=== PATIENT | male | born 1940 | race Caucasian/White ===

== ENCOUNTER 2018-06-10 14:43 | Inpatient (IN) | payer MEDICARE ==
[2018-06-10] MEDS ORDERED: RINGERS SOLUTION,LACTATED 1,000 ML IV ONE ×2 (16:52→19:50)
--- NOTE | 2018-06-10 16:58 | ER Document Report ---
ED Medical Screen (RME) - General Chief Complaint: Nausea/Vomiting Stated Complaint: VOMITING Time Seen by Provider: 06/10/18 16:48 Notes: Patient with a history of Parkinson's. Became ill this past weekend with vomiting and diarrhea for about the past 4 days. Patient has had a previous stroke and family has concerns he may have had another one because he is having difficulty with his speech in the past few days. He fell and hit the right lateral orbial rim on the floor sustaining a small laceration, less than 1 cm. He is not had any appetite and eating very poorly. Continues to have difficulty controlling his bowel movements which continue to be diarrhea. He has had to loose bowel movements in the hour and a half that the patient has been in this emergency department waiting area. Some of the stools have been dark colored, b ut family member says the patient has been given some Pepto-Bismol. Has not had any fever. Had his appendix removed. Patient has hypothyroid, hypertension, high cholesterol, and atrial fibrillation . Patient is not on any medication other than Plavix for the atrial fibrillation because he could not afford the Eliquis that his doctor wanted him to take. TRAVEL OUTSIDE OF THE [place] IN LAST 30 DAYS: No - Related Data Allergies/Adverse Reactions: No Known Allergies Allergy (Verified 06/10/18 16:39) Past Medical History - Social History Chew tobacco use (# tins/day): No Frequency of alcohol use: None Drug Abuse: None - Past Medical History Cardiac Medical History: Reports: Hx Atrial Fibrillation, Hx Hypertension Renal/ Medical History: Denies: Hx Peritoneal Dialysis Psychiatric Medical History: Reports: Hx Depression Past Surgical History: Reports: Hx Appendectomy Physical Exam - Vital signs Vitals: Temp Pulse Resp BP Pulse Ox 97.6 F 104 H 18 103/52 L 95 06/10/18 14:51 06/10/18 14:51 06/10/18 14:51 06/10/18 14:51 06/10/18 14:51 Course - Vital Signs Vital signs: Temp Pulse Resp BP Pulse Ox 97.6 F 104 H 18 103/52 L 95 06/10/18 14:51 06/10/18 14:51 06/10/18 14:51 06/10/18 14:51 06/10/18 14:51
--- NOTE | 2018-06-10 17:49 | RADIOLOGY REPORT (SQ) ---
EXAM DESCRIPTION: CT HEAD WITHOUT COMPLETED DATE/TIME: 06/10/2018 5:40 pm REASON FOR STUDY: Fell and hit right orbit, Hx stroke, Parkinson's COMPARISON: None. TECHNIQUE: Axial images acquired through the brain without intravenous contrast. Images reviewed wi th bone, brain and subdural windows. Additional sagittal and coronal reconstructions were generated. Images stored on PACS. All CT scanners at this facility use dose modulation, iterative reconstruction, and/or weight based d osing when appropriate to reduce radiation dose to as low as reasonably achievable (ALARA). [facility]: Dose Right [facility]: CareDose [facility]: Dose Right [facility]: Teradose 4D [facility]: Smart [employer] RADIATION DOSE: CT Rad equipment meets quality standard of care and radiation dose reduction techniq ues were employed. CTDIvol: 23.1 mGy. DLP: 453 mGy-cm.mGy. LIMITATIONS: None. FINDINGS: VENTRICLES: Prominent. CEREBRUM: No masses. No hemorrhage. No midline shift. Areas of low density in the white matter mos t likely due to chronic micro-vascular ischemic change. No evidence for acute infarction. CEREBELLUM: No masses. No hemorrhage. No alteration of density. No evidence for acute infarction. EXTRAAXIAL SPACES: Age-related involutional change. No fluid collections. No masses. ORBITS AND GLOBE: No intra- or extraconal masses. Normal contour of globe without masses. CALVARIUM: No fracture. PARANASAL SINUSES: No fluid or mucosal thickening. SOFT TISSUES: No mass or hematoma. OTHER: No other significant finding. IMPRESSION: CHRONIC CHANGES OF ATROPHY AND MICROVASCULAR ISCHEMIA. NO ACUTE PROCESS. EVIDENCE OF ACUTE STROKE: NO. TECHNICAL DOCUMENTATION: JOB ID: [id number] Quality ID # [id number]: Final reports with documentation of one or more dose reduction techniques (e.g., Au tomated exposure control, adjustment of the mA and/or kV according to patient size, use of iterative reconstruction technique) 2010 [employer]- All Rights Reserved Reading location - IP/workstation name: [email or web address]
--- NOTE | 2018-06-10 17:52 | RADIOLOGY REPORT (SQ) ---
EXAM DESCRIPTION: CHEST 2 VIEWS COMPLETED DATE/TIME: 06/10/2018 5:43 pm REASON FOR STUDY: Fall and hit head COMPARISON: None. EXAM PARAMETERS: NUMBER OF VIEWS: two views TECHNIQUE: Digital Frontal and Lateral radiographic views of the chest acquired. RADIATION DOSE: NA LIMITATIONS: none FINDINGS: LUNGS AND PLEURA: Possible 6 mm pulmonary nodule on the right. Left lung is clear. MEDIASTINUM AND HILAR STRUCTURES: No masses or contour abnormalities. HEART AND VASCULAR STRUCTURES: Heart normal size. No evidence for failure. BONES: No acute findings. HARDWARE: None in the chest. OTHER: No other significant finding. IMPRESSION: Possible right-sided pulmonary nodule. No acute findings. TECHNICAL DOCUMENTATION: JOB ID: [id number] [employer]- All Rights Reserved Reading location - IP/workstation name: [email or web address]
[2018-06-10 17:59] LABS: APPEARANCE,URINE SLIGHTLY-CLOUDY; BILIRUBIN,URINE NEGATIVE (NEGATIVE); COLOR,URINE AMBER; GLUCOSE, URINE NEGATIVE (NEGATIVE); KETONES,URINE TRACE mg/dL (NEGATIVE); LEUKOCYTE ESTERASE,URINE NEGATIVE (NEGATIVE); NITRITE,URINE NEGATIVE (NEGATIVE); PROTEIN,URINE NEGATIVE (NEGATIVE); URINE SPECIFIC GRAVITY 1.021
[2018-06-10 18:06] LABS: ABSOLUTE LYMPHOCYTES (AUTO) 0.9 10^3/uL (0.5-4.7); ABSOLUTE MONOCYTES (AUTO) 0.7 10^3/uL (0.1-1.4); ABSOLUTE NEUT (AUTO) 16.1 10^3/uL (1.7-8.2); BASOPHILS % (AUTO) 0.1 % (0-2); EOSINOPHILS % (AUTO) 0.1 % (0-6); HEMATOCRIT 43.7 % (37.9-51.0); LYMPHOCYTES % (AUTO) 5.2 % (13-45); MEAN CORPUSCULAR HEMOGLOBIN 31.7 pg (27.0-33.4); MEAN CORPUSCULAR HGB CONC 34.3 g/dL (32.0-36.0); MEAN CORPUSCULAR VOLUME 92 fl (80-97); MONOCYTES % (AUTO) 4.2 % (3-13); PLATELET COUNT 215 10^3/uL (150-450); RED BLOOD COUNT 4.73 10^6/uL (4.35-5.55); SEGMENTED NEUTROPHILS % (AUTO) 90.4 % (42-78); TOTAL CELLS COUNTED % (AUTO) 100 %; WHITE BLOOD COUNT 17.8 10^3/uL (4.0-10.5)
[2018-06-10 18:18] LABS: ALANINE AMINOTRANSFERASE 11 U/L (21-72); ALBUMIN 4.3 g/dL (3.5-5.0); ALKALINE PHOSPHATASE 79 U/L (38-126); ANION GAP 16 (5-19); ASPARTATE AMINO TRANSFERASE 133 U/L (17-59); BILIRUBIN,DIRECT 0.6 mg/dL (0.0-0.4); BILIRUBIN,TOTAL 3.4 mg/dL (0.2-1.3); BLOOD UREA NITROGEN 80 mg/dL (7-20); CALCIUM 9.7 mg/dL (8.4-10.2); CARBON DIOXIDE 28 mmol/L (22-30); CHLORIDE 93 mmol/L (98-107); GLUCOSE 105 mg/dL (75-110); POTASSIUM 4.1 mmol/L (3.6-5.0); SODIUM 137.1 mmol/L (137-145); TOTAL PROTEIN 7.9 g/dL (6.3-8.2)
[2018-06-10 18:33] LABS: FREE T4 (FREE THYROXINE) 1.77 ng/dL (0.78-2.19)
[2018-06-10 19:27] LABS: THYROID STIMULATING HORMONE 3.04 uIU/mL (0.47-4.68)
--- NOTE | 2018-06-10 19:43 | ER Document Report ---
ED General - General Chief Complaint: Nausea/Vomiting Stated Complaint: VOMITING Time Seen by Provider: 06/10/18 16:48 Notes: Pleasant 77-year-old male with past medical history of Parkinson's disease, A. fib, hypertension, hypothyroidism presents to the emergency department with diarrhea and vomiting since . Per son, patient was at home with him and his heard patient fall. Patient did not lose consciousness and was only down for a very brief period of time. He suffered a small laceration over his right eye. Per son, mentation was normal at the time. Also, patient has had "sour stomach" since the . Patient endorses nausea, vomiting, diarrhea, reduced appetite. Patient denies lightheadedness, dizziness, shortness of breath, chest pain, abdominal pain, new weakness in any extremities. Per patient, he is urinating normally. TRAVEL OUTSIDE OF THE [place] IN LAST 30 DAYS: No - HPI Patient complains to provider of: Diarrhea, vomiting since - Related Data Allergies/Adverse Reactions: No Known Allergies Allergy (Verified 06/10/18 16:39) Past Medical History - General Information source: Patient, Relative - Social History Smoking Status: Never Smoker Chew tobacco use (# tins/day): No Frequency of alcohol use: None Drug Abuse: None Family History: Reviewed & Not Pertinent Patient has suicidal ideation: No Patient has homicidal ideation: No - Past Medical History Cardiac Medical History: Reports: Hx Atrial Fibrillation, Hx Hypertension Renal/ Medical History: Denies: Hx Peritoneal Dialysis Psychiatric Medical History: Reports: Hx Depression Past Surgical History: Reports: Hx Appendectomy Review of Systems - Review of Systems Constitutional: See HPI EENT: See HPI Cardiovascular: See HPI Respiratory: See HPI Gastrointestinal: See HPI Genitourinary: See HPI Male Genitourinary: No symptoms reported Musculoskeletal: No symptoms reported Skin: No symptoms reported Hematologic/Lymphatic: No symptoms reported Neurological/Psychological: See HPI Physical Exam - Vital signs Vitals: Temp Pulse Resp BP Pulse Ox 97.6 F 104 H 18 103/52 L 95 06/10/18 14:51 06/10/18 14:51 06/10/18 14:51 06/10/18 14:51 06/10/18 14:51 - Notes Notes: Reviewed vital signs and nursing note as charted by RN. CONSTITUTIONAL: Well-appearing, well-nourished, acting appropriately for age HEAD: Normocephalic, laceration noted over R orbital rim ~1cm that is healing and scabbed, no active bleeding, no swelling EYES: PERRL, Conjunctivae clear, no drainage, EOMI, no scleral icterus ENT: External ears without lesions, External auditory canal is patent, airway patent, mucous membranes pink and moist NECK: Supple, no cervical lymphadenopathy, no masses CARD: Irregularly irregular rhythm, no murmurs, no rubs, no gallops, capillary refill < 2 seconds, symmetric pulses RESP: The lungs are clear to auscultation bilaterally, no wheezing, no rales, no rhonchi. Respiratory rate and effort are normal, normal chest excursion. No respiratory distress, no retractions, no stridor, no nasal flaring, no accessory muscle use. ABD/GI: Normal bowel sounds, non-distended, soft, non-tender, no rebound, no guarding, no palpable organomegaly EXT: Normal ROM in all joints, non-tender to palpation, no effusions, no edema SKIN: Normal color for age and race, warm, dry, good turgor, no acute lesions noted NEURO: No facial asymmetry, moves all extremities equally, motor and sensory function intact Course - Re-evaluation Re-evalutation: 06/10/18 19:43 77-year-old male who presents with vomiting and diarrhea since . Per son a "stomach bug" has been going around and his father was the first person to get it. Son says he has had upset stomach since the . Son states that the diarrhea has been persistent and at one point he was taking him to the bathroom every 40 minutes. Patient with a previous stroke in summer 2017, son was initially concerned that he may have had another one. CT head showed no evidence of ischemia or intracranial bleed. CMP showed [facility]LA[facility]. Pt has received 1 L Ringer's lactate. Potassium 4.1, patient mildly alkalotic, bicarb 28. Unclear if this is his baseline kidney function but per son he has no previous kidney problems and patient does urinate. Plan to give additional fluid and call hospitalist for admission 06/10/18 23:[address] Genao who agrees to accept the patient to the medical floor. - Vital Signs Vital signs: Temp Pulse Resp BP Pulse Ox 97.3 F 72 18 95/53 L 93 06/10/18 22:05 06/10/18 22:13 06/10/18 22:13 06/10/18 22:13 06/10/18 22:13 - Laboratory Result Diagrams: 06/10/18 17:26 06/10/18 17:26 Laboratory results interpreted by me: 06/10/18 06/10/18 06/10/18 17:17 17:26 17:26 WBC 17.8 H Seg Neutrophils % 90.4 H Lymphocytes % 5.2 L Absolute Neutrophils 16.1 H Chloride 93 L BUN 80 H Creatinine 4.70 H Est GFR ( Amer) 15 L Est GFR (Non-Af Amer) 12 L Total Bilirubin 3.4 H Direct Bilirubin 0.6 H AST 133 H ALT 11 L Urine Ketones TRACE H Urine Urobilinogen 2.0 H Discharge - Discharge Clinical Impression: Acute kidney injury, Dehydration Nausea & vomiting Qualifiers: Vomiting type: unspecified Vomiting Intractability: non-intractable Qualified Code(s): R11.2 - Nausea with vomiting, unspecified Condition: Stable Disposition: ADMITTED INPATIENT Admitting Provider: Hospitalist Unit Admitted: Medical Floor
[2018-06-10] MEDS ORDERED: RINGERS SOLUTION,LACTATED 1,000 ML IV PRN (19:50)
[2018-06-10] MEDS ORDERED: MAG HYDROX/AL HYDROX/SIMETH SUSP 30 ML UDCUP PO PRN (20:39)
[2018-06-10] MEDS ORDERED: MAGNESIUM HYDROXIDE SUSP 30 ML UDCUP PO PRN (20:39)
[2018-06-10] MEDS ORDERED: ONDANSETRON 4 MG TAB.RAPDIS PO PRN (20:39)
[2018-06-10] MEDS ORDERED: FAMOTIDINE 20 MG TABLET PO SCH (22:00)
[2018-06-10] MEDS: HEPARIN SOD (PORCINE) 5,000 UNIT/ML 1 ML SYRINGE SUBCUT SCH (22:58)
--- NOTE | 2018-06-11 01:39 | PDOC H&P ---
History of Present Illness Admission Date/PCP: 06/10/18 20:28 CARI FRASER MD Patient complains of: Nausea, vomiting and diarrhea History of Present Illness: JIM MORA is a 77 year old male who presented to the emergency room with a 5-day history of nausea, vomiting and diarrhea. Patient admits that he began having nausea and dyspepsia a few days before Lois and then on Saskia he developed vomiting and diarrhea. He admits to many to count episodes of relatively clear liquid stools and clear emesis over the last 72 hours prior to admission. He denies abdominal pain, hematemesis, hematochezia, fever or chills. He has not recently traveled outside the country and has not eaten any unusual or off taste food items in the last week. He has not been associated with anyone else who has a similar illness. He rates his vomiting and diarrhea as severe and denies similar prior episodes. He has not identified any aggravating or ameliorating factors for his vomiting and diarrhea. Today he was weak when he tried to get up from a seated position and seemed to lose his balance and fell striking his right periorbital region on an undetermined object in his home. He did not suffer a loss of consciousness and has only minimal pain in the right periorbital region at the site of the injury. He was seen in the ER for evaluation of the right periorbital contusion/abrasion which showed no evidence of fracture or intracranial injury. During the evaluation he was found to have severely elevated renal functions with a BUN of 80 and a crea tinine of 4.7 and was subsequently admitted hospital for treatment of his acute renal insufficiency/acute kidney injury (nontraumatic). Past Medical History Cardiac Medical History: Reports: Atrial Fibrillation, Hypertension Pulmonary Medical History: Denies: Asthma, Chronic Obstructive Pulmonary Disease (COPD) EENT Medical History: Reports: None Neurological Medical History: Reports: Other - Parkinson's disease Denies: Hemorrhagic CVA, Ischemic CVA, Seizures Endocrine Medical History: Reports: Hypothyroidism Denies: Diabetes Mellitus Type 1, Diabetes Mellitus Type 2, Hyperthyroidism Renal/ Medical History: Denies: Chronic Kidney Disease, Nephrolithiasis Malignancy Medical History: Reports: None GI Medical History: Denies: Cirrhosis, Hepatitis Musculoskeltal Medical History: Denies: Arthritis, Gout Skin Medical History: Denies: Eczema, Psoriasis Psychiatric Medical History: Reports: Depression Denies: Alcohol Dependency, Substance Abuse, Tobacco Dependency Traumatic Medical History: Reports: None Hematology: Denies: Anemia, Bleeding Tendencies Infectious Medical History: Reports: None Past Surgical History Past Surgical History: Reports: Appendectomy Social History Information Source: Patient Smoking Status: Never Smoker Frequency of Alcohol Use: None Hx Recreational Drug Use: No Drugs: None Hx Prescription Drug Abuse: No - Advance Directive Resuscitation Status: Full Code Surrogate healthcare decision maker:: Arnoldo Mora Family History Family History: Hypertension Parental Family History Reviewed: Yes Children Family History Reviewed: No Sibling(s) Family History Reviewed.: Yes Medication/Allergy Home Medications: Atorvastatin Calcium [Lipitor 40 mg Tablet] 40 mg PO DAILY 06/10/18 Carbidopa/Levodopa [Sinemet 25-100 mg Tablet] 1 each PO 5XD 06/10/18 Clopidogrel Bisulfate [Plavix] 75 mg PO DAILY 06/10/18 Levothyroxine Sodium [Synthroid 0.05 mg Tablet] 0.05 mg PO DAILY 06/10/18 Lisinopril 10 mg PO DAILY 06/10/18 Metoprolol Succinate [Toprol Xl] 25 mg PO DAILY 06/10/18 Multivitamin [One-A-Day Essential] 1 each PO DAILY 06/10/18 Sertraline HCl [Zoloft] 25 mg PO QAM 06/10/18 Allergies/Adverse Reactions: No Known Allergies Allergy (Verified 06/10/18 16:39) Review of Systems Constitutional: PRESENT: as per HPI, weakness - Generalized, resulting in a fall at home leading to admission. ABSENT: chills, fever(s) Eyes: PRESENT: as per HPI, other - No ocular pain, periorbital pain of the right lateral eye region secondary to injury and fall as reported in the history of present illness. ABSENT: visual disturbances Ears: ABSENT: hearing changes, other - Ear pain Nose, Mouth, and Throat: ABSENT: mouth pain, sore throat Cardiovascular: ABSENT: chest pain, dyspnea on exertion, palpitations Respiratory: ABSENT: cough, dyspnea Gastrointestinal: PRESENT: as per HPI, diarrhea, nausea, vomiting, other - Dyspepsia. ABSENT: abdominal pain, constipation, hematemesis, hematochezia, melena Genitourinary: ABSENT: dysuria, hematuria Musculoskeletal: ABSENT: back pain, joint swelling Integumentary: ABSENT: pruritus, rash Neurological: PRESENT: tremor(s) - Chronic secondary to parkinsonism, weakness - Generalized weakness with a fall on the day of admission evaluated in the emergency room with no evidence of injury or post fall sequelae. ABSENT: confusion, convulsions, memory loss, syncope, vertigo Psychiatric: ABSENT: anxiety, depression Endocrine: ABSENT: cold intolerance, heat intolerance Hematologic/Lymphatic: ABSENT: easy bleeding, easy bruising Physical Exam Vital Signs: Temp Pulse Resp BP Pulse Ox 97.6 F 104 H 18 103/52 L 95 06/10/18 14:51 06/10/18 14:51 06/10/18 14:51 06/10/18 14:51 06/10/18 14:51 Intake & Output 06/08/18 06/09/18 06/10/18 23:59 23:59 23:59 Intake Total 1000 Balance 1000 Weight 81.8 kg General appearance: PRESENT: no acute distress, cooperative Head exam: PRESENT: normocephalic, other - Ecchymosis with abrasion and mild edema present in the right superior lateral periorbital region. Parkinson's facial changes (expressionless) noted. Eye exam: PRESENT: conjunctiva pink, EOMI, periorbital swelling - Minimal, right superior lateral periorbital region. ABSENT: scleral icterus Ear exam: PRESENT: normal external ear exam. ABSENT: bleeding, drainage Mouth exam: PRESENT: dry mucosa, neck supple Neck exam: ABSENT: thyromegaly, tracheal deviation Respiratory exam: PRESENT: clear to auscultation emil, symmetrical, unlabored Cardiovascular exam: PRESENT: irregular rhythm - Irregularly irregular rate and rhythm. ABSENT: clicks, gallop, rubs Pulses: PRESENT: normal radial pulses, normal dorsalis pedis pul Vascular exam: PRESENT: normal capillary refill. ABSENT: pallor GI/Abdominal exam: PRESENT: normal bowel sounds, soft. 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 ABSENT: motor sensory deficit Psychiatric exam: PRESENT: appropriate affect, normal mood Skin exam: PRESENT: dry, intact, warm. ABSENT: jaundice, rash, urticaria Results Laboratory Results: 06/10/18 17:26 06/10/18 17:26 06/10/18 06/10/18 06/10/18 17:17 17:26 17:26 WBC 17.8 H RBC 4.73 Hgb 15.0 Hct 43.7 MCV 92 MCH 31.7 MCHC 34.3 RDW 14.0 Plt Count 215 Seg Neutrophils % 90.4 H Lymphocytes % 5.2 L Monocytes % 4.2 Eosinophils % 0.1 Basophils % 0.1 Absolute Neutrophils 16.1 H Absolute Lymphocytes 0.9 Absolute Monocytes 0.7 Absolute Eosinophils 0.0 Absolute Basophils 0.0 Sodium 137.1 Potassium 4.1 Chloride 93 L Carbon Dioxide 28 Anion Gap 16 BUN 80 H Creatinine 4.70 H Est GFR ( Amer) 15 L Est GFR (Non-Af Amer) 12 L Glucose 105 Calcium 9.7 Total Bilirubin 3.4 H AST 133 H ALT 11 L Alkaline Phosphatase 79 Total Protein 7.9 Albumin 4.3 TSH Free T4 Urine Color ONEIL Urine Appearance SLIGHTLY-CLOUDY Urine pH 5.0 Ur Specific [place] 1.021 Urine Protein NEGATIVE Urine Glucose (UA) NEGATIVE Urine Ketones TRACE H Urine Blood NEGATIVE Urine Nitrite NEGATIVE Ur Leukocyte Esterase NEGATIVE Urine WBC (Auto) 5 Urine RBC (Auto) 1 06/10/18 17:26 WBC RBC Hgb Hct MCV MCH MCHC RDW Plt Count Seg Neutrophils % Lymphocytes % Monocytes % Eosinophils % Basophils % Absolute Neutrophils Absolute Lymphocytes Absolute Monocytes Absolute Eosinophils Absolute Basophils Sodium Potassium Chloride Carbon Dioxide Anion Gap BUN Creatinine Est GFR ( Amer) Est GFR (Non-Af Amer) Glucose Calcium Total Bilirubin AST ALT Alkaline Phosphatase Total Protein Albumin TSH 3.04 Free T4 1.77 Urine Color Urine Appearance Urine pH Ur Specific [place] Urine Protein Urine Glucose (UA) Urine Ketones Urine Blood Urine Nitrite Ur Leukocyte Esterase Urine WBC (Auto) Urine RBC (Auto) Impressions: Chest X-Ray 06/10/18 16:49 IMPRESSION: Possible right-sided pulmonary nodule. No acute findings. Head CT 06/10/18 16:51 IMPRESSION: CHRONIC CHANGES OF ATROPHY AND MICROVASCULAR ISCHEMIA. NO ACUTE PROCESS. EVIDENCE OF ACUTE STROKE: NO. Assessment & Plan - Diagnosis (1) Acute kidney injury Is this a current diagnosis for this admission?: Yes Plan: Patient will be treated with rehydration utilizing normal saline at 167 mL/h initially with adjustments made as needed. Daily metabolic profiles will be obtained to assess renal function. (2) Acute gastroenteritis Is this a current diagnosis for this admission?: Yes Plan: Patient will be initiated on a full liquid diet with a cardiac diet restriction. He will be rehydrated with normal saline at 167 mL/h initially and will receive symptomatic care for nausea and vomiting with Zofran. Due to his generalized weakness, associated with his acute gastroenteritis, fall risk precautions will be taken. (3) Dehydration Is this a current diagnosis for this admission?: Yes Plan: Patient will be rehydrated utilizing normal saline at 167 mL/h initially with changes to be made appropriate to his clinical situation. Daily assessment of the patient's metabolic profile and magnesium levels will be obtained. (4) Chronic atrial fibrillation Is this a current diagnosis for this admission?: Yes Plan: Patient is not currently on anticoagulation therapy. He is taking Plavix 75 mg daily and aspirin 81 mg will be added to his daily regimen. He will be continued on metoprolol succinate 25 mg daily for rate control and will be observed for any complications or need for therapeutic changes. (5) HTN (hypertension) Qualifiers: Hypertension type: unspecified Qualified Code(s): I10 - Essential (primary) hypertension Is this a current diagnosis for this admission?: Yes Plan: Patient is taking only metoprolol succinate 25 mg daily for rate control of his atrial fibrillation and presumably control of his hypertension. Additional medication for this admission is initiation of low-dose aspirin therapy 81 mg daily. (6) Hypothyroidism Qualifiers: Hypothyroidism type: unspecified Qualified Code(s): E03.9 - Hypothyroidism, unspecified Is this a current diagnosis for this admission?: Yes Plan: Continue current thyroid replacement hormone as TSH and thyroid levels are within the normal range. (7) Parkinsons disease Is this a current diagnosis for this admission?: Yes Plan: This may have contributed at least in part to the patient's fall. He will continue on his current Parkinson's therapeutic regiment during his hospital course with adjustments to be made only as required clinically. - Time Time Spent: 30 to 50 Minutes Critical Time spent with patient: Less than 15 minutes Medications reviewed and adjusted accordingly: Yes Anticipated discharge: Home - Inpatient Certification Based on my medical assessment, after consideration of the patient's comorbidities, presenting symptoms, or acuity I expect that the services needed warrant INPATIENT care.: Yes I certify that my determination is in accordance with my understanding of Medicare's requirements for reasonable and necessary INPATIENT services [42 CFR 412.3e].: Yes Medical Necessity: Significant Comorbidiites Make Outpatient Treatment Too Risky , Need Close Monitoring Due to Risk of Patient Decompensation, Need For IV Fluids, Risk of Complication if Not Cared For in Hospital
[2018-06-11] MEDS: HEPARIN SOD (PORCINE) 5,000 UNIT/ML 1 ML SYRINGE SUBCUT SCH ×3 (05:35→21:18)
[2018-06-11] MEDS: LANSOPRAZOLE 15 MG TAB.RAP.DR PO SCH (05:35)
[2018-06-11] MEDS: NORMAL SALINE 1000 ML 1,000 ML IV PRN ×3 (05:36→22:11)
[2018-06-11 05:56] LABS: ABSOLUTE BASOPHILS # (AUTO) 0.1 10^3/uL (0.0-0.2); ABSOLUTE EOSINOPHILS # (AUTO) 0.2 10^3/uL (0.0-0.6); ABSOLUTE LYMPHOCYTES (AUTO) 1.4 10^3/uL (0.5-4.7); ABSOLUTE MONOCYTES (AUTO) 0.7 10^3/uL (0.1-1.4); ABSOLUTE NEUT (AUTO) 12.5 10^3/uL (1.7-8.2); BASOPHILS % (AUTO) 0.3 % (0-2); EOSINOPHILS % (AUTO) 1.1 % (0-6); HEMATOCRIT 36.5 % (37.9-51.0); LYMPHOCYTES % (AUTO) 9.2 % (13-45); MEAN CORPUSCULAR HEMOGLOBIN 31.6 pg (27.0-33.4); MEAN CORPUSCULAR HGB CONC 34.9 g/dL (32.0-36.0); MEAN CORPUSCULAR VOLUME 91 fl (80-97); PLATELET COUNT 166 10^3/uL (150-450); RED BLOOD COUNT 4.03 10^6/uL (4.35-5.55); SEGMENTED NEUTROPHILS % (AUTO) 84.4 % (42-78); TOTAL CELLS COUNTED % (AUTO) 100 %; WHITE BLOOD COUNT 14.8 10^3/uL (4.0-10.5)
[2018-06-11 06:00] LABS: HEMOGLOBIN 12.7 g/dL (13.5-17.0)
[2018-06-11 06:09] LABS: AMYLASE 70 U/L (30-110); ANION GAP 9 (5-19); BLOOD UREA NITROGEN 80 mg/dL (7-20); CALCIUM 8.9 mg/dL (8.4-10.2); CARBON DIOXIDE 27 mmol/L (22-30); CHLORIDE 103 mmol/L (98-107); CHOLESTEROL 76.51 mg/dL (0-200); GLUCOSE 75 mg/dL (75-110); LIPASE 170.8 U/L (23-300); POTASSIUM 4.6 mmol/L (3.6-5.0); SODIUM 138.8 mmol/L (137-145); TRIGLYCERIDES 93 mg/dL (<150)
[2018-06-11 06:22] LABS: DIRECT LDL 44 mg/dL (<100)
[2018-06-11] MEDS ORDERED: CARBIDOPA/LEVODOPA 10-100 MG TABLET PO SCH (07:00)
[2018-06-11] MEDS: DOCUSATE SODIUM 100 MG CAPSULE PO SCH ×2 (09:28→17:06)
[2018-06-11] MEDS: ASPIRIN 81 MG TABLET, ENT COATED PO SCH (09:42)
[2018-06-11] MEDS: LEVOTHYROXINE SODIUM 0.05 MG TABLET PO SCH (09:42)
[2018-06-11] MEDS: CARBIDOPA/LEVODOPA 25-100 MG TABLET PO SCH ×5 (09:42→19:57)
[2018-06-11] MEDS: SERTRALINE HCL 50 MG TABLET PO SCH (09:42)
[2018-06-11] MEDS: MULTIVITAMIN TABLET PO SCH (09:42)
[2018-06-11] MEDS: CLOPIDOGREL BISULFATE 75 MG TABLET PO SCH (09:42)
[2018-06-11] MEDS: METOPROLOL SUCCINATE 25 MG TAB.SR.24H PO SCH (09:42)
[2018-06-11] MEDS: ATORVASTATIN CALCIUM 40 MG TABLET PO SCH ×2 (09:45→21:18)
[2018-06-11] MEDS ORDERED: LISINOPRIL 10 MG TABLET PO SCH (10:00)
[2018-06-11] MEDS ORDERED: SERTRALINE HCL 50 MG TABLET PO SCH (10:00)
[2018-06-11] MEDS ORDERED: (PENDING PHARMACY ID) (Lisinopril [Lisinopril] 10 MG) PO SCH (10:00)
[2018-06-11] MEDS ORDERED: (PENDING PHARMACY ID) (Sertraline Hcl [Zoloft] 1 TAB) PO SCH (10:00)
--- NOTE | 2018-06-11 15:09 | EKG REPORT ---
SEVERITY:- ABNORMAL ECG - ATRIAL FIBRILLATION, V-RATE 62-87 NONSPECIFIC T ABNORMALITIES, DIFFUSE LEADS : Confirmed by: Michael Ramírez 11-Jun-2018 15:09:21
--- NOTE | 2018-06-11 16:39 | PDOC PROGRESS REPORT ---
Subjective Progress Note for:: 06/11/18 Subjective:: No adverse events overnight. Says he is feeling a lot better. Urine output is picked up. His appetite is improved. He said he feels like everyone is been very nice to him. Reason For Visit: ACUTE RENAL INSUFFICIENCY Physical Exam Vital Signs: Temp Pulse Resp BP Pulse Ox 97.1 F 59 L 16 109/52 L 96 06/11/18 15:34 06/11/18 15:34 06/11/18 15:34 06/11/18 15:34 06/11/18 15:34 Intake & Output 06/10/18 06/11/18 06/12/18 06:59 06:59 06:59 Intake Total 1999 1474 Balance 1999 1474 Weight 80.8 kg General appearance: PRESENT: no acute distress, cooperative, disheveled Respiratory exam: PRESENT: clear to auscultation emil, symmetrical, unlabored. ABSENT: accessory muscle use, crackles, rhonchi, tachypnea, wheezes Cardiovascular exam: PRESENT: RRR, +S1, +S2 Vascular exam: PRESENT: normal capillary refill GI/Abdominal exam: PRESENT: normal bowel sounds, soft. ABSENT: distended, guarding, rebound, tenderness Extremities exam: ABSENT: clubbing, pedal edema Musculoskeletal exam: PRESENT: normal inspection. ABSENT: deformity Neurological exam: PRESENT: alert, awake, oriented to person, oriented to place, oriented to time, other - He has a resting tremor while awake but goes away when he is asleep. The tremor also goes away whenever he makes an intentional voluntary movement. Psychiatric exam: PRESENT: flat affect, normal mood Skin exam: PRESENT: dry, warm Results Laboratory Results: 06/11/18 05:05 06/11/18 05:05 06/10/18 06/10/18 06/10/18 17:17 17:26 17:26 WBC 17.8 H RBC 4.73 Hgb 15.0 Hct 43.7 MCV 92 MCH 31.7 MCHC 34.3 RDW 14.0 Plt Count 215 Seg Neutrophils % 90.4 H Lymphocytes % 5.2 L Monocytes % 4.2 Eosinophils % 0.1 Basophils % 0.1 Absolute Neutrophils 16.1 H Absolute Lymphocytes 0.9 Absolute Monocytes 0.7 Absolute Eosinophils 0.0 Absolute Basophils 0.0 Sodium 137.1 Potassium 4.1 Chloride 93 L Carbon Dioxide 28 Anion Gap 16 BUN 80 H Creatinine 4.70 H Est GFR ( Amer) 15 L Est GFR (Non-Af Amer) 12 L Glucose 105 Calcium 9.7 Magnesium Total Bilirubin 3.4 H AST 133 H ALT 11 L Alkaline Phosphatase 79 Total Protein 7.9 Albumin 4.3 Triglycerides Cholesterol LDL Cholesterol Direct VLDL Cholesterol HDL Cholesterol Amylase Lipase TSH Free T4 Urine Color ONEIL Urine Appearance SLIGHTLY-CLOUDY Urine pH 5.0 Ur Specific Olar 1.021 Urine Protein NEGATIVE Urine Glucose (UA) NEGATIVE Urine Ketones TRACE H Urine Blood NEGATIVE Urine Nitrite NEGATIVE Ur Leukocyte Esterase NEGATIVE Urine WBC (Auto) 5 Urine RBC (Auto) 1 06/10/18 06/11/18 06/11/18 17:26 05:05 05:05 WBC 14.8 H RBC 4.03 L Hgb 12.7 L D Hct 36.5 L MCV 91 MCH 31.6 MCHC 34.9 RDW 14.0 Plt Count 166 Seg Neutrophils % 84.4 H Lymphocytes % 9.2 L Monocytes % 5.0 Eosinophils % 1.1 Basophils % 0.3 Absolute Neutrophils 12.5 H Absolute Lymphocytes 1.4 Absolute Monocytes 0.7 Absolute Eosinophils 0.2 Absolute Basophils 0.1 Sodium 138.8 Potassium 4.6 Chloride 103 Carbon Dioxide 27 Anion Gap 9 BUN 80 H Creatinine 3.34 H Est GFR ( Amer) 22 L Est GFR (Non-Af Amer) 18 L Glucose 75 Calcium 8.9 Magnesium 2.2 Total Bilirubin AST ALT Alkaline Phosphatase Total Protein Albumin Triglycerides 93 Cholesterol 76.51 LDL Cholesterol Direct 44 VLDL Cholesterol 19.0 HDL Cholesterol 25 L Amylase 70 Lipase 170.8 TSH 3.04 Free T4 1.77 Urine Color Urine Appearance Urine pH Ur Specific Olar Urine Protein Urine Glucose (UA) Urine Ketones Urine Blood Urine Nitrite Ur Leukocyte Esterase Urine WBC (Auto) Urine RBC (Auto) Impressions: Chest X-Ray 06/10/18 16:49 IMPRESSION: Possible right-sided pulmonary nodule. No acute findings. Head CT 06/10/18 16:51 IMPRESSION: CHRONIC CHANGES OF ATROPHY AND MICROVASCULAR ISCHEMIA. NO ACUTE PROCESS. EVIDENCE OF ACUTE STROKE: NO. Assessment & Plan - Diagnosis (1) Acute kidney injury Is this a current diagnosis for this admission?: Yes Plan: Responding very well to IV fluids. Continue to monitor urine output and electrolytes. (2) Acute gastroenteritis Is this a current diagnosis for this admission?: Yes Plan: Resolved - Time Time Spent with patient: 15-24 minutes
[2018-06-12] MEDS: NORMAL SALINE 1000 ML 1,000 ML IV PRN ×4 (04:23→21:16)
[2018-06-12] MEDS: LANSOPRAZOLE 15 MG TAB.RAP.DR PO SCH (06:11)
[2018-06-12] MEDS: CARBIDOPA/LEVODOPA 25-100 MG TABLET PO SCH ×5 (06:11→21:16)
[2018-06-12] MEDS: HEPARIN SOD (PORCINE) 5,000 UNIT/ML 1 ML SYRINGE SUBCUT SCH ×3 (06:11→21:16)
[2018-06-12] MEDS: ONDANSETRON HCL INJ/PF 4 MG/2 ML SDV IV PRN (07:39)
[2018-06-12 08:09] LABS: ABSOLUTE BASOPHILS # (AUTO) 0.1 10^3/uL (0.0-0.2); ABSOLUTE EOSINOPHILS # (AUTO) 0.3 10^3/uL (0.0-0.6); ABSOLUTE LYMPHOCYTES (AUTO) 1.2 10^3/uL (0.5-4.7); ABSOLUTE MONOCYTES (AUTO) 0.6 10^3/uL (0.1-1.4); ABSOLUTE NEUT (AUTO) 6.5 10^3/uL (1.7-8.2); BASOPHILS % (AUTO) 0.6 % (0-2); HEMATOCRIT 35.7 % (37.9-51.0); HEMOGLOBIN 12.3 g/dL (13.5-17.0); MEAN CORPUSCULAR HEMOGLOBIN 31.3 pg (27.0-33.4); MEAN CORPUSCULAR HGB CONC 34.5 g/dL (32.0-36.0); MEAN CORPUSCULAR VOLUME 91 fl (80-97); MONOCYTES % (AUTO) 7.3 % (3-13); PLATELET COUNT 180 10^3/uL (150-450); RED BLOOD COUNT 3.94 10^6/uL (4.35-5.55); RED CELL DISTRIBUTION WIDTH 13.8 % (11.5-14.0); SEGMENTED NEUTROPHILS % (AUTO) 75.1 % (42-78); TOTAL CELLS COUNTED % (AUTO) 100 %; WHITE BLOOD COUNT 8.7 10^3/uL (4.0-10.5)
[2018-06-12 08:27] LABS: ANION GAP 6 (5-19); BLOOD UREA NITROGEN 54 mg/dL (7-20); CALCIUM 8.6 mg/dL (8.4-10.2); CARBON DIOXIDE 25 mmol/L (22-30); CHLORIDE 107 mmol/L (98-107); GLUCOSE 87 mg/dL (75-110); POTASSIUM 3.9 mmol/L (3.6-5.0); SODIUM 138.4 mmol/L (137-145)
[2018-06-12] MEDS: MULTIVITAMIN TABLET PO SCH (09:27)
[2018-06-12] MEDS: LEVOTHYROXINE SODIUM 0.05 MG TABLET PO SCH (09:27)
[2018-06-12] MEDS: SERTRALINE HCL 50 MG TABLET PO SCH (09:27)
[2018-06-12] MEDS: CLOPIDOGREL BISULFATE 75 MG TABLET PO SCH (09:27)
[2018-06-12] MEDS: DOCUSATE SODIUM 100 MG CAPSULE PO SCH ×2 (09:28→17:41)
[2018-06-12] MEDS: METOPROLOL SUCCINATE 25 MG TAB.SR.24H PO SCH (09:28)
[2018-06-12] MEDS: ASPIRIN 81 MG TABLET, ENT COATED PO SCH (09:28)
--- NOTE | 2018-06-12 17:13 | PDOC PROGRESS REPORT ---
Subjective Progress Note for:: 06/12/18 Subjective:: No adverse events overnight. No new complaints. He said he was excited because there was a football game on TV that was coming on he was looking forward to. He said his appetite is good and he wants to eat a cheeseburger. His urine output has been excellent. Reason For Visit: ACUTE RENAL INSUFFICIENCY Physical Exam Vital Signs: Temp Pulse Resp BP Pulse Ox 98.3 F 64 16 98/62 L 97 06/12/18 11:25 06/12/18 11:25 06/12/18 11:25 06/12/18 11:25 06/12/18 11:25 Intake & Output 06/11/18 06/12/18 06/13/18 06:59 06:59 06:59 Intake Total 1999 4107 1000 Balance 1999 4107 1000 Weight 80.8 kg 82 kg General appearance: PRESENT: no acute distress, cooperative, disheveled Respiratory exam: PRESENT: clear to auscultation emil, symmetrical, unlabored. ABSENT: accessory muscle use, crackles, rhonchi, tachypnea, wheezes Cardiovascular exam: PRESENT: RRR, +S1, +S2 Vascular exam: PRESENT: normal capillary refill GI/Abdominal exam: PRESENT: normal bowel sounds, soft. ABSENT: distended, guarding, rebound, tenderness Extremities exam: ABSENT: clubbing, pedal edema Musculoskeletal exam: PRESENT: normal inspection. ABSENT: deformity Neurological exam: PRESENT: alert, awake, oriented to person, oriented to place, oriented to time, other - He has a resting tremor while awake but goes away when he is asleep. The tremor also goes away whenever he makes an intentional voluntary movement. Psychiatric exam: PRESENT: flat affect, normal mood Skin exam: PRESENT: dry, warm Results Laboratory Results: 06/12/18 07:38 06/12/18 07:38 06/12/18 06/12/18 07:38 07:38 WBC 8.7 RBC 3.94 L Hgb 12.3 L Hct 35.7 L MCV 91 MCH 31.3 MCHC 34.5 RDW 13.8 Plt Count 180 Seg Neutrophils % 75.1 Lymphocytes % 14.0 Monocytes % 7.3 Eosinophils % 3.0 Basophils % 0.6 Absolute Neutrophils 6.5 Absolute Lymphocytes 1.2 Absolute Monocytes 0.6 Absolute Eosinophils 0.3 Absolute Basophils 0.1 Sodium 138.4 Potassium 3.9 Chloride 107 Carbon Dioxide 25 Anion Gap 6 BUN 54 H Creatinine 1.98 H Est GFR ( Amer) 40 L Est GFR (Non-Af Amer) 33 L Glucose 87 Calcium 8.6 Magnesium 2.1 06/10/18 17:17 Clean Catch Midstream Urine Culture - Final NO GROWTH 2 DAYS Impressions: Chest X-Ray 06/10/18 16:49 IMPRESSION: Possible right-sided pulmonary nodule. No acute findings. Head CT 06/10/18 16:51 IMPRESSION: CHRONIC CHANGES OF ATROPHY AND MICROVASCULAR ISCHEMIA. NO ACUTE PROCESS. EVIDENCE OF ACUTE STROKE: NO. Assessment & Plan - Diagnosis (1) Acute kidney injury Is this a current diagnosis for this admission?: Yes Plan: Responding very well to IV fluids. Creatinine continues to trend down nicely. At this rate we may be able to take him off IV fluids tomorrow. (2) Acute gastroenteritis Is this a current diagnosis for this admission?: Yes Plan: Resolved - Time Time Spent with patient: 15-24 minutes
--- NOTE | 2018-06-12 20:30 | RADIOLOGY REPORT (SQ) ---
EXAM DESCRIPTION: CHEST SINGLE VIEW COMPLETED DATE/TIME: 06/12/2018 8:21 pm REASON FOR STUDY: Possible aspiration COMPARISON: 06/10/2018. FINDINGS: AP portable upright single-view chest timed approximately 2008 hours. Lower lung volumes. Associated vascular crowding. No suggestion of definitive pneumonia. Faint nod ule in the right lung is still identified. TECHNICAL DOCUMENTATION: JOB ID: [id number] Reading location - IP/workstation name: [email or web address]
[2018-06-12] MEDS: ATORVASTATIN CALCIUM 40 MG TABLET PO SCH (21:16)
[2018-06-13] MEDS: CARBIDOPA/LEVODOPA 25-100 MG TABLET PO SCH ×6 (02:06→21:00)
[2018-06-13] MEDS: LANSOPRAZOLE 15 MG TAB.RAP.DR PO SCH (05:26)
[2018-06-13] MEDS: NORMAL SALINE 1000 ML 1,000 ML IV PRN ×2 (05:26→14:40)
[2018-06-13] MEDS: HEPARIN SOD (PORCINE) 5,000 UNIT/ML 1 ML SYRINGE SUBCUT SCH ×3 (05:26→21:00)
[2018-06-13 06:04] LABS: ABSOLUTE EOSINOPHILS # (AUTO) 0.3 10^3/uL (0.0-0.6); ABSOLUTE LYMPHOCYTES (AUTO) 1.3 10^3/uL (0.5-4.7); ABSOLUTE MONOCYTES (AUTO) 0.8 10^3/uL (0.1-1.4); ABSOLUTE NEUT (AUTO) 8.1 10^3/uL (1.7-8.2); BASOPHILS % (AUTO) 0.4 % (0-2); EOSINOPHILS % (AUTO) 2.8 % (0-6); HEMATOCRIT 37.3 % (37.9-51.0); HEMOGLOBIN 12.8 g/dL (13.5-17.0); LYMPHOCYTES % (AUTO) 12.4 % (13-45); MEAN CORPUSCULAR HEMOGLOBIN 31.8 pg (27.0-33.4); MEAN CORPUSCULAR HGB CONC 34.4 g/dL (32.0-36.0); MEAN CORPUSCULAR VOLUME 92 fl (80-97); MONOCYTES % (AUTO) 7.7 % (3-13); PLATELET COUNT 199 10^3/uL (150-450); RED BLOOD COUNT 4.03 10^6/uL (4.35-5.55); RED CELL DISTRIBUTION WIDTH 13.9 % (11.5-14.0); SEGMENTED NEUTROPHILS % (AUTO) 76.7 % (42-78); TOTAL CELLS COUNTED % (AUTO) 100 %; WHITE BLOOD COUNT 10.5 10^3/uL (4.0-10.5)
[2018-06-13 06:25] LABS: ANION GAP 8 (5-19); BLOOD UREA NITROGEN 45 mg/dL (7-20); CALCIUM 8.6 mg/dL (8.4-10.2); CARBON DIOXIDE 25 mmol/L (22-30); CHLORIDE 108 mmol/L (98-107); GLUCOSE 109 mg/dL (75-110); POTASSIUM 4.3 mmol/L (3.6-5.0); SODIUM 141.1 mmol/L (137-145)
[2018-06-13] MEDS: ONDANSETRON HCL INJ/PF 4 MG/2 ML SDV IV PRN (08:25)
[2018-06-13] MEDS ORDERED: ACETAMINOPHEN 325 MG TABLET ONE (08:56)
[2018-06-13] MEDS: ASPIRIN 81 MG TABLET, ENT COATED PO SCH (09:00)
[2018-06-13] MEDS: LEVOTHYROXINE SODIUM 0.05 MG TABLET PO SCH (09:01)
[2018-06-13] MEDS: METOPROLOL SUCCINATE 25 MG TAB.SR.24H PO SCH (09:01)
[2018-06-13] MEDS: CLOPIDOGREL BISULFATE 75 MG TABLET PO SCH (09:01)
[2018-06-13] MEDS: SERTRALINE HCL 50 MG TABLET PO SCH (09:01)
[2018-06-13] MEDS: MULTIVITAMIN TABLET PO SCH (09:01)
[2018-06-13] MEDS: DOCUSATE SODIUM 100 MG CAPSULE PO SCH ×2 (09:02→17:18)
--- NOTE | 2018-06-13 16:01 | PDOC PROGRESS REPORT ---
Subjective Progress Note for:: 06/13/18 Subjective:: No adverse events overnight. No new complaints. No shortness of breath. Appetite's been good. Urine output has been excellent. Reason For Visit: ACUTE RENAL INSUFFICIENCY Physical Exam Vital Signs: Temp Pulse Resp BP Pulse Ox 98.4 F 87 22 H 129/89 H 95 06/13/18 11:08 06/13/18 11:08 06/13/18 11:08 06/13/18 11:08 06/13/18 11:08 Intake & Output 06/12/18 06/13/18 06/14/18 06:59 06:59 06:59 Intake Total 4107 5029 1218 Balance 4107 5029 1218 Weight 82 kg 84 kg General appearance: PRESENT: no acute distress, cooperative, disheveled Respiratory exam: PRESENT: clear to auscultation emil, symmetrical, unlabored. ABSENT: accessory muscle use, crackles, rhonchi, tachypnea, wheezes Cardiovascular exam: PRESENT: RRR, +S1, +S2 Vascular exam: PRESENT: normal capillary refill GI/Abdominal exam: PRESENT: normal bowel sounds, soft. ABSENT: distended, guarding, rebound, tenderness Extremities exam: ABSENT: clubbing, pedal edema Musculoskeletal exam: PRESENT: normal inspection. ABSENT: deformity Neurological exam: PRESENT: alert, awake, oriented to person, oriented to place, oriented to time, other - He has a resting tremor while awake but goes away when he is asleep. The tremor also goes away whenever he makes an intentional vo luntary movement. Psychiatric exam: PRESENT: flat affect, normal mood Skin exam: PRESENT: dry, warm Results Laboratory Results: 06/13/18 04:03 06/13/18 04:03 06/13/18 06/13/18 04:03 04:03 WBC 10.5 RBC 4.03 L Hgb 12.8 L Hct 37.3 L MCV 92 MCH 31.8 MCHC 34.4 RDW 13.9 Plt Count 199 Seg Neutrophils % 76.7 Lymphocytes % 12.4 L Monocytes % 7.7 Eosinophils % 2.8 Basophils % 0.4 Absolute Neutrophils 8.1 Absolute Lymphocytes 1.3 Absolute Monocytes 0.8 Absolute Eosinophils 0.3 Absolute Basophils 0.0 Sodium 141.1 Potassium 4.3 Chloride 108 H Carbon Dioxide 25 Anion Gap 8 BUN 45 H Creatinine 1.76 H Est GFR ( Amer) 46 L Est GFR (Non-Af Amer) 38 L Glucose 109 Calcium 8.6 Magnesium 2.0 06/10/18 17:17 Clean Catch Midstream Urine Culture - Final NO GROWTH 2 DAYS Impressions: Head CT 06/10/18 16:51 IMPRESSION: CHRONIC CHANGES OF ATROPHY AND MICROVASCULAR ISCHEMIA. NO ACUTE PROCESS. EVIDENCE OF ACUTE STROKE: NO. Assessment & Plan - Diagnosis (1) Acute kidney injury Is this a current diagnosis for this admission?: Yes Plan: Improving well with IV fluids. Based on his BUN to creatinine ratio today he still dehydrated and so we will going to continue with IV fluids for at least another day. (2) Acute gastroenteritis Is this a current diagnosis for this admission?: Yes Plan: Resolved - Time Time Spent with patient: 15-24 minutes
[2018-06-13] MEDS ORDERED: ALBUTEROL SULFATE 0.083% NEB 2.5 MG/3 ML AMPUL NEB ONE (18:30)
[2018-06-13] MEDS: ATORVASTATIN CALCIUM 40 MG TABLET PO SCH (21:00)
[2018-06-14] MEDS: CARBIDOPA/LEVODOPA 25-100 MG TABLET PO SCH ×4 (03:01→17:54)
[2018-06-14] MEDS: HEPARIN SOD (PORCINE) 5,000 UNIT/ML 1 ML SYRINGE SUBCUT SCH ×2 (05:09→17:52)
[2018-06-14] MEDS: LANSOPRAZOLE 15 MG TAB.RAP.DR PO SCH (05:09)
[2018-06-14 10:19] LABS: ANION GAP 7 (5-19); BLOOD UREA NITROGEN 29 mg/dL (7-20); CALCIUM 9.3 mg/dL (8.4-10.2); CARBON DIOXIDE 29 mmol/L (22-30); CHLORIDE 108 mmol/L (98-107); GLUCOSE 93 mg/dL (75-110); POTASSIUM 4.5 mmol/L (3.6-5.0); SODIUM 143.5 mmol/L (137-145)
[2018-06-14] MEDS: SERTRALINE HCL 50 MG TABLET PO SCH (12:22)
[2018-06-14] MEDS: METOPROLOL SUCCINATE 25 MG TAB.SR.24H PO SCH (12:23)
[2018-06-14] MEDS: ASPIRIN 81 MG TABLET, ENT COATED PO SCH (12:23)
[2018-06-14] MEDS: MULTIVITAMIN TABLET PO SCH (12:23)
[2018-06-14] MEDS: CLOPIDOGREL BISULFATE 75 MG TABLET PO SCH (12:23)
[2018-06-14] MEDS: DOCUSATE SODIUM 100 MG CAPSULE PO SCH ×2 (12:23→17:52)
[2018-06-14] MEDS: LEVOTHYROXINE SODIUM 0.05 MG TABLET PO SCH (12:24)
--- NOTE | 2018-06-14 16:54 | PDOC PROGRESS REPORT ---
Subjective Progress Note for:: 06/14/18 Subjective:: No adverse events overnight. No new complaints. He was having a little bit of trouble breathing yesterday so he stopped his fluids. He was resting comfortably when I came into the room. He denies any shortness of breath today. Eating and drinking without difficulty. Reason For Visit: ACUTE RENAL INSUFFICIENCY Physical Exam Vital Signs: Temp Pulse Resp BP Pulse Ox 98.3 F 68 20 127/74 H 99 06/14/18 15:00 06/14/18 15:00 06/14/18 15:00 06/14/18 15:00 06/14/18 15:00 Intake & Output 06/13/18 06/14/18 06/15/18 06:59 06:59 06:59 Intake Total 5029 2318 Balance 5029 2318 Weight 84 kg 84.6 kg General appearance: PRESENT: no acute distress, cooperative, disheveled Respiratory exam: PRESENT: clear to auscultation emil, symmetrical, unlabored. ABSENT: accessory muscle use, crackles, rhonchi, tachypnea, wheezes Cardiovascular exam: PRESENT: RRR, +S1, +S2 Vascular exam: PRESENT: normal capillary refill GI/Abdominal exam: PRESENT: normal bowel sounds, soft. ABSENT: distended, guarding, rebound, tenderness Extremities exam: ABSENT: clubbing, pedal edema Musculoskeletal exam: PRESENT: normal inspection. ABSENT: deformity Neurological exam: PRESENT: alert, awake, oriented to person, oriented to place, oriented to time, other - He has a resting tremor while awake but goes away when he is asleep. The tremor also goes away whenever he makes an intentional voluntary movement. Psychiatric exam: PRESENT: flat affect, normal mood Skin exam: PRESENT: dry, warm Results Laboratory Results: 06/13/18 04:03 06/14/18 09:20 06/14/18 09:20 Sodium 143.5 Potassium 4.5 Chloride 108 H Carbon Dioxide 29 Anion Gap 7 BUN 29 H Creatinine 1.63 H Est GFR ( Amer) 50 L Est GFR (Non-Af Amer) 41 L Glucose 93 Calcium 9.3 Impressions: Head CT 06/10/18 16:51 IMPRESSION: CHRONIC CHANGES OF ATROPHY AND MICROVASCULAR ISCHEMIA. NO ACUTE PROCESS. EVIDENCE OF ACUTE STROKE: NO. Assessment & Plan - Diagnosis (1) Acute kidney injury Is this a current diagnosis for this admission?: Yes Plan: We may actually be at his baseline. Creatinine seemed to stabilized around 1.6- 1.7. I have stopped his fluids. Were awaiting prior authorization for his insurance company to see if he can go to rehab. (2) Acute gastroenteritis Is this a current diagnosis for this admission?: Yes Plan: Resolved - Time Time Spent with patient: 15-24 minutes
[2018-06-14] MEDS: ACETAMINOPHEN 325 MG TABLET PO PRN (18:00)
[2018-06-15] MEDS: ATORVASTATIN CALCIUM 40 MG TABLET PO SCH ×2 (00:42→21:17)
[2018-06-15] MEDS: CARBIDOPA/LEVODOPA 25-100 MG TABLET PO SCH ×6 (00:43→21:17)
[2018-06-15] MEDS: HEPARIN SOD (PORCINE) 5,000 UNIT/ML 1 ML SYRINGE SUBCUT SCH ×4 (00:43→21:18)
[2018-06-15] MEDS: LANSOPRAZOLE 15 MG TAB.RAP.DR PO SCH (06:28)
[2018-06-15 10:18] LABS: ANION GAP 7 (5-19); BLOOD UREA NITROGEN 27 mg/dL (7-20); CALCIUM 9.3 mg/dL (8.4-10.2); CARBON DIOXIDE 27 mmol/L (22-30); CHLORIDE 105 mmol/L (98-107); GLUCOSE 107 mg/dL (75-110); POTASSIUM 4.1 mmol/L (3.6-5.0); SODIUM 138.9 mmol/L (137-145)
[2018-06-15] MEDS: MULTIVITAMIN TABLET PO SCH (11:24)
[2018-06-15] MEDS: LEVOTHYROXINE SODIUM 0.05 MG TABLET PO SCH (11:24)
[2018-06-15] MEDS: CLOPIDOGREL BISULFATE 75 MG TABLET PO SCH (11:25)
[2018-06-15] MEDS: ACETAMINOPHEN 325 MG TABLET PO PRN ×2 (11:25→17:25)
[2018-06-15] MEDS: SERTRALINE HCL 50 MG TABLET PO SCH (11:25)
[2018-06-15] MEDS: DOCUSATE SODIUM 100 MG CAPSULE PO SCH ×2 (11:25→17:18)
[2018-06-15] MEDS: ASPIRIN 81 MG TABLET, ENT COATED PO SCH (11:26)
[2018-06-15] MEDS: METOPROLOL SUCCINATE 25 MG TAB.SR.24H PO SCH (11:26)
--- NOTE | 2018-06-15 17:14 | PDOC PROGRESS REPORT ---
Subjective Progress Note for:: 06/15/18 Subjective:: No adverse events overnight. He was back on oxygen when I saw him today, and is seems earlier when he was trying to drink something he got choked up on it and had some trouble breathing afterwards. With the oxygen on he was laying in bed comfortably. Reason For Visit: ACUTE RENAL INSUFFICIENCY Physical Exam Vital Signs: Temp Pulse Resp BP Pulse Ox 97.8 F 61 16 147/79 H 100 06/15/18 16:20 06/15/18 16:20 06/15/18 16:20 06/15/18 16:20 06/15/18 16:20 Intake & Output 06/14/18 06/15/18 06/16/18 06:59 06:59 06:59 Intake Total 2318 1150 Balance 2318 1150 Weight 84.6 kg 83.7 kg General appearance: PRESENT: no acute distress, cooperative, disheveled Respiratory exam: PRESENT: symmetrical, unlabored, other - He did not have any outright abnormal breath sounds, but he just sounded coarse in general. ABSENT: accessory muscle use, crackles, rhonchi, tachypnea, wheezes Cardiovascular exam: PRESENT: irregular rhythm Vascular exam: PRESENT: normal capillary refill GI/Abdominal exam: PRESENT: normal bowel sounds, soft. ABSENT: distended, guarding, rebound, tenderness Extremities exam: ABSENT: clubbing, pedal edema Musculoskeletal exam: PRESENT: normal inspection. ABSENT: deformity Neurological exam: PRESENT: alert, awake, oriented to person, oriented to place, oriented to time, oriented to situation Psychiatric exam: PRESENT: flat affect Skin exam: ABSENT: dry, warm Results Laboratory Results: 06/13/18 04:03 06/15/18 09:48 06/15/18 09:48 Sodium 138.9 Potassium 4.1 Chloride 105 Carbon Dioxide 27 Anion Gap 7 BUN 27 H Creatinine 1.36 H Est GFR ( Amer) > 60 Est GFR (Non-Af Amer) 51 L Glucose 107 Calcium 9.3 Impressions: Head CT 06/10/18 16:51 IMPRESSION: CHRONIC CHANGES OF ATROPHY AND MICROVASCULAR ISCHEMIA. NO ACUTE PROCESS. EVIDENCE OF ACUTE STROKE: NO. Assessment & Plan - Diagnosis (1) Acute kidney injury Is this a current diagnosis for this admission?: Yes Plan: This is essentially resolved. We have stopped his IV fluids. His creatinine has trended even lower today. (2) Acute gastroenteritis Is this a current diagnosis for this admission?: Yes Plan: Resolved (3) Dyspnea Qualifiers: Dyspnea type: other forms of dyspnea Qualified Code(s): R06.09 - Other forms of dyspnea Is this a current diagnosis for this admission?: Yes Plan: I suspect he may have aspirated. I have ordered a chest x-ray and a speech therapy swallow evaluation. - Time Time Spent with patient: 15-24 minutes
--- NOTE | 2018-06-15 18:51 | RADIOLOGY REPORT (SQ) ---
EXAM DESCRIPTION: CHEST SINGLE VIEW COMPLETED DATE/TIME: 06/15/2018 6:36 pm REASON FOR STUDY: dyspnea COMPARISON: 06/12/2018. EXAM PARAMETERS: NUMBER OF VIEWS: One view. TECHNIQUE: Single frontal radiographic view of the chest acquired. RADIATION DOSE: NA LIMITATIONS: None. FINDINGS: LUNGS AND PLEURA: Faint densities in the lung bases. No pleural effusion. No pneumothora x. MEDIASTINUM AND HILAR STRUCTURES: No masses. Contour normal. HEART AND VASCULAR STRUCTURES: Heart normal in size. Normal vasculature. BONES: No acute findings. HARDWARE: None in the chest. OTHER: No other significant finding. IMPRESSION: FAINT BASILAR DENSITIES, ATELECTASIS VERSUS DEVELOPING INFILTRATE. TECHNICAL DOCUMENTATION: JOB ID: [id number] [employer]- All Rights Reserved Reading location - IP/workstation name: [email or web address]
[2018-06-16] MEDS: CARBIDOPA/LEVODOPA 25-100 MG TABLET PO SCH ×5 (02:03→21:15)
[2018-06-16] MEDS: HEPARIN SOD (PORCINE) 5,000 UNIT/ML 1 ML SYRINGE SUBCUT SCH ×3 (05:27→21:17)
[2018-06-16] MEDS: LANSOPRAZOLE 15 MG TAB.RAP.DR PO SCH (05:28)
[2018-06-16] MEDS: CLOPIDOGREL BISULFATE 75 MG TABLET PO SCH (12:40)
[2018-06-16] MEDS: MULTIVITAMIN TABLET PO SCH (12:41)
[2018-06-16] MEDS: METOPROLOL SUCCINATE 25 MG TAB.SR.24H PO SCH (12:41)
[2018-06-16] MEDS: ASPIRIN 81 MG TABLET, ENT COATED PO SCH (12:41)
[2018-06-16] MEDS: LEVOTHYROXINE SODIUM 0.05 MG TABLET PO SCH (12:42)
[2018-06-16] MEDS: DOCUSATE SODIUM 100 MG CAPSULE PO SCH ×2 (12:42→18:41)
[2018-06-16] MEDS: SERTRALINE HCL 50 MG TABLET PO SCH (12:42)
--- NOTE | 2018-06-16 14:16 | PDOC PROGRESS REPORT ---
Subjective Progress Note for:: 06/16/18 Subjective:: 06/16/2018 no acute events in the last 24 hours. Patient is afebrile. Speech therapy called me and told me she is going to put him on thin liquids. Physical therapy recommended OT. She is comfortable in the bed denies any complaints. Reason For Visit: ACUTE RENAL INSUFFICIENCY Physical Exam Vital Signs: Temp Pulse Resp BP Pulse Ox 98.2 F 69 20 164/92 H 100 06/16/18 11:45 06/16/18 11:45 06/16/18 11:45 06/16/18 11:45 06/16/18 11:45 Intake & Output 06/15/18 06/16/18 06/17/18 06:59 06:59 06:59 Intake Total 1150 336 Balance 1150 336 Weight 83.7 kg 82.9 kg General appearance: PRESENT: no acute distress Head exam: PRESENT: atraumatic Eye exam: PRESENT: PERRLA Mouth exam: PRESENT: moist Neck exam: ABSENT: carotid bruit, JVD, lymphadenopathy, thyromegaly Respiratory exam: PRESENT: clear to auscultation emil. ABSENT: rales, rhonchi, wheezes Cardiovascular exam: PRESENT: RRR. ABSENT: diastolic murmur, rubs, systolic murmur GI/Abdominal exam: PRESENT: normal bowel sounds, soft. ABSENT: distended, guarding, mass, organolmegaly, rebound, tenderness Extremities exam: PRESENT: full ROM. ABSENT: calf tenderness, clubbing, pedal edema Neurological exam: PRESENT: alert, awake, oriented to person, oriented to place, oriented to time, oriented to situation, CN II-XII grossly intact. ABSENT: motor sensory deficit Psychiatric exam: PRESENT: appropriate affect, normal mood. ABSENT: homicidal ideation, suicidal ideation Results Laboratory Results: 06/13/18 04:03 06/15/18 09:48 06/10/18 18:20 Blood Blood Culture - Final NO GROWTH IN 5 DAYS 06/10/18 17:26 Blood Blood Culture - Final NO GROWTH IN 5 DAYS Impressions: Head CT 06/10/18 16:51 IMPRESSION: CHRONIC CHANGES OF ATROPHY AND MICROVASCULAR ISCHEMIA. NO ACUTE P ROCESS. EVIDENCE OF ACUTE STROKE: NO. Chest X-Ray 06/15/18 00:00 IMPRESSION: FAINT BASILAR DENSITIES, ATELECTASIS VERSUS DEVELOPING INFILTRATE. Assessment & Plan - Diagnosis (1) Acute kidney injury Is this a current diagnosis for this admission?: Yes Plan: 06/16/2018-patient's admission creatinine is more than 4.7 came down to 1.36. Acute renal failure is resolved. (2) Acute gastroenteritis Is this a current diagnosis for this admission?: Yes Plan: 06/16/2017-patient came in with history of 5 days history of nausea vomiting diarrhea. Nausea vomiting diarrhea resolved. Acute gastroenteritis resolved. Blood cultures urine cultures came back negative. (3) Chronic atrial fibrillation Is this a current diagnosis for this admission?: Yes Plan: 06/16/2017-for chronic atrial fibrillation patient is on Plavix 75 mg p.o. daily aspirin p.o. 81 mg p.o. daily, he is also on metoprolol succinate 25 mg p.o. daily for rate control will continue the present management. Plan is to continue the present management. (4) HTN (hypertension) Qualifiers: Hypertension type: unspecified Qualified Code(s): I10 - Essential (primary) hypertension Is this a current diagnosis for this admission?: Yes Plan: Patient's blood pressure today is 164/92. Patient is presently on metoprolol succinate 25 mg p.o. daily. I am going to add lisinopril to the present regimen. (5) Parkinsons disease Is this a current diagnosis for this admission?: Yes Plan: 06/16/2017 patient has history of Parkinson's disease .no acute events after the admission. Plan is to continue the present management. - Time Time Spent with patient: 15-24 minutes Medications reviewed and adjusted accordingly: Yes Anticipated discharge: Home
[2018-06-16] MEDS: ERTAPENEM SODIUM 1 GM in NORMAL SALINE 50 ML IV SCH (18:45)
[2018-06-16] MEDS: ATORVASTATIN CALCIUM 40 MG TABLET PO SCH (21:15)
[2018-06-17] MEDS: CARBIDOPA/LEVODOPA 25-100 MG TABLET PO SCH ×5 (02:04→21:23)
[2018-06-17] MEDS: LANSOPRAZOLE 15 MG TAB.RAP.DR PO SCH (06:29)
[2018-06-17] MEDS: HEPARIN SOD (PORCINE) 5,000 UNIT/ML 1 ML SYRINGE SUBCUT SCH ×3 (06:29→21:23)
[2018-06-17 07:03] LABS: HEMATOCRIT 35.7 % (37.9-51.0); HEMOGLOBIN 12.3 g/dL (13.5-17.0); MEAN CORPUSCULAR HEMOGLOBIN 31.6 pg (27.0-33.4); MEAN CORPUSCULAR HGB CONC 34.3 g/dL (32.0-36.0); MEAN CORPUSCULAR VOLUME 92 fl (80-97); PLATELET COUNT 284 10^3/uL (150-450); RED BLOOD COUNT 3.88 10^6/uL (4.35-5.55); RED CELL DISTRIBUTION WIDTH 13.9 % (11.5-14.0); WHITE BLOOD COUNT 8.1 10^3/uL (4.0-10.5)
[2018-06-17 07:31] LABS: ALANINE AMINOTRANSFERASE 20 U/L (21-72); ALBUMIN 2.9 g/dL (3.5-5.0); ALKALINE PHOSPHATASE 125 U/L (38-126); ANION GAP 6 (5-19); ASPARTATE AMINO TRANSFERASE 57 U/L (17-59); BILIRUBIN,DIRECT 0.5 mg/dL (0.0-0.4); BILIRUBIN,TOTAL 2.2 mg/dL (0.2-1.3); BLOOD UREA NITROGEN 22 mg/dL (7-20); CALCIUM 8.9 mg/dL (8.4-10.2); CARBON DIOXIDE 30 mmol/L (22-30); CHLORIDE 104 mmol/L (98-107); GLUCOSE 95 mg/dL (75-110); POTASSIUM 4.2 mmol/L (3.6-5.0); SODIUM 140.3 mmol/L (137-145)
[2018-06-17 07:58] LABS: ABSOLUTE LYMPHOCYTES# (MANUAL) 1.9 10^3/uL (0.5-4.7); ABSOLUTE MONOCYTES # (MANUAL) 0.7 10^3/uL (0.1-1.4); ABSOLUTE NEUTROPHILS# (MANUAL) 5.2 10^3/uL (1.7-8.2); BASOPHILS % (MANUAL) 0 % (0-2); EOSINOPHILS % (MANUAL) 4 % (0-6); LYMPHOCYTES % (MANUAL) 21 % (13-45); METAMYELOCYTES % (MANUAL) 1 % (0); MONOCYTES % (MANUAL) 9 % (3-13); SEGMENTED NEUTROPHILS % (MAN) 63 % (42-78); TOTAL CELLS COUNTED 100
[2018-06-17 07:59] LABS: PLATELET COMMENT ADEQUATE; POLYCHROMASIA SLIGHT; TOXIC GRANULATION SLIGHT
[2018-06-17] MEDS: DOCUSATE SODIUM 100 MG CAPSULE PO SCH ×2 (09:56→19:24)
[2018-06-17] MEDS: LEVOTHYROXINE SODIUM 0.05 MG TABLET PO SCH (09:56)
[2018-06-17] MEDS: LISINOPRIL 5 MG TABLET PO SCH (09:56)
[2018-06-17] MEDS: MULTIVITAMIN TABLET PO SCH (09:56)
[2018-06-17] MEDS: SERTRALINE HCL 50 MG TABLET PO SCH (09:56)
[2018-06-17] MEDS: ASPIRIN 81 MG TABLET, ENT COATED PO SCH (09:56)
[2018-06-17] MEDS: METOPROLOL SUCCINATE 25 MG TAB.SR.24H PO SCH (09:56)
[2018-06-17] MEDS: CLOPIDOGREL BISULFATE 75 MG TABLET PO SCH (09:56)
[2018-06-17] MEDS ORDERED: LISINOPRIL 10 MG TABLET PO SCH (10:00)
[2018-06-17] MEDS ORDERED: ERTAPENEM SODIUM INJ 1 GM VIAL IV SCH (10:00)
--- NOTE | 2018-06-17 18:38 | PDOC PROGRESS REPORT ---
Subjective Progress Note for:: 06/17/18 Subjective:: Is a very pleasant 77 years old male patient admitted with chief complaint of intractable nausea vomiting and diarrhea 5 days duration. At admission patient was dehydrated for which she was accordingly managed with cautious hydration. Currently his diarrhea vomiting nausea subsided but patient is debilitated and deconditioned and he qualifies for rehab. Reason For Visit: ACUTE RENAL INSUFFICIENCY Physical Exam Vital Signs: Temp Pulse Resp BP Pulse Ox 97.6 F 68 16 159/92 H 99 06/17/18 16:11 06/17/18 16:11 06/17/18 16:11 06/17/18 16:11 06/17/18 16:11 Intake & Output 06/16/18 06/17/18 06/18/18 06:59 06:59 06:59 Intake Total 336 54 622 Balance 336 54 622 Weight 82.9 kg 82 kg General appearance: PRESENT: no acute distress Head exam: PRESENT: atraumatic Eye exam: PRESENT: conjunctiva pink Mouth exam: PRESENT: moist Neck exam: ABSENT: carotid bruit, JVD, lymphadenopathy, thyromegaly Respiratory exam: PRESENT: clear to auscultation emil. ABSENT: rales, rhonchi, wheezes Cardiovascular exam: PRESENT: RRR. ABSENT: diastolic murmur, rubs, systolic murmur GI/Abdominal exam: PRESENT: normal bowel sounds, soft. ABSENT: distended, guarding, mass, organolmegaly, rebound, tenderness Neurological exam: PRESENT: alert, awake, oriented to time, oriented to situation Results Laboratory Results: 06/17/18 06:33 06/17/18 06:33 06/17/18 06/17/18 06:33 06:33 WBC 8.1 RBC 3.88 L Hgb 12.3 L Hct 35.7 L MCV 92 MCH 31.6 MCHC 34.3 RDW 13.9 Plt Count 284 Seg Neutrophils % Not Reportable Lymphocytes % Not Reportable Monocytes % Not Reportable Eosinophils % Not Reportable Basophils % Not Reportable Absolute Neutrophils Not Reportable Absolute Lymphocytes Not Reportable Absolute Monocytes Not Reportable Absolute Eosinophils Not Reportable Absolute Basophils Not Reportable Sodium 140.3 Potassium 4.2 Chloride 104 Carbon Dioxide 30 Anion Gap 6 BUN 22 H Creatinine 1.35 H Est GFR ( Amer) > 60 Est GFR (Non-Af Amer) 52 L Glucose 95 Calcium 8.9 Magnesium 1.7 Total Bilirubin 2.2 H AST 57 ALT 20 L Alkaline Phosphatase 125 Total Protein 6.0 L Albumin 2.9 L Impressions: Head CT 06/10/18 16:51 IMPRESSION: CHRONIC CHANGES OF ATROPHY AND MICROVASCULAR ISCHEMIA. NO ACUTE PROCESS. EVIDENCE OF ACUTE STROKE: NO. Chest X-Ray 06/15/18 00:00 IMPRESSION: FAINT BASILAR DENSITIES, ATELECTASIS VERSUS DEVELOPING INFILTRATE. Assessment & Plan - Diagnosis (1) Acute kidney injury Is this a current diagnosis for this admission?: Yes Plan: Improving at admission his creatinine was 4.7 now trended to 1.35. (2) Debility and deconditioning Is this a current diagnosis for this admission?: Yes Plan: Patient qualifies for rehab placement (3) Intractable nausea, vomiting, diarrhea Is this a current diagnosis for this admission?: Yes Plan: Has subsided (4) Chronic atrial fibrillation Is this a current diagnosis for this admission?: Yes Plan: Rate controlled. (5) HTN (hypertension) Qualifiers: Hypertension type: unspecified Qualified Code(s): I10 - Essential (primary) hypertension Is this a current diagnosis for this admission?: Yes Plan: Continue current regimen (6) Hypothyroidism Qualifiers: Hypothyroidism type: unspecified Qualified Code(s): E03.9 - Hypothyroidism, unspecified Is this a current diagnosis for this admission?: Yes Plan: Continue Synthroid (7) Parkinsons disease Is this a current diagnosis for this admission?: Yes Plan: Continue carbidopa/levodopa
[2018-06-17] MEDS: ERTAPENEM SODIUM 1 GM in NORMAL SALINE 50 ML IV SCH (19:23)
[2018-06-17] MEDS: ATORVASTATIN CALCIUM 40 MG TABLET PO SCH (21:23)
[2018-06-17] MEDS ORDERED: MIRTAZAPINE 15 MG TABLET PO SCH (22:00)
[2018-06-18] MEDS: CARBIDOPA/LEVODOPA 25-100 MG TABLET PO SCH ×5 (02:08→21:08)
[2018-06-18] MEDS: HEPARIN SOD (PORCINE) 5,000 UNIT/ML 1 ML SYRINGE SUBCUT SCH ×3 (06:29→21:06)
[2018-06-18] MEDS: LANSOPRAZOLE 15 MG TAB.RAP.DR PO SCH (06:29)
[2018-06-18] MEDS: DOCUSATE SODIUM 100 MG CAPSULE PO SCH ×2 (09:28→18:49)
[2018-06-18] MEDS: SERTRALINE HCL 50 MG TABLET PO SCH (09:28)
[2018-06-18] MEDS: ASPIRIN 81 MG TABLET, ENT COATED PO SCH (09:29)
[2018-06-18] MEDS: METOPROLOL SUCCINATE 25 MG TAB.SR.24H PO SCH (09:29)
[2018-06-18] MEDS: MULTIVITAMIN TABLET PO SCH (09:29)
[2018-06-18] MEDS: LEVOTHYROXINE SODIUM 0.05 MG TABLET PO SCH (09:29)
[2018-06-18] MEDS: CLOPIDOGREL BISULFATE 75 MG TABLET PO SCH (09:34)
[2018-06-18] MEDS: LISINOPRIL 5 MG TABLET PO SCH (09:35)
--- NOTE | 2018-06-18 15:57 | PDOC PROGRESS REPORT ---
Subjective Progress Note for:: 06/18/18 Subjective:: I seen patient lying in bed. He states "he does not feel good, he is weak and does not eat well". Today patient failed to participate with physical therapy. He looks somewhat sleepy, probably it is due to the Remeron I ordered for him yesterday. Reason For Visit: ACUTE RENAL INSUFFICIENCY Physical Exam Vital Signs: Temp Pulse Resp BP Pulse Ox 97.9 F 59 L 20 149/76 H 98 06/18/18 08:00 06/18/18 08:00 06/18/18 08:00 06/18/18 08:00 06/18/18 08:00 Intake & Output 06/17/18 06/18/18 06/19/18 06:59 06:59 06:59 Intake Total 54 894 Balance 54 894 Weight 82 kg 81.7 kg General appearance: PRESENT: no acute distress Head exam: PRESENT: atraumatic Mouth exam: PRESENT: dry mucosa Neck exam: ABSENT: carotid bruit, JVD, lymphadenopathy, thyromegaly Respiratory exam: PRESENT: clear to auscultation emil. ABSENT: rales, rhonchi, wheezes Cardiovascular exam: PRESENT: RRR. ABSENT: diastolic murmur, rubs, systolic murmur Neurological exam: PRESENT: alert, awake, oriented to time, oriented to situation Results Laboratory Results: 06/17/18 06:33 06/17/18 06:33 Impressions: Head CT 06/10/18 16:51 IMPRESSION: CHRONIC CHANGES OF ATROPHY AND MICROVASCULAR ISCHEMIA. NO ACUTE PROCESS. EVIDENCE OF ACUTE STROKE: NO. Chest X-Ray 06/15/18 00:00 IMPRESSION: FAINT BASILAR DENSITIES, ATELECTASIS VERSUS DEVELOPING INFILTRATE. Assessment & Plan - Diagnosis (1) Acute kidney injury Is this a current diagnosis for this admission?: Yes Plan: Improving at admission his creatinine was 4.7 now trended to 1.35. (2) Debility and deconditioning Is this a current diagnosis for this admission?: Yes Plan: Patient qualifies for rehab placement (3) Intractable nausea, vomiting, diarrhea Is this a current diagnosis for this admission?: Yes Plan: Has subsided (4) Chronic atrial fibrillation Is this a current diagnosis for this admission?: Yes Plan: Rate controlled. (5) HTN (hypertension) Qualifiers: Hypertension type: unspecified Qualified Code(s): I10 - Essential (primary) hypertension Is this a current diagnosis for this admission?: Yes Plan: Continue current regimen (6) Hypothyroidism Qualifiers: Hypothyroidism type: unspecified Qualified Code(s): E03.9 - Hypothyroidism, unspecified Is this a current diagnosis for this admission?: Yes Plan: Continue Synthroid (7) Parkinsons disease Is this a current diagnosis for this admission?: Yes Plan: Continue carbidopa/levodopa
[2018-06-18] MEDS: ERTAPENEM SODIUM 1 GM in NORMAL SALINE 50 ML IV SCH (18:49)
[2018-06-18] MEDS: ATORVASTATIN CALCIUM 40 MG TABLET PO SCH (21:07)
[2018-06-19] MEDS: CARBIDOPA/LEVODOPA 25-100 MG TABLET PO SCH ×5 (01:56→21:34)
[2018-06-19] MEDS: HEPARIN SOD (PORCINE) 5,000 UNIT/ML 1 ML SYRINGE SUBCUT SCH ×3 (05:17→21:30)
[2018-06-19] MEDS: LANSOPRAZOLE 15 MG TAB.RAP.DR PO SCH (05:17)
[2018-06-19 06:12] LABS: ANION GAP 7 (5-19); BLOOD UREA NITROGEN 23 mg/dL (7-20); CALCIUM 8.9 mg/dL (8.4-10.2); CARBON DIOXIDE 29 mmol/L (22-30); CHLORIDE 103 mmol/L (98-107); GLUCOSE 92 mg/dL (75-110); POTASSIUM 4.2 mmol/L (3.6-5.0); SODIUM 139.3 mmol/L (137-145)
[2018-06-19] MEDS: SERTRALINE HCL 50 MG TABLET PO SCH (10:09)
[2018-06-19] MEDS: LEVOTHYROXINE SODIUM 0.05 MG TABLET PO SCH (10:09)
[2018-06-19] MEDS: ASPIRIN 81 MG TABLET, ENT COATED PO SCH (10:09)
[2018-06-19] MEDS: CLOPIDOGREL BISULFATE 75 MG TABLET PO SCH (10:09)
[2018-06-19] MEDS: METOPROLOL SUCCINATE 25 MG TAB.SR.24H PO SCH (10:09)
[2018-06-19] MEDS: LISINOPRIL 5 MG TABLET PO SCH (10:11)
[2018-06-19] MEDS: MULTIVITAMIN TABLET PO SCH (10:26)
[2018-06-19] MEDS: DOCUSATE SODIUM 100 MG CAPSULE PO SCH ×2 (10:26→18:35)
[2018-06-19] MEDS ORDERED: POLYETHYLENE GLYCOL 3350 POWDER 17 GM/1 PACKET PO PRN (11:23)
--- NOTE | 2018-06-19 13:10 | PDOC PROGRESS REPORT ---
Subjective Progress Note for:: 06/19/18 Subjective:: I seen patient sitting on recliner. He is more awake alert oriented and conversant today. Patient's is in the room and I discussed the discharge plan was seen. His insurance [employer] rejected his application for [facility] placement. We will have reapplied and waiting for the response. Reason For Visit: ACUTE RENAL INSUFFICIENCY Physical Exam Vital Signs: Temp Pulse Resp BP Pulse Ox 97.9 F 67 24 H 152/72 H 98 06/19/18 09:01 06/19/18 09:01 06/19/18 09:01 06/19/18 09:01 06/19/18 09:01 Intake & Output 06/18/18 06/19/18 06/20/18 06:59 06:59 06:59 Intake Total 894 912 Balance 894 912 Weight 81.7 kg 80.3 kg General appearance: PRESENT: no acute distress Head exam: PRESENT: atraumatic Eye exam: PRESENT: conjunctiva pink Mouth exam: PRESENT: moist Neck exam: ABSENT: carotid bruit, JVD, lymphadenopathy, thyromegaly Respiratory exam: PRESENT: clear to auscultation emil. ABSENT: rales, rhonchi, wheezes Cardiovascular exam: PRESENT: RRR. ABSENT: diastolic murmur, rubs, systolic murmur Neurological exam: PRESENT: alert, awake, oriented to time, oriented to situation Results Laboratory Results: 06/17/18 06:33 06/19/18 05:17 06/19/18 05:17 Sodium 139.3 Potassium 4.2 Chloride 103 Carbon Dioxide 29 Anion Gap 7 BUN 23 H Creatinine 1.39 H Est GFR ( Amer) > 60 Est GFR (Non-Af Amer) 50 L Glucose 92 Calcium 8.9 Impressions: Head CT 06/10/18 16:51 IMPRESSION: CHRONIC CHANGES OF ATROPHY AND MICROVASCULAR ISCHEMIA. NO ACUTE PROCESS. EVIDENCE OF ACUTE STROKE: NO. Chest X-Ray 06/15/18 00:00 IMPRESSION: FAINT BASILAR DENSITIES, ATELECTASIS VERSUS DEVELOPING INFILTRATE. Assessment & Plan - Diagnosis (1) Acute kidney injury Is this a current diagnosis for this admission?: Yes Plan: Improving at admission his creatinine was 4.7 now trended to 1.35. (2) Debility and deconditioning Is this a current diagnosis for this admission?: Yes Plan: Patient qualifies for rehab placement (3) Intractable nausea, vomiting, diarrhea Is this a current diagnosis for this admission?: Yes Plan: Has subsided (4) Chronic atrial fibrillation Is this a current diagnosis for this admission?: Yes Plan: Rate controlled. (5) HTN (hypertension) Qualifiers: Hypertension type: unspecified Qualified Code(s): I10 - Essential (primary) hypertension Is this a current diagnosis for this admission?: Yes Plan: Continue current regimen (6) Hypothyroidism Qualifiers: Hypothyroidism type: unspecified Qualified Code(s): E03.9 - Hypothyroidism, unspecified Is this a current diagnosis for this admission?: Yes Plan: Continue Synthroid (7) Parkinsons disease Is this a current diagnosis for this admission?: Yes Plan: Continue carbidopa/levodopa
[2018-06-19] MEDS: ATORVASTATIN CALCIUM 40 MG TABLET PO SCH (21:34)
[2018-06-20] MEDS: CARBIDOPA/LEVODOPA 25-100 MG TABLET PO SCH ×5 (03:35→21:07)
[2018-06-20] MEDS: LANSOPRAZOLE 15 MG TAB.RAP.DR PO SCH (05:41)
[2018-06-20] MEDS: HEPARIN SOD (PORCINE) 5,000 UNIT/ML 1 ML SYRINGE SUBCUT SCH ×3 (05:41→21:06)
[2018-06-20] MEDS: LISINOPRIL 5 MG TABLET PO SCH (09:24)
[2018-06-20] MEDS: CLOPIDOGREL BISULFATE 75 MG TABLET PO SCH (09:30)
[2018-06-20] MEDS: ASPIRIN 81 MG TABLET, ENT COATED PO SCH (09:30)
[2018-06-20] MEDS: SERTRALINE HCL 50 MG TABLET PO SCH (09:30)
[2018-06-20] MEDS: MULTIVITAMIN TABLET PO SCH (09:30)
[2018-06-20] MEDS: LEVOTHYROXINE SODIUM 0.05 MG TABLET PO SCH (09:30)
[2018-06-20] MEDS: METOPROLOL SUCCINATE 25 MG TAB.SR.24H PO SCH (09:32)
[2018-06-20] MEDS: DOCUSATE SODIUM 100 MG CAPSULE PO SCH ×2 (09:33→18:01)
--- NOTE | 2018-06-20 15:12 | PDOC PROGRESS REPORT ---
Subjective Progress Note for:: 06/20/18 Subjective:: I seen patient sitting on chair. He asked me to help him transfer from the chair to the bed. No significant change overnight. Reason For Visit: ACUTE RENAL INSUFFICIENCY Physical Exam Vital Signs: Temp Pulse Resp BP Pulse Ox 97.1 F 54 L 16 118/69 100 06/20/18 11:30 06/20/18 11:30 06/20/18 11:30 06/20/18 11:30 06/20/18 11:30 Intake & Output 06/19/18 06/20/18 06/21/18 06:59 06:59 06:59 Intake Total 912 930 590 Balance 912 930 590 Weight 80.3 kg 80.3 kg General appearance: PRESENT: no acute distress Eye exam: PRESENT: conjunctiva pink Neck exam: ABSENT: carotid bruit, JVD, lymphadenopathy, thyromegaly Respiratory exam: PRESENT: clear to auscultation emil. ABSENT: rales, rhonchi, wheezes Cardiovascular exam: PRESENT: RRR. ABSENT: diastolic murmur, rubs, systolic murmur Neurological exam: PRESENT: alert, awake, oriented to time, oriented to situation Results Laboratory Results: 06/17/18 06:33 06/19/18 05:17 Impressions: Head CT 06/10/18 16:51 IMPRESSION: CHRONIC CHANGES OF ATROPHY AND MICROVASCULAR ISCHEMIA. NO ACUTE PROCESS. EVIDENCE OF ACUTE STROKE: NO. Chest X-Ray 06/15/18 00:00 IMPRESSION: FAINT BASILAR DENSITIES, ATELECTASIS VERSUS DEVELOPING INFILTRATE. Assessment & Plan - Diagnosis (1) Acute kidney injury Is this a current diagnosis for this admission?: Yes Plan: Improving at admission his creatinine was 4.7 now trended to 1.35. (2) Debility and deconditioning Is this a current diagnosis for this admission?: Yes Plan: Patient qualifies for rehab placement (3) Intractable nausea, vomiting, diarrhea Is this a current diagnosis for this admission?: Yes Plan: Has subsided (4) Chronic atrial fibrillation Is this a current diagnosis for this admission?: Yes Plan: Rate controlled patient is on aspirin and Plavix. (5) HTN (hypertension) Qualifiers: Hypertension type: unspecified Qualified Code(s): I10 - Essential (primary) hypertension Is this a current diagnosis for this admission?: Yes Plan: Continue current regimen (6) Hypothyroidism Qualifiers: Hypothyroidism type: unspecified Qualified Code(s): E03.9 - Hypothyroidism, unspecified Is this a current diagnosis for this admission?: Yes Plan: Continue Synthroid (7) Parkinsons disease Is this a current diagnosis for this admission?: Yes Plan: Continue carbidopa/levodopa
[2018-06-20] MEDS: ATORVASTATIN CALCIUM 40 MG TABLET PO SCH (21:07)
[2018-06-21] MEDS: LANSOPRAZOLE 15 MG TAB.RAP.DR PO SCH (05:01)
[2018-06-21] MEDS: HEPARIN SOD (PORCINE) 5,000 UNIT/ML 1 ML SYRINGE SUBCUT SCH ×3 (05:01→21:40)
[2018-06-21] MEDS: CARBIDOPA/LEVODOPA 25-100 MG TABLET PO SCH ×5 (05:01→21:38)
[2018-06-21] MEDS: LISINOPRIL 5 MG TABLET PO SCH (10:12)
[2018-06-21] MEDS: CLOPIDOGREL BISULFATE 75 MG TABLET PO SCH (10:15)
[2018-06-21] MEDS: LEVOTHYROXINE SODIUM 0.05 MG TABLET PO SCH (10:15)
[2018-06-21] MEDS: ASPIRIN 81 MG TABLET, ENT COATED PO SCH (10:15)
[2018-06-21] MEDS: SERTRALINE HCL 50 MG TABLET PO SCH (10:15)
[2018-06-21] MEDS: DOCUSATE SODIUM 100 MG CAPSULE PO SCH ×2 (10:15→19:12)
[2018-06-21] MEDS: MULTIVITAMIN TABLET PO SCH (10:15)
[2018-06-21] MEDS: METOPROLOL SUCCINATE 25 MG TAB.SR.24H PO SCH (14:54)
--- NOTE | 2018-06-21 16:42 | PDOC PROGRESS REPORT ---
Subjective Subjective:: This is a very pleasant 77 years old male patient admitted with chief complaint of intractable nausea vomiting and diarrhea 5 days duration. At admission patient was dehydrated evidenced by acute kidney injury and is managed with cautious hydration. And his creatinine has been trending down. Currently his diarrhea vomiting nausea subsided but patient is debilitated and deconditioned. He has been waiting for placement to acute short-term rehab. Reason For Visit: ACUTE RENAL INSUFFICIENCY Physical Exam Vital Signs: Temp Pulse Resp BP Pulse Ox 97.7 F 58 L 18 104/59 L 100 06/21/18 11:22 06/21/18 11:22 06/21/18 11:22 06/21/18 11:22 06/21/18 11:22 Intake & Output 06/20/18 06/21/18 06/22/18 06:59 06:59 06:59 Intake Total 930 1030 Balance 930 1030 Weight 80.3 kg 79 kg General appearance: PRESENT: no acute distress Head exam: PRESENT: atraumatic Eye exam: PRESENT: conjunctiva pink Mouth exam: PRESENT: moist Neck exam: ABSENT: carotid bruit, JVD, lymphadenopathy, thyromegaly Respiratory exam: PRESENT: clear to auscultation emil. ABSENT: rales, rhonchi, wheezes Cardiovascular exam: PRESENT: irregular rhythm. ABSENT: diastolic murmur, rubs, systolic murmur GI/Abdominal exam: PRESENT: normal bowel sounds, soft. ABSENT: distended, guarding, mass, organolmegaly, rebound, tenderness Neurological exam: PRESENT: alert, awake, oriented to time, oriented to situation Results Laboratory Results: 06/17/18 06:33 06/19/18 05:17 Impressions: Head CT 06/10/18 16:51 IMPRESSION: CHRONIC CHANGES OF ATROPHY AND MICROVASCULAR ISCHEMIA. NO ACUTE PROCESS. EVIDENCE OF ACUTE STROKE: NO. Chest X-Ray 06/15/18 00:00 IMPRESSION: FAINT BASILAR DENSITIES, ATELECTASIS VERSUS DEVELOPING INFILTRATE. Assessment & Plan - Diagnosis (1) Acute kidney injury Is this a current diagnosis for this admission?: Yes Plan: Improving at admission his creatinine was 4.7 now trended to 1.35. (2) Debility and deconditioning Is this a current diagnosis for this admission?: Yes Plan: Patient qualifies for rehab placement (3) Intractable nausea, vomiting, diarrhea Is this a current diagnosis for this admission?: Yes Plan: Has subsided (4) Chronic atrial fibrillation Is this a current diagnosis for this admission?: Yes Plan: Rate controlled patient is on aspirin and Plavix. (5) HTN (hypertension) Qualifiers: Hypertension type: unspecified Qualified Code(s): I10 - Essential (primary) hypertension Is this a current diagnosis for this admission?: Yes Plan: Continue current regimen (6) Hypothyroidism Qualifiers: Hypothyroidism type: unspecified Qualified Code(s): E03.9 - Hypothyroidism, unspecified Is this a current diagnosis for this admission?: Yes Plan: Continue Synthroid (7) Parkinsons disease Is this a current diagnosis for this admission?: Yes Plan: Continue carbidopa/levodopa
[2018-06-21] MEDS: ATORVASTATIN CALCIUM 40 MG TABLET PO SCH (21:38)
[2018-06-22] MEDS: ACETAMINOPHEN 325 MG TABLET PO PRN (02:12)
[2018-06-22] MEDS: CARBIDOPA/LEVODOPA 25-100 MG TABLET PO SCH ×5 (02:12→21:28)
[2018-06-22] MEDS: HEPARIN SOD (PORCINE) 5,000 UNIT/ML 1 ML SYRINGE SUBCUT SCH ×3 (05:30→21:32)
[2018-06-22] MEDS: LANSOPRAZOLE 15 MG TAB.RAP.DR PO SCH (05:33)
[2018-06-22 06:35] LABS: ANION GAP 7 (5-19); BLOOD UREA NITROGEN 35 mg/dL (7-20); CARBON DIOXIDE 28 mmol/L (22-30); CHLORIDE 102 mmol/L (98-107); GLUCOSE 115 mg/dL (75-110); POTASSIUM 4.7 mmol/L (3.6-5.0); SODIUM 136.8 mmol/L (137-145)
[2018-06-22] MEDS: DOCUSATE SODIUM 100 MG CAPSULE PO SCH ×2 (09:00→17:25)
[2018-06-22] MEDS: CLOPIDOGREL BISULFATE 75 MG TABLET PO SCH (09:01)
[2018-06-22] MEDS: METOPROLOL SUCCINATE 25 MG TAB.SR.24H PO SCH (09:01)
[2018-06-22] MEDS: LEVOTHYROXINE SODIUM 0.05 MG TABLET PO SCH (09:01)
[2018-06-22] MEDS: LISINOPRIL 5 MG TABLET PO SCH (09:01)
[2018-06-22] MEDS: MULTIVITAMIN TABLET PO SCH (09:01)
[2018-06-22] MEDS: ASPIRIN 81 MG TABLET, ENT COATED PO SCH (09:02)
[2018-06-22] MEDS: SERTRALINE HCL 50 MG TABLET PO SCH (09:02)
--- NOTE | 2018-06-22 10:21 | PDOC CONSULTATION ---
Consultation Consult Date: 06/22/18 Consult reason:: Evaluation for admission to acute inpatient rehabilitation History of Present Illness Admission Date/PCP: 06/10/18 20:28 CARI FRASER MD Patient complains of: "I am not as strong and quick as I used to be." History of Present Illness: WEI MORA is a 77-year-old male with past medical history of chronic atrial fibrillation, hypertension, Parkinson's disease, questionable TIA/CVA in November 2017, hypothyroidism, and appendectomy admitted to [facility] on 06/10/2018 after presenting with a 5-day history of nausea, vomiting, and diarrhea and being found to have acute kidney injury due to dehydration from acute gastroenteritis. He was treated with aggressive IV fluid hydration, and his acute kidney injury is improving and his nausea, vomiting, and diarrhea have subsided. Of note, on presentation to the emergency department, the patient noted that he felt weak when getting up from a seated position and lost his balance, causing him to fall and strike his right periorbital region on an undetermined object in his home. The patient denied loss of consciousness and had only minimal right periorbital pain at the site of injury. CT head demonstrated chronic changes of atrophy and microvascular ischemia with no acute process. The patient was noted to be functioning below his baseline and physical medicine and rehabilitation consultation was requested to evaluate the patient for admission to acute inpatient rehabilitation. Today, the patient was seen and examined in his room. The patient reports that over the past several months, he has experienced a decline in his overall level of function and is limited in his mobility. Specifically, the patient lives on the second floor of his son's home in the bathroom is on the first floor. When he has to use the bathroom at nighttime, he often has great difficulty navigating the full flight of stairs. He feels that his fall prior to hospitalization was also contributed to by his Parkinson's disease. They are aggressively pursuing treatment options for his Parkinson's disease, but "they have not found the Magic pill yet." His nausea, vomiting, and diarrhea have resolved and he admits only to mild constipation at this point. He has no trouble with urination. Past Medical History Cardiac Medical History: Reports: Atrial Fibrillation, Hypertension Pulmonary Medical History: Denies: Asthma, Chronic Obstructive Pulmonary Disease (COPD) EENT Medical History: Reports: None Neurological Medical History: Reports: Other - Parkinson's disease Denies: Hemorrhagic CVA, Ischemic CVA, Seizures Endocrine Medical History: Reports: Hypothyroidism Denies: Diabetes Mellitus Type 1, Diabetes Mellitus Type 2, Hyperthyroidism Renal/ Medical History: Denies: Chronic Kidney Disease, Nephrolithiasis Malignancy Medical History: Reports: None GI Medical History: Denies: Cirrhosis, Hepatitis Musculoskeltal Medical History: Denies: Arthritis, Gout Skin Medical History: Denies: Eczema, Psoriasis Psychiatric Medical History: Reports: Depression Denies: Alcohol Dependency, Substance Abuse, Tobacco Dependency Traumatic Medical History: Reports: None Hematology: Denies: Anemia, Bleeding Tendencies Infectious Medical History: Reports: None Past Surgical History Past Surgical History: Reports: Appendectomy Social History Smoking Status: Never Smoker Last Time Smoked: 1964 Frequency of Alcohol Use: None Hx Recreational Drug Use: No Drugs: None Hx Prescription Drug Abuse: No Past Social History Note: Wei Mora lives with his son and [id number] in a 2 level home with 2 steps to enter and full flight of stairs to the bedroom; the bathroom is on the first floor. He denies smoking and using drugs and admits to drinking an occasional beer. Prior Functional Status: He requires assistance occasionally with dressing at baseline (for example putting on a shirt or coat) but is otherwise independent at baseline. Current Functional Status: Per therapy notes, the patient currently requires contact-guard assistance for bed mobility, contact-guard assistance for transfers, contact-guard assistance for regulation of 120 feet with handholding, minimum assistance for upper body dressing, and moderate assistance for lower body dressing. Of note, the patient does have an unsteady gait and requires cues for upright posture. - Advance Directive Resuscitation Status: Full Code Family History Family History: Hypertension Parental Family History Reviewed: Yes Children Family History Reviewed: Yes Sibling(s) Family History Reviewed.: Yes Medication/Allergy Home Medications: Atorvastatin Calcium [Lipitor 40 mg Tablet] 40 mg PO DAILY 06/10/18 Carbidopa/Levodopa [Sinemet 25-100 mg Tablet] 1 each PO 5XD 06/10/18 Clopidogrel Bisulfate [Plavix] 75 mg PO DAILY 06/10/18 Levothyroxine Sodium [Synthroid 0.05 mg Tablet] 0.05 mg PO DAILY 06/10/18 Lisinopril 10 mg PO DAILY 06/10/18 Metoprolol Succinate [Toprol Xl] 25 mg PO DAILY 06/10/18 Multivitamin [One-A-Day Essential] 1 each PO DAILY 06/10/18 Sertraline HCl [Zoloft] 25 mg PO QAM 06/10/18 Allergies/Adverse Reactions: No Known Allergies Allergy (Verified 06/10/18 16:39) Review of Systems Review of Systems: Constitutional: No fevers, chills, sweats, weight loss Eye: No recent visual problems, no blurry vision, no double vision ENMT: No ear pain, nasal congestion, sore throat Respiratory: No shortness of breath, cough, sputum production Cardiovascular: No chest pain, palpitations, syncope Gastrointestinal: No nausea, vomiting, diarrhea, abdominal pain Genitourinary: No hematuria, dysuria, flank or suprapubic pain Reggie/Lymph: Negative for bruising tendency, swollen lymph glands Endocrine: Negative for excessive thirst, excessive hunger, extreme fatigue Musculoskeletal: He reports that 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 He has also experienced a generalized decline in his mobility. Integumentary: No rash, pruritus, abrasions Neurologic: No headaches, focal weakness, numbness, speech problems. Psychiatric: No anxiety, depression Physical Exam Vital Signs: Temp Pulse Resp BP Pulse Ox 97.6 F 110 H 16 100/67 97 06/21/18 23:27 06/21/18 23:27 06/21/18 23:27 06/21/18 23:27 06/21/18 23:27 Intake & Output 06/21/18 06/22/18 06/23/18 06:59 06:59 06:59 Intake Total 1030 717 Balance 1030 717 Weight 79 kg 79 kg Exam: General: Awake and Alert. No acute distress. Resting comfortably in chair. Head: Normocephalic. Atraumatic. Eyes: Pupils equal, round, and reactive to light. EOMI. Sclera white. Ears: No drainage noted. Nose: Nares normal & without exudate. Oropharynx: Moist mucous membranes. Neck: Supple movements. Cardiovascular: Irregularly irregular rhythm with normal rate. Pulmonary: Lungs clear to auscultation bilaterally. No increased work of breathing. Gastrointestinal: Abdomen soft, non-tender, non-distended. Normoactive bowel sounds. Skin: Texture and turgor normal. Warm and dry. Psychiatric: Judgement and insight appear to be good. Patient is oriented to date, location, and situation. Affect appropriate. Extremities: He has limited active shoulder abduction on the left. Neurological: CN III-XII grossly intact. Sensation to light touch is grossly intact. Speech is fluent with good content and without dysarthria. He does have a resting tremor of the right upper extremity and cogwheel rigidity bilater ally. He also has somewhat of a masked facies appearance. Muscle Strength: Full 5/5 strength in all major muscle groups of the 4 extremities, except 4/5 strength of left shoulder abduction within the available range of motion. Results Laboratory Results: 06/17/18 06:33 06/22/18 05:49 06/22/18 05:49 Sodium 136.8 L Potassium 4.7 Chloride 102 Carbon Dioxide 28 Anion Gap 7 BUN 35 H Creatinine 1.47 H Est GFR ( Amer) 57 L Est GFR (Non-Af Amer) 47 L Glucose 115 H Calcium 9.0 Impressions: Head CT 06/10/18 16:51 IMPRESSION: CHRONIC CHANGES OF ATROPHY AND MICROVASCULAR ISCHEMIA. NO ACUTE PROCESS. EVIDENCE OF ACUTE STROKE: NO. Chest X-Ray 06/15/18 00:00 IMPRESSION: FAINT BASILAR DENSITIES, ATELECTASIS VERSUS DEVELOPING INFILTRATE. Assessment & Plan - Plan Summary Plan Summary: 77-year-old male with debility secondary to Parkinson's disease and dehydration from acute gastroenteritis. 1. Gait and ADL Dysfunction secondary to Parkinson's disease and dehydration from acute gastroenteritis. - Continue PT and OT to maximize mobility, safety, endurance, and self-care. 2. Parkinson's disease - Continue carbidopa/levodopa - The patient has experienced a significant decline in mobility over the past several months resulting in an increased risk of falls and injury and rehospitalization. - He is an excellent candidate for the [facility] program. 3. Acute gastroenteritis - Resolved 4. Acute kidney injury - Improving with IV fluid hydration 5. Chronic atrial fibrillation - Currently rate controlled with Toprol-XL. - The patient is not a candidate for anticoagulation due to high risk for falls. 6. Question of a history of TIA/CVA - Continue aspirin, Plavix, and atorvastatin for STROKE prophylaxis. 7. Disposition - Based on the patient's diagnosis, medical co-morbidities, and current functional status, HE is a good candidate for acute inpatient rehabilitation as HE would benefit from 3 hours per day of intensive therapies in at least 2 disciplines under the close medical supervision of a physician. The patient is expected to make significant gains in a relatively short period of time to the point that HE can safely be discharged home with supervision and assistance from family. Again, the patient is an excellent candidate for the [facility] program. This was discussed with the patient and his son via telephone and both are in agreement with the recommendation. A request for insurance preauthorization will be submitted today with a plan to admit the patient to acute inpatient rehabilitation at [facility] in [place] within the next 1-2 days. This case was discussed with the patient's acute care therapists, discharge planners, and receiving coordinator at [facility]. Thank you for allowing us to participate in the care of this patient. Please call with any questions. A total of 85 minutes was spent on [id number] communication with the patient and coordination of care.
--- NOTE | 2018-06-22 16:54 | PDOC PROGRESS REPORT ---
Subjective Progress Note for:: 06/22/18 Subjective:: No adverse events overnight. No new complaints. He is been participating with physical therapy. No cough or shortness of breath. Appetite is been good. Reason For Visit: ACUTE RENAL INSUFFICIENCY Physical Exam Vital Signs: Temp Pulse Resp BP Pulse Ox 97.6 F 110 H 16 100/67 97 06/21/18 23:27 06/21/18 23:27 06/21/18 23:27 06/21/18 23:27 06/21/18 23:27 Intake & Output 06/21/18 06/22/18 06/23/18 06:59 06:59 06:59 Intake Total 1030 717 Balance 1030 717 Weight 79 kg 79 kg General appearance: PRESENT: no acute distress, cooperative Respiratory exam: PRESENT: clear to auscultation emil, symmetrical, unlabored. ABSENT: accessory muscle use, crackles, rhonchi, tachypnea, wheezes Cardiovascular exam: PRESENT: irregular rhythm Vascular exam: PRESENT: normal capillary refill GI/Abdominal exam: PRESENT: normal bowel sounds, soft. ABSENT: distended, guarding, rebound, tenderness Extremities exam: ABSENT: clubbing, pedal edema Musculoskeletal exam: PRESENT: normal inspection. ABSENT: deformity Neurological exam: PRESENT: alert, awake, oriented to person, oriented to place, oriented to time, oriented to situation, other - He has a tremor that seems to go away at rest, and when he starts to move it seems to get a little bit worse Psychiatric exam: PRESENT: flat affect - Likely as a result of his Parkinson's, normal mood Skin exam: PRESENT: dry, warm Results Laboratory Results: 06/17/18 06:33 06/22/18 05:49 06/22/18 05:49 Sodium 136.8 L Potassium 4.7 Chloride 102 Carbon Dioxide 28 Anion Gap 7 BUN 35 H Creatinine 1.47 H Est GFR ( Amer) 57 L Est GFR (Non-Af Amer) 47 L Glucose 115 H Calcium 9.0 Impressions: Head CT 06/10/18 16:51 IMPRESSION: CHRONIC CHANGES OF ATROPHY AND MICROVASCULAR ISCHEMIA. NO ACUTE PROCESS. EVIDENCE OF ACUTE STROKE: NO. Chest X-Ray 06/15/18 00:00 IMPRESSION: FAINT BASILAR DENSITIES, ATELECTASIS VERSUS DEVELOPING INFILTRATE. Assessment & Plan - Diagnosis (1) Acute kidney injury Is this a current diagnosis for this admission?: Yes Plan: Resolved. Creatinine has stabilized. I do not know what his baseline was before he came in, but I suspect he is at baseline, be it previous baseline or a new baseline. (2) Acute gastroenteritis Is this a current diagnosis for this admission?: Yes Plan: Resolved (3) Dyspnea Qualifiers: Dyspnea type: other forms of dyspnea Qualified Code(s): R06.09 - Other forms of dyspnea Is this a current diagnosis for this admission?: Yes Plan: This is resolved. He finished treatment for an aspiration pneumonia. He is still on a diet with regular consistency foods and liquids. He seems to be tolerating it without difficulty. - Time Time Spent with patient: 15-24 minutes
[2018-06-22] MEDS: ATORVASTATIN CALCIUM 40 MG TABLET PO SCH (21:29)
[2018-06-23] MEDS: CARBIDOPA/LEVODOPA 25-100 MG TABLET PO SCH ×4 (01:09→15:42)
[2018-06-23] MEDS: HEPARIN SOD (PORCINE) 5,000 UNIT/ML 1 ML SYRINGE SUBCUT SCH ×2 (05:36→15:19)
[2018-06-23] MEDS: LANSOPRAZOLE 15 MG TAB.RAP.DR PO SCH (05:40)
[2018-06-23] MEDS: CLOPIDOGREL BISULFATE 75 MG TABLET PO SCH (09:13)
[2018-06-23] MEDS: METOPROLOL SUCCINATE 25 MG TAB.SR.24H PO SCH (09:13)
[2018-06-23] MEDS: DOCUSATE SODIUM 100 MG CAPSULE PO SCH ×2 (09:13→18:56)
[2018-06-23] MEDS: ASPIRIN 81 MG TABLET, ENT COATED PO SCH (09:13)
[2018-06-23] MEDS: MULTIVITAMIN TABLET PO SCH (09:13)
[2018-06-23] MEDS: SERTRALINE HCL 50 MG TABLET PO SCH (09:13)
[2018-06-23] MEDS: LEVOTHYROXINE SODIUM 0.05 MG TABLET PO SCH (09:13)
[2018-06-23] MEDS: LISINOPRIL 5 MG TABLET PO SCH (09:13)
--- NOTE | 2018-06-23 19:16 | PDOC PROGRESS REPORT ---
Subjective Progress Note for:: 06/23/18 Subjective:: No adverse events overnight. No new complaints. He has been participating with physical therapy. No cough or shortness of breath. Appetite is been good. He was denied for acute rehab today, now his family wants him put in assisted living. Reason For Visit: ACUTE RENAL INSUFFICIENCY Physical Exam Vital Signs: Temp Pulse Resp BP Pulse Ox 97.8 F 55 L 20 140/73 H 100 06/23/18 15:21 06/23/18 15:21 06/23/18 15:21 06/23/18 15:21 06/23/18 15:21 Intake & Output 06/22/18 06/23/18 06/24/18 06:59 06:59 06:59 Intake Total 712 115 4982 Balance 730 992 3634 Weight 79 kg 79 kg General appearance: PRESENT: no acute distress, cooperative Respiratory exam: PRESENT: clear to auscultation emil, symmetrical, unlabored. ABSENT: accessory muscle use, crackles, rhonchi, tachypnea, wheezes Cardiovascular exam: PRESENT: irregular rhythm Vascular exam: PRESENT: normal capillary refill GI/Abdominal exam: PRESENT: normal bowel sounds, soft. ABSENT: distended, guarding, rebound, tenderness Extremities exam: ABSENT: clubbing, pedal edema Musculoskeletal exam: PRESENT: normal inspection. ABSENT: deformity Neurological exam: PRESENT: alert, awake, oriented to person, oriented to place, oriented to time, oriented to situation, other - He has a tremor that seems to go away at rest, and when he starts to move it seems to get a little bit worse Psychiatric exam: PRESENT: flat affect - Likely as a result of his Parkinson's, normal mood Skin exam: PRESENT: dry, warm Results Laboratory Results: 06/17/18 06:33 06/22/18 05:49 Impressions: Head CT 06/10/18 16:51 IMPRESSION: CHRONIC CHANGES OF ATROPHY AND MICROVASCULAR ISCHEMIA. NO ACUTE PROCESS. EVIDENCE OF ACUTE STROKE: NO. Chest X-Ray 06/15/18 00:00 IMPRESSION: FAINT BASILAR DENSITIES, ATELECTASIS VERSUS DEVELOPING INFILTRATE. Assessment & Plan - Diagnosis (1) Acute kidney injury Is this a current diagnosis for this admission?: Yes Plan: Resolved. Creatinine has stabilized. I do not know what his baseline was before he came in, but I suspect he is at baseline, be it previous baseline or a new baseline. (2) Acute gastroenteritis Is this a current diagnosis for this admission?: Yes Plan: Resolved (3) Dyspnea Qualifiers: Dyspnea type: other forms of dyspnea Qualified Code(s): R06.09 - Other forms of dyspnea Is this a current diagnosis for this admission?: Yes Plan: This is resolved. He finished treatment for an aspiration pneumonia. He is still on a diet with regular consistency foods and liquids. He seems to be tolerating it without difficulty. (4) Parkinsons disease Is this a current diagnosis for this admission?: Yes Plan: He is been turned down for SNF, acute rehab, and now his family wants to see if we can get him into assisted living. - Time Time Spent with patient: 15-24 minutes
[2018-06-23] MEDS ORDERED: TUBERCULIN,PURIF.PROT.DERIV. 5 TU/0.1 ML TEST 1 ML VIAL ID ONE (20:00)
[2018-06-24] MEDS: ATORVASTATIN CALCIUM 40 MG TABLET PO SCH (00:07)
[2018-06-24] MEDS: CARBIDOPA/LEVODOPA 25-100 MG TABLET PO SCH ×4 (00:07→13:12)
[2018-06-24] MEDS: HEPARIN SOD (PORCINE) 5,000 UNIT/ML 1 ML SYRINGE SUBCUT SCH ×2 (00:10→06:06)
[2018-06-24] MEDS: LANSOPRAZOLE 15 MG TAB.RAP.DR PO SCH (06:04)
[2018-06-24] MEDS: CLOPIDOGREL BISULFATE 75 MG TABLET PO SCH (09:18)
[2018-06-24] MEDS: DOCUSATE SODIUM 100 MG CAPSULE PO SCH (09:18)
[2018-06-24] MEDS: ASPIRIN 81 MG TABLET, ENT COATED PO SCH (09:18)
[2018-06-24] MEDS: LISINOPRIL 5 MG TABLET PO SCH (09:19)
[2018-06-24] MEDS: SERTRALINE HCL 50 MG TABLET PO SCH (09:19)
[2018-06-24] MEDS: METOPROLOL SUCCINATE 25 MG TAB.SR.24H PO SCH (09:19)
[2018-06-24] MEDS: MULTIVITAMIN TABLET PO SCH (09:19)
[2018-06-24] MEDS: LEVOTHYROXINE SODIUM 0.05 MG TABLET PO SCH (09:19)
[2018-06-24 12:28] VITALS: BP 126/92
[2018-06-24] MEDS ORDERED: ONDANSETRON 4 MG TAB.RAPDIS PO PRN (15:00)
[2018-06-24] MEDS ORDERED: ONDANSETRON HCL INJ/PF 4 MG/2 ML SDV IV PRN (15:00)
--- NOTE | 2018-06-24 17:32 | PDOC DISCHARGE SUMMARY ---
General - Admit/Disc Date/PCP Admission Date/Primary Care Provider: 06/10/18 20:28 CARI FRASRE MD Discharge Date: 06/24/18 - Discharge Diagnosis (1) Acute kidney injury Is this a current diagnosis for this admission?: Yes Summary: He had a lot of volume loss from vomiting and dehydration from a bout of gastroenteritis he responded very well to IV fluids. His creatinine leveled off at around 1.5 and has been in that range. That may have been his baseline, he did not know if he had any chronic kidney disease or not. (2) Acute gastroenteritis Is this a current diagnosis for this admission?: Yes Summary: This resolved with supportive measures. He was eating and drinking well. (3) Dyspnea Is this a current diagnosis for this admission?: Yes Summary: It is suspected that he had an episode of mild aspiration when he was taking some medications, but we had a swallow evaluation done on him and he was tolerating a regular diet. He was on oxygen for a few days but was able to come off of it without incident. (4) Parkinsons disease Is this a current diagnosis for this admission?: Yes Summary: He will continue Sinemet - Additional Information Resuscitation Status: Full Code Discharge Diet: Cardiac Discharge Activity: Supervised Activity Home Medications: Atorvastatin Calcium [Lipitor 40 mg Tablet] 40 mg PO DAILY 06/10/18 Clopidogrel Bisulfate [Plavix] 75 mg PO DAILY 06/10/18 Levothyroxine Sodium [Synthroid 0.05 mg Tablet] 0.05 mg PO DAILY 06/10/18 Lisinopril 10 mg PO DAILY 06/10/18 Metoprolol Succinate [Toprol Xl] 25 mg PO DAILY 06/10/18 Multivitamin [One-A-Day Essential] 1 each PO DAILY 06/10/18 Sertraline HCl [Zoloft] 25 mg PO QAM 06/10/18 Carbidopa/Levodopa [Sinemet 25-100 mg Tablet] 1 each PO 5XD 1 Days 06/24/18 History of Present Illness History of Present Illness: JIM QUIROZ is a 77 year old male who presented to the emergency room with a 5-day history of nausea, vomiting and diarrhea. Patient admits that he began having nausea and dyspepsia a few days before and then on he developed vomiting and diarrhea. He admits to many to count episodes of relatively clear liquid stools and clear emesis over the last 72 hours prior to admission. He denies abdominal pain, hematemesis, hematochezia, fever or chills. He has not recently traveled outside the country and has not eaten any unusual or off taste food items in the last week. He has not been associated with anyone else who has a similar illness. He rates his vomiting and diarrhea as severe and denies similar prior episodes. He has not identified any aggravating or ameliorating factors for his vomiting and diarrhea. Today he was weak when he tried to get up from a seated position and seemed to lose his balance and fell striking his right periorbital region on an undetermined object in his home. He did not suffer a loss of consciousness and has only minimal pain in the right periorbital region at the site of the injury. He was seen in the ER for evaluation of the right periorbital contusion/abrasion which showed no evidence of fracture or intracranial injury. During the evaluation he was found to have severely elevated renal functions with a BUN of 80 and a creatinine of 4.7 and was subsequently admitted hospital for treatment of his acute renal insufficiency/acute kidney injury (nontraumatic). Hospital Course Hospital Course: He responded well to IV fluids. His gastroenteritis resolved with supportive care. His creatinine is leveled off at around 1.3-1.5, and this may be a baseline for him. He he had one episode of mild aspiration while he was taking some medications with water, and he needed oxygen for a couple of days, but he was soon weaned off oxygen and has been on room air ever since. He had a swallow evaluation they apparently recommended a regular diet and he is been tolerating that for the last several days without incident. We initially tried to send him to a [facility] facility but [facility] denied it. We then had him evaluated for acute rehab. [facility] accepted him and thought he would be a good candidate, but [facility] denied that as well. His family then wanted him placed in assisted living but the place they wanted to get him into does not have any beds available at the time. We are sending him home with home health and physical therapy. His labs and examination were reassuring and he was discharged home today in good condition. Physical Exam Vital Signs: Temp Pulse Resp BP Pulse Ox 97.9 F 53 L 18 126/92 H 100 06/24/18 12:25 06/24/18 12:25 06/24/18 12:25 06/24/18 12:25 06/24/18 12:25 Intake & Output 06/23/18 06/24/18 06/25/18 06:59 06:59 06:59 Intake Total 591 1875 944 Balance 591 1875 944 Weight 79 kg 79 kg General appearance: PRESENT: no acute distress, cooperative Respiratory exam: PRESENT: clear to auscultation emil, symmetrical, unlabored. ABSENT: accessory muscle use, crackles, rhonchi, tachypnea, wheezes Cardiovascular exam: PRESENT: irregular rhythm Vascular exam: PRESENT: normal capillary refill GI/Abdominal exam: PRESENT: normal bowel sounds, soft. ABSENT: distended, guarding, rebound, tenderness Extremities exam: ABSENT: clubbing, pedal edema Musculoskeletal exam: PRESENT: normal inspection. ABSENT: deformity Neurological exam: PRESENT: alert, awake, oriented to person, oriented to place, oriented to time, oriented to situation, other - He has a tremor that seems to go away at rest, and when he starts to move it seems to get a little bit worse Psychiatric exam: PRESENT: flat affect - Likely as a result of his Parkinson's, normal mood Skin exam: PRESENT: dry, warm Results Laboratory Results: 06/17/18 06:33 06/22/18 05:49 Impressions: Head CT 06/10/18 16:51 IMPRESSION: CHRONIC CHANGES OF ATROPHY AND MICROVASCULAR ISCHEMIA. NO ACUTE PROCESS. EVIDENCE OF ACUTE STROKE: NO. Chest X-Ray 06/15/18 00:00 IMPRESSION: FAINT BASILAR DENSITIES, ATELECTASIS VERSUS DEVELOPING INFILTRATE. Qualifiers - * PATIENT BEING DISCHARGED WITH ANY OF THE FOLLOWING DIAGNOSIS: No
[2018-06-25] MEDS ORDERED: LEVOTHYROXINE SODIUM 0.05 MG TABLET PO SCH (06:00)
== END 2018-06-24 15:00 | disposition home health service (06) | DRG 684 ==
LOC: ER 14:43 → EH 20:28 → 3S 22:03 → 4S 06-12 04:35
PROVIDERS: ADMIT Emergency Medicine; ATTEND Emergency Medicine
DX: N17.9 Acute kidney failure, unspecified (principal); E86.0 Dehydration; I10 Essential (primary) hypertension; G20 Parkinson's disease; I48.2 Chronic atrial fibrillation; E03.9 Hypothyroidism, unspecified; R53.81 Other malaise; R06.09 Other forms of dyspnea; Z90.49 Acquired absence of other specified parts of digestive tract; Z82.49 Family history of ischemic heart disease and other diseases of the circulatory system; K52.9 Noninfective gastroenteritis and colitis, unspecified; Z79.82 Long term (current) use of aspirin; Z79.02 Long term (current) use of antithrombotics/antiplatelets; Z79.890 Hormone replacement therapy; Z75.1 Person awaiting admission to adequate facility elsewhere; S00.211A Abrasion of right eyelid and periocular area, initial encounter; W18.30XA Fall on same level, unspecified, initial encounter; Y92.009 Unspecified place in unspecified non-institutional (private) residence as the place of occurrence of the external cause
CPT/HCPCS: 36415; 70450; 71045; 71046; 80048; 80053; 80061; 81001; 82150; 83690; 83735; 84439; 84443; 85025; 87040; 87086; 93005; 93010; 94640; 96360; 96361; 99285; G8978-GP; G8979-GP; J1335; J1644; J2405; J3490; J7030; J7120

== ENCOUNTER 2018-06-27 14:25 | Emergency (ER) | payer MEDICARE ==
--- NOTE | 2018-06-27 14:51 | ER Document Report ---
Addendum entered and electronically signed by MARK ANTHONY MUSE PA-C 06/27/18 17:07: Physical Exam - Vital signs Vitals: Resp BP Pulse Ox 16 95/78 L 94 06/27/18 14:41 06/27/18 14:41 06/27/18 14:41 - Notes Notes: Update to CV: IRR. no regular Original Note: ED General - General Stated Complaint: FALL Time Seen by Provider: 06/27/18 14:32 TRAVEL OUTSIDE OF THE [place] IN LAST 30 DAYS: No - HPI Notes: Patient is a 77-year-old male with a history of Parkinson's, previous CVA, A. fib (on Plavix) who presents to the emergency department by EMS for a fall prior to arrival in his bathroom. Patient states that he was getting out of the shower when he was reaching for his towels in his left foot slipped on the wet tile. Patient states that he fell forward and may have caught his head on the sink or the toilet, but did not lose consciousness. Patient states that he does not have any headache or pain at this time. He did have help getting off the floor and noticed that his left leg was weak for a couple minutes, but patient states that his left side was affected by previous strokes and he has no feeling of weakness greater on one side of the body. Patient states that he feels well and has been eating and drinking without difficulties. He has been urinating normally and having normal bowel movements. Patient states that he just was discharged from the hospital couple days ago for dehydration and acute kidney injury. Denies any drug allergies. No other concerns or complaints. Denies any headache, fever, neck pain, changes in vision/speech/mentation/hearing, URI, sore throat, chest pain, palpitations, syncope, cough, shortness of breath, wheeze, dyspnea, abdominal pain, nausea/vomiting/diarrhea, urinary retention, dysuria, hematuria, loss of control of bowel or bladder, numbness/tingling, saddle anesthesia, muscle paralysis, or rash. - Related Data Allergies/Adverse Reactions: No Known Allergies Allergy (Verified 06/10/18 16:39) Past Medical History - Social History Smoking Status: Unknown if Ever Smoked Family History: Hypertension - Past Medical History Cardiac Medical History: Reports: Hx Atrial Fibrillation, Hx Hypertension Pulmonary Medical History: Denies: Hx Asthma, Hx COPD Neurological Medical History: Denies: Hx Seizures Endocrine Medical History: Reports: Hx Hypothyroidism. Denies: Hx Diabetes Mellitus Type 1, Hx Diabetes Mellitus Type 2, Hx Hyperthyroidism Renal/ Medical History: Denies: Hx Peritoneal Dialysis GI Medical History: Denies: Hx Cirrhosis, Hx Hepatitis Musculoskeletal Medical History: Denies Hx Arthritis, Denies Hx Gout Skin Medical History: Denies Hx Eczema, Denies Hx Psoriasis Psychiatric Medical History: Reports: Hx Depression Infectious Medical History: Denies: Hx Hepatitis Past Surgical History: Reports: Hx Appendectomy - Immunizations Hx Pneumococcal Vaccination: 03/15/18 Review of Systems - Review of Systems -: Yes All other systems reviewed and negative Physical Exam - Vital signs Vitals: Resp BP Pulse Ox 16 95/78 L 94 06/27/18 14:41 06/27/18 14:41 06/27/18 14:41 - Notes Notes: PHYSICAL EXAMINATION: GENERAL: Well-appearing, well-nourished and in no acute distress. A&Ox4. Answers questions appropriately. Parkinson tremor noted. HEAD: Atraumatic, normocephalic. Non-tender. No torres sign EYES: Pupils equal round and reactive to light, extraocular movements intact, sclera anicteric, conjunctiva are normal. No raccoon eyes/entrapment ENT: EAC clear b/l. TM's intact b/l without erythema, fluid, or perforation. Nares patent and without discharge. oropharynx clear without exudates. No tonsilar hypertrophy or erythema. Moist mucous membranes. No sinus tenderness. No hemotympanum/CSF discharge. NECK: Normal range of motion, supple without lymphadenopathy. No rigidity. No midline tenderness. NEXUS negative. Chest: no ecchymosis. No flail chest. equal rise/fall. Non-tender LUNGS: Breath sounds clear to auscultation bilaterally and equal. No wheezes rales or rhonchi. HEART: Regular rate and rhythm without murmurs, rubs, gallops. ABDOMEN: Soft, nontender, nondistended abdomen. No guarding, no rebound. No masses appreciated. Normal bowel sounds present. No CVA tenderness bilat erally. No ecchymosis. Musculoskeletal: Ext's b/l: FROM to passive/active (LROM to left shoulde r--normal for patient, chronic issue). Strength 5+/5. No deficits noted. No bony tenderness of extremities. Back: FROM to passive/active. Strength 5+/5. No vertebral point tenderness, stepoffs, or deformities. No other bony tenderness or ecchymosis. Extremities: No cyanosis, clubbing, or edema b/l. Peripheral pulses 2+. Capillary refill less than 2 seconds. NEUROLOGICAL: NIH 0. GCS 15. Cranial nerves grossly intact. Normal speech. Normal sensory, motor exams. Reflexes 2+ b/l. Pronator drift negative. Heel/chase, finger/nose wnl. PSYCH: Normal mood, normal affect. SKIN: Warm, Dry, normal turgor, no rashes or lesions noted. Course - Re-evaluation Re-evalutation: 06/27/18 16:52 Patient is an afebrile, well-hydrated, 77-year-old male who presents to the emergency department status post mechanical fall. Vitals are currently acceptable without significant tachycardia, tachypnea, or hypoxia. PE is other grider unremarkable focal neurological deficits. Patient states that this fall was caused by wet tile when he got out of the shower when his foot slipped. He had not other precipitating symptoms. Patient states that since then he has felt well and has otherwise been asymptomatic and remained so throughout his stay. Patient's labs are all acceptable and his CT scan was unremarkable for acute pathology. Patient has not had any deterioration throughout his stay and no new concerns or complaints have developed. He is nontoxic-appearing and is tolerating p.o. without difficulty. Patient has been reevaluated multiple times and did not show any focal weakness. Patient was ambulated thereafter and is at baseline with his gait per family members without any instability or falls. Low suspicion for any acute glaucoma, temporal arteritis, meningitis, intracranial hemorrhage, ischemic stroke, or fracture at this time. Patient is aware that his condition can change from initial presentation and that he needs to monitor symptoms closely for any acute changes. Conservative measures for symptoms. Recheck with your PCM in 2-3 days. Pt has a nurse visit as well as PT/OT tomorrow as well at home. Return to the ED with any worsening/concerning symptoms as reviewed. Patient is in agreement. - Vital Signs Vital signs: Temp Pulse Resp BP Pulse Ox 21 H 104/45 L 94 06/27/18 16:01 06/27/18 16:01 06/27/18 16:01 - Laboratory Result Diagrams: 06/27/18 15:20 06/27/18 15:20 Laboratory results interpreted by me: 06/27/18 06/27/18 15:20 15:20 RBC 3.76 L Hgb 12.0 L Hct 34.9 L BUN 41 H Creatinine 1.56 H Est GFR ( Amer) 53 L Est GFR (Non-Af Amer) 44 L ALT 19 L Alkaline Phosphatase 148 H Discharge - Discharge Clinical Impression: Fall Qualifiers: Encounter type: initial encounter Qualified Code(s): W19.XXXA - Unspecified fall, initial encounter Condition: Stable Disposition: HOME, SELF-CARE Additional Instructions: Rest, Ice, Compression, Elevation Tylenol/ibuprofen as needed Light stretches daily Strength exercises as able Moist heat and massage may help F/u with your PCP in 2-3 days for a recheck Consider consult(s) with Orthopedics/physical therapy for ongoing/worsening symptoms Return to the ED with any worsening symptoms and/or development of fever, headache, changes in behavior/mentation/vision/speech, chest pain, palpitations, syncope, shortness of breath, trouble breathing, abdominal pain, n/v/d, blood in stool/urine, loss of control of bowel/bladder, urinary retention, muscle wea kness/paralysis, saddle anesthesia, numbness/tingling, or other worsening symptoms that are concerning to you. Referrals: CARI FRASER MD [Primary Care Provider] - 06/29/18
[2018-06-27 15:38] LABS: ABSOLUTE BASOPHILS # (AUTO) 0.1 10^3/uL (0.0-0.2); ABSOLUTE EOSINOPHILS # (AUTO) 0.4 10^3/uL (0.0-0.6); ABSOLUTE LYMPHOCYTES (AUTO) 1.6 10^3/uL (0.5-4.7); ABSOLUTE MONOCYTES (AUTO) 1.1 10^3/uL (0.1-1.4); ABSOLUTE NEUT (AUTO) 5.3 10^3/uL (1.7-8.2); BASOPHILS % (AUTO) 1.3 % (0-2); EOSINOPHILS % (AUTO) 4.9 % (0-6); HEMATOCRIT 34.9 % (37.9-51.0); LYMPHOCYTES % (AUTO) 18.8 % (13-45); MEAN CORPUSCULAR HGB CONC 34.6 g/dL (32.0-36.0); MEAN CORPUSCULAR VOLUME 93 fl (80-97); MONOCYTES % (AUTO) 12.8 % (3-13); PLATELET COUNT 410 10^3/uL (150-450); RED BLOOD COUNT 3.76 10^6/uL (4.35-5.55); RED CELL DISTRIBUTION WIDTH 13.8 % (11.5-14.0); SEGMENTED NEUTROPHILS % (AUTO) 62.2 % (42-78); TOTAL CELLS COUNTED % (AUTO) 100 %; WHITE BLOOD COUNT 8.5 10^3/uL (4.0-10.5)
[2018-06-27 15:45] LABS: APPEARANCE,URINE CLEAR; BILIRUBIN,URINE NEGATIVE (NEGATIVE); COLOR,URINE YELLOW; GLUCOSE, URINE NEGATIVE (NEGATIVE); KETONES,URINE NEGATIVE (NEGATIVE); LEUKOCYTE ESTERASE,URINE NEGATIVE (NEGATIVE); NITRITE,URINE NEGATIVE (NEGATIVE); PROTEIN,URINE NEGATIVE (NEGATIVE); URINE SPECIFIC GRAVITY 1.016; UROBILINOGEN,URINE NEGATIVE mg/dL (<2.0)
[2018-06-27 15:47] LABS: INTERNATIONAL RATION (INR) 1.15; PROTHROMBIN TIME 15.2 SEC (11.4-15.4)
[2018-06-27 15:48] LABS: PARTIAL THROMBOPLASTIN TIME 30.3 SEC (23.5-35.8)
[2018-06-27 15:59] LABS: ALANINE AMINOTRANSFERASE 19 U/L (21-72); ALBUMIN 3.9 g/dL (3.5-5.0); ALKALINE PHOSPHATASE 148 U/L (38-126); ANION GAP 10 (5-19); ASPARTATE AMINO TRANSFERASE 38 U/L (17-59); BILIRUBIN,DIRECT 0.2 mg/dL (0.0-0.4); BLOOD UREA NITROGEN 41 mg/dL (7-20); CALCIUM 9.3 mg/dL (8.4-10.2); CARBON DIOXIDE 27 mmol/L (22-30); CHLORIDE 104 mmol/L (98-107); GLUCOSE 91 mg/dL (75-110); POTASSIUM 4.9 mmol/L (3.6-5.0); SODIUM 141.4 mmol/L (137-145); TOTAL PROTEIN 7.1 g/dL (6.3-8.2)
--- NOTE | 2018-06-27 16:03 | RADIOLOGY REPORT (SQ) ---
EXAM DESCRIPTION: CT HEAD WITHOUT COMPLETED DATE/TIME: 06/27/2018 3:53 pm REASON FOR STUDY: fall, head injury COMPARISON: 06/10/2018 TECHNIQUE: Axial images acquired through the brain without intravenous contrast. Images reviewed wi th bone, brain and subdural windows. Additional sagittal and coronal reconstructions were generated. Images stored on PACS. All CT scanners at this facility use dose modulation, iterative reconstruction, and/or weight based d osing when appropriate to reduce radiation dose to as low as reasonably achievable (ALARA). [facility]: Dose Right [facility]: CareDose [facility]: Dose Right [facility]: Teradose 4D [facility]: Smart Social Strategy 1 RADIATION DOSE: CT Rad equipment meets quality standard of care and radiation dose reduction techniq ues were employed. CTDIvol: 49.9 mGy. DLP: 1030 mGy-cm. mGy. LIMITATIONS: None. FINDINGS: VENTRICLES: Prominent ventricles secondary to involutional atrophy. CEREBRUM: No masses. No hemorrhage. No midline shift. No evidence for acute infarction. Unchanged scattered supratentorial hypodensities. CEREBELLUM: No masses. No hemorrhage. No alteration of density. No evidence for acute infarction. EXTRAAXIAL SPACES: No fluid collections. No masses. ORBITS AND GLOBE: No intra- or extraconal masses. Normal contour of globe without masses. CALVARIUM: No fracture. PARANASAL SINUSES: Mucoperiosteal thickening of the maxillary sinuses. SOFT TISSUES: No mass or hematoma. OTHER: No other significant finding. IMPRESSION: MICROVASCULAR ISCHEMIA AND GENERALIZED ATROPHY. NO ACUTE IMAGING FINDINGS IN THE BRAIN EVIDENCE OF ACUTE STROKE: NO. COMMENT: Quality ID # [id number]: Final reports with documentation of one or more dose reduction techniques (e.g., Automated exposure control, adjustment of the mA and/or kV according to patient size, use of iterative reconstruction technique) TECHNICAL DOCUMENTATION: JOB ID: [id number] [employer]- All Rights Reserved Reading location - IP/workstation name: [email or web address]
[2018-06-27 17:06] VITALS: BP 123/96
== END 2018-06-27 17:15 | disposition home or self-care (01) ==
LOC: ER 14:25
DX: Z04.3 Encounter for examination and observation following other accident (principal); R53.1 Weakness; I10 Essential (primary) hypertension; G20 Parkinson's disease; I48.91 Unspecified atrial fibrillation; Z79.02 Long term (current) use of antithrombotics/antiplatelets; Z86.73 Personal history of transient ischemic attack (TIA), and cerebral infarction without residual deficits
CPT/HCPCS: 36415; 70450; 80053; 81001; 85025; 85610; 85730; 99284

== ENCOUNTER 2019-01-14 09:15 | Inpatient (IN) | payer MEDICARE ==
--- NOTE | 2019-01-14 09:40 | ER Document Report ---
ED General <OPAL DASH - Last Filed: 01/14/19 13:13> - General Mode of Arrival: Medic Information source: Patient, Relative - son TRAVEL OUTSIDE OF THE [place] IN LAST 30 DAYS: No - HPI Onset: Yesterday Onset/Duration: Sudden Associated symptoms: None Exacerbated by: Movement, Walking Relieved by: Denies Similar symptoms previously: No Recently seen / treated by doctor: No <NAZIA LEE - Last Filed: 01/14/19 19:05> - General Stated Complaint: FALL,BODY PAIN Time Seen by Provider: 01/14/19 09:32 Notes: This 78-year-old male presents the emergency department via EMS post fall from yesterday p.m. at approximately 1900. Son reports he walked up the steps without problem and then fell down head first approximately 15 carpeted steps. Patient reports he lost his footing. Denies change in LOC. Reports he got up and walked around afterwards. His hmlckgjm-en-cdq is a nurse she took his vital signs he seemed fine. He called his son in the middle night to help with the urinal. Son reports when he stood him up he fell right back down. Patient was unable to stand. He reports his legs felt rubbery. Patient has a two small abrasions to the right side of his forehead, left lower lip and a large hematoma to his left flank. He denies pain to his abdomen reports some pain to his chest wall with palpation. Denies pain to the extremities. No obvious deformity noted. Patient is in good spirits telling jokes. Son reports patient takes Plavix for history of A. 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 Patient speech is slurred son reports is worse now since he fell but also reports that he had slurred speech due to the Parkinson's and stroke. Patient is alert and oriented answering all questions appropriately. (NAZIA LEE) - Related Data Allergies/Adverse Reactions: No Known Allergies Allergy (Verified 06/10/18 16:39) Past Medical History - General Information source: Patient, Relative - Social History Smoking Status: Unknown if Ever Smoked Cigarette use (# per day): No Frequency of alcohol use: None Drug Abuse: None Lives with: Family Family History: Hypertension Patient has suicidal ideation: No Patient has homicidal ideation: No - Medical History Medical History: Other - parkinsons - Past Medical History Cardiac Medical History: Reports: Hx Atrial Fibrillation, Hx Hypertension Pulmonary Medical History: Denies: Hx Asthma, Hx COPD Neurological Medical History: Reports: Hx Cerebrovascular Accident. Denies: Hx Seizures Endocrine Medical History: Reports: Hx Hypothyroidism. Denies: Hx Diabetes Mellitus Type 1, Hx Diabetes Mellitus Type 2, Hx Hyperthyroidism Renal/ Medical History: Denies: Hx Peritoneal Dialysis GI Medical History: Denies: Hx Cirrhosis, Hx Hepatitis Musculoskeletal Medical History: Denies Hx Arthritis, Denies Hx Gout Skin Medical History: Denies Hx Eczema, Denies Hx Psoriasis Psychiatric Medical History: Reports: Hx Depression Infectious Medical History: Denies: Hx Hepatitis Past Surgical History: Reports: Hx Appendectomy - Immunizations Hx Pneumococcal Vaccination: 03/15/18 <NAZIA LEE - Last Filed: 01/14/19 19:05> Review of Systems <NAZIA LEE - Last Filed: 01/14/19 19:05> - Review of Systems Notes: Review HPI for review of systems., All other systems negative (NAZIA LEE) Physical Exam - General General appearance: Alert In distress: None - HEENT Head: Abrasions Eyes: Normal Conjunctiva: Normal Extraocular movements intact: Yes Nasal: Normal Mucous membranes: Moist Pharynx: Normal Neck: Normal, Other - no vertebral tenderness. No: Lymphadenopathy - Respiratory Respiratory status: No respiratory distress Chest status: Tender, Pain with cough. No: Ecchymosis Chest palpation: No: Flail segment - Cardiovascular Heart sounds: Normal auscultation Murmur: No Normal capillary refill: Yes - for age - Abdominal Inspection: Normal Distension: No distension Bowel sounds: Normal Tenderness: Nontender Organomegaly: No organomegaly - Back Back: Normal - denies vertebral tendernsss, CVA tenderness - left flank hematoma, Other. No: Deformity/step-off, Vertebra tenderness - Extremities General upper extremity: Normal color General lower extremity: Normal color - Neurological Neuro grossly intact: Yes Cognition: Normal Orientation: AAOx4 [place] Coma Scale Eye Opening: Spontaneous [place] Coma Scale Verbal: Oriented Javier Coma Scale Motor: Obeys Commands [place] Coma Scale Total: 15 Speech: Other - slurred - Psychological Associated symptoms: Normal affect, Normal mood - Skin Skin Temperature: Warm Skin Moisture: Dry Location of irregularity: Face - abrasions, forehead, lower lip, Back - multiple small abrasions to back. right shoulder, Other - left flank hematoma <NAZIA LEE - Last Filed: 01/14/19 19:05> - Vital signs Vitals: Temp 98.6 F 01/14/19 09:25 Course - Laboratory Result Diagrams: 01/14/19 09:20 01/14/19 09:20 <OPAL DASH - Last Filed: 01/14/19 13:13> - Laboratory Result Diagrams: 01/14/19 09:20 01/14/19 09:20 - Diagnostic Test Radiology reviewed: Image reviewed, Reports reviewed - EKG Interpretation by Me Rhythm: A.Fib When compared to previous EKG there are: No significant change <JESUSNZAIA - Last Filed: 01/14/19 19:05> - Re-evaluation Re-evalutation: I did personally seen and examined this patient in conjunction with the nurse practitioner Any Lee. Patient fell down the steps yesterday, complaining of left-sided pain since falling down the steps. He is on blood thinners. Examination is consistent with the CT scan findings of comminuted rib fracture on the left. Abdomen is soft though there is a concern for possible splenic injury on the CT scan. Patient currently stable. Discussed with Ms. Lee that the patient should be observed by surgery or medicine. She has made these phone calls and patient will be brought into the hospital. No indication for emergent surgery at this point. 01/14/19 13:13 (OPAL DASH) 01/14/19 09:41 This 78-year-old male presents the emergency department via EMS post fall from yesterday p.m. at approximately 1900. Son reports he walked up the steps without problem and then fell down head first approximately 15 [address] steps. Patient reports he lost his footing. Denies feeling dizzy or having chest pain. Denies change in LOC. Reports he got up and walked around afterwards. His rzihhptz-dj-vqz is a nurse she took his vital signs he seemed fine. He called his son in the middle night to help with the urinal. Son reports when he stood him up he fell right back down. Patient was unable to stand. He reports his legs felt rubbery. Patient has a two small abrasions to the right side of his forehead, left lower lip and a large hematoma to his left flank. He denies pain to his abdomen reports some pain to his chest wall with palpation. Denies pain to the extremities. No obvious deformity noted. Patient is in good spirits telling jokes. Son reports patient takes Plavix for history of A. 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 Patient speech is slurred son reports is worse now since he fell but also reports that he had slurred speech due to the Parkinson's and stroke. Patient is alert and oriented answering all questions appropriately. Will evaluate with CT of his head neck chest and abdomen. Cervical collar applied. Will obtain labs. Patient and son updated on plan of care. Verbalized understanding to all. 01/14/19 11:00 Comminuted fracture of the ninth rib left side noted. CT of the head and neck negative for acute fracture injury. Cannot exclude injury to explain there is no evidence of hemorrhage at this time. Diverticulosis. CK elevated 7386 CKMB 8.75, Troponin <0.012 BUN/CR 39/1.60 noted with history of KYLHA Discussed results with patient and family. Dr. Dash consulted and was in to assess patient. Advises admission. Dr. Shafer contacted for admission and agrees with admission. Carmen Barreto CHEST PAIN COORDINATOR consulted for admission and will be down to see patient. Dictation of this chart was performed using voice recognition software; therefore, there may be some unintended grammatical errors. Abdomen/Pelvis CT 01/14/19 09:32 IMPRESSION: 1. Cannot entirely exclude an injury to the spleen. There is no evidence of hemorrhage outside of the splenic capsule. 2. Diverticulosis coli. Cervical Spine CT 01/14/19 09:32 IMPRESSION: No acute posttraumatic changes related to fall. Degenerative changes as described above. Chest CT 01/14/19 09:32 IMPRESSION: Comminuted fracture of posterior 9th rib on the left. There is a left pleural effusion. This may represent a hemothorax, given the presence of the rib fracture. Head CT 01/14/19 09:32 IMPRESSION: NO ACUTE INTRACRANIAL IMAGING FINDINGS. EVIDENCE OF ACUTE STROKE: NO. 01/14/19 09:20 01/14/19 09:20 MCV 92 fl (80-97) 01/14/19 09:20 MCH 31.4 pg (27.0-33.4) 01/14/19 09:20 MCHC 34.2 g/dL (32.0-36.0) 01/14/19 09:20 RDW 14.1 % (11.5-14.0) H 01/14/19 09:20 Seg Neutrophils % 68.1 % (42-78) 01/14/19 09:20 Lymphocytes % 17.9 % (13-45) 01/14/19 09:20 Monocytes % 12.6 % (3-13) 01/14/19 09:20 Eosinophils % 0.9 % (0-6) 01/14/19 09:20 Basophils % 0.5 % (0-2) 01/14/19 09:20 Absolute Neutrophils 6.7 10^3/uL (1.7-8.2) 01/14/19 09:20 Absolute Lymphocytes 1.8 10^3/uL (0.5-4.7) 01/14/19 09:20 Absolute Monocytes 1.2 10^3/uL (0.1-1.4) 01/14/19 09:20 Absolute Eosinophils 0.1 10^3/uL (0.0-0.6) 01/14/19 09:20 Absolute Basophils 0.1 10^3/uL (0.0-0.2) 01/14/19 09:20 Chloride 101 mmol/L (98-107) 01/14/19 09:20 Carbon Dioxide 29 mmol/L (22-30) 01/14/19 09:20 Anion Gap 10 (5-19) 01/14/19 09:20 Est GFR ( Amer) 51 (>60) L 01/14/19 09:20 Est GFR (Non-Af Amer) 42 (>60) L 01/14/19 09:20 Glucose 130 mg/dL (75-110) H 01/14/19 09:20 Calcium 9.6 mg/dL (8.4-10.2) 01/14/19 09:20 Total Bilirubin 2.5 mg/dL (0.2-1.3) H 01/14/19 09:20 AST 67 U/L (17-59) H 01/14/19 09:20 ALT 21 U/L (21-72) 01/14/19 09:20 Alkaline Phosphatase 93 U/L (38-126) 01/14/19 09:20 Total Protein 7.8 g/dL (6.3-8.2) 01/14/19 09:20 Albumin 4.2 g/dL (3.5-5.0) 01/14/19 09:20 01/14/19 01/14/19 09:20 09:20 Creatine Kinase 736 H CK-MB (CK-2) 8.47 H Troponin I < 0.012 (NAZIA LEE) - Vital Signs Vital signs: Temp Pulse Resp BP Pulse Ox 98.8 F 66 16 126/70 H 95 01/14/19 14:28 01/14/19 15:40 01/14/19 15:40 01/14/19 14:28 01/14/19 15:40 - Laboratory Laboratory results interpreted by me: 01/14/19 01/14/19 01/14/19 09:20 09:20 09:20 RBC 4.16 L Hgb 13.0 L RDW 14.1 H BUN 39 H Creatinine 1.60 H Est GFR ( Amer) 51 L Est GFR (Non-Af Amer) 42 L Glucose 130 H Total Bilirubin 2.5 H AST 67 H Creatine Kinase 736 H CK-MB (CK-2) 8.47 H - EKG Interpretation by Me Additional EKG results interpreted by me: 01/14/19 11:[address] elevation no T wave inversion (NAZIA LEE) Discharge <OPAL DASH - Last Filed: 01/14/19 13:13> - Discharge Admitting Provider: Soni (Hospitalist) Unit Admitted: Telemetry <NAZIA LEE - Last Filed: 01/14/19 19:05> - Discharge Clinical Impression: Fall (on) (from) unspecified stairs and steps, initial encounter, Chronic atrial fibrillation Closed rib fracture Qualifiers: Encounter type: initial encounter Rib fracture type: single rib Laterality: left Qualified Code(s): S22.32XA - Fracture of one rib, left side, initial encounter for closed fracture Hematoma of left flank Qualifiers: Encounter type: initial encounter Qualified Code(s): S30.1XXA - Contusion of abdominal wall, initial encounter Condition: Stable Disposition: ADMITTED INPATIENT
[2019-01-14 09:46] LABS: ABSOLUTE BASOPHILS # (AUTO) 0.1 10^3/uL (0.0-0.2); ABSOLUTE EOSINOPHILS # (AUTO) 0.1 10^3/uL (0.0-0.6); ABSOLUTE LYMPHOCYTES (AUTO) 1.8 10^3/uL (0.5-4.7); ABSOLUTE MONOCYTES (AUTO) 1.2 10^3/uL (0.1-1.4); ABSOLUTE NEUT (AUTO) 6.7 10^3/uL (1.7-8.2); BASOPHILS % (AUTO) 0.5 % (0-2); EOSINOPHILS % (AUTO) 0.9 % (0-6); HEMATOCRIT 38.1 % (37.9-51.0); LYMPHOCYTES % (AUTO) 17.9 % (13-45); MEAN CORPUSCULAR HEMOGLOBIN 31.4 pg (27.0-33.4); MEAN CORPUSCULAR HGB CONC 34.2 g/dL (32.0-36.0); MEAN CORPUSCULAR VOLUME 92 fl (80-97); MONOCYTES % (AUTO) 12.6 % (3-13); PLATELET COUNT 287 10^3/uL (150-450); RED BLOOD COUNT 4.16 10^6/uL (4.35-5.55); RED CELL DISTRIBUTION WIDTH 14.1 % (11.5-14.0); SEGMENTED NEUTROPHILS % (AUTO) 68.1 % (42-78); TOTAL CELLS COUNTED % (AUTO) 100 %; WHITE BLOOD COUNT 9.9 10^3/uL (4.0-10.5)
[2019-01-14 09:50] LABS: INTERNATIONAL RATION (INR) 1.17
[2019-01-14 09:51] LABS: PARTIAL THROMBOPLASTIN TIME 27.2 SEC (23.5-35.8)
[2019-01-14 10:03] LABS: ALANINE AMINOTRANSFERASE 21 U/L (21-72); ALBUMIN 4.2 g/dL (3.5-5.0); ALKALINE PHOSPHATASE 93 U/L (38-126); ANION GAP 10 (5-19); ASPARTATE AMINO TRANSFERASE 67 U/L (17-59); BILIRUBIN,DIRECT 0.3 mg/dL (0.0-0.4); BILIRUBIN,TOTAL 2.5 mg/dL (0.2-1.3); BLOOD UREA NITROGEN 39 mg/dL (7-20); CALCIUM 9.6 mg/dL (8.4-10.2); CARBON DIOXIDE 29 mmol/L (22-30); CHLORIDE 101 mmol/L (98-107); CREATINE KINASE 736 U/L (55-170); GLUCOSE 130 mg/dL (75-110); TOTAL PROTEIN 7.8 g/dL (6.3-8.2)
--- NOTE | 2019-01-14 10:19 | RADIOLOGY REPORT (SQ) ---
EXAM DESCRIPTION: CT HEAD WITHOUT COMPLETED DATE/TIME: 01/14/2019 10:09 am REASON FOR STUDY: fall 15 steps, taking plavix COMPARISON: None. TECHNIQUE: Axial images acquired through the brain without intravenous contrast. Images reviewed wi th bone, brain and subdural windows. Additional sagittal and coronal reconstructions were generated. Images stored on PACS. All CT scanners at this facility use dose modulation, iterative reconstruction, and/or weight based d osing when appropriate to reduce radiation dose to as low as reasonably achievable (ALARA). [facility]: Dose Right [facility]: CareDose [facility]: Dose Right [facility]: Teradose 4D [facility]: Smart [employer] RADIATION DOSE: CT Rad equipment meets quality standard of care and radiation dose reduction techniq ues were employed. CTDIvol: 53.2 mGy. DLP: 1097 mGy-cm. mGy. LIMITATIONS: None. FINDINGS: VENTRICLES: Moderate ventricular dilatation. Is likely secondary to atrophy unless clinic ally suspicious of normal pressure hydrocephalus. CEREBRUM: No masses. No hemorrhage. No midline shift. No evidence for acute infarction. Normal gra y/white matter differentiation. No areas of low density in the white matter. CEREBELLUM: No masses. No hemorrhage. No alteration of density. No evidence for acute infarction. EXTRAAXIAL SPACES: No fluid collections. No masses. ORBITS AND GLOBE: No intra- or extraconal masses. Normal contour of globe without masses. CALVARIUM: No fracture. PARANASAL SINUSES: No fluid or mucosal thickening. SOFT TISSUES: No mass or hematoma. OTHER: No other significant finding. IMPRESSION: NO ACUTE INTRACRANIAL IMAGING FINDINGS. EVIDENCE OF ACUTE STROKE: NO. COMMENT: Quality ID # [id number]: Final reports with documentation of one or more dose reduction techniques (e.g., Automated exposure control, adjustment of the mA and/or kV according to patient size, use of iterative reconstruction technique) TECHNICAL DOCUMENTATION: JOB ID: [id number] [employer]- All Rights Reserved Reading location - IP/workstation name: [email or web address]
[2019-01-14 10:20] LABS: CREATINE KINASE MB 8.47 ng/mL (<4.55); TROPONIN I < 0.012 ng/mL
--- NOTE | 2019-01-14 10:24 | RADIOLOGY REPORT (SQ) ---
EXAM DESCRIPTION: CT CERVICAL SPINE WITHOUT COMPLETED DATE/TIME: 01/14/2019 10:09 am REASON FOR STUDY: fall 15 steps, taking plavix COMPARISON: None. TECHNIQUE: Axial images acquired through the cervical spine without intravenous contrast. Images re viewed with lung, soft tissue and bone windows. Reconstructed coronal and sagittal MPR images review ed. Images stored on PACS. All CT scanners at this facility use dose modulation, iterative reconstruction, and/or weight based d osing when appropriate to reduce radiation dose to as low as reasonably achievable (ALARA). [facility]: Dose Right [facility]: CareDose [facility]: Dose Right [facility]: Teradose 4D [facility]: Smart [employer] RADIATION DOSE: CT Rad equipment meets quality standard of care and radiation dose reduction techniq ues were employed. CTDIvol: 24.7 mGy. DLP: 673 mGy-cm. mGy. LIMITATIONS: None. FINDINGS: ALIGNMENT: Normal MINERALIZATION: Normal VERTEBRAL BODIES: No fractures or dislocation. DISCS: Mild moderate disc degeneration scratch at mild moderate disc space narrowing C5-C6 and C6-C7. FACETS, LATERAL MASSES, POSTERIOR ELEMENTS: Severe lateral facet arthropathy HARDWARE: None in the spine. VISUALIZED RIBS: No fractures. LUNG APICES AND SOFT TISSUES: No significant or acute findings. OTHER: No other significant finding. IMPRESSION: No acute posttraumatic changes related to fall. Degenerative changes as described above . TECHNICAL DOCUMENTATION: JOB ID: [id number] Quality ID # [id number]: Final reports with documentation of one or more dose reduction techniques (e.g., Au tomated exposure control, adjustment of the mA and/or kV according to patient size, use of iterative reconstruction technique) 2010 [employer]- All Rights Reserved Reading location - IP/workstation name: [email or web address]
--- NOTE | 2019-01-14 10:27 | RADIOLOGY REPORT (SQ) ---
EXAM DESCRIPTION: CT CHEST WITH COMPLETED DATE/TIME: 01/14/2019 10:09 am REASON FOR STUDY: fall 15 steps, taking plavix COMPARISON: None. TECHNIQUE: CT scan of the chest performed using helical scanning technique with dynamic intravenous contrast injection. Images reviewed with lung, soft tissue and bone windows. Reconstructed coronal and sagittal MPR and MIP images reviewed. All images stored on PACS. All CT scanners at this facility use dose modulation, iterative reconstruction, and/or weight based d osing when appropriate to reduce radiation dose to as low as reasonably achievable (ALARA). [facility]: Dose Right [facility]: CareDose [facility]: Dose Right [facility]: Teradose 4D [facility]: [employer] CONTRAST TYPE AND DOSE: contrast/concentration: Isovue 300.00 mg/ml; Total Contrast Delivered: 95.0 ml; Total Saline Delivered: 66.7 ml RENAL FUNCTION: Testing waived by the emergency room physician RADIATION DOSE: CT Rad equipment meets quality standard of care and radiation dose reduction techniq ues were employed. CTDIvol: 9.6 - 14.4 mGy. DLP: 1531 mGy-cm. . LIMITATIONS: None. FINDINGS: LUNGS AND PLEURA: Calcified granuloma in the right lung. Small left pleural effusion with mild associated atelectasis in the left base. HILAR AND MEDIASTINAL STRUCTURES: No identified masses or abnormal nodes. HEART AND VASCULAR STRUCTURES: No aneurysm or dissection. No central pulmonary emboli. No pericardi al effusion. HARDWARE: None in the chest. UPPER ABDOMEN: See separate report of the CT of the abdomen. THYROID AND OTHER SOFT TISSUES: No masses. No adenopathy. BONES: There is a comminuted fracture of the posterior 9th rib on the left. OTHER: No other significant finding. IMPRESSION: Comminuted fracture of posterior 9th rib on the left. There is a left pleural effusion. This may represent a hemothorax, given the presence of the rib fracture. TECHNICAL DOCUMENTATION: JOB ID: [id number] Quality ID # [id number]: Final reports with documentation of one or more dose reduction techniques (e.g., Au tomated exposure control, adjustment of the mA and/or kV according to patient size, use of iterative reconstruction technique) 2010 [employer]- All Rights Reserved Reading location - IP/workstation name: [email or web address]
--- NOTE | 2019-01-14 10:34 | RADIOLOGY REPORT (SQ) ---
EXAM DESCRIPTION: CT ABD/PELVIS WITH IV ONLY COMPLETED DATE/TIME: 01/14/2019 10:09 am REASON FOR STUDY: fall 15 steps, taking plavix COMPARISON: None. TECHNIQUE: CT scan of the abdomen and pelvis performed using helical scanning technique with dynamic intravenous contrast injection. No oral contrast. Images reviewed with lung, soft tissue, and bone windows. Reconstructed coronal and sagittal MPR images reviewed. Delayed images for evaluation of the urinary system also acquired. All images stored on PACS. All CT scanners at this facility use dose modulation, iterative reconstruction, and/or weight based d osing when appropriate to reduce radiation dose to as low as reasonably achievable (ALARA). [facility]: Dose Right [facility]: CareDose [facility]: Dose Right [facility]: Teradose 4D [facility]: [employer] CONTRAST TYPE AND DOSE: 95 mL Isovue 300- low osmolar. RENAL FUNCTION: Testing waived by the emergency room physician. RADIATION DOSE: . LIMITATIONS: None. FINDINGS: LOWER CHEST: See separate report of the CT of the chest. LIVER: Normal size. No masses. No dilated ducts. SPLEEN: There is an area of decreased attenuation in the medial aspect of the spleen on image 12 seri es 5. PANCREAS: No masses. No significant calcifications. No adjacent inflammation or peripancreatic fluid collections. Pancreatic duct not dilated. GALLBLADDER: Not identified. ADRENAL GLANDS: No significant masses or asymmetry. RIGHT KIDNEY AND URETER: No solid masses. No significant calcifications. No hydronephrosis or hyd roureter. LEFT KIDNEY AND URETER: No solid masses. No significant calcifications. No hydronephrosis or hydr oureter. AORTA AND VESSELS: No aneurysm. No dissection. Renal arteries, SMA, celiac without stenosis. RETROPERITONEUM: No retroperitoneal adenopathy, hemorrhage or masses. BOWEL AND PERITONEAL CAVITY: Sigmoid diverticulosis with no associated inflammation. No obvious mak l mass. APPENDIX: Not identified. PELVIS: No mass. No free fluid. Normal bladder. ABDOMINAL WALL: No masses. No hernias. BONES: No significant or acute findings. OTHER: No other significant finding. IMPRESSION: 1. Cannot entirely exclude an injury to the spleen. There is no evidence of hemorrhage outside of the splenic capsule. 2. Diverticulosis coli. TECHNICAL DOCUMENTATION: JOB ID: [id number] Quality ID # [id number]: Final reports with documentation of one or more dose reduction techniques (e.g., Au tomated exposure control, adjustment of the mA and/or kV according to patient size, use of iterative reconstruction technique) 2010 [employer]- All Rights Reserved Reading location - IP/workstation name: [email or web address]
[2019-01-14] MEDS ORDERED: FENTANYL CITRATE INJ/PF 100 MCG/2 ML AMPUL IV ONE (11:59)
[2019-01-14] MEDS ORDERED: NORMAL SALINE 1000 ML 1,000 ML IV PRN (12:05)
[2019-01-14] MEDS ORDERED: ALBUTEROL SULFATE 0.083% NEB 2.5 MG/3 ML AMPUL NEB PRN (12:05)
--- NOTE | 2019-01-14 12:15 | PDOC CONSULTATION ---
Consultation Consult Date: 01/14/19 Attending physician:: NAZIA LEE Provider Consulted: KELLI ROSALES Consult reason:: trauma. rib fractures History of Present Illness Admission Date/PCP: 01/14/19 11:09 CARI FRASER MD History of Present Illness: JIM QUIROZ is a 78 year old maleThis 78-year-old male presents the emergency department via EMS post fall from yesterday p.m. at approximately 1900. Son reports he walked up the steps without problem and then fell down head first approximately 15 carpeted steps. Patient reports he lost his footing. Denies change in LOC. Reports he got up and walked around afterwards. His [id number] is a nurse she took his vital signs he seemed fine. He called his son in the middle night to help with the urinal. Son reports when he stood him up he fell right back down. Patient was unable to stand. He reports his le gs felt rubbery. Patient has a two small abrasions to the right side of his forehead, left lower lip and a large hematoma to his left flank. He denies pain to his abdomen reports some pain to his chest wall with palpation. Denies pain to the extremities. No obvious deformity noted. Patient is in good spirits telling jokes. Son reports patient takes Plavix for history of A. 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 Patient speech is slurred son reports is worse now since he fell but also reports that he had slurred speech due to the Parkinson's and stroke. Patient is alert and oriented answering all questions appropriately Had a CT scan done in the emergency room showing a small left pleural effusion left posterior rib fractures the skin of the abdomen was negative CT scan of his brain which was negative Past Medical History Cardiac Medical History: Reports: Atrial Fibrillation, Hypertension Pulmonary Medical History: Denies: Asthma, Chronic Obstructive Pulmonary Disease (COPD) Neurological Medical History: Denies: Seizures Endocrine Medical History: Reports: Hypothyroidism Denies: Diabetes Mellitus Type 1, Diabetes Mellitus Type 2, Hyperthyroidism GI Medical History: Denies: Cirrhosis, Hepatitis Musculoskeltal Medical History: Denies: Arthritis, Gout Skin Medical History: Denies: Eczema, Psoriasis Psychiatric Medical History: Reports: Depression Hematology: Denies: Anemia, Bleeding Tendencies Past Surgical History Past Surgical History: Reports: Appendectomy Social History Smoking Status: Never Smoker Frequency of Alcohol Use: None Hx Recreational Drug Use: No Drugs: None Hx Prescription Drug Abuse: No Family History Family History: Hypertension Parental Family History Reviewed: No Children Family History Reviewed: NA Sibling(s) Family History Reviewed.: NA Medication/Allergy Home Medications: Atorvastatin Calcium [Lipitor 40 mg Tablet] 40 mg PO DAILY 06/10/18 Clopidogrel Bisulfate [Plavix] 75 mg PO DAILY 06/10/18 Levothyroxine Sodium [Synthroid 0.05 mg Tablet] 0.05 mg PO DAILY 06/10/18 Lisinopril 10 mg PO DAILY 06/10/18 Metoprolol Succinate [Toprol Xl] 25 mg PO DAILY 06/10/18 Multivitamin [One-A-Day Essential] 1 each PO DAILY 06/10/18 Sertraline HCl [Zoloft] 25 mg PO QAM 06/10/18 Carbidopa/Levodopa [Sinemet 25-100 mg Tablet] 1 each PO 5XD 1 Days 06/24/18 Allergies/Adverse Reactions: No Known Allergies Allergy (Verified 06/10/18 16:39) Review of Systems Constitutional: PRESENT: fatigue, weakness Eyes: ABSENT: visual disturbances Nose, Mouth, and Throat: ABSENT: as per HPI, headache(s), mouth pain, sore throat, vertigo, other Breasts: ABSENT: as per HPI, other Cardiovascular: PRESENT: other - Atrial fibrillation Respiratory: PRESENT: other - Increased pain with deep inspiration to the left chest Gastrointestinal: PRESENT: other. ABSENT: as per HPI, abdominal pain, bloating, coffee ground emesis, constipation, diarrhea, dysphagia, heartburn, hematemesis, hematochezia, melena, nausea, vomiting Genitourinary: ABSENT: dysuria, hematuria Musculoskeletal: PRESENT: other - Pain over the left hip Integumentary: ABSENT: rash, wounds Neurological: PRESENT: tremor(s), weakness Psychiatric: ABSENT: anxiety, depression, homidical ideation, suicidal ideation Endocrine: ABSENT: cold intolerance, heat intolerance, polydipsia, polyuria Hematologic/Lymphatic: ABSENT: easy bleeding, easy bruising Allergic/Immunologic: ABSENT: as per HPI, seasonal rhinorrhea, other Physical Exam Vital Signs: Temp Pulse Resp BP Pulse Ox 98.6 F 84 18 110/74 96 01/14/19 09:38 01/14/19 10:00 01/14/19 11:15 01/14/19 11:15 01/14/19 11:15 Intake & Output 01/13/19 01/14/19 01/15/19 06:59 06:59 06:59 Weight 82.554 kg General appearance: PRESENT: mild distress Head exam: PRESENT: normocephalic Eye exam: PRESENT: EOMI Ear exam: PRESENT: normal external ear exam Mouth exam: PRESENT: dry mucosa Neck exam: PRESENT: full ROM Respiratory exam: PRESENT: chest wall tenderness, clear to auscultation emil Cardiovascular exam: PRESENT: tachycardia Pulses: PRESENT: normal radial pulses, normal femoral pulses GI/Abdominal exam: PRESENT: soft Rectal exam: PRESENT: deferred Musculoskeletal exam: PRESENT: other - Weak nonambulatory secondary to Parkinson's Neurological exam: PRESENT: alert, awake, oriented to person Psychiatric exam: PRESENT: appropriate affect Results Laboratory Results: 01/14/19 09:20 01/14/19 09:20 01/14/19 01/14/19 09:20 09:20 WBC 9.9 RBC 4.16 L Hgb 13.0 L Hct 38.1 MCV 92 MCH 31.4 MCHC 34.2 RDW 14.1 H Plt Count 287 Seg Neutrophils % 68.1 Lymphocytes % 17.9 Monocytes % 12.6 Eosinophils % 0.9 Basophils % 0.5 Absolute Neutrophils 6.7 Absolute Lymphocytes 1.8 Absolute Monocytes 1.2 Absolute Eosinophils 0.1 Absolute Basophils 0.1 Sodium 140.1 Potassium 5.0 Chloride 101 Carbon Dioxide 29 Anion Gap 10 BUN 39 H Creatinine 1.60 H Est GFR ( Amer) 51 L Est GFR (Non-Af Amer) 42 L Glucose 130 H Calcium 9.6 Total Bilirubin 2.5 H AST 67 H ALT 21 Alkaline Phosphatase 93 Total Protein 7.8 Albumin 4.2 01/14/19 01/14/19 09:20 09:20 Creatine Kinase 736 H CK-MB (CK-2) 8.47 H Troponin I < 0.012 Impressions: Abdomen/Pelvis CT 01/14/19 09:32 IMPRESSION: 1. Cannot entirely exclude an injury to the spleen. There is no evidence of hemorrhage outside of the splenic capsule. 2. Diverticulosis coli. Cervical Spine CT 01/14/19 09:32 IMPRESSION: No acute posttraumatic changes related to fall. Degenerative changes as described above. Chest CT 01/14/19 09:32 IMPRESSION: Comminuted fracture of posterior 9th rib on the left. There is a left pleural effusion. This may represent a hemothorax, given the presence of the rib fracture. Head CT 01/14/19 09:32 IMPRESSION: NO ACUTE INTRACRANIAL IMAGING FINDINGS. EVIDENCE OF ACUTE STROKE: NO. Assessment & Plan - Diagnosis (1) Closed rib fracture Qualifiers: Encounter type: initial encounter Rib fracture type: single rib Laterality: left Qualified Code(s): S22.32XA - Fracture of one rib, left side, initial encounter for closed fracture (2) Fall (on) (from) unspecified stairs and steps, initial encounter Is this a current diagnosis for this admission?: Yes (3) Hematoma of left flank Qualifiers: Encounter type: initial encounter Qualified Code(s): S30.1XXA - Contusion of abdominal wall, initial encounter Is this a current diagnosis for this admission?: Yes - Plan Summary Plan Summary: Impression is multitrauma with left posterior rib fractures flank hematoma small pleural effusion on chest CT scan No evidence of intra-abdominal injury Recommendations repeat chest x-ray in the emergency room x1 now and then chest x-ray in a.m. admit for observation follow H&H
[2019-01-14 12:54] LABS: APPEARANCE,URINE CLEAR; BILIRUBIN,URINE NEGATIVE (NEGATIVE); COLOR,URINE YELLOW; GLUCOSE, URINE NEGATIVE (NEGATIVE); KETONES,URINE TRACE mg/dL (NEGATIVE); LEUKOCYTE ESTERASE,URINE NEGATIVE (NEGATIVE); NITRITE,URINE NEGATIVE (NEGATIVE); PROTEIN,URINE NEGATIVE (NEGATIVE); URINE SPECIFIC GRAVITY 1.055; UROBILINOGEN,URINE NEGATIVE mg/dL (<2.0)
[2019-01-14] MEDS ORDERED: MAGNESIUM HYDROXIDE SUSP 30 ML UDCUP PO PRN (12:57)
[2019-01-14] MEDS ORDERED: ONDANSETRON HCL INJ/PF 4 MG/2 ML SDV IV PRN (12:57)
[2019-01-14] MEDS ORDERED: MAG HYDROX/AL HYDROX/SIMETH SUSP 30 ML UDCUP PO PRN (12:57)
[2019-01-14] MEDS ORDERED: LIDOCAINE 5% (700 MG) TRANSDERMAL ADH..PATCH TP ONE ×2 (13:30→18:30)
--- NOTE | 2019-01-14 13:58 | RADIOLOGY REPORT (SQ) ---
EXAM DESCRIPTION: CHEST SINGLE VIEW COMPLETED DATE/TIME: 01/14/2019 1:42 pm REASON FOR STUDY: FX RIB COMPARISON: CT chest 01/14/2019 AP chest 06/15/2018 EXAM PARAMETERS: NUMBER OF VIEWS: One view. TECHNIQUE: Single frontal radiographic view of the chest acquired. RADIATION DOSE: NA LIMITATIONS: None. FINDINGS: LUNGS AND PLEURA: No pneumothorax. There is left retrocardiac consolidation adjacent to posterior left lower rib fractures better demons trated on prior CT. Right lung and pleural space unremarkable. MEDIASTINUM AND HILAR STRUCTURES: No masses. Contour normal. HEART AND VASCULAR STRUCTURES: Heart normal in size. Normal vasculature. BONES: Posterior lower rib fractures seen on CT exam earlier today are not visible by plain film. HARDWARE: None in the chest. OTHER: No other significant finding. IMPRESSION: No pneumothorax. Left retrocardiac consolidation likely atelectasis. Left posterior lower rib fractures seen on CT earlier today are difficult to visualize by plain film TECHNICAL DOCUMENTATION: JOB ID: [id number] [employer]- All Rights Reserved Reading location - IP/workstation name: [email or web address]
--- NOTE | 2019-01-14 14:34 | EKG REPORT ---
SEVERITY:- ABNORMAL ECG - ATRIAL FIBRILLATION, V-RATE 58-80 : Confirmed by: Brenda Nichols MD 14-Jan-2019 14:33:34
--- NOTE | 2019-01-14 17:49 | PDOC H&P ---
History of Present Illness Admission Date/PCP: 01/14/19 11:09 CARI FRASER MD Patient complains of: fall History of Present Illness: JIM MORA is a 78 year old male with a past medical history significant for chronic atrial fibrillation (on Plavix only), CVA, Parkinson's, and hypertension who presented to the emergency department today following a fall down a flight of stairs resulting in left-sided chest wall pain and left flank pain. Evaluation in emergency department revealed stable vital signs, hemoglobin of 13 (baseline 12), creatinine 1.60 (baseline 1.4), elevated CK (736), denies head and cervical spine CT, chest CT demonstrating comminuted fracture of the posterior ninth rib on the left with associated pleural effusion that may represent hemothorax, and CT ABD/Pelivs cannot entirely rule out injury to the spleen. He is referred to the hospitalist service for admission and management of the above-stated complaints and findings. Past Medical History Cardiac Medical History: Reports: Atrial Fibrillation, Hypertension Pulmonary Medical History: Denies: Asthma, Chronic Obstructive Pulmonary Disease (COPD) EENT Medical History: Reports: None Neurological Medical History: Reports: Ischemic CVA, Other - Parkinson's Denies: Seizures Endocrine Medical History: Reports: Hypothyroidism Denies: Diabetes Mellitus Type 2 Renal/ Medical History: Reports: Chronic Kidney Disease GI Medical History: Denies: Cirrhosis, Hepatitis Musculoskeltal Medical History: Denies: Arthritis, Gout Skin Medical History: Denies: Eczema, Psoriasis Psychiatric Medical History: Reports: Depression Traumatic Medical History: Reports: None Hematology: Denies: Anemia, Bleeding Tendencies Past Surgical History Past Surgical History: Reports: Appendectomy Social History Information Source: Patient, Relative Lives with: Family Smoking Status: Never Smoker Frequency of Alcohol Use: None Hx Recreational Drug Use: No Drugs: None Hx Prescription Drug Abuse: No - Advance Directive Resuscitation Status: Full Code Surrogate healthcare decision maker:: The patient's grandson, Arnoldo Mora, Family History Family History: Reviewed & Not Pertinent, Hypertension Parental Family History Reviewed: Yes Children Family History Reviewed: Yes Sibling(s) Family History Reviewed.: Yes Medication/Allergy Home Medications: Atorvastatin Calcium [Lipitor 40 mg Tablet] 40 mg PO DAILY 01/14/19 Carbidopa/Levodopa [Sinemet 25-100 mg Tablet] 1 each PO 5XD 01/14/19 Clopidogrel Bisulfate [Plavix 75 mg Tablet] 75 mg PO DAILY 01/14/19 Escitalopram Oxalate [Lexapro 10 mg Tablet] 10 mg PO DAILY 01/14/19 Levothyroxine Sodium [Synthroid 0.075 mg Tablet] 0.075 mg PO DAILY 01/14/19 Lisinopril [Prinivil 10 mg Tablet] 10 mg PO DAILY 01/14/19 Metoprolol Succinate [Toprol Xl 25 mg Tab.sr] 25 mg PO DAILY 01/14/19 Multivitamin [Tab-A-Nhi (Multiple Vitamin) Tablet] 1 tab PO DAILY 01/14/19 Allergies/Adverse Reactions: No Known Allergies Allergy (Verified 06/10/18 16:39) Review of Systems Constitutional: ABSENT: chills, fever(s), headache(s), weight gain, weight loss Eyes: ABSENT: visual disturbances Ears: ABSENT: hearing changes Cardiovascular: ABSENT: chest pain, dyspnea on exertion, edema, orthropnea, palpitations Respiratory: PRESENT: other - Chest wall pain. ABSENT: cough, hemoptysis Gastrointestinal: PRESENT: other - Left flank pain. ABSENT: abdominal pain, constipation, diarrhea, hematemesis, hematochezia, nausea, vomiting Genitourinary: ABSENT: dysuria, hematuria Musculoskeletal: ABSENT: joint swelling Integumentary: ABSENT: rash, wounds Neurological: ABSENT: abnormal gait, abnormal speech, confusion, dizziness, focal weakness, syncope Psychiatric: ABSENT: anxiety, depression, homidical ideation, suicidal ideation Endocrine: ABSENT: cold intolerance, heat intolerance, polydipsia, polyuria Hematologic/Lymphatic: ABSENT: easy bleeding, easy bruising Physical Exam Vital Signs: Temp Pulse Resp BP Pulse Ox 98.8 F 66 16 126/70 H 95 01/14/19 14:28 01/14/19 15:40 01/14/19 15:40 01/14/19 14:28 01/14/19 15:40 Intake & Output 01/13/19 01/14/19 01/15/19 06:59 06:59 06:59 Weight 82.554 kg General appearance: PRESENT: no acute distress, cooperative - Pleasant, well- developed, well-nourished Head exam: PRESENT: atraumatic, normocephalic Eye exam: PRESENT: conjunctiva pink, EOMI, PERRLA. ABSENT: scleral icterus Ear exam: PRESENT: normal external ear exam Mouth exam: PRESENT: dry mucosa, tongue midline Neck exam: ABSENT: carotid bruit, JVD, lymphadenopathy, thyromegaly Respiratory exam: PRESENT: clear to auscultation emil, decreased breath sounds - Left lower field, symmetrical, unlabored. ABSENT: rales, rhonchi, wheezes Cardiovascular exam: PRESENT: RRR, +S1, +S2. ABSENT: diastolic murmur, rubs, systolic murmur Pulses: PRESENT: normal dorsalis pedis pul Vascular exam: PRESENT: normal capillary refill GI/Abdominal exam: PRESENT: normal bowel sounds, soft, tenderness. ABSENT: distended, guarding, mass, organolmegaly, rebound Rectal exam: PRESENT: deferred Extremities exam: PRESENT: full ROM. ABSENT: calf tenderness, clubbing, pedal edema Neurological exam: PRESENT: alert, awake, oriented to person, oriented to place, oriented to time, oriented to situation, CN II-XII grossly intact. ABSENT: motor sensory deficit Psychiatric exam: PRESENT: appropriate affect, normal mood. ABSENT: homicidal ideation, suicidal ideation Skin exam: PRESENT: dry, intact, warm. ABSENT: cyanosis, rash Results Laboratory Results: 01/14/19 09:20 01/14/19 09:20 01/14/19 01/14/19 01/14/19 09:20 09:20 12:30 WBC 9.9 RBC 4.16 L Hgb 13.0 L Hct 38.1 MCV 92 MCH 31.4 MCHC 34.2 RDW 14.1 H Plt Count 287 Seg Neutrophils % 68.1 Lymphocytes % 17.9 Monocytes % 12.6 Eosinophils % 0.9 Basophils % 0.5 Absolute Neutrophils 6.7 Absolute Lymphocytes 1.8 Absolute Monocytes 1.2 Absolute Eosinophils 0.1 Absolute Basophils 0.1 Sodium 140.1 Potassium 5.0 Chloride 101 Carbon Dioxide 29 Anion Gap 10 BUN 39 H Creatinine 1.60 H Est GFR ( Amer) 51 L Est GFR (Non-Af Amer) 42 L Glucose 130 H Calcium 9.6 Total Bilirubin 2.5 H AST 67 H ALT 21 Alkaline Phosphatase 93 Total Protein 7.8 Albumin 4.2 Urine Color YELLOW Urine Appearance CLEAR Urine pH 5.0 Ur Specific [place] 1.055 Urine Protein NEGATIVE Urine Glucose (UA) NEGATIVE Urine Ketones TRACE H Urine Blood NEGATIVE Urine Nitrite NEGATIVE Ur Leukocyte Esterase NEGATIVE Urine WBC (Auto) 1 Urine RBC (Auto) 1 01/14/19 08 09:20 09:20 Creatine Kinase 736 H CK-MB (CK-2) 8.47 H Troponin I < 0.012 Impressions: Abdomen/Pelvis CT 01/14/19 09:32 IMPRESSION: 1. Cannot entirely exclude an injury to the spleen. There is no evidence of hemorrhage outside of the splenic capsule. 2. Diverticulosis coli. Cervical Spine CT 01/14/19 09:32 IMPRESSION: No acute posttraumatic changes related to fall. Degenerative changes as described above. Chest CT 01/14/19 09:32 IMPRESSION: Comminuted fracture of posterior 9th rib on the left. There is a left pleural effusion. This may represent a hemothorax, given the presence of the rib fracture. Head CT 01/14/19 09:32 IMPRESSION: NO ACUTE INTRACRANIAL IMAGING FINDINGS. EVIDENCE OF ACUTE STROKE: NO. Chest X-Ray 01/14/19 11:40 IMPRESSION: No pneumothorax. Left retrocardiac consolidation likely atelectasis. Left posterior lower rib fractures seen on CT earlier today are difficult to visualize by plain film Assessment and Plan - Diagnosis (1) Rhabdomyolysis Qualifiers: Rhabdomyolysis type: traumatic Is this a current diagnosis for this admission?: Yes Plan: Mild rhabdomyolysis following fall down ~15 steps. CK 736 Gentle IVF Follow up chemistry and CK (2) Closed rib fracture Qualifiers: Encounter type: initial encounter Rib fracture type: single rib Laterality: left Qualified Code(s): S22.32XA - Fracture of one rib, left side, initial encounter for closed fracture Is this a current diagnosis for this admission?: Yes Plan: Secondary to fall. Analgesics as needed Pulmonary toilet Surgery consulted. Follow up CXR in am. (3) Hematoma of left flank Qualifiers: Encounter type: initial encounter Qualified Code(s): S30.1XXA - Contusion of abdominal wall, initial encounter Is this a current diagnosis for this admission?: Yes Plan: Left flank pain following fall. CT ABD/Pelvis unable to definitively rule out splenic injury. Surgery consulted. Follow up CBC in AM. (4) Fall (on) (from) unspecified stairs and steps, initial encounter Is this a current diagnosis for this admission?: Yes Plan: PT/OT consultations. Fall precautions. (5) Chronic atrial fibrillation Is this a current diagnosis for this admission?: Yes Plan: Rate controlled on home medication regiment. Will resume home dose ASA and Plavix in am. - Time Time Spent with patient: 35 or more minutes Medications reviewed and adjusted accordingly: Yes Anticipated discharge: Home with Homehealth Within: within 48 hours
[2019-01-14] MEDS: CARBIDOPA/LEVODOPA 25-100 MG TABLET PO SCH ×2 (18:18→19:00)
[2019-01-14] MEDS ORDERED: LEVOTHYROXINE SODIUM 0.075 MG TABLET PO ONE (18:30)
[2019-01-14] MEDS: FENTANYL CITRATE INJ/PF 100 MCG/2 ML AMPUL IV PRN (21:44)
[2019-01-15] MEDS: FENTANYL CITRATE INJ/PF 100 MCG/2 ML AMPUL IV PRN ×2 (05:37→10:18)
[2019-01-15] MEDS: LEVOTHYROXINE SODIUM 0.075 MG TABLET PO SCH (05:38)
[2019-01-15 06:53] LABS: HEMATOCRIT 35.8 % (37.9-51.0); MEAN CORPUSCULAR HGB CONC 33.5 g/dL (32.0-36.0); MEAN CORPUSCULAR VOLUME 93 fl (80-97); PLATELET COUNT 254 10^3/uL (150-450); RED BLOOD COUNT 3.87 10^6/uL (4.35-5.55)
[2019-01-15 07:19] LABS: ANION GAP 10 (5-19); BLOOD UREA NITROGEN 44 mg/dL (7-20); CALCIUM 9.3 mg/dL (8.4-10.2); CARBON DIOXIDE 25 mmol/L (22-30); CHLORIDE 104 mmol/L (98-107); CREATINE KINASE 587 U/L (55-170); GLUCOSE 126 mg/dL (75-110)
[2019-01-15] MEDS: CARBIDOPA/LEVODOPA 25-100 MG TABLET PO SCH ×6 (08:16→22:15)
--- NOTE | 2019-01-15 09:03 | RADIOLOGY REPORT (SQ) ---
EXAM DESCRIPTION: CHEST 2 VIEWS COMPLETED DATE/TIME: 01/15/2019 8:51 am REASON FOR STUDY: interval change COMPARISON: 01/14/2019. EXAM PARAMETERS: NUMBER OF VIEWS: two views TECHNIQUE: Digital Frontal and Lateral radiographic views of the chest acquired. RADIATION DOSE: NA LIMITATIONS: none FINDINGS: LUNGS AND PLEURA: Retrocardiac density in the left lung base unchanged. Mild diffuse inte rstitial prominence. No large pleural effusion. No pneumothorax. MEDIASTINUM AND HILAR STRUCTURES: No masses or contour abnormalities. HEART AND VASCULAR STRUCTURES: Heart normal size. No evidence for failure. BONES: Previously seen posterior left rib fractures difficult to visualize. HARDWARE: None in the chest. OTHER: No other significant finding. IMPRESSION: STABLE APPEARANCE. ATELECTASIS VERSUS CONTUSION IN THE LEFT LUNG BASE, UNCHANGED. NO P NEUMOTHORAX. NO ACUTE FINDINGS. TECHNICAL DOCUMENTATION: JOB ID: [id number] [email or web address]- All Rights Reserved Reading location - IP/workstation name: [email or web address]
[2019-01-15] MEDS: NORMAL SALINE 1000 ML 1,000 ML IV PRN ×2 (09:36→20:00)
[2019-01-15] MEDS ORDERED: METOPROLOL SUCCINATE 25 MG TAB.SR.24H PO SCH (10:00)
[2019-01-15] MEDS: ESCITALOPRAM OXALATE 10 MG TABLET PO SCH (10:08)
[2019-01-15] MEDS: MULTIVITAMIN TABLET PO SCH (10:08)
[2019-01-15] MEDS: LISINOPRIL 10 MG TABLET PO SCH (10:08)
[2019-01-15] MEDS: DOCUSATE SODIUM 100 MG CAPSULE PO SCH (10:08)
[2019-01-15] MEDS: LIDOCAINE 5% (700 MG) TRANSDERMAL ADH..PATCH TP SCH (10:09)
[2019-01-15] MEDS: ATORVASTATIN CALCIUM 40 MG TABLET PO SCH (10:09)
--- NOTE | 2019-01-15 11:14 | PDOC PROGRESS REPORT ---
Subjective Progress Note for:: 01/15/19 Subjective:: Patient having some shortness of breath. No hemoptysis. Had repeat chest x-ray this morning showing no evidence of pneumothorax. Residual atelectasis and minimal fluid in the left pleural space. Reason For Visit: RHABDOMYOLYSIS,FALL,RIB FRACTURE,PLEURAL EFFUSION, Physical Exam Vital Signs: Temp Pulse Resp BP Pulse Ox 98.2 F 71 16 112/61 91 L 01/15/19 07:24 01/15/19 07:54 01/15/19 07:54 01/15/19 07:24 01/15/19 07:54 Intake & Output 01/14/19 01/15/19 01/16/19 06:59 06:59 06:59 Intake Total 1000 Balance 1000 Weight 78 kg General appearance: PRESENT: mild distress, other - Accompanied by family at bedside. Respiratory exam: PRESENT: other - Diminished breath sounds on the left side. Some rhonchi patient using incentive spirometer Results Laboratory Results: 01/15/19 06:40 01/15/19 06:40 01/14/19 01/15/19 01/15/19 12:30 06:40 06:40 WBC 15.0 H RBC 3.87 L Hgb 12.0 L Hct 35.8 L MCV 93 MCH 31.0 MCHC 33.5 RDW 14.0 Plt Count 254 Sodium 138.6 Potassium 5.0 Chloride 104 Carbon Dioxide 25 Anion Gap 10 BUN 44 H Creatinine 1.98 H Est GFR ( Amer) 40 L Est GFR (Non-Af Amer) 33 L Glucose 126 H Calcium 9.3 Urine Color YELLOW Urine Appearance CLEAR Urine pH 5.0 Ur Specific [place] 1.055 Urine Protein NEGATIVE Urine Glucose (UA) NEGATIVE Urine Ketones TRACE H Urine Blood NEGATIVE Urine Nitrite NEGATIVE Ur Leukocyte Esterase NEGATIVE Urine WBC (Auto) 1 Urine RBC (Auto) 1 01/14/19 01/14/19 01/15/19 09:20 09:20 06:40 Creatine Kinase 736 H 587 H CK-MB (CK-2) 8.47 H Troponin I < 0.012 Impressions: Abdomen/Pelvis CT 01/14/19 09:32 IMPRESSION: 1. Cannot entirely exclude an injury to the spleen. There is no evidence of hemorrhage outside of the splenic capsule. 2. Diverticulosis coli. Cervical Spine CT 08/02/19 09:32 IMPRESSION: No acute posttraumatic changes related to fall. Degenerative changes as described above. Chest CT 01/14/19 09:32 IMPRESSION: Comminuted fracture of posterior 9th rib on the left. There is a left pleural effusion. This may represent a hemothorax, given the presence of the rib fracture. Head CT 01/14/19 09:32 IMPRESSION: NO ACUTE INTRACRANIAL IMAGING FINDINGS. EVIDENCE OF ACUTE STROKE: NO. Chest X-Ray 01/15/19 00:00 IMPRESSION: STABLE APPEARANCE. ATELECTASIS VERSUS CONTUSION IN THE LEFT LUNG BASE, UNCHANGED. NO PNEUMOTHORAX. NO ACUTE FINDINGS. Assessment & Plan - Diagnosis (1) Closed rib fracture Qualifiers: Encounter type: initial encounter Rib fracture type: single rib Lateralit y: left Qualified Code(s): S22.32XA - Fracture of one rib, left side, initial encounter for closed fracture Is this a current diagnosis for this admission?: Yes Plan: Impression: Status post fall with nondisplaced rib fracture, limited atelectasis left lower lung, small effusion, all stable over 24.; Chronic medical problems including Parkinson's problematic Recommendations: 1. Aggressive pulmonary toilet with coughing: Symptoms probably are emphasized 2. No indication for surgical intervention will sign off; reconsult surgery if clinically indicated.
--- NOTE | 2019-01-15 13:19 | RADIOLOGY REPORT (SQ) ---
EXAM DESCRIPTION: CT HEAD WITHOUT COMPLETED DATE/TIME: 01/15/2019 1:03 pm REASON FOR STUDY: increased left side weakness; slurred speech COMPARISON: None. TECHNIQUE: Axial images acquired through the brain without intravenous contrast. Images reviewed wi th bone, brain and subdural windows. Additional sagittal and coronal reconstructions were generated. Images stored on PACS. All CT scanners at this facility use dose modulation, iterative reconstruction, and/or weight based d osing when appropriate to reduce radiation dose to as low as reasonably achievable (ALARA). [facility]: Dose Right [facility]: CareDose [facility]: Dose Right [facility]: Teradose 4D [facility]: [employer] RADIATION DOSE: CT Rad equipment meets quality standard of care and radiation dose reduction techniq ues were employed. CTDIvol: 53.2 mGy. DLP: 1097 mGy-cm.mGy. LIMITATIONS: None. FINDINGS: VENTRICLES: Prominent. CEREBRUM: No masses. No hemorrhage. No midline shift. Areas of low density in the white matter mos t likely due to chronic micro-vascular ischemic change. No evidence for acute infarction. CEREBELLUM: No masses. No hemorrhage. No alteration of density. No evidence for acute infarction. EXTRAAXIAL SPACES: Age-related involutional change. No fluid collections. No masses. ORBITS AND GLOBE: No intra- or extraconal masses. Normal contour of globe without masses. CALVARIUM: No fracture. PARANASAL SINUSES: No fluid or mucosal thickening. SOFT TISSUES: No mass or hematoma. OTHER: No other significant finding. IMPRESSION: CHRONIC CHANGES OF ATROPHY AND MICROVASCULAR ISCHEMIA. NO ACUTE PROCESS. EVIDENCE OF ACUTE STROKE: NO. TECHNICAL DOCUMENTATION: JOB ID: [id number] Quality ID # [id number]: Final reports with documentation of one or more dose reduction techniques (e.g., Au tomated exposure control, adjustment of the mA and/or kV according to patient size, use of iterative reconstruction technique) 2010 [email or web address]- All Rights Reserved Reading location - IP/workstation name: [email or web address]
[2019-01-15] MEDS ORDERED: OXYCODONE HCL IR 5 MG TABLET PO PRN (15:12)
[2019-01-15] MEDS ORDERED: TRAMADOL HCL 50 MG TABLET PO PRN (15:13)
[2019-01-15] MEDS: IBUPROFEN 600 MG TABLET PO SCH ×2 (15:31→22:13)
--- NOTE | 2019-01-15 15:47 | PDOC PROGRESS REPORT ---
Subjective Progress Note for:: 01/15/19 Subjective:: JIM QUIROZ is a 78 year old male with a past medical history significant for chronic atrial fibrillation (on Plavix only), CVA, Parkinson's, and hypertension who was admitted 01/14/19 for rhabdomyolysis, left posterior chest wall/flank pain, and generalized weakness following a fall. Patient was seen on morning rounds. He was found resting in bed on room air. The patient is noted to be fatigued, with increased left-sided facial droop, left-sided weakness, and worsened slurred speech as compared to yesterday. Per nursing, he did receive fentanyl 25 mcg approximately 2 hours ago. Patient is oriented x4 and tells me that he does have waxing and waning symptoms related to his Parkinson's disease. I did speak with his son, who the patient lives with, by phone. Patient son tells me that he does have occasional worsening of left- sided weakness and slurred speech related to Parkinson's but he is also noted that his symptoms seemed increased from his baseline. Patient otherwise denies headache, dizziness, chest pain, palpitations, dyspnea, abdominal pain. He has no other questions or concerns. No concerns per nursing. Reason For Visit: RHABDOMYOLYSIS,FALL,RIB FRACTURE,PLEURAL EFFUSION, Physical Exam Vital Signs: Temp Pulse Resp BP Pulse Ox 98.1 F 73 16 113/65 94 01/15/19 11:23 01/15/19 11:23 01/15/19 11:23 01/15/19 11:23 01/15/19 11:23 Intake & Output 01/14/19 01/15/19 01/16/19 06:59 06:59 06:59 Intake Total 1000 Balance 1000 Weight 78 kg General appearance: PRESENT: no acute distress, cooperative, well-developed, well-nourished Head exam: PRESENT: atraumatic, normocephalic Eye exam: PRESENT: conjunctiva pink, EOMI, PERRLA. ABSENT: scleral icterus Ear exam: PRESENT: normal external ear exam Mouth exam: PRESENT: moist, tongue midline Neck exam: ABSENT: carotid bruit, JVD, lymphadenopathy, thyromegaly Respiratory exam: PRESENT: clear to auscultation emil, decreased breath sounds - Bibasilar, symmetrical, unlabored. ABSENT: rales, rhonchi, wheezes Cardiovascular exam: PRESENT: irregular rhythm. ABSENT: diastolic murmur, rubs, systolic murmur Pulses: PRESENT: normal dorsalis pedis pul Vascular exam: PRESENT: normal capillary refill GI/Abdominal exam: PRESENT: normal bowel sounds, soft. ABSENT: distended, guarding, mass, organolmegaly, rebound, tenderness Rectal exam: PRESENT: deferred Extremities exam: PRESENT: full ROM. ABSENT: calf tenderness, clubbing, pedal edema Neurological exam: PRESENT: alert, awake, oriented to person, oriented to place, oriented to time, oriented to situation, CN II-XII grossly intact, other - increased left facial droop, left side weakness, and slurred speach. ABSENT: motor sensory deficit Psychiatric exam: PRESENT: appropriate affect, normal mood. ABSENT: homicidal ideation, suicidal ideation Skin exam: PRESENT: dry, intact, warm. ABSENT: cyanosis, rash Results Laboratory Results: 01/15/19 06:40 01/15/19 06:40 01/15/19 01/15/19 06:40 06:40 WBC 15.0 H RBC 3.87 L Hgb 12.0 L Hct 35.8 L MCV 93 MCH 31.0 MCHC 33.5 RDW 14.0 Plt Count 254 Sodium 138.6 Potassium 5.0 Chloride 104 Carbon Dioxide 25 Anion Gap 10 BUN 44 H Creatinine 1.98 H Est GFR ( Amer) 40 L Est GFR (Non-Af Amer) 33 L Glucose 126 H Calcium 9.3 01/14/19 01/14/19 01/15/19 09:20 09:20 06:40 Creatine Kinase 736 H 587 H CK-MB (CK-2) 8.47 H Troponin I < 0.012 Impressions: Abdomen/Pelvis CT 01/14/19 09:32 IMPRESSION: 1. Cannot entirely exclude an injury to the spleen. There is no evidence of hemorrhage outside of the splenic capsule. 2. Diverticulosis coli. Cervical Spine CT 01/14/19 09:32 IMPRESSION: No acute posttraumatic changes related to fall. Degenerative changes as described above. Chest CT 01/14/19 09:32 IMPRESSION: Comminuted fracture of posterior 9th rib on the left. There is a left pleural effusion. This may represent a hemothorax, given the presence of the rib fracture. Chest X-Ray 01/15/19 00:00 IMPRESSION: STABLE APPEARANCE. ATELECTASIS VERSUS CONTUSION IN THE LEFT LUNG BASE, UNCHANGED. NO PNEUMOTHORAX. NO ACUTE FINDINGS. Head CT 01/15/19 00:00 IMPRESSION: CHRONIC CHANGES OF ATROPHY AND MICROVASCULAR ISCHEMIA. NO ACUTE PROCESS. EVIDENCE OF ACUTE STROKE: NO. Assessment and Plan - Diagnosis (1) Rhabdomyolysis Qualifiers: Rhabdomyolysis type: traumatic Is this a current diagnosis for this admission?: Yes Plan: Mild rhabdomyolysis following fall down ~15 steps. CK 736-> 587 Cr slightly worse; 1.60-> 1.98 Gentle IVF Follow up chemistry and CK (2) Closed rib fracture Qualifiers: Encounter type: initial encounter Rib fracture type: single rib Laterality: left Qualified Code(s): S22.32XA - Fracture of one rib, left side, initial encounter for closed fracture Is this a current diagnosis for this admission?: Yes Plan: Secondary to fall. Repeat CXR demonstrates atelectasis vs contusion left lung base; stable from yesterday Analgesics as needed Pulmonary toilet Surgery consulted; have reviewed and signed up. (3) Hematoma of left flank Qualifiers: Encounter type: initial encounter Qualified Code(s): S30.1XXA - Contusion of abdominal wall, initial encounter Is this a current diagnosis for this admission?: Yes Plan: Left flank pain following fall. CT ABD/Pelvis unable to definitively rule out splenic injury. Hgb stable. Surgery consulted; have signed off. (4) Fall (on) (from) unspecified stairs and steps, initial encounter Is this a current diagnosis for this admission?: Yes Plan: PT/OT consultations. Fall precautions. (5) Chronic atrial fibrillation Is this a current diagnosis for this admission?: Yes Plan: Rate controlled on home medication regiment. Resume home dose Plavix (6) Left-sided weakness Is this a current diagnosis for this admission?: Yes Plan: Increased left sided weakness and slurred speech. Possibly related to parkinson's vs fentanyl for pain management. Repeat Head CT is negative for acute CVA. Will transfer to [facility] for closer observation. Follow up MRI. Have adjusted opiate medications; d/c IV fentanyl. Start lidocaine patch, scheduled motrin, prn tramadol, prn oxycodone for severe (5/5) pain. - Time Time Spent with patient: 25-34 minutes Medications reviewed and adjusted accordingly: Yes Anticipated discharge: Home with Homehealth - vs SNF
--- NOTE | 2019-01-15 15:48 | Progress Note Acknowledgement ---
Progress Note Acknowledgement Progess Note Acknowledgement: I, the undersigned member of the medical staff with appropriate privileges and with supervisory authority over Carmen Guerra, a [facility] practice allied health professional, acknowledge that I have reviewed the progress notes entered on this patient, and in my professional judgment believe that the assessment made and/or any care evidenced was appropriate
--- NOTE | 2019-01-15 17:00 | RADIOLOGY REPORT (SQ) ---
EXAM DESCRIPTION: MRI HEAD WITHOUT COMPLETED DATE/TIME: 01/15/2019 4:39 pm REASON FOR STUDY: TIA/CVA; left side weakness, slurred speech COMPARISON: CT 01/15/2019 TECHNIQUE: Multiplanar imaging includes non-contrasted T1, T2, FLAIR, and diffusion with ADC map seq uences. Images stored on PACS. LIMITATIONS: None. FINDINGS: ANATOMY: No anomalies. Normal vascular flow voids. Pituitary fossa normal. CSF SPACES: Normal in size and contour. No hemorrhage. CEREBRUM: Sulci and gyri normal in size and contour. Small scattered areas of increased white matter signal on FLAIR imaging. No evidence of hemorrhage, mass, or extraaxial fluid collection. Acute fo haley infarctions involving the right side of the thalamus and very limited area in the medial aspect o f the right evangelical lobe. POSTERIOR FOSSA: There is the appearance of an acute infarction involving the anterior superior aspec t of the cerebellum on the right. DIFFUSION IMAGING: Abnormally restricted diffusion in the right lobe of the cerebellum. The very sma ll area of abnormal diffusion in the medial aspect of the right evangelical lobe at the same level. There is abnormal diffusion in the right thalamus. ORBITS: No masses. Globes normal. PARANASAL SINUSES: No fluid levels. Mucosa normal. OTHER: No other significant finding. IMPRESSION: Chronic microvascular ischemia. There are areas of abnormal diffusion in the anterior s uperior aspect of the cerebellum, a limited area in the medial right temporal lobe, and in the right dilated. These findings concerning for acute infarctions. EVIDENCE OF ACUTE STROKE: YES. RIGHT MCA,RIGHT SHOWER DOORS AND PANELS FABRICATOR. TECHNICAL DOCUMENTATION: JOB ID: [id number] [employer]- All Rights Reserved Reading location - IP/workstation name: [email or web address]
[2019-01-16] MEDS: NORMAL SALINE 1000 ML 1,000 ML IV PRN (05:47)
[2019-01-16] MEDS: IBUPROFEN 600 MG TABLET PO SCH ×3 (05:58→21:10)
[2019-01-16] MEDS: LEVOTHYROXINE SODIUM 0.075 MG TABLET PO SCH (05:58)
[2019-01-16] MEDS: CARBIDOPA/LEVODOPA 25-100 MG TABLET PO SCH ×5 (05:59→21:10)
[2019-01-16 07:52] LABS: HEMATOCRIT 32.4 % (37.9-51.0); MEAN CORPUSCULAR HEMOGLOBIN 31.4 pg (27.0-33.4); MEAN CORPUSCULAR HGB CONC 34.1 g/dL (32.0-36.0); MEAN CORPUSCULAR VOLUME 92 fl (80-97); PLATELET COUNT 232 10^3/uL (150-450); RED BLOOD COUNT 3.52 10^6/uL (4.35-5.55); WHITE BLOOD COUNT 9.9 10^3/uL (4.0-10.5)
[2019-01-16 08:07] LABS: ANION GAP 8 (5-19); BLOOD UREA NITROGEN 52 mg/dL (7-20); CALCIUM 9.2 mg/dL (8.4-10.2); CARBON DIOXIDE 27 mmol/L (22-30); CHLORIDE 105 mmol/L (98-107); CREATINE KINASE 506 U/L (55-170); GLUCOSE 105 mg/dL (75-110); POTASSIUM 4.6 mmol/L (3.6-5.0)
[2019-01-16] MEDS ORDERED: NORMAL SALINE 1000 ML 1,000 ML IV ONE (08:25)
[2019-01-16] MEDS ORDERED: NORMAL SALINE 1000 ML 1,000 ML IV PRN (08:25)
[2019-01-16] MEDS ORDERED: METOPROLOL SUCCINATE 25 MG TAB.SR.24H PO SCH (10:00)
[2019-01-16] MEDS: DOCUSATE SODIUM 100 MG CAPSULE PO SCH (10:38)
[2019-01-16] MEDS: ESCITALOPRAM OXALATE 10 MG TABLET PO SCH (10:39)
[2019-01-16] MEDS: ATORVASTATIN CALCIUM 40 MG TABLET PO SCH (10:39)
[2019-01-16] MEDS: CLOPIDOGREL BISULFATE 75 MG TABLET PO SCH (10:40)
[2019-01-16] MEDS: MULTIVITAMIN TABLET PO SCH (10:40)
[2019-01-16] MEDS: METOPROLOL SUCCINATE 25 MG TAB.SR.24H PO SCH (10:42)
[2019-01-16] MEDS: LIDOCAINE 5% (700 MG) TRANSDERMAL ADH..PATCH TP SCH ×2 (10:52→18:39)
--- NOTE | 2019-01-16 12:09 | PDOC PROGRESS REPORT ---
Subjective Progress Note for:: 01/16/19 Subjective:: JIM QUIROZ is a 78 year old male with a past medical history significant for chronic atrial fibrillation (on Plavix only), CVA, Parkinson's, and hypertension who was admitted 01/14/19 for rhabdomyolysis, left posterior chest wall/flank pain, and generalized weakness following a fall. Patient was seen on morning rounds with son present. He was found resting in bed on room air. He was sleeping when I entered the room but woke easily. He is noted to have improved speech clarity today, improved left manager clinical services strength, though continued slight confusion. Per son, he is significantly improved from yesterday and near baseline. Patient otherwise denies headache, dizziness, chest pain, palpitations, dyspnea, abdominal pain. They had multiple questions regarding the risks and benefits of chronic anticoagulation for atrial fibrillation and prevention of future CVAs. He also had multiple questions regarding SNF for short-term rehab. No concerns per nursing. Reason For Visit: RHABDOMYOLYSIS,FALL,RIB FRACTURE,PLEURAL EFFUSION, Physical Exam Vital Signs: Temp Pulse Resp BP Pulse Ox 97.8 F 52 L 14 93/52 L 96 01/15/19 19:42 01/16/19 04:00 01/16/19 04:00 01/16/19 04:00 01/16/19 04:00 Intake & Output 01/15/19 01/16/19 01/17/19 06:59 06:59 06:59 Intake Total 1000 2150 1000 Output Total 200 Balance 1000 1950 1000 Weight 78 kg 79.3 kg General appearance: PRESENT: no acute distress, cooperative, hard of hearing, well-developed, well-nourished Head exam: PRESENT: atraumatic, normocephalic Eye exam: PRESENT: conjunctiva pink, EOMI, PERRLA. ABSENT: scleral icterus Ear exam: PRESENT: normal external ear exam Mouth exam: PRESENT: moist, tongue midline Neck exam: ABSENT: carotid bruit, JVD, lymphadenopathy, thyromegaly Respiratory exam: PRESENT: chest wall tenderness, clear to auscultation emil, decreased breath sounds - Bibasilar. ABSENT: rales, rhonchi, wheezes Cardiovascular exam: PRESENT: irregular rhythm, +S1, +S2. ABSENT: diastolic murmur, rubs, systolic murmur Pulses: PRESENT: normal dorsalis pedis pul Vascular exam: PRESENT: normal capillary refill GI/Abdominal exam: PRESENT: normal bowel sounds, soft. ABSENT: distended, guarding, mass, organolmegaly, rebound, tenderness Rectal exam: PRESENT: deferred Extremities exam: PRESENT: full ROM - LUE extension/abduction chronically limit ed secondary to shoulder injury, tenderness - Left shoulder. ABSENT: calf tenderness, clubbing, pedal edema Neurological exam: PRESENT: alert, awake, oriented to person, oriented to place, oriented to time, oriented to situation, CN II-XII grossly intact, other - Slight left facial droop, improved from yesterday. Clear speech. Accordion Repairer strength 5/5 bilaterally, left pedal/dorsiflexion 3/5, right 5/5. ABSENT: motor sensory deficit Psychiatric exam: PRESENT: appropriate affect, normal mood. ABSENT: homicidal ideation, suicidal ideation Skin exam: PRESENT: dry, intact, warm. ABSENT: cyanosis, rash Results Laboratory Results: 01/16/19 07:40 01/16/19 07:40 01/16/19 01/16/19 07:40 07:40 WBC 9.9 RBC 3.52 L Hgb 11.0 L Hct 32.4 L MCV 92 MCH 31.4 MCHC 34.1 RDW 14.0 Plt Count 232 Sodium 140.1 Potassium 4.6 Chloride 105 Carbon Dioxide 27 Anion Gap 8 BUN 52 H Creatinine 2.49 H Est GFR ( Amer) 31 L Est GFR (Non-Af Amer) 25 L Glucose 105 Calcium 9.2 01/14/19 01/14/19 01/15/19 09:20 09:20 06:40 Creatine Kinase 736 H 587 H CK-MB (CK-2) 8.47 H Troponin I < 0.012 01/15/19 01/16/19 01/16/19 18:04 00:23 06:13 Creatine Kinase CK-MB (CK-2) Troponin I 0.012 0.013 0.012 01/16/19 07:40 Creatine Kinase 506 H CK-MB (CK-2) Troponin I Impressions: Abdomen/Pelvis CT 01/14/19 09:32 IMPRESSION: 1. Cannot entirely exclude an injury to the spleen. There is no evidence of hemorrhage outside of the splenic capsule. 2. Diverticulosis coli. Cervical Spine CT 01/14/19 09:32 IMPRESSION: No acute posttraumatic changes related to fall. Degenerative changes as described above. Chest CT 01/14/19 09:32 IMPRESSION: Comminuted fracture of posterior 9th rib on the left. There is a left pleural effusion. This may represent a hemothorax, given the presence of the rib fracture. Chest X-Ray 01/15/19 00:00 IMPRESSION: STABLE APPEARANCE. ATELECTASIS VERSUS CONTUSION IN THE LEFT LUNG BASE, UNCHANGED. NO PNEUMOTHORAX. NO ACUTE FINDINGS. Head CT 01/15/19 00:00 IMPRESSION: CHRONIC CHANGES OF ATROPHY AND MICROVASCULAR ISCHEMIA. NO ACUTE PROCESS. EVIDENCE OF ACUTE STROKE: NO. Head MRI 01/15/19 00:00 IMPRESSION: Chronic microvascular ischemia. There are areas of abnormal diffusion in the anterior superior aspect of the cerebellum, a limited area in the medial right temporal lobe, and in the right dilated. These findings concerning for acute infarctions. EVIDENCE OF ACUTE STROKE: YES. RIGHT MCA,RIGHT SENIOR C SOFTWARE DEVELOPER. Assessment and Plan - Diagnosis (1) CVA (cerebral vascular accident) Qualifiers: CVA mechanism: unspecified Qualified Code(s): I63.9 - Cerebral infarction, unspecified Is this a current diagnosis for this admission?: Yes Plan: Increased left sided weakness and slurred speech yesterday; worsened related to Parkinson's and opiate pain medications. Repeat Head CT is negative for acute CVA. An MRI demonstrated right cerebellum and thalamus acute CVA. Echocardiogram and carotid Doppler pending. Troponins negative x4. We will obtain lipid panel and A1c. Patient is admitted to [facility] on continuous cardiac telemetry. Continue daily aspirin, Plavix, and statin therapy. PT/OT/ST consultations requested. Discharge planning is consulted. (2) Rhabdomyolysis Qualifiers: Rhabdomyolysis type: traumatic Is this a current diagnosis for this admission?: Yes Plan: Mild rhabdomyolysis following fall down ~15 steps. CK 736-> 587-> 506 Cr worse; 1.60-> 1.98-> 2.49 Continue IVF Encourage p.o. fluids Follow up chemistry and CK (3) Closed rib fracture Qualifiers: Encounter type: initial encounter Rib fracture type: single rib Laterality: left Qualified Code(s): S22.32XA - Fracture of one rib, left side, initial encounter for closed fracture Is this a current diagnosis for this admission?: Yes Plan: Secondary to fall. Repeat CXR demonstrates atelectasis vs contusion left lung base; stable Analgesics as needed Pulmonary toilet Surgery consulted; have reviewed and signed off (4) Hematoma of left flank Qualifiers: Encounter type: initial encounter Qualified Code(s): S30.1XXA - Contusion of abdominal wall, initial encounter Is this a current diagnosis for this admission?: Yes Plan: Left flank pain following fall. CT ABD/Pelvis unable to definitively rule out splenic injury. Hgb stable. Surgery consulted; have signed off. (5) Fall (on) (from) unspecified stairs and steps, initial encounter Is this a current diagnosis for this admission?: Yes Plan: PT/OT consultations. Fall precautions. (6) Chronic atrial fibrillation Is this a current diagnosis for this admission?: Yes Plan: Rate controlled on home medication regiment. Holding parameters for metoprolol secondary to bradycardia. Resume home dose Plavix [id number]: 7.2% Has-BLED: 8.9% Will obtain echocardiogram (if thrombus/pre-thrombus; patient and family will desire chronic anticoagulation) (7) Left-sided weakness Is this a current diagnosis for this admission?: Yes Plan: Secondary to acute right-sided CVA (8) KYLAH (acute kidney injury) Is this a current diagnosis for this admission?: Yes Plan: Cr worse; 1.60-> 1.98-> 2.49 Continue IVF Encourage p.o. fluids Avoid nephrotoxic medications as able. Daily chemistries. - Time Time Spent with patient: 35 or more minutes Medications reviewed and adjusted accordingly: Yes Anticipated discharge: Home with Homehealth - vs Short Term Rehab
--- NOTE | 2019-01-16 13:40 | RADIOLOGY REPORT (SQ) ---
EXAM DESCRIPTION: SHOULDER LEFT 1 VIEW COMPLETED DATE/TIME: 01/16/2019 1:17 pm REASON FOR STUDY: pain s/p fall COMPARISON: 06/15/2018 chest radiograph NUMBER OF VIEWS: One view. TECHNIQUE: Frontal images acquired of the left shoulder. LIMITATIONS: None. FINDINGS: No acute fracture or dislocation. Similar chronic left AC joint separation. OTHER: No other significant finding. IMPRESSION: No acute fracture or dislocation. Similar chronic left AC joint separation. TECHNICAL DOCUMENTATION: JOB ID: [id number] [id number] 2010 [employer]- All Rights Reserved Reading location - IP/workstation name: [email or web address]
--- NOTE | 2019-01-16 13:43 | RADIOLOGY REPORT (SQ) ---
EXAM DESCRIPTION: KNEE LEFT 2 VIEWS COMPLETED DATE/TIME: 01/16/2019 1:17 pm REASON FOR STUDY: pain s/p fall COMPARISON: None. EXAM PARAMETERS: NUMBER OF VIEWS: Two view. TECHNIQUE: AP and lateral radiographic images acquired of the left knee. LIMITATIONS: None. FINDINGS: MINERALIZATION: Normal. BONES: No acute fracture or dislocation. Moderate narrowing of the medial tibiofemoral compartment. . JOINTS: No effusion. SOFT TISSUES: No significant soft tissue swelling. No radiopaque foreign body. OTHER: No other significant finding. IMPRESSION: NO FRACTURE. TECHNICAL DOCUMENTATION: JOB ID: [id number] 2010 [employer]- All Rights Reserved Reading location - IP/workstation name: [email or web address]
[2019-01-17 05:44] LABS: ANION GAP 8 (5-19); BLOOD UREA NITROGEN 48 mg/dL (7-20); CALCIUM 8.9 mg/dL (8.4-10.2); CARBON DIOXIDE 26 mmol/L (22-30); CHLORIDE 107 mmol/L (98-107); CHOLESTEROL 87.55 mg/dL (0-200); GLUCOSE 90 mg/dL (75-110); POTASSIUM 4.8 mmol/L (3.6-5.0); TRIGLYCERIDES 80 mg/dL (<150)
[2019-01-17 05:54] LABS: DIRECT LDL 46 mg/dL (<100)
[2019-01-17] MEDS: IBUPROFEN 600 MG TABLET PO SCH ×2 (05:59→14:38)
[2019-01-17] MEDS: CARBIDOPA/LEVODOPA 25-100 MG TABLET PO SCH ×5 (06:00→21:49)
[2019-01-17] MEDS: LEVOTHYROXINE SODIUM 0.075 MG TABLET PO SCH (06:00)
[2019-01-17] MEDS: MULTIVITAMIN TABLET PO SCH (10:20)
[2019-01-17] MEDS: CLOPIDOGREL BISULFATE 75 MG TABLET PO SCH (10:20)
[2019-01-17] MEDS: ESCITALOPRAM OXALATE 10 MG TABLET PO SCH (10:21)
[2019-01-17] MEDS: ASPIRIN 81 MG TABLET, CHEWABLE PO SCH (10:21)
[2019-01-17] MEDS: METOPROLOL SUCCINATE 25 MG TAB.SR.24H PO SCH (10:21)
[2019-01-17] MEDS: ATORVASTATIN CALCIUM 40 MG TABLET PO SCH (10:21)
[2019-01-17] MEDS: DOCUSATE SODIUM 100 MG CAPSULE PO SCH (10:21)
[2019-01-17] MEDS: LIDOCAINE 5% (700 MG) TRANSDERMAL ADH..PATCH TP SCH (10:21)
[2019-01-17] MEDS ORDERED: HYDRALAZINE HCL INJ/PF 20 MG/1 ML SDV IV PRN (10:25)
[2019-01-17] MEDS: LISINOPRIL 10 MG TABLET PO SCH ×3 (10:27→14:38)
[2019-01-17] MEDS: ACETAMINOPHEN 325 MG TABLET PO PRN (11:39)
--- NOTE | 2019-01-17 12:55 | PDOC PROGRESS REPORT ---
Subjective Progress Note for:: 01/17/19 Subjective:: JIM QUIROZ is a 78 year old male with a past medical history significant for chronic atrial fibrillation (on Plavix only), CVA, Parkinson's, and hypertension who was admitted 01/14/19 for rhabdomyolysis, left posterior chest wall/flank pain, and generalized weakness following a fall. Patient was seen on morning rounds with son present. He was found resting in the recliner, comfortably, on room air. He reports he is feeling well today. He does complain of continued intermittent, sharp, short in duration posterior chest wall pain associated with movement, deep breath, and cough. He also reports generalized weakness, although was encouraged by his ability to transition to the recliner today with physical therapy. Patient otherwise denies fever, chills, headache,dizziness, blurred vision, chest pain, palpitations, dyspnea, abdominal pain, nausea and vomiting. They have no other questions or concerns at this time. No concerns per nursing. Reason For Visit: RHABDOMYOLYSIS,FALL,RIB FRACTURE,PLEURAL EFFUSION, Physical Exam Vital Signs: Temp Pulse Resp BP Pulse Ox 97.8 F 83 20 170/108 H 92 01/17/19 12:19 01/17/19 12:19 01/17/19 12:19 01/17/19 12:19 01/17/19 12:19 Intake & Output 01/16/19 01/17/19 01/18/19 06:59 06:59 06:59 Intake Total 2150 2000 Output Total 200 200 Balance 1950 1800 Weight 79.3 kg 79.8 kg General appearance: PRESENT: no acute distress, cooperative, well-developed, well-nourished Head exam: PRESENT: atraumatic, normocephalic Eye exam: PRESENT: conjunctiva pink, EOMI, PERRLA. ABSENT: scleral icterus Ear exam: PRESENT: normal external ear exam Mouth exam: PRESENT: moist, tongue midline Neck exam: ABSENT: carotid bruit, JVD, lymphadenopathy, thyromegaly Respiratory exam: PRESENT: clear to auscultation emil, decreased breath sounds - bibasilar; poor inspiratory effort r/t pain, symmetrical, unlabored, other. ABSENT: rales, rhonchi, wheezes Cardiovascular exam: PRESENT: irregular rhythm, +S1, +S2. ABSENT: diastolic murmur, rubs, systolic murmur Pulses: PRESENT: normal dorsalis pedis pul Vascular exam: PRESENT: normal capillary refill GI/Abdominal exam: PRESENT: normal bowel sounds, soft. ABSENT: distended, guarding, mass, organolmegaly, rebound, tenderness Rectal exam: PRESENT: deferred Extremities exam: PRESENT: tenderness - Lt shoulder, left knee. ABSENT: calf tenderness, clubbing, full ROM - LUE extension/abduction chronically limited secondary to shoulder injury, pedal edema Neurological exam: PRESENT: alert, awake, oriented to person, oriented to place, oriented to time, oriented to situation, CN II-XII grossly intact, other - Facial droop and slurred speech have resolved. Weight Caller strength 5/5 bilaterally, left pedal/dorsiflexion 3/5, right 5/5. ABSENT: motor sensory deficit Psychiatric exam: PRESENT: appropriate affect, normal mood. ABSENT: homicidal ideation, suicidal ideation Skin exam: PRESENT: dry, intact, warm. ABSENT: cyanosis, rash Results Laboratory Results: 01/16/19 07:40 01/17/19 03:51 01/17/19 01/17/19 03:51 03:51 Sodium 140.8 Potassium 4.8 Chloride 107 Carbon Dioxide 26 Anion Gap 8 BUN 48 H Creatinine 2.30 H Est GFR ( Amer) 34 L Est GFR (Non-Af Amer) 28 L Glucose 90 Calcium 8.9 Triglycerides 80 Cholesterol 87.55 LDL Cholesterol Direct 46 VLDL Cholesterol 16.0 HDL Cholesterol 29 L TSH 1.66 01/14/19 01/14/19 01/15/19 09:20 09:20 06:40 Creatine Kinase 736 H 587 H CK-MB (CK-2) 8.47 H Troponin I < 0.012 01/15/19 01/16/19 01/16/19 18:04 00:23 06:13 Creatine Kinase CK-MB (CK-2) Troponin I 0.012 0.013 0.012 01/16/19 07:40 Creatine Kinase 506 H CK-MB (CK-2) Troponin I Impressions: Abdomen/Pelvis CT 01/14/19 09:32 IMPRESSION: 1. Cannot entirely exclude an injury to the spleen. There is no e vidence of hemorrhage outside of the splenic capsule. 2. Diverticulosis coli. Cervical Spine CT 01/14/19 09:32 IMPRESSION: No acute posttraumatic changes related to fall. Degenerative changes as described above. Chest CT 01/14/19 09:32 IMPRESSION: Comminuted fracture of posterior 9th rib on the left. There is a left pleural effusion. This may represent a hemothorax, given the presence of the rib fracture. Chest X-Ray 01/15/19 00:00 IMPRESSION: STABLE APPEARANCE. ATELECTASIS VERSUS CONTUSION IN THE LEFT LUNG BASE, UNCHANGED. NO PNEUMOTHORAX. NO ACUTE FINDINGS. Head CT 01/15/19 00:00 IMPRESSION: CHRONIC CHANGES OF ATROPHY AND MICROVASCULAR ISCHEMIA. NO ACUTE PROCESS. EVIDENCE OF ACUTE STROKE: NO. Head MRI 01/15/19 00:00 IMPRESSION: Chronic microvascular ischemia. There are areas of abnormal diffusion in the anterior superior aspect of the cerebellum, a limited area in the medial right temporal lobe, and in the right dilated. These findings concerning for acute infarctions. EVIDENCE OF ACUTE STROKE: YES. RIGHT MCA,RIGHT OUTSIDE CONTRACTOR SALES. Knee X-Ray 01/16/19 00:00 IMPRESSION: NO FRACTURE. Shoulder X-Ray 01/16/19 00:00 IMPRESSION: No acute fracture or dislocation. Similar chronic left AC joint separation. Assessment and Plan - Diagnosis (1) CVA (cerebral vascular accident) Qualifiers: CVA mechanism: unspecified Qualified Code(s): I63.9 - Cerebral infarction, unspecified Is this a current diagnosis for this admission?: Yes Plan: Increased left sided weakness and slurred speech on progress day #1; complicated by Parkinson's and opiate pain medications. Repeat Head CT is negative for acute CVA. An MRI demonstrated right cerebellum and thalamus acute CVA. Echocardiogram and carotid Doppler pending. Troponins negative x4. Lipid panel, A1c, and TSH are acceptable. Modified barium swallow study pending. Patient is admitted to [facility] on continuous cardiac telemetry. Continue daily aspirin, Plavix, and statin therapy. PT/OT/ST consultations requested. Discharge planning is consulted. (2) Rhabdomyolysis Qualifiers: Rhabdomyolysis type: traumatic Is this a current diagnosis for this admission?: Yes Plan: Improved. Mild rhabdomyolysis following fall down ~15 steps. CK 736-> 587-> 506 Cr worse; 1.60-> 1.98-> 2.49-> 2.30 Continue IVF Encourage p.o. fluids Follow up chemistry and CK (3) Closed rib fracture Qualifiers: Encounter type: initial encounter Rib fracture type: single rib Laterality: left Qualified Code(s): S22.32XA - Fracture of one rib, left side, initial encounter for closed fracture Is this a current diagnosis for this admission?: Yes Plan: Secondary to fall. Repeat CXR demonstrates atelectasis vs contusion left lung base; stable Analgesics as needed Pulmonary toilet Surgery consulted; have reviewed and signed off (4) Hematoma of left flank Qualifiers: Encounter type: initial encounter Qualified Code(s): S30.1XXA - Contusion of abdominal wall, initial encounter Is this a current diagnosis for this admission?: Yes Plan: Left flank pain following fall. CT ABD/Pelvis unable to definitively rule out splenic injury. Hgb stable. Surgery consulted; have signed off. (5) Fall (on) (from) unspecified stairs and steps, initial encounter Is this a current diagnosis for this admission?: Yes Plan: PT/OT consultations. Fall precautions. (6) Chronic atrial fibrillation Is this a current diagnosis for this admission?: Yes Plan: Rate controlled on home medication regiment. Holding parameters for metoprolol secondary to bradycardia. Resume home dose Plavix [id number]: 7.2% Has-BLED: 8.9% Will obtain echocardiogram Discussed risks and benefits of chronic anticoagulation with patient and son; they have elected to continue on Plavix and aspirin only. They are not interested in chronic anticoagulation secondary to bleeding and fall risk. (7) Left-sided weakness Is this a current diagnosis for this admission?: Yes Plan: Secondary to acute right-sided CVA (8) KYLAH (acute kidney injury) Is this a current diagnosis for this admission?: Yes Plan: Cr worse; 1.60-> 1.98-> 2.49-> 2.30 Minimal improvement today; however, found that the patient was not receiving IV fluids overnight as have been ordered. Discussed with nursing the importance of continuing fluids as ordered. Continue IVF Encourage p.o. fluids Patient reports scant hematuria; will obtain urinalysis. Consider renal ultrasound secondary to fall/trauma. Post void bladder scan to rule out postobstructive. Avoid nephrotoxic medications as able. Daily chemistries. - Time Time Spent with patient: 25-34 minutes Medications reviewed and adjusted accordingly: Yes Anticipated discharge: Home with Homehealth - versus SNF for short-term rehab Within: within 72 hours
--- NOTE | 2019-01-17 16:18 | RADIOLOGY REPORT (SQ) ---
EXAM DESCRIPTION: CAROTID DOPPLER COMPLETED DATE/TIME: 01/17/2019 3:48 pm REASON FOR STUDY: Acute CVA COMPARISON: CT brain 01/14/2019, 01/15/2019 MRI brain 01/15/2019 TECHNIQUE: Grayscale ultrasound, Doppler velocity and spectra, and color Doppler images acquired of the extra-cranial carotid and vertebral arteries. Images stored on PACS. LIMITATIONS: None. FINDINGS: RIGHT CAROTID CCA Velocities: Within normal limits. Right common carotid artery peak systolic velocity 0.73 m/sec ICA Velocities Peak systolic 0.74 m/s. End diastolic 0.18 m/s. Proximal ICA/CCA peak systolic ratio 1.1. Calcific plaque is present at the right carotid bifurcation, without flow significant stenosis by emani ocity criteria LEFT CAROTID CCA Velocities: Within normal limits. Left common carotid artery peak systolic velocity 0.84 m/sec. ICA Velocities Peak systolic 0.84 m/s. End diastolic 0.17 m/s. Proximal ICA/CCA peak systolic ratio 0.93. Calcific plaque is present at the left carotid bifurcation, without flow significant stenosis by [place] criteria VERTEBRAL ARTERIES: Antegrade flow. Normal waveforms. SUBCLAVIAN ARTERIES: Not evaluated OTHER: No other significant finding. IMPRESSION: NO HEMODYNAMICALLY SIGNIFICANT STENOSIS. COMMENT: Quality ID #[id number]: Velocity criteria are extrapolated from the diameter data as defined by t he Society of Radiologists in Ultrasound Consensus Conference. Radiology 2003: 229; 340-346. TECHNICAL DOCUMENTATION: JOB ID: [id number] [employer]- All Rights Reserved Reading location - IP/workstation name: [email or web address]
--- NOTE | 2019-01-17 17:56 | XCELERA REPORT ---
[address] [address] Transthoracic Echocardiogram Report Name: JIM QUIROZ Age: 78 yrs Gender: Male : 1940 Patient Status: Inpatient Patient Location: [address] [place] [address] Study Date: 01/17/2019 01:22 PM Height: 70 in Weight: 175 lb BSA: 2.0 m2 Procedure: A two-dimensional transthoracic echocardiogram with color flow and Doppler was performed. The study was technically difficult with many images being suboptimal in quality. The study was technically limited with all images being suboptimal in quality. Study Quality: Technically suboptimal. Reason For Study: Acute CVA Ordering Physician: SONIA MORALEZ Performed By: Nora Dash Interpretation Summary There is no obvious cardiac source of embolus noted on this transthoracic echocardiogram. Follow-up with a CHRISTIAN is suggested if cardiac source is still suspected. The left ventricle is normal in size. LV EF is 60% The left ventricular ejection fraction is within normal limits. No defenite regional wall motion abnormality. Unable to assess for ASD,VSD,or PFO.Not a good study to assess for thrombus or cardiogenic source of emboli.RECOMMEND CHRISTIAN. The right ventricle is normal in size and function. The right atrium is normal. The left atrium is borderline dilated. There is mild mitral leaflet calcification. There is no evidence of mitral valve prolapse. There is no vegetation seen on the mitral valve. There is no mitral valve stenosis. There is a trace to mild amount of mitral regurgitation There is no aortic valvular vegetation. There is aortic sclerosis without aortic stenosis. There is no LVOT obstruction. No aortic regurgitation is present. There is no tricuspid stenosis. There is a trace amount of tricuspid regurgitation There is mild pulmonary hypertension by echo RVSP is 34 mm of Hg , with RA mean of 10. There is no pulmonic valvular stenosis. There is no pulmonic valvular regurgitation. The aortic root is normal size. The inferior vena cava appeared normal and decreased > 50% with respiration (RAP 5-10 mmHg) There is no pericardial effusion. There is no obvious cardiac source of embolus noted on this transthoracic echocardiogram. Follow-up with a CHRISTIAN is suggested if cardiac source is still suspected MMode/2D Measurements & Calculations RVDd: 2.9 cm LVIDd: 4.4 cm FS: 40.5 % Ao root diam: 3.1 cm IVSd: 0.98 cm LVIDs: 2.6 cm EDV(Teich): 86.1 ml Ao root area: 7.7 cm2 LVPWd: 1.2 cm ESV(Teich): 24.6 ml EF(Teich): 71.4 % Doppler Measurements & Calculations MV E max emani: MV dec slope: Ao V2 max: LV V1 max P.7 cm/sec 979.2 cm/sec2 123.0 cm/sec 3.4 mmHg MV A max emani: MV dec time: 0.12 sec Ao max PG: LV V1 max: 35.4 cm/sec 6.1 mmHg 92.8 cm/sec MV E/A: 3.4 PA V2 max: TR max emani: 70.9 cm/sec 246.3 cm/sec PA max P.0 mmHg TR max P.3 mmHg Left Ventricle The left ventricle is normal in size. There is normal left ventricular wall thickness. LV EF is 60%. The left ventricular ejection fraction is within normal limits. LV diastolic function could not be adequately assessed due to atrial fibrilation. No defenite regional wall motion abnormality. Unable to assess for ASD,VSD,or PFO.Not a good study to assess for thrombus or cardiogenic source of emboli.RECOMMEND CHRISTIAN. Right Ventricle The right ventricle is normal in size and function. The right ventricle is not well visualized secondary to technical limitations. Atria The right atrium is normal. The left atrium is borderline dilated. Mitral Valve There is mild mitral leaflet calcification. There is no evidence of mitral valve prolapse. There is no vegetation seen on the mitral valve. There is no mitral valve stenosis. There is a trace to mild amount of mitral regurgitation. Aortic Valve There is no aortic valvular vegetation. There is aortic sclerosis without aortic stenosis. There is no LVOT obstruction. No aortic regurgitation is present. Tricuspid Valve There is no tricuspid stenosis. There is a trace amount of tricuspid regurgitation. There is mild pulmonary hypertension by echo. RVSP is 34 mm of Hg , with RA mean of 10. Pulmonic Valve There is no pulmonic valvular stenosis. There is no pulmonic valvular regurgitation. Great Vessels The aortic root is normal size. The inferior vena cava appeared normal and decreased > 50% with respiration (RAP 5-10 mmHg). Effusions There is no pericardial effusion. : SONIA MORALEZ > Brenda Nichols
[2019-01-18 05:15] LABS: HEMATOCRIT 31.9 % (37.9-51.0); MEAN CORPUSCULAR HEMOGLOBIN 31.7 pg (27.0-33.4); MEAN CORPUSCULAR HGB CONC 34.4 g/dL (32.0-36.0); MEAN CORPUSCULAR VOLUME 92 fl (80-97); PLATELET COUNT 268 10^3/uL (150-450); RED BLOOD COUNT 3.46 10^6/uL (4.35-5.55); RED CELL DISTRIBUTION WIDTH 13.8 % (11.5-14.0); WHITE BLOOD COUNT 7.4 10^3/uL (4.0-10.5)
[2019-01-18 05:25] LABS: ANION GAP 9 (5-19); BLOOD UREA NITROGEN 40 mg/dL (7-20); CARBON DIOXIDE 25 mmol/L (22-30); CHLORIDE 109 mmol/L (98-107); CREATINE KINASE 357 U/L (55-170); GLUCOSE 86 mg/dL (75-110); POTASSIUM 4.7 mmol/L (3.6-5.0)
[2019-01-18] MEDS: CARBIDOPA/LEVODOPA 25-100 MG TABLET PO SCH ×5 (05:59→22:53)
[2019-01-18] MEDS: LEVOTHYROXINE SODIUM 0.075 MG TABLET PO SCH (05:59)
[2019-01-18] MEDS: IBUPROFEN 600 MG TABLET PO SCH ×4 (09:13→22:53)
[2019-01-18] MEDS: LISINOPRIL 10 MG TABLET PO SCH (09:14)
[2019-01-18] MEDS: LIDOCAINE 5% (700 MG) TRANSDERMAL ADH..PATCH TP SCH (09:14)
[2019-01-18] MEDS: DOCUSATE SODIUM 100 MG CAPSULE PO SCH (09:15)
[2019-01-18] MEDS: METOPROLOL SUCCINATE 25 MG TAB.SR.24H PO SCH (09:15)
[2019-01-18] MEDS: MULTIVITAMIN TABLET PO SCH (09:15)
[2019-01-18] MEDS: ATORVASTATIN CALCIUM 40 MG TABLET PO SCH (09:15)
[2019-01-18] MEDS: ASPIRIN 81 MG TABLET, CHEWABLE PO SCH (09:15)
[2019-01-18] MEDS: CLOPIDOGREL BISULFATE 75 MG TABLET PO SCH (09:15)
[2019-01-18] MEDS: ESCITALOPRAM OXALATE 10 MG TABLET PO SCH (09:15)
--- NOTE | 2019-01-18 11:04 | ST Inp Modified Barium Swallow ---
Medical Diagnosis - Medical Diagnoses Medical Diagnosis Description & ICD-10 Code(s): CVA ST Inpatient MBS - General Date: 01/18/19 Date of Onset: 01/15/19 - History -: Medical - per EMR: patient admitted 01/14 folloiwng fall down stairs. Prior medical history includes prior CVA, Parkinson's disease, and hypertension. MRI 01/15 revealed right MCA and right DIRECTOR CASE stroke. MBSS recommended to evaluate swallowing due to underlying Parkinson's disease placing patient at higher risk of silent aspiration. Medications: Medications Reviewed Allergies: No known allergies - Subjective Current Nutritional Means: PO Current PO Diet: Mechanical - cut, Regular - for liquids Current Symptoms: Coughing Pain: Patient reports, 0/5 - Objective Assessment: Upright, Left Lateral - Food Trials Food Trials Used: Thin liquids, Pureed, Regular The Patient: Was Able to Self Feed - Assessment Labial Function: Within Normal Limits Lingual Function: Within Normal Limits Mandibular Function: Within Normal Limits Dentition: Partial Velo-Pharyngeal Function: Unremarkable Laryngeal Function: clear voicing - Pharyngeal Stage Initiation of Pharyngeal Stage: Normal Decreased Laryngeal Elevation: No Reduced Velo-Pharyngeal Closure: no Reduced Pressure Generation: Yes - mild Reduced Tongue Base Retraction: No Pre-Swallowing Pooling in Valleculae: None Pre-Swallowing Pooling in Pyriforms: None Reduced Thyro-Hyiod Approximation: No Reduced Epiglottic Excursion: Yes - mild Reduced Pharyngeal Peristalsis: No Multiple Swallows With: Cleared w/ Dry Swallow - needed to be cued for second swallow Post Swallow Residuals in Valleculae: Moderate - with solid trials Post Swallow Residuals in Pyriforms: None Pahryngeal Stage Comments: Mildly reduced epiglottic inversion resulted in residue of solid trials in the valleculae. Patient needed to be cued for second swallow to clear residuals. When swallow was challenged with sequential straw sips, aspiration was seen with a cough reaction. - Impression/Summary Tracheal Aspiration: yes - with straw sips of thin liquid only, cough, during swallow Effective Clearing: partial clearing Ineffective Compensatory Strategies: chin tuck Patient Presents With: Pharyngeal stage dysph., Mild-Moderate Risk of Aspiration: Mild Risk of Nutritional Compromise: WNL - Recommendations Solid Diet Recommendations: Mechanical Soft, Chopped Meat Liquid Diet Recommendations: Thin Strict Aspitarion Precautions: Yes Dysphagia Therapy with PERSONNEL CLERKS SUPERVISOR: No Recommended Techniques: Fully Upright During Meal, Small Bites and Sips Supervision: Distant Other Recommendations: No straws. - Time Total Time: 30 Total Timed Minutes: 30
--- NOTE | 2019-01-18 11:10 | Progress Note Acknowledgement ---
Progress Note Acknowledgement Progess Note Acknowledgement: I, the undersigned member of the medical staff with appropriate privileges and with supervisory authority over [ PAC ], a dependent practice allied health professional, acknowledge that I have reviewed the progress notes entered on this patient, and in my professional judgment believe that the assessment made and/or any care evidenced was appropriate
--- NOTE | 2019-01-18 11:16 | PDOC PROGRESS REPORT ---
Subjective Progress Note for:: 01/18/19 Subjective:: 01/18/2019 admitted to the hospital on 8 2 after suffering a fall rhabdomyolysis, and weakness, rib fracture,. Patient had a neuro work-up and the MRI of the brain showed acute infarct on the right side Patient has stabilized is now awaiting rehab placement. Patient had carotid Dopplers that were normal. White counts normal H&H is stable CK is down to 357 from 506 patient did have a modified barium swallow performed today She has some dysarthria but no receptive a aphasia and follows commands Reason For Visit: RHABDOMYOLYSIS,FALL,RIB FRACTURE,PLEURAL EFFUSION, Physical Exam Vital Signs: Temp Pulse Resp BP Pulse Ox 97.8 F 66 20 149/79 H 99 01/18/19 07:32 01/18/19 08:00 01/18/19 08:00 01/18/19 08:00 01/18/19 08:00 Intake & Output 01/17/19 01/18/19 01/19/19 06:59 06:59 06:59 Intake Total 2000 766 Output Total 200 1475 Balance 1800 -709 Weight 79.8 kg 83.6 kg General appearance: PRESENT: no acute distress, well-developed, well-nourished Respiratory exam: PRESENT: clear to auscultation emil. ABSENT: rales, rhonchi, wheezes Cardiovascular exam: PRESENT: RRR. ABSENT: diastolic murmur, rubs, systolic murmur Neurological exam: PRESENT: alert, awake, oriented to person, oriented to place, oriented to time, oriented to situation, other - Dysarthria Psychiatric exam: PRESENT: appropriate affect, normal mood. ABSENT: homicidal ideation, suicidal ideation Results Laboratory Results: 01/18/19 04:34 01/18/19 04:34 01/18/19 01/18/19 04:34 04:34 WBC 7.4 RBC 3.46 L Hgb 11.0 L Hct 31.9 L MCV 92 MCH 31.7 MCHC 34.4 RDW 13.8 Plt Count 268 Sodium 142.8 Potassium 4.7 Chloride 109 H Carbon Dioxide 25 Anion Gap 9 BUN 40 H Creatinine 2.13 H Est GFR ( Amer) 37 L Est GFR (Non-Af Amer) 30 L Glucose 86 Calcium 9.0 01/14/19 01/14/19 01/15/19 09:20 09:20 06:40 Creatine Kinase 736 H 587 H CK-MB (CK-2) 8.47 H Troponin I < 0.012 01/15/19 01/16/19 01/16/19 18:04 00:23 06:13 Creatine Kinase CK-MB (CK-2) Troponin I 0.012 0.013 0.012 01/16/19 01/18/19 07:40 04:34 Creatine Kinase 506 H 357 H CK-MB (CK-2) Troponin I Impressions: Abdomen/Pelvis CT 01/14/19 09:32 IMPRESSION: 1. Cannot entirely exclude an injury to the spleen. There is no evidence of hemorrhage outside of the splenic capsule. 2. Diverticulosis coli. Cervical Spine CT 01/14/19 09:32 IMPRESSION: No acute posttraumatic changes related to fall. Degenerative changes as described above. Chest CT 01/14/19 09:32 IMPRESSION: Comminuted fracture of posterior 9th rib on the left. There is a left pleural effusion. This may represent a hemothorax, given the presence of the rib fracture. Chest X-Ray 01/15/19 00:00 IMPRESSION: STABLE APPEARANCE. ATELECTASIS VERSUS CONTUSION IN THE LEFT LUNG BASE, UNCHANGED. NO PNEUMOTHORAX. NO ACUTE FINDINGS. Head CT 01/15/19 00:00 IMPRESSION: CHRONIC CHANGES OF ATROPHY AND MICROVASCULAR ISCHEMIA. NO ACUTE PROCESS. EVIDENCE OF ACUTE STROKE: NO. Head MRI 01/15/19 00:00 IMPRESSION: Chronic microvascular ischemia. There are areas of abnormal diffusion in the anterior superior aspect of the cerebellum, a limited area in the medial right temporal lobe, and in the right dilated. These findings concerning for acute infarctions. EVIDENCE OF ACUTE STROKE: YES. RIGHT MCA,RIGHT WIRE FENCE BUILDER. Knee X-Ray 01/16/19 00:00 IMPRESSION: NO FRACTURE. Shoulder X-Ray 01/16/19 00:00 IMPRESSION: No acute fracture or dislocation. Similar chronic left AC joint separation. Carotid Doppler Study 01/17/19 00:00 IMPRESSION: NO HEMODYNAMICALLY SIGNIFICANT STENOSIS. Assessment and Plan - Time Time Spent with patient: 25-34 minutes
--- NOTE | 2019-01-18 11:20 | RADIOLOGY REPORT (SQ) ---
EXAM DESCRIPTION: SUKHDEV SWALLOW COMPLETED DATE/TIME: 01/18/2019 9:01 am REASON FOR STUDY: dysphagia, parkinson, acute cva COMPARISON: None. TECHNIQUE: Videofluoroscopic swallowing examination was performed in conjunction with speech patholo gy. Videofluoroscopic imaging was obtained and reviewed and these are the findings: RADIATION DOSE: 2 minutes 5 seconds of fluoroscopy was used. 1 images saved to PACS. LIMITATIONS: None FINDINGS: The patient was brought into the fluoro room and placed upright on a modified barium swall ow chair. The patient was then given multiple consistencies mixed with barium to swallow under live fluoroscopic video guidance. According to the Speech Pathologist there was laryngeal penetration and aspiration of thin liquids through a straw. Mild post swallow residual contrast within the vallecul ar. IMPRESSION: LARYNGEAL PENETRATION AND ASPIRATION OF THIN LIQUIDS DESCRIBED ABOVE. PLEASE SEE [facility] PATHOLOGIST REPORT FOR OTHER FINDINGS AND RECOMMENDATIONS. COMMENT: Quality ID [id number]: Final reports for procedures using fluoroscopy that document radiation exp osure indices, or exposure time and number of fluorographic images (if radiation exposure indices are not available) TECHNICAL DOCUMENTATION: JOB ID: [id number] [employer]- All Rights Reserved Reading location - IP/workstation name: [email or web address]
[2019-01-19] MEDS: LEVOTHYROXINE SODIUM 0.075 MG TABLET PO SCH (06:15)
[2019-01-19] MEDS: CARBIDOPA/LEVODOPA 25-100 MG TABLET PO SCH ×5 (06:15→21:53)
[2019-01-19] MEDS: IBUPROFEN 600 MG TABLET PO SCH ×3 (06:15→21:53)
[2019-01-19] MEDS: LIDOCAINE 5% (700 MG) TRANSDERMAL ADH..PATCH TP SCH (09:21)
[2019-01-19] MEDS: ESCITALOPRAM OXALATE 10 MG TABLET PO SCH (09:22)
[2019-01-19] MEDS: MULTIVITAMIN TABLET PO SCH (09:22)
[2019-01-19] MEDS: METOPROLOL SUCCINATE 25 MG TAB.SR.24H PO SCH (09:22)
[2019-01-19] MEDS: ASPIRIN 81 MG TABLET, CHEWABLE PO SCH (09:22)
[2019-01-19] MEDS: CLOPIDOGREL BISULFATE 75 MG TABLET PO SCH (09:22)
[2019-01-19] MEDS: ATORVASTATIN CALCIUM 40 MG TABLET PO SCH (09:22)
[2019-01-19] MEDS: LISINOPRIL 10 MG TABLET PO SCH (09:22)
[2019-01-19] MEDS: DOCUSATE SODIUM 100 MG CAPSULE PO SCH (09:22)
--- NOTE | 2019-01-19 10:16 | PDOC PROGRESS REPORT ---
Subjective Progress Note for:: 01/19/19 Subjective:: 01/18/2019 admitted to the hospital on 8 2 after suffering a fall rhabdomyolysis, and weakness, rib fracture,. Patient had a neuro work-up and the MRI of the brain showed acute infarct on the right side Patient has stabilized is now awaiting rehab placement. Patient had carotid Dopplers that were normal. White counts normal H&H is stable CK is down to 357 from 506 patient did have a modified barium swallow performed today He has some dysarthria but no receptive a aphasia and follows commands 01/19/2019 patient continues to do very well, physical therapy is assisting with a walker. Discharge planning has contacted placement we are awaiting a decision. Patient is medically stable can be discharged when rehab Facility has been located Reason For Visit: RHABDOMYOLYSIS,FALL,RIB FRACTURE,PLEURAL EFFUSION, Physical Exam Vital Signs: Temp Pulse Resp BP Pulse Ox 97.6 F 28 L 18 165/87 H 94 01/19/19 07:49 01/19/19 07:49 01/19/19 07:49 01/19/19 07:49 01/19/19 07:49 Intake & Output 01/18/19 01/19/19 01/20/19 06:59 06:59 06:59 Intake Total 766 354 Output Total 1475 750 Balance -709 -396 Weight 83.6 kg 82.9 kg General appearance: PRESENT: no acute distress, well-developed, well-nourished Respiratory exam: PRESENT: clear to auscultation emil, other - Ribs are tender left outpatient. ABSENT: rales, rhonchi, wheezes Cardiovascular exam: PRESENT: RRR. ABSENT: diastolic murmur, rubs, systolic murmur Musculoskeletal exam: PRESENT: ambulatory, other - With assistance Neurological exam: PRESENT: alert, awake, oriented to person, oriented to place, oriented to time, oriented to situation, CN II-XII grossly intact. ABSENT: motor sensory deficit Psychiatric exam: PRESENT: appropriate affect, normal mood. ABSENT: homicidal ideation, suicidal ideation Results Laboratory Results: 01/18/19 04:34 01/18/19 04:34 01/18/19 06:00 Urine Color Cancelled Urine Appearance Cancelled Urine pH Cancelled Ur Specific [place] Cancelled Urine Protein Cancelled Urine Glucose (UA) Cancelled Urine Ketones Cancelled Urine Blood Cancelled Urine Nitrite Cancelled Ur Leukocyte Esterase Cancelled Urine WBC (Auto) Cancelled Urine RBC (Auto) Cancelled 01/14/19 01/14/19 01/15/19 09:20 09:20 06:40 Creatine Kinase 736 H 587 H CK-MB (CK-2) 8.47 H Troponin I < 0.012 01/15/19 01/16/19 01/16/19 18:04 00:23 06:13 Creatine Kinase CK-MB (CK-2) Troponin I 0.012 0.013 0.012 01/16/19 01/18/19 07:40 04:34 Creatine Kinase 506 H 357 H CK-MB (CK-2) Troponin I Impressions: Abdomen/Pelvis CT 01/14/19 09:32 IMPRESSION: 1. Cannot entirely exclude an injury to the spleen. There is no evidence of hemorrhage outside of the splenic capsule. 2. Diverticulosis coli. Cervical Spine CT 01/14/19 09:32 IMPRESSION: No acute posttraumatic changes related to fall. Degenerative changes as described above. Chest CT 01/14/19 09:32 IMPRESSION: Comminuted fracture of posterior 9th rib on the left. There is a left pleural effusion. This may represent a hemothorax, given the presence of the rib fracture. Chest X-Ray 01/15/19 00:00 IMPRESSION: STABLE APPEARANCE. ATELECTASIS VERSUS CONTUSION IN THE LEFT LUNG BASE, UNCHANGED. NO PNEUMOTHORAX. NO ACUTE FINDINGS. Head CT 01/15/19 00:00 IMPRESSION: CHRONIC CHANGES OF ATROPHY AND MICROVASCULAR ISCHEMIA. NO ACUTE PROCESS. EVIDENCE OF ACUTE STROKE: NO. Head MRI 01/15/19 00:00 IMPRESSION: Chronic microvascular ischemia. There are areas of abnormal diffusion in the anterior superior aspect of the cerebellum, a limited area in the medial right temporal lobe, and in the right dilated. These findings concerning for acute infarctions. EVIDENCE OF ACUTE STROKE: YES. 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 Knee X-Ray 01/16/19 00:00 IMPRESSION: NO FRACTURE. Shoulder X-Ray 01/16/19 00:00 IMPRESSION: No acute fracture or dislocation. Similar chronic left AC joint separation. Carotid Doppler Study 01/17/19 00:00 IMPRESSION: NO HEMODYNAMICALLY SIGNIFICANT STENOSIS. Modified Barium Swallow 01/18/19 00:00 IMPRESSION: LARYNGEAL PENETRATION AND ASPIRATION OF THIN LIQUIDS DESCRIBED A GREGOR. PLEASE SEE SPEECH PATHOLOGIST REPORT FOR OTHER FINDINGS AND RECOMMENDATIONS. Assessment and Plan - Diagnosis (1) Fall (on) (from) unspecified stairs and steps, initial encounter Is this a current diagnosis for this admission?: No (2) Closed rib fracture Qualifiers: Encounter type: initial encounter Rib fracture type: single rib Laterality: left Qualified Code(s): S22.32XA - Fracture of one rib, left side, initial encounter for closed fracture Is this a current diagnosis for this admission?: Yes Plan: Secondary to fall. Repeat CXR demonstrates atelectasis vs contusion left lung base; stable Analgesics as needed Pulmonary toilet Surgery consulted; have reviewed and signed off 01/19/2019 patient has no respiratory complaints at this time. Patient is chain tender to palpate over the fractured ribs on the left however he is up and ambulatory with assistance (3) Rhabdomyolysis Qualifiers: Rhabdomyolysis type: traumatic Is this a current diagnosis for this admission?: Yes Plan: Improved. Mild rhabdomyolysis following fall down ~15 steps. CK 736-> 587-> 506 Cr worse; 1.60-> 1.98-> 2.49-> 2.30 Continue IVF Encourage p.o. fluids Follow up chemistry and CK 01/19/2019 Ck is come down. Patient has no indication of rhabdo at this time (4) CVA (cerebral vascular accident) Qualifiers: CVA mechanism: unspecified Qualified Code(s): I63.9 - Cerebral infarction, unspecified Is this a current diagnosis for this admission?: Yes Plan: Increased left sided weakness and slurred speech on progress day #1; complicated by Parkinson's and opiate pain medications. Repeat Head CT is negative for acute CVA. An MRI demonstrated right cerebellum and thalamus acute CVA. Echocardiogram and carotid Doppler pending. Troponins negative x4. Lipid panel, A1c, and TSH are acceptable. Modified barium swallow study pending. Patient is admitted to [facility] on continuous cardiac telemetry. Continue daily aspirin, Plavix, and statin therapy. PT/OT/ST consultations requested. Discharge planning is consulted. 01/19/2019 modified barium swallow shows an aspiration risk discharge,planning is working on placement. Labs are improving. - Time Time Spent with patient: 25-34 minutes
--- NOTE | 2019-01-19 12:46 | RADIOLOGY REPORT (SQ) ---
EXAM DESCRIPTION: CHEST 2 VIEWS COMPLETED DATE/TIME: 01/19/2019 12:31 pm REASON FOR STUDY: follow up rib fx, atelectasis COMPARISON: 01/15/2019 EXAM PARAMETERS: NUMBER OF VIEWS: two views TECHNIQUE: Digital Frontal and Lateral radiographic views of the chest acquired. RADIATION DOSE: NA LIMITATIONS: none FINDINGS: LUNGS AND PLEURA: Residual left retrocardiac opacity with obscuration of hemidiaphragm. M inimal patchy right mid lung opacities, stable. No pneumothorax. No large effusion. MEDIASTINUM AND HILAR STRUCTURES: No masses or contour abnormalities. HEART AND VASCULAR STRUCTURES: Normal heart size. Aortic atherosclerosis. BONES: No displaced fracture. HARDWARE: None in the chest. OTHER: No other significant finding. IMPRESSION: Persistent left retrocardiac opacity possibly atelectasis or contusion. No pneumothorax . Minimal nonspecific ill-defined right mid lung opacities, stable. TECHNICAL DOCUMENTATION: JOB ID: [id number] [employer]- All Rights Reserved Reading location - IP/workstation name: [email or web address]
[2019-01-20] MEDS: IBUPROFEN 600 MG TABLET PO SCH ×3 (06:09→21:55)
[2019-01-20] MEDS: LEVOTHYROXINE SODIUM 0.075 MG TABLET PO SCH (06:10)
[2019-01-20] MEDS: CARBIDOPA/LEVODOPA 25-100 MG TABLET PO SCH ×5 (06:10→21:55)
[2019-01-20] MEDS: LIDOCAINE 5% (700 MG) TRANSDERMAL ADH..PATCH TP SCH (09:58)
[2019-01-20] MEDS: LISINOPRIL 10 MG TABLET PO SCH (10:00)
[2019-01-20] MEDS: DOCUSATE SODIUM 100 MG CAPSULE PO SCH (10:00)
[2019-01-20] MEDS: CLOPIDOGREL BISULFATE 75 MG TABLET PO SCH (10:01)
[2019-01-20] MEDS: ESCITALOPRAM OXALATE 10 MG TABLET PO SCH (10:01)
[2019-01-20] MEDS: ATORVASTATIN CALCIUM 40 MG TABLET PO SCH (10:01)
[2019-01-20] MEDS: ASPIRIN 81 MG TABLET, CHEWABLE PO SCH (10:01)
[2019-01-20] MEDS: MULTIVITAMIN TABLET PO SCH (10:01)
[2019-01-20] MEDS: METOPROLOL SUCCINATE 25 MG TAB.SR.24H PO SCH (10:02)
--- NOTE | 2019-01-20 11:43 | PDOC PROGRESS REPORT ---
Subjective Progress Note for:: 01/20/19 Subjective:: 01/18/2019 admitted to the hospital on 8 2 after suffering a fall rhabdomyolysis, and weakness, rib fracture,. Patient had a neuro work-up and the MRI of the brain showed acute infarct on the right side Patient has stabilized is now awaiting rehab placement. Patient had carotid Dopplers that were normal. White counts normal H&H is stable CK is down to 357 from 506 patient did have a modified barium swallow performed today He has some dysarthria but no receptive a aphasia and follows commands 01/19/2019 patient continues to do very well, physical therapy is assisting with a walker. Discharge planning has contacted placement we are awaiting a decision. Patient is medically stable can be discharged when rehab Facility has been located 01/20/2019 charge planning is supposed to meet today around 1:00 try to find out where we are as far as placement. Patient's vital signs are stable blood pressure 146/80 temp 97 5 pulse 59 O2 sat 100% on room air CK is come down to 221 white count is normal 7.4 H&H is 11 and 31. Chest x-ray yesterday showed a contusion of the lung some patchiness which is basically unchanged Patient is on no antibiotics at this time. Patient is up and ambulatory with physical therapy and a walker ,patient is in good spirits Reason For Visit: RHABDOMYOLYSIS,FALL,RIB FRACTURE,PLEURAL EFFUSION, Physical Exam Vital Signs: Temp Pulse Resp BP Pulse Ox 97.5 F 59 L 20 146/80 H 100 01/20/19 07:39 01/20/19 07:39 01/20/19 07:39 01/20/19 07:39 01/20/19 07:39 Intake & Output 01/19/19 01/20/19 01/21/19 06:59 06:59 06:59 Intake Total 354 310 Output Total 750 950 Balance -396 -640 Weight 82.9 kg 80.9 kg General appearance: PRESENT: no acute distress, well-developed, well-nourished Head exam: PRESENT: atraumatic, normocephalic Respiratory exam: PRESENT: clear to auscultation emil. ABSENT: rales, rhonchi, wheezes Cardiovascular exam: PRESENT: RRR. ABSENT: diastolic murmur, rubs, systolic murmur Neurological exam: PRESENT: alert, awake, oriented to person, oriented to place, oriented to time, oriented to situation, CN II-XII grossly intact. ABSENT: motor sensory deficit Psychiatric exam: PRESENT: appropriate affect, normal mood. ABSENT: homicidal ideation, suicidal ideation Results Laboratory Results: 01/18/19 04:34 01/18/19 04:34 01/14/19 01/14/19 01/15/19 09:20 09:20 06:40 Creatine Kinase 736 H 587 H CK-MB (CK-2) 8.47 H Troponin I < 0.012 01/15/19 01/16/19 01/16/19 18:04 00:23 06:13 Creatine Kinase CK-MB (CK-2) Troponin I 0.012 0.013 0.012 01/16/19 01/18/19 01/19/19 07:40 04:34 11:33 Creatine Kinase 506 H 357 H 221 H CK-MB (CK-2) Troponin I Impressions: Abdomen/Pelvis CT 01/14/19 09:32 IMPRESSION: 1. Cannot entirely exclude an injury to the spleen. There is no evidence of hemorrhage outside of the splenic capsule. 2. Diverticulosis coli. Cervical Spine CT 01/14/19 09:32 IMPRESSION: No acute posttraumatic changes related to fall. Degenerative changes as described above. Chest CT 01/14/19 09:32 IMPRESSION: Comminuted fracture of posterior 9th rib on the left. There is a left pleural effusion. This may represent a hemothorax, given the presence of the rib fracture. Head CT 01/15/19 00:00 IMPRESSION: CHRONIC CHANGES OF ATROPHY AND MICROVASCULAR ISCHEMIA. NO ACUTE PROCESS. EVIDENCE OF ACUTE STROKE: NO. Head MRI 01/15/19 00:00 IMPRESSION: Chronic microvascular ischemia. There are areas of abnormal diffusion in the anterior superior aspect of the cerebellum, a limited area in the medial right temporal lobe, and in the right dilated. These findings concerning for acute infarctions. EVIDENCE OF ACUTE STROKE: YES. 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 Knee X-Ray 01/16/19 00:00 IMPRESSION: NO FRACTURE. Shoulder X-Ray 01/16/19 00:00 IMPRESSION: No acute fracture or dislocation. Similar chronic left AC joint separation. Carotid Doppler Study 01/17/19 00:00 IMPRESSION: NO HEMODYNAMICALLY SIGNIFICANT STENOSIS. Modified Barium Swallow 01/18/19 00:00 IMPRESSION: LARYNGEAL PENETRATION AND ASPIRATION OF THIN LIQUIDS DESCRIBED ABOVE. PLEASE SEE SPEECH PATHOLOGIST REPORT FOR OTHER FINDINGS AND RECOMMENDATIONS. Chest X-Ray 01/19/19 00:00 IMPRESSION: Persistent left retrocardiac opacity possibly atelectasis or contusion. No pneumothorax. Minimal nonspecific ill-defined right mid lung opacities, stable. Assessment and Plan - Diagnosis (1) Fall (on) (from) unspecified stairs and steps, initial encounter Is this a current diagnosis for this admission?: No Plan: PT/OT consultations. Fall precautions. 01/20/2019 is not complaining of any rib pain as he was previously (2) Closed rib fracture Qualifiers: Encounter type: initial encounter Rib fracture type: single rib Laterality: left Qualified Code(s): S22.32XA - Fracture of one rib, left side, initial encounter for closed fracture Is this a current diagnosis for this admission?: Yes Plan: Secondary to fall. Repeat CXR demonstrates atelectasis vs contusion left lung base; stable Analgesics as needed Pulmonary toilet Surgery consulted; have reviewed and signed off 01/19/2019 patient has no respiratory complaints at this time. 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 CK is come down to 221 (3) Rhabdomyolysis Qualifiers: Rhabdomyolysis type: traumatic Is this a current diagnosis for this admission?: Yes Plan: Improved. Mild rhabdomyolysis following fall down ~15 steps. CK 736-> 587-> 506 Cr worse; 1.60-> 1.98-> 2.49-> 2.30 Continue IVF Encourage p.o. fluids Follow up chemistry and CK 01/19/2019 Ck is come down. Patient has no indication of rhabdo at this time 01/20/2019 CK is come down to 221 from a high of 736 (4) CVA (cerebral vascular accident) Qualifiers: CVA mechanism: unspecified Qualified Code(s): I63.9 - Cerebral infarction, unspecified Is this a current diagnosis for this admission?: Yes Plan: Increased left sided weakness and slurred speech on progress day #1; complicated by Parkinson's and opiate pain medications. Repeat Head CT is negative for acute CVA. An MRI demonstrated right cerebellum and thalamus acute CVA. Echocardiogram and carotid Doppler pending. Troponins negative x4. Lipid panel, A1c, and TSH are acceptable. Modified barium swallow study pending. Patient is admitted to [facility] on continuous cardiac telemetry. Continue daily aspirin, Plavix, and statin therapy. PT/OT/ST consultations requested. Discharge planning is consulted. 01/19/2019 modified barium swallow shows an aspiration risk discharge,planning is working on placement. Labs are improving. 819 patient is eating well drinking well. Continuing aspirin Plavix and statins - Time Time Spent with patient: 15-24 minutes
[2019-01-21] MEDS: IBUPROFEN 600 MG TABLET PO SCH ×3 (05:19→22:05)
[2019-01-21] MEDS: CARBIDOPA/LEVODOPA 25-100 MG TABLET PO SCH ×5 (05:19→22:06)
[2019-01-21] MEDS: LEVOTHYROXINE SODIUM 0.075 MG TABLET PO SCH (05:19)
--- NOTE | 2019-01-21 10:03 | PDOC PROGRESS REPORT ---
Subjective Progress Note for:: 01/21/19 Subjective:: 01/18/2019 admitted to the hospital on 8 2 after suffering a fall rhabdomyolysis, and weakness, rib fracture,. Patient had a neuro work-up and the MRI of the brain showed acute infarct on the right side Patient has stabilized is now awaiting rehab placement. Patient had carotid Dopplers that were normal. White counts normal H&H is stable CK is down to 357 from 506 patient did have a modified barium swallow performed today He has some dysarthria but no receptive a aphasia and follows commands 01/19/2019 patient continues to do very well, physical therapy is assisting with a walker. Discharge planning has contacted placement we are awaiting a decision. Patient is medically stable can be discharged when rehab Facility has been located 01/20/2019 charge planning is supposed to meet today around 1:00 try to find out where we are as far as placement. Patient's vital signs are stable blood pressure 146/80 temp 97 5 pulse 59 O2 sat 100% on room air CK is come down to 221 white count is normal 7.4 H&H is 11 and 31. Chest x-ray yesterday showed a contusion of the lung some patchiness which is basically unchanged Patient is on no antibiotics at this time. Patient is up and ambulatory with physical therapy and a walker ,patient is in good spirits 01/21/2019 patient is walking 100 feet even though not steady, which unfortunately puts him out of the rehab category. I talked to discharge planning today, who is going to talk to his son try to figure out placement. Medically the patient is stable I have discontinued his IV fluids today, patient is taking p.o. meds. Reason For Visit: RHABDOMYOLYSIS,FALL,RIB FRACTURE,PLEURAL EFFUSION, Physical Exam Vital Signs: Temp Pulse Resp BP Pulse Ox 97.5 F 52 L 20 128/60 H 100 01/21/19 07:35 01/21/19 07:35 01/21/19 07:35 01/21/19 07:35 01/21/19 07:35 Intake & Output 01/20/19 01/21/19 01/22/19 06:59 06:59 06:59 Intake Total 310 900 Output Total 950 1120 Balance -640 -220 Weight 80.9 kg 80.9 kg General appearance: PRESENT: no acute distress, well-developed, well-nourished Head exam: PRESENT: atraumatic, normocephalic Respiratory exam: PRESENT: clear to auscultation emil. ABSENT: rales, rhonchi, wheezes Cardiovascular exam: PRESENT: RRR. ABSENT: diastolic murmur, rubs, systolic murmur Neurological exam: PRESENT: alert, awake, oriented to person, oriented to place, oriented to time, oriented to situation, CN II-XII grossly intact, other - Patient has weakness with ambulation ,shuffling gait. Patient cannot ambulate without a walker and assistance. ABSENT: motor sensory deficit Psychiatric exam: PRESENT: appropriate affect, normal mood. ABSENT: homicidal ideation, suicidal ideation Results Laboratory Results: 01/18/19 04:34 01/18/19 04:34 01/14/19 01/14/19 01/15/19 09:20 09:20 06:40 Creatine Kinase 736 H 587 H CK-MB (CK-2) 8.47 H Troponin I < 0.012 01/15/19 01/16/19 01/16/19 18:04 00:23 06:13 Creatine Kinase CK-MB (CK-2) Troponin I 0.012 0.013 0.012 01/16/19 01/18/19 01/19/19 07:40 04:34 11:33 Creatine Kinase 506 H 357 H 221 H CK-MB (CK-2) Troponin I Impressions: Abdomen/Pelvis CT 01/14/19 09:32 IMPRESSION: 1. Cannot entirely exclude an injury to the spleen. There is no evidence of hemorrhage outside of the splenic capsule. 2. Diverticulosis coli. Cervical Spine CT 01/14/19 09:32 IMPRESSION: No acute posttraumatic changes related to fall. Degenerative changes as described above. Chest CT 01/14/19 09:32 IMPRESSION: Comminuted fracture of posterior 9th rib on the left. There is a left pleural effusion. This may represent a hemothorax, given the presence of the rib fracture. Head CT 01/15/19 00:00 IMPRESSION: CHRONIC CHANGES OF ATROPHY AND MICROVASCULAR ISCHEMIA. NO ACUTE PROCESS. EVIDENCE OF ACUTE STROKE: NO. Head MRI 01/15/19 00:00 IMPRESSION: Chronic microvascular ischemia. There are areas of abnormal diffusion in the anterior superior aspect of the cerebellum, a limited area in the medial right temporal lobe, and in the right dilated. These findings concerning for acute infarctions. EVIDENCE OF ACUTE STROKE: YES. 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 Knee X-Ray 01/16/19 00:00 IMPRESSION: NO FRACTURE. Shoulder X-Ray 01/16/19 00:00 IMPRESSION: No acute fracture or dislocation. Similar chronic left AC joint separation. Carotid Doppler Study 01/17/19 00:00 IMPRESSION: NO HEMODYNAMICALLY SIGNIFICANT STENOSIS. Modified Barium Swallow 01/18/19 00:00 IMPRESSION: LARYNGEAL PENETRATION AND ASPIRATION OF THIN LIQUIDS DESCRIBED ABOVE. PLEASE SEE SPEECH PATHOLOGIST REPORT FOR OTHER FINDINGS AND RECOMMENDATIONS. Chest X-Ray 01/19/19 00:00 IMPRESSION: Persistent left retrocardiac opacity possibly atelectasis or contusion. No pneumothorax. Minimal nonspecific ill-defined right mid lung opacities, stable. Assessment and Plan - Diagnosis (1) Fall (on) (from) unspecified stairs and steps, initial encounter Is this a current diagnosis for this admission?: No Plan: PT/OT consultations. Fall precautions. 01/20/2019 is not complaining of any rib pain as he was previously 01/21/2019 vision ambulates with a walker and with assistance. Patient would not be able to ambulate by himself due to weakness his shuffling gait (2) Closed rib fracture Qualifiers: Encounter type: initial encounter Rib fracture type: single rib Laterality: left Qualified Code(s): S22.32XA - Fracture of one rib, left side, initial encounter for closed fracture Is this a current diagnosis for this admission?: Yes Plan: Secondary to fall. Repeat CXR demonstrates atelectasis vs contusion left lung base; stable Analgesics as needed Pulmonary toilet Surgery consulted; have reviewed and signed off 01/19/2019 patient has no respiratory complaints at this time. 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 CK is come down to 221 01/21/2019 patient is not using any pain medication for his rib fractures. Maintains his O2 saturation at 100% on room air (3) Rhabdomyolysis Qualifiers: Rhabdomyolysis type: traumatic Is this a current diagnosis for this admission?: Yes Plan: Improved. Mild rhabdomyolysis following fall down ~15 steps. CK 736-> 587-> 506 Cr worse; 1.60-> 1.98-> 2.49-> 2.30 Continue IVF Encourage p.o. fluids Follow up chemistry and CK 01/19/2019 Ck is come down. Patient has no indication of rhabdo at this time 01/20/2019 CK is come down to 221 from a high of 736 01/21/2019 no medical signs of rhabdo, patient does not appear to be dehydrated. He is eating and drinking well (4) CVA (cerebral vascular accident) Qualifiers: CVA mechanism: unspecified Qualified Code(s): I63.9 - Cerebral infarction, unspecified Is this a current diagnosis for this admission?: Yes Plan: Increased left sided weakness and slurred speech on progress day #1; complicated by Parkinson's and opiate pain medications. Repeat Head CT is negative for acute CVA. An MRI demonstrated right cerebellum and thalamus acute CVA. Echocardiogram and carotid Doppler pending. Troponins negative x4. Lipid panel, A1c, and TSH are acceptable. Modified barium swallow study pending. Patient is admitted to [facility] on continuous cardiac telemetry. Continue daily aspirin, Plavix, and statin therapy. PT/OT/ST consultations requested. Discharge planning is consulted. 01/19/2019 modified barium swallow shows an aspiration risk discharge,planning is working on placement. Labs are improving. 819 patient is eating well drinking well. Continuing aspirin Plavix and statins 01/21/2019 patient has no focal neurologic deficits, he is globally weak. Speech is intact - Time Time Spent with patient: 25-34 minutes
[2019-01-21] MEDS: METOPROLOL SUCCINATE 25 MG TAB.SR.24H PO SCH (10:38)
[2019-01-21] MEDS: ATORVASTATIN CALCIUM 40 MG TABLET PO SCH (10:38)
[2019-01-21] MEDS: DOCUSATE SODIUM 100 MG CAPSULE PO SCH (10:38)
[2019-01-21] MEDS: ASPIRIN 81 MG TABLET, CHEWABLE PO SCH (10:38)
[2019-01-21] MEDS: CLOPIDOGREL BISULFATE 75 MG TABLET PO SCH (10:38)
[2019-01-21] MEDS: LISINOPRIL 10 MG TABLET PO SCH (10:38)
[2019-01-21] MEDS: MULTIVITAMIN TABLET PO SCH (10:38)
[2019-01-21] MEDS: ESCITALOPRAM OXALATE 10 MG TABLET PO SCH (10:38)
[2019-01-21] MEDS: LIDOCAINE 5% (700 MG) TRANSDERMAL ADH..PATCH TP SCH (10:39)
[2019-01-21 21:48] LABS: APPEARANCE,URINE CLEAR; BILIRUBIN,URINE NEGATIVE (NEGATIVE); COLOR,URINE YELLOW; GLUCOSE, URINE NEGATIVE (NEGATIVE); KETONES,URINE NEGATIVE (NEGATIVE); LEUKOCYTE ESTERASE,URINE NEGATIVE (NEGATIVE); NITRITE,URINE NEGATIVE (NEGATIVE); PROTEIN,URINE NEGATIVE (NEGATIVE); URINE SPECIFIC GRAVITY 1.012; UROBILINOGEN,URINE NEGATIVE mg/dL (<2.0)
[2019-01-22] MEDS: IBUPROFEN 600 MG TABLET PO SCH ×3 (06:14→22:20)
[2019-01-22] MEDS: LEVOTHYROXINE SODIUM 0.075 MG TABLET PO SCH (06:14)
[2019-01-22] MEDS: CARBIDOPA/LEVODOPA 25-100 MG TABLET PO SCH ×5 (06:15→22:19)
--- NOTE | 2019-01-22 10:06 | PDOC PROGRESS REPORT ---
Subjective Progress Note for:: 01/22/19 Subjective:: 01/18/2019 admitted to the hospital on 8 2 after suffering a fall rhabdomyolysis, and weakness, rib fracture,. Patient had a neuro work-up and the MRI of the brain showed acute infarct on the right side Patient has stabilized is now awaiting rehab placement. Patient had carotid Dopplers that were normal. White counts normal H&H is stable CK is down to 357 from 506 patient did have a modified barium swallow performed today He has some dysarthria but no receptive a aphasia and follows commands 01/19/2019 patient continues to do very well, physical therapy is assisting with a walker. Discharge planning has contacted placement we are awaiting a decision. Patient is medically stable can be discharged when rehab Facility has been located 01/20/2019 charge planning is supposed to meet today around 1:00 try to find out where we are as far as placement. Patient's vital signs are stable blood pressure 146/80 temp 97 5 pulse 59 O2 sat 100% on room air CK is come down to 221 white count is normal 7.4 H&H is 11 and 31. Chest x-ray yesterday showed a contusion of the lung some patchiness which is basically unchanged Patient is on no antibiotics at this time. Patient is up and ambulatory with physical therapy and a walker ,patient is in good spirits 01/21/2019 patient is walking 100 feet even though not steady, which unfortunately puts him out of the rehab category. I talked to discharge planning today, who is going to talk to his son try to figure out placement. Medically the patient is stable I have discontinued his IV fluids today, patient is taking p.o. meds. 01/22/2019 patient has been referred to [facility] for admission anticipate patient will be able to be discharged on Thursday patient will continue with physical therapy meantime Patient will continue his lisinopril 10 mg daily Lexapro 10 mg daily, Lidoderm 5% patch daily, Toprol XL L 0.5 mg daily Sinemet 25-101 tablet every 4 hours, Lipitor 40 mg daily to vitamins 1 daily, aspirin 81 mg daily, Plavix 75 mg daily Synthroid 0.075 mg daily Patient is medically stable will recheck labs today last chest x-ray was 3 days ago and stable Reason For Visit: RHABDOMYOLYSIS,FALL,RIB FRACTURE,PLEURAL EFFUSION, Physical Exam Vital Signs: Temp Pulse Resp BP Pulse Ox 97.5 F 52 L 20 145/71 H 99 01/22/19 08:02 01/22/19 08:02 01/22/19 08:02 01/22/19 08:02 01/22/19 08:02 Intake & Output 01/21/19 01/22/19 01/23/19 06:59 06:59 06:59 Intake Total 900 840 Output Total 1120 1400 Balance -220 -560 Weight 80.9 kg 81.3 kg General appearance: PRESENT: no acute distress, well-developed, well-nourished Head exam: PRESENT: atraumatic, normocephalic Respiratory exam: PRESENT: clear to auscultation emil. ABSENT: rales, rhonchi, wheezes Cardiovascular exam: PRESENT: RRR. ABSENT: diastolic murmur, rubs, systolic murmur Neurological exam: PRESENT: alert, awake, oriented to person, oriented to place, oriented to time, oriented to situation, CN II-XII grossly intact, other - Generalized weakness difficulty with gait secondary to weakness. ABSENT: motor sensory deficit Psychiatric exam: PRESENT: appropriate affect, normal mood, other - Patient is very pleasant in good spirits, very appreciative of his care. ABSENT: homicidal ideation, suicidal ideation Results Laboratory Results: 01/18/19 04:34 01/18/19 04:34 01/21/19 21:00 Urine Color YELLOW Urine Appearance CLEAR Urine pH 5.0 Ur Specific [place] 1.012 Urine Protein NEGATIVE Urine Glucose (UA) NEGATIVE Urine Ketones NEGATIVE Urine Blood NEGATIVE Urine Nitrite NEGATIVE Ur Leukocyte Esterase NEGATIVE Urine WBC (Auto) 1 Urine RBC (Auto) 0 01/14/19 01/14/19 01/15/19 09:20 09:20 06:40 Creatine Kinase 736 H 587 H CK-MB (CK-2) 8.47 H Troponin I < 0.012 01/15/19 01/16/19 01/16/19 18:04 00:23 06:13 Creatine Kinase CK-MB (CK-2) Troponin I 0.012 0.013 0.012 01/16/19 01/18/19 01/19/19 07:40 04:34 11:33 Creatine Kinase 506 H 357 H 221 H CK-MB (CK-2) Troponin I Impressions: Abdomen/Pelvis CT 01/14/19 09:32 IMPRESSION: 1. Cannot entirely exclude an injury to the spleen. There is no evidence of hemorrhage outside of the splenic capsule. 2. Diverticulosis coli. Cervical Spine CT 01/14/19 09:32 IMPRESSION: No acute posttraumatic changes related to fall. Degenerative changes as described above. Chest CT 01/14/19 09:32 IMPRESSION: Comminuted fracture of posterior 9th rib on the left. There is a left pleural effusion. This may represent a hemothorax, given the presence of the rib fracture. Head CT 01/15/19 00:00 IMPRESSION: CHRONIC CHANGES OF ATROPHY AND MICROVASCULAR ISCHEMIA. NO ACUTE PROCESS. EVIDENCE OF ACUTE STROKE: NO. Head MRI 01/15/19 00:00 IMPRESSION: Chronic microvascular ischemia. There are areas of abnormal diffusion in the anterior superior aspect of the cerebellum, a limited area in the medial right temporal lobe, and in the right dilated. These findings concerning for acute infarctions. EVIDENCE OF ACUTE STROKE: YES. 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 Knee X-Ray 01/16/19 00:00 IMPRESSION: NO FRACTURE. Shoulder X-Ray 01/16/19 00:00 IMPRESSION: No acute fracture or dislocation. Similar chronic left AC joint separation. Carotid Doppler Study 01/17/19 00:00 IMPRESSION: NO HEMODYNAMICALLY SIGNIFICANT STENOSIS. Modified Barium Swallow 01/18/19 00:00 IMPRESSION: LARYNGEAL PENETRATION AND ASPIRATION OF THIN LIQUIDS DESCRIBED ABOVE. PLEASE SEE SPEECH PATHOLOGIST REPORT FOR OTHER FINDINGS AND RECOMMENDATIONS. Chest X-Ray 01/19/19 00:00 IMPRESSION: Persistent left retrocardiac opacity possibly atelectasis or contusion. No pneumothorax. Minimal nonspecific ill-defined right mid lung opacities, stable. Assessment and Plan - Diagnosis (1) Fall (on) (from) unspecified stairs and steps, initial encounter Is this a current diagnosis for this admission?: No Plan: PT/OT consultations. Fall precautions. 01/20/2019 is not complaining of any rib pain as he was previously 01/21/2019 vision ambulates with a walker and with assistance. Patient would not be able to ambulate by himself due to weakness his shuffling gait 01/22/2019 patient continues with physical therapy ,patient is not able to get up by himself without assistance due to weakness (2) Closed rib fracture Qualifiers: Encounter type: initial encounter Rib fracture type: single rib Laterality: left Qualified Code(s): S22.32XA - Fracture of one rib, left side, initial encounter for closed fracture Is this a current diagnosis for this admission?: Yes Plan: Secondary to fall. Repeat CXR demonstrates atelectasis vs contusion left lung base; stable Analgesics as needed Pulmonary toilet Surgery consulted; have reviewed and signed off 01/19/2019 patient has no respiratory complaints at this time. Patient is distiller to palpate over the fractured ribs on the left however he is up and ambulatory with assistance 01/20/2019 no signs of pneumonia on chest x-ray. CK is come down to 221 01/21/2019 patient is not using any pain medication for his rib fractures. Mainta ins his O2 saturation at 100% on room air 01/22/2019 she does not complain of rib pain is not using IV or IM pain medication for this (3) Rhabdomyolysis Qualifiers: Rhabdomyolysis type: traumatic Is this a current diagnosis for this admission?: Yes Plan: Improved. Mild rhabdomyolysis following fall down ~15 steps. CK 736-> 587-> 506 Cr worse; 1.60-> 1.98-> 2.49-> 2.30 Continue IVF Encourage p.o. fluids Follow up chemistry and CK 01/19/2019 Ck is come down. Patient has no indication of rhabdo at this time 01/20/2019 CK is come down to 221 from a high of 736 01/21/2019 no medical signs of rhabdo, patient does not appear to be dehydrated. He is eating and drinking well 01 22- patient terms of rhabdomyolysis have resolved (4) CVA (cerebral vascular accident) Qualifiers: CVA mechanism: unspecified Qualified Code(s): I63.9 - Cerebral infarction, unspecified Is this a current diagnosis for this admission?: Yes Plan: Increased left sided weakness and slurred speech on progress day #1; complicated by Parkinson's and opiate pain medications. Repeat Head CT is negative for acute CVA. An MRI demonstrated right cerebellum and thalamus acute CVA. Echocardiogram and carotid Doppler pending. Troponins negative x4. Lipid panel, A1c, and TSH are acceptable. Modified barium swallow study pending. Patient is admitted to [facility] on continuous cardiac telemetry. Continue daily aspirin, Plavix, and statin therapy. PT/OT/ST consultations requested. Discharge planning is consulted. 01/19/2019 modified barium swallow shows an aspiration risk discharge,planning is working on placement. Labs are improving. 819 patient is eating well drinking well. Continuing aspirin Plavix and statins 01/21/2019 patient has no focal neurologic deficits, he is globally weak. Speech is intact 01/22/2019 patient is neurologically intact, no new neurologic episodes - Time Time Spent with patient: 25-34 minutes
[2019-01-22] MEDS: ATORVASTATIN CALCIUM 40 MG TABLET PO SCH (10:18)
[2019-01-22] MEDS: ASPIRIN 81 MG TABLET, CHEWABLE PO SCH (10:18)
[2019-01-22] MEDS: LISINOPRIL 10 MG TABLET PO SCH (10:19)
[2019-01-22] MEDS: MULTIVITAMIN TABLET PO SCH (10:19)
[2019-01-22] MEDS: METOPROLOL SUCCINATE 25 MG TAB.SR.24H PO SCH (10:19)
[2019-01-22] MEDS: CLOPIDOGREL BISULFATE 75 MG TABLET PO SCH (10:19)
[2019-01-22] MEDS: LIDOCAINE 5% (700 MG) TRANSDERMAL ADH..PATCH TP SCH (10:19)
[2019-01-22] MEDS: ESCITALOPRAM OXALATE 10 MG TABLET PO SCH (10:19)
[2019-01-22] MEDS: DOCUSATE SODIUM 100 MG CAPSULE PO SCH (10:19)
[2019-01-23] MEDS: LEVOTHYROXINE SODIUM 0.075 MG TABLET PO SCH (05:35)
[2019-01-23] MEDS: CARBIDOPA/LEVODOPA 25-100 MG TABLET PO SCH ×5 (05:35→22:18)
[2019-01-23] MEDS: IBUPROFEN 600 MG TABLET PO SCH ×3 (05:36→22:22)
--- NOTE | 2019-01-23 09:04 | PDOC PROGRESS REPORT ---
Subjective Progress Note for:: 01/23/19 Subjective:: 01/18/2019 admitted to the hospital on 8 2 after suffering a fall rhabdomyolysis, and weakness, rib fracture,. Patient had a neuro work-up and the MRI of the brain showed acute infarct on the right side Patient has stabilized is now awaiting rehab placement. Patient had carotid Dopplers that were normal. White counts normal H&H is stable CK is down to 357 from 506 patient did have a modified barium swallow performed today He has some dysarthria but no receptive a aphasia and follows commands 01/19/2019 patient continues to do very well, physical therapy is assisting with a walker. Discharge planning has contacted placement we are awaiting a decision. Patient is medically stable can be discharged when rehab Facility has been located 01/20/2019 charge planning is supposed to meet today around 1:00 try to find out where we are as far as placement. Patient's vital signs are stable blood pressure 146/80 temp 97 5 pulse 59 O2 sat 100% on room air CK is come down to 221 white count is normal 7.4 H&H is 11 and 31. Chest x-ray yesterday showed a contusion of the lung some patchiness which is basically unchanged Patient is on no antibiotics at this time. Patient is up and ambulatory with physical therapy and a walker ,patient is in good spirits 01/21/2019 patient is walking 100 feet even though not steady, which unfortunately puts him out of the rehab category. I talked to discharge planning today, who is going to talk to his son try to figure out placement. Medically the patient is stable I have discontinued his IV fluids today, patient is taking p.o. meds. 01/22/2019 patient has been referred to [facility] for admission anticipate patient will be able to be discharged on Thursday patient will continue with physical therapy meantime Patient will continue his lisinopril 10 mg daily Lexapro 10 mg daily, Lidoderm 5% patch daily, Toprol XL L 0.5 mg daily Sinemet 25-101 tablet every 4 hours, Lipitor 40 mg daily to vitamins 1 daily, aspirin 81 mg daily, Plavix 75 mg daily Synthroid 0.075 mg daily Patient is medically stable will recheck labs today last chest x-ray was 3 days ago and stable 01/23/2019 patient waiting for correction placement tomorrow. Vital signs stable blood pressure 158/96 temperature 97.4 pulse 79, O2 100% on room air Urinalysis 2 days ago was normal will repeat CBC and Chem-7 and CK as well. Clinically patient is doing well no sign of infection Reason For Visit: RHABDOMYOLYSIS,FALL,RIB FRACTURE,PLEURAL EFFUSION, Physical Exam Vital Signs: Temp Pulse Resp BP Pulse Ox 97.4 F 79 16 158/96 H 100 01/23/19 04:24 01/23/19 04:24 01/23/19 04:24 01/23/19 04:24 01/23/19 04:24 Intake & Output 01/22/19 01/23/19 01/24/19 06:59 06:59 06:59 Intake Total 840 1280 Output Total 1400 1525 Balance -560 -245 Weight 81.3 kg 81.9 kg General appearance: PRESENT: no acute distress, well-developed, well-nourished, other - She feeds himself with no problems Head exam: PRESENT: atraumatic, normocephalic Respiratory exam: PRESENT: clear to auscultation emil. ABSENT: rales, rhonchi, wheezes Cardiovascular exam: PRESENT: RRR. ABSENT: diastolic murmur, rubs, systolic murmur GI/Abdominal exam: PRESENT: normal bowel sounds, soft. ABSENT: distended, guard ing, mass, organolmegaly, rebound, tenderness Neurological exam: PRESENT: alert, awake, oriented to person, oriented to place, oriented to time, oriented to situation, CN II-XII grossly intact. ABSENT: motor sensory deficit Psychiatric exam: PRESENT: appropriate affect, normal mood, other - Very pleasant alert and oriented. ABSENT: homicidal ideation, suicidal ideation Results Laboratory Results: 01/18/19 04:34 01/18/19 04:34 01/14/19 01/14/19 01/15/19 09:20 09:20 06:40 Creatine Kinase 736 H 587 H CK-MB (CK-2) 8.47 H Troponin I < 0.012 01/15/19 01/16/19 01/16/19 18:04 00:23 06:13 Creatine Kinase CK-MB (CK-2) Troponin I 0.012 0.013 0.012 01/16/19 01/18/19 01/19/19 07:40 04:34 11:33 Creatine Kinase 506 H 357 H 221 H CK-MB (CK-2) Troponin I Impressions: Abdomen/Pelvis CT 01/14/19 09:32 IMPRESSION: 1. Cannot entirely exclude an injury to the spleen. There is no evidence of hemorrhage outside of the splenic capsule. 2. Diverticulosis coli. Cervical Spine CT 01/14/19 09:32 IMPRESSION: No acute posttraumatic changes related to fall. Degenerative changes as described above. Chest CT 01/14/19 09:32 IMPRESSION: Comminuted fracture of posterior 9th rib on the left. There is a left pleural effusion. This may represent a hemothorax, given the presence of the rib fracture. Head CT 01/15/19 00:00 IMPRESSION: CHRONIC CHANGES OF ATROPHY AND MICROVASCULAR ISCHEMIA. NO ACUTE PROCESS. EVIDENCE OF ACUTE STROKE: NO. Head MRI 01/15/19 00:00 IMPRESSION: Chronic microvascular ischemia. There are areas of abnormal diffusion in the anterior superior aspect of the cerebellum, a limited area in the medial right temporal lobe, and in the right dilated. These findings concerning for acute infarctions. EVIDENCE OF ACUTE STROKE: YES. 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 Knee X-Ray 01/16/19 00:00 IMPRESSION: NO FRACTURE. Shoulder X-Ray 01/16/19 00:00 IMPRESSION: No acute fracture or dislocation. Similar chronic left AC joint separation. Carotid Doppler Study 01/17/19 00:00 IMPRESSION: NO HEMODYNAMICALLY SIGNIFICANT STENOSIS. Modified Barium Swallow 01/18/19 00:00 IMPRESSION: LARYNGEAL PENETRATION AND ASPIRATION OF THIN LIQUIDS DESCRIBED ABOVE. PLEASE SEE SPEECH PATHOLOGIST REPORT FOR OTHER FINDINGS AND RECOMMENDATIONS. Chest X-Ray 01/19/19 00:00 IMPRESSION: Persistent left retrocardiac opacity possibly atelectasis or contusion. No pneumothorax. Minimal nonspecific ill-defined right mid lung opacities, stable. Assessment and Plan - Diagnosis (1) Fall (on) (from) unspecified stairs and steps, initial encounter Is this a current diagnosis for this admission?: No Plan: PT/OT consultations. Fall precautions. 01/20/2019 is not complaining of any rib pain as he was previously 01/21/2019 vision ambulates with a walker and with assistance. Patient would not be able to ambulate by himself due to weakness his shuffling gait 01/22/2019 patient continues with physical therapy ,patient is not able to get up by himself without assistance due to weakness 01/23/2019 patient will be a fall risk if he gets up out of bed by himself, however he does not do that and also patient would be unable to ambulate by himself due to weakness (2) Closed rib fracture Qualifiers: Encounter type: initial encounter Rib fracture type: single rib Laterality: left Qualified Code(s): S22.32XA - Fracture of one rib, left side, initial encounter for closed fracture Is this a current diagnosis for this admission?: Yes Plan: Secondary to fall. Repeat CXR demonstrates atelectasis vs contusion left lung base; stable Analgesics as needed Pulmonary toilet Surgery consulted; have reviewed and signed off 01/19/2019 patient has no respiratory complaints at this time. Patient is polymerization oven tender to palpate over the fractured ribs on the left however he is up and ambulatory with assistance 01/20/2019 no signs of pneumonia on chest x-ray. CK is come down to 221 01/21/2019 patient is not using any pain medication for his rib fractures. Maintains his O2 saturation at 100% on room air 01/22/2019 he does not complain of rib pain is not using IV or IM pain medication for this 01/23/2019 patient does not complain of any chest pain or chest wall pain O2 sats are in the upper 90s on room air no indication of pneumonia (3) Rhabdomyolysis Qualifiers: Rhabdomyolysis type: traumatic Is this a current diagnosis for this admission?: Yes Plan: Improved. Mild rhabdomyolysis following fall down ~15 steps. CK 736-> 587-> 506 Cr worse; 1.60-> 1.98-> 2.49-> 2.30 Continue IVF Encourage p.o. fluids Follow up chemistry and CK 01/19/2019 Ck is come down. Patient has no indication of rhabdo at this time 01/20/2019 CK is come down to 221 from a high of 736 01/21/2019 no medical signs of rhabdo, patient does not appear to be dehydrated. He is eating and drinking well 04-02 patient terms of rhabdomyolysis have resolved 01/23/2019 we will repeat labs today including CK (4) CVA (cerebral vascular accident) Qualifiers: CVA mechanism: unspecified Qualified Code(s): I63.9 - Cerebral infarction, unspecified Is this a current diagnosis for this admission?: Yes Plan: Increased left sided weakness and slurred speech on progress day #1; complicated by Parkinson's and opiate pain medications. Repeat Head CT is negative for acute CVA. An MRI demonstrated right cerebellum and thalamus acute CVA. Echocardiogram and carotid Doppler pending. Troponins negative x4. Lipid panel, A1c, and TSH are acceptable. Modified barium swallow study pending. Patient is admitted to [facility] on continuous cardiac telemetry. Continue daily aspirin, Plavix, and statin therapy. PT/OT/ST consultations requested. Discharge planning is consulted. 01/19/2019 modified barium swallow shows an aspiration risk discharge,planning is working on placement. Labs are improving. 819 patient is eating well drinking well. Continuing aspirin Plavix and statins 01/21/2019 patient has no focal neurologic deficits, he is globally weak. Speech is intact 01/22/2019 patient is neurologically intact, no new neurologic episodes 01/23/2019 patient is able to protect his swallowing, no focal neurologic deficits, Parkinson's is evident when watching patient ambulate - Time Time Spent with patient: 25-34 minutes
[2019-01-23 10:21] LABS: ABSOLUTE BASOPHILS # (AUTO) 0.1 10^3/uL (0.0-0.2); ABSOLUTE EOSINOPHILS # (AUTO) 0.6 10^3/uL (0.0-0.6); ABSOLUTE LYMPHOCYTES (AUTO) 1.4 10^3/uL (0.5-4.7); ABSOLUTE MONOCYTES (AUTO) 0.9 10^3/uL (0.1-1.4); BASOPHILS % (AUTO) 1.2 % (0-2); EOSINOPHILS % (AUTO) 7.8 % (0-6); HEMATOCRIT 34.6 % (37.9-51.0); HEMOGLOBIN 11.9 g/dL (13.5-17.0); LYMPHOCYTES % (AUTO) 17.7 % (13-45); MEAN CORPUSCULAR HEMOGLOBIN 31.5 pg (27.0-33.4); MEAN CORPUSCULAR HGB CONC 34.5 g/dL (32.0-36.0); MEAN CORPUSCULAR VOLUME 91 fl (80-97); MONOCYTES % (AUTO) 11.3 % (3-13); PLATELET COUNT 362 10^3/uL (150-450); RED BLOOD COUNT 3.79 10^6/uL (4.35-5.55); RED CELL DISTRIBUTION WIDTH 14.1 % (11.5-14.0); TOTAL CELLS COUNTED % (AUTO) 100 %; WHITE BLOOD COUNT 8.1 10^3/uL (4.0-10.5)
[2019-01-23 10:27] LABS: ANION GAP 6 (5-19); BLOOD UREA NITROGEN 44 mg/dL (7-20); CALCIUM 9.6 mg/dL (8.4-10.2); CARBON DIOXIDE 30 mmol/L (22-30); CHLORIDE 104 mmol/L (98-107); CREATINE KINASE 105 U/L (55-170); GLUCOSE 113 mg/dL (75-110); POTASSIUM 5.1 mmol/L (3.6-5.0)
[2019-01-23] MEDS: DOCUSATE SODIUM 100 MG CAPSULE PO SCH (11:48)
[2019-01-23] MEDS: ASPIRIN 81 MG TABLET, CHEWABLE PO SCH (11:48)
[2019-01-23] MEDS: ESCITALOPRAM OXALATE 10 MG TABLET PO SCH (11:49)
[2019-01-23] MEDS: LIDOCAINE 5% (700 MG) TRANSDERMAL ADH..PATCH TP SCH (11:49)
[2019-01-23] MEDS: METOPROLOL SUCCINATE 25 MG TAB.SR.24H PO SCH (11:51)
[2019-01-23] MEDS: ATORVASTATIN CALCIUM 40 MG TABLET PO SCH (11:51)
[2019-01-23] MEDS: LISINOPRIL 10 MG TABLET PO SCH (11:52)
[2019-01-23] MEDS: MULTIVITAMIN TABLET PO SCH (11:52)
[2019-01-23] MEDS: CLOPIDOGREL BISULFATE 75 MG TABLET PO SCH (11:52)
[2019-01-24] MEDS: CARBIDOPA/LEVODOPA 25-100 MG TABLET PO SCH ×5 (05:08→21:04)
[2019-01-24] MEDS: IBUPROFEN 600 MG TABLET PO SCH ×3 (05:11→21:05)
[2019-01-24] MEDS: LEVOTHYROXINE SODIUM 0.075 MG TABLET PO SCH (05:11)
[2019-01-24] MEDS: ASPIRIN 81 MG TABLET, CHEWABLE PO SCH (10:38)
[2019-01-24] MEDS: ESCITALOPRAM OXALATE 10 MG TABLET PO SCH (10:38)
[2019-01-24] MEDS: LISINOPRIL 10 MG TABLET PO SCH (10:38)
[2019-01-24] MEDS: CLOPIDOGREL BISULFATE 75 MG TABLET PO SCH (10:38)
[2019-01-24] MEDS: DOCUSATE SODIUM 100 MG CAPSULE PO SCH (10:39)
[2019-01-24] MEDS: ATORVASTATIN CALCIUM 40 MG TABLET PO SCH (10:39)
[2019-01-24] MEDS: LIDOCAINE 5% (700 MG) TRANSDERMAL ADH..PATCH TP SCH (10:39)
[2019-01-24] MEDS: METOPROLOL SUCCINATE 25 MG TAB.SR.24H PO SCH (10:41)
[2019-01-24] MEDS: MULTIVITAMIN TABLET PO SCH (10:41)
[2019-01-25] MEDS: CARBIDOPA/LEVODOPA 25-100 MG TABLET PO SCH ×5 (06:08→21:46)
[2019-01-25] MEDS: LEVOTHYROXINE SODIUM 0.075 MG TABLET PO SCH (06:08)
[2019-01-25] MEDS: IBUPROFEN 600 MG TABLET PO SCH ×3 (06:12→21:46)
[2019-01-25] MEDS: ATORVASTATIN CALCIUM 40 MG TABLET PO SCH (10:40)
[2019-01-25] MEDS: DOCUSATE SODIUM 100 MG CAPSULE PO SCH (10:40)
[2019-01-25] MEDS: CLOPIDOGREL BISULFATE 75 MG TABLET PO SCH (10:40)
[2019-01-25] MEDS: LISINOPRIL 10 MG TABLET PO SCH (10:40)
[2019-01-25] MEDS: LIDOCAINE 5% (700 MG) TRANSDERMAL ADH..PATCH TP SCH (10:45)
[2019-01-25] MEDS: ASPIRIN 81 MG TABLET, CHEWABLE PO SCH (10:46)
[2019-01-25] MEDS: MULTIVITAMIN TABLET PO SCH (10:47)
[2019-01-25] MEDS: ESCITALOPRAM OXALATE 10 MG TABLET PO SCH (10:47)
[2019-01-25] MEDS: METOPROLOL SUCCINATE 25 MG TAB.SR.24H PO SCH (10:48)
--- NOTE | 2019-01-25 17:24 | PDOC PROGRESS REPORT ---
Subjective Progress Note for:: 01/25/19 Subjective:: JIM QUIROZ is a 78 year old male with a past medical history significant for chronic atrial fibrillation (on Plavix only), CVA, Parkinson's, and hypertension who was admitted 01/14/19 for rhabdomyolysis, left posterior chest wall/flank pain, and generalized weakness following a fall. Patient was subsequently found to have an Acute CVA. Patient was seen on afternoon rounds. He was found resting in bed, comfortably, on room air. He reports he is feeling well today. Patient is alert and oriented x4, conversational and socially appropriate, bradycardia, without facial droop or slurred speech. He is dramatically improved from when I saw him last week; ambulating approximately 100 feet with front wheel walker and minimal assist by physical therapy. Patient denies fever, chills, headache,dizziness, blurred vision, chest pain, palpitations, dyspnea, abdominal pain, nausea and vomiting. He has no specific questions or concerns today. No concerns per nursing. Reason For Visit: RHABDOMYOLYSIS,FALL,RIB FRACTURE,PLEURAL EFFUSION, Physical Exam Vital Signs: Temp Pulse Resp BP Pulse Ox 98.0 F 64 18 144/64 H 96 01/25/19 15:39 01/25/19 15:39 01/25/19 15:39 01/25/19 15:39 01/25/19 15:39 Intake & Output 01/24/19 01/25/19 01/26/19 06:59 06:59 06:59 Intake Total 548 340 275 Output Total 1250 800 400 Balance -702 -460 -125 Weight 78.5 kg 79.6 kg General appearance: PRESENT: no acute distress, cooperative, well-developed, well-nourished Head exam: PRESENT: atraumatic, normocephalic Eye exam: PRESENT: conjunctiva pink, EOMI, PERRLA. ABSENT: scleral icterus Ear exam: PRESENT: normal external ear exam Mouth exam: PRESENT: moist, tongue midline Neck exam: ABSENT: carotid bruit, JVD, lymphadenopathy, thyromegaly Respiratory exam: PRESENT: clear to auscultation emil, symmetrical, unlabored. ABSENT: rales, rhonchi, wheezes Cardiovascular exam: PRESENT: RRR. ABSENT: diastolic murmur, rubs, systolic murmur Pulses: PRESENT: normal dorsalis pedis pul Vascular exam: PRESENT: normal capillary refill GI/Abdominal exam: PRESENT: normal bowel sounds, soft. ABSENT: distended, guarding, mass, organolmegaly, rebound, tenderness Rectal exam: PRESENT: deferred Extremities exam: PRESENT: full ROM. ABSENT: calf tenderness, clubbing, pedal edema Musculoskeletal exam: PRESENT: ambulatory - Min assist with front wheel walker Neurological exam: PRESENT: alert, awake, oriented to person, oriented to place, oriented to time, oriented to situation, CN II-XII grossly intact. ABSENT: motor sensory deficit Psychiatric exam: PRESENT: appropriate affect, normal mood. ABSENT: homicidal ideation, suicidal ideation Skin exam: PRESENT: dry, intact, warm. ABSENT: cyanosis, rash Results Laboratory Results: 01/23/19 09:52 01/23/19 09:52 01/14/19 01/14/19 01/15/19 09:20 09:20 06:40 Creatine Kinase 736 H 587 H CK-MB (CK-2) 8.47 H Troponin I < 0.012 01/15/19 01/16/19 01/16/19 18:04 00:23 06:13 Creatine Kinase CK-MB (CK-2) Troponin I 0.012 0.013 0.012 01/16/19 01/18/19 01/19/19 07:40 04:34 11:33 Creatine Kinase 506 H 357 H 221 H CK-MB (CK-2) Troponin I 01/23/19 09:52 Creatine Kinase 105 CK-MB (CK-2) Troponin I Impressions: Abdomen/Pelvis CT 01/14/19 09:32 IMPRESSION: 1. Cannot entirely exclude an injury to the spleen. There is no evidence of hemorrhage outside of the splenic capsule. 2. Diverticulosis coli. Cervical Spine CT 01/14/19 09:32 IMPRESSION: No acute posttraumatic changes related to fall. Degenerative changes as described above. Chest CT 01/14/19 09:32 IMPRESSION: Comminuted fracture of posterior 9th rib on the left. There is a left pleural effusion. This may represent a hemothorax, given the presence of the rib fracture. Head CT 01/15/19 00:00 IMPRESSION: CHRONIC CHANGES OF ATROPHY AND MICROVASCULAR ISCHEMIA. NO ACUTE PROCESS. EVIDENCE OF ACUTE STROKE: NO. Head MRI 01/15/19 00:00 IMPRESSION: Chronic microvascular ischemia. There are areas of abnormal diffusion in the anterior superior aspect of the cerebellum, a limited area in the medial right temporal lobe, and in the right dilated. These findings concerning for acute infarctions. EVIDENCE OF ACUTE STROKE: YES. RIGHT MCA,RIGHT YACHT CAPTAIN. Knee X-Ray 01/16/19 00:00 IMPRESSION: NO FRACTURE. Shoulder X-Ray 01/16/19 00:00 IMPRESSION: No acute fracture or dislocation. Similar chronic left AC joint separation. Carotid Doppler Study 01/17/19 00:00 IMPRESSION: NO HEMODYNAMICALLY SIGNIFICANT STENOSIS. Modified Barium Swallow 01/18/19 00:00 IMPRESSION: LARYNGEAL PENETRATION AND ASPIRATION OF THIN LIQUIDS DESCRIBED ABOVE. PLEASE SEE SPEECH PATHOLOGIST REPORT FOR OTHER FINDINGS AND RECOMMENDATIONS. Chest X-Ray 01/19/19 00:00 IMPRESSION: Persistent left retrocardiac opacity possibly atelectasis or contusion. No pneumothorax. Minimal nonspecific ill-defined right mid lung opacities, stable. Assessment and Plan - Diagnosis (1) CVA (cerebral vascular accident) Qualifiers: CVA mechanism: unspecified Qualified Code(s): I63.9 - Cerebral infarction, unspecified Is this a current diagnosis for this admission?: Yes Plan: Increased left sided weakness and slurred speech on progress day #1; complicated by Parkinson's and opiate pain medications. Repeat Head CT is negative for acute CVA. An MRI demonstrated right cerebellum and thalamus acute CVA. Echocardiogram Demonstrates LVEF of 60%, mild pulmonary hypertension. There was no obvious cardiac source of embolus however was a transthoracic and not a good study to assess for thrombus or cardiogenic source of emboli. Follow-up [facility] recommended if high suspicion remains. EKG and telemetry demonstrates atrial fibrillation. Carotid Doppler is negative for hemodynamically significant stenosis Troponins negative x4. Lipid panel, A1c, and TSH are acceptable. Modified barium swallow study demonstrated laryngeal penetration and aspiration of thin liquids Patient is admitted to [facility] on continuous cardiac telemetry. Continue daily aspirin, Plavix, and statin therapy. PT/OT/ST consultations requested. Discharge planning is consulted; awaiting [employer] authorization for SNF placement (2) Rhabdomyolysis Qualifiers: Rhabdomyolysis type: traumatic Is this a current diagnosis for this admission?: Yes Plan: Improved. Mild rhabdomyolysis following fall down ~15 steps. CK 736-> 587-> 506-> 1.05 Cr 1.60-> 1.98-> 2.49-> 2.30-> 2.19 Encourage p.o. fluids (3) Closed rib fracture Qualifiers: Encounter type: initial encounter Rib fracture type: single rib Laterality: left Qualified Code(s): S22.32XA - Fracture of one rib, left side, initial encounter for closed fracture Is this a current diagnosis for this admission?: Yes Plan: Improved; patient reports minimal pain (only with deep breath or cough), maintaining oxygen saturation on room air, ambulatory without dyspnea Secondary to fall. Repeat CXR demonstrates atelectasis vs contusion left lung base; stable Analgesics as needed Pulmonary toilet Surgery consulted; have reviewed and signed off (4) Hematoma of left flank Qualifiers: Encounter type: initial encounter Qualified Code(s): S30.1XXA - Contusion of abdominal wall, initial encounter Is this a current diagnosis for this admission?: Yes Plan: Left flank pain following fall. CT ABD/Pelvis unable to definitively rule out splenic injury. Hgb stable. Surgery consulted; have signed off. (5) Fall (on) (from) unspecified stairs and steps, initial encounter Is this a current diagnosis for this admission?: No Plan: PT/OT consultations. Fall precautions. Discharge planning consulted disposition; SNF for short-term rehab versus home with home health services. Patient is ambulatory 150 feet utilizing front wheel walker with contact-guard for safety. (6) Chronic atrial fibrillation Is this a current diagnosis for this admission?: Yes Plan: Rate controlled on home medication regiment. Holding parameters for metoprolol secondary to bradycardia. Resume home dose Plavix [id number]: 7.2% Has-BLED: 8.9% Transthoracic echocardiogram was poor quality study and could not definitively rule out cardiogenic source of emboli. Previously discussed risks and benefits of chronic anticoagulation with patient and son; they have elected to continue on Plavix and aspirin only. They are not interested in chronic anticoagulation secondary to bleeding and fall risk. Therefore, will not pursue [facility] at this time. (7) Left-sided weakness Is this a current diagnosis for this admission?: Yes Plan: Secondary to acute right-sided CVA (8) KYLAH (acute kidney injury) Is this a current diagnosis for this admission?: Yes Plan: Likely at baseline; Cr 1.60-> 1.98-> 2.49-> 2.30-> 2.19 No improvement despite IV fluids. Good urinary output. Encourage p.o. fluids Avoid nephrotoxic medications as able. Daily chemistries. - Time Time Spent with patient: 15-24 minutes Medications reviewed and adjusted accordingly: Yes Anticipated discharge: Home with Homehealth Within: within 48 hours - pending [employer] authorization/declination for SNF
--- NOTE | 2019-01-25 17:24 | Progress Note Acknowledgement ---
Progress Note Acknowledgement Progess Note Acknowledgement: I, the undersigned member of the medical staff with appropriate privileges and with supervisory authority over Carmen Guerra, a [facility] practice allied health professional, acknowledge that I have reviewed the progress notes entered on this patient, and in my professional judgment believe that the assessment made and/or any care evidenced was appropriate
[2019-01-26 05:03] LABS: HEMATOCRIT 34.5 % (37.9-51.0); HEMOGLOBIN 11.7 g/dL (13.5-17.0); MEAN CORPUSCULAR HEMOGLOBIN 31.3 pg (27.0-33.4); MEAN CORPUSCULAR HGB CONC 33.9 g/dL (32.0-36.0); MEAN CORPUSCULAR VOLUME 92 fl (80-97); PLATELET COUNT 323 10^3/uL (150-450); RED BLOOD COUNT 3.75 10^6/uL (4.35-5.55); RED CELL DISTRIBUTION WIDTH 14.3 % (11.5-14.0); WHITE BLOOD COUNT 7.9 10^3/uL (4.0-10.5)
[2019-01-26 05:21] LABS: ANION GAP 7 (5-19); BLOOD UREA NITROGEN 44 mg/dL (7-20); CALCIUM 9.3 mg/dL (8.4-10.2); CARBON DIOXIDE 30 mmol/L (22-30); CHLORIDE 103 mmol/L (98-107); GLUCOSE 87 mg/dL (75-110); POTASSIUM 5.2 mmol/L (3.6-5.0)
[2019-01-26] MEDS: IBUPROFEN 600 MG TABLET PO SCH (06:05)
[2019-01-26] MEDS: CARBIDOPA/LEVODOPA 25-100 MG TABLET PO SCH ×5 (06:05→21:24)
[2019-01-26] MEDS: LEVOTHYROXINE SODIUM 0.075 MG TABLET PO SCH (06:06)
[2019-01-26] MEDS: ATORVASTATIN CALCIUM 40 MG TABLET PO SCH (10:19)
[2019-01-26] MEDS: DOCUSATE SODIUM 100 MG CAPSULE PO SCH (10:19)
[2019-01-26] MEDS: MULTIVITAMIN TABLET PO SCH (10:20)
[2019-01-26] MEDS: ESCITALOPRAM OXALATE 10 MG TABLET PO SCH (10:20)
[2019-01-26] MEDS: ASPIRIN 81 MG TABLET, CHEWABLE PO SCH (10:20)
[2019-01-26] MEDS: LISINOPRIL 10 MG TABLET PO SCH (10:20)
[2019-01-26] MEDS: CLOPIDOGREL BISULFATE 75 MG TABLET PO SCH (10:20)
[2019-01-26] MEDS: LIDOCAINE 5% (700 MG) TRANSDERMAL ADH..PATCH TP SCH (11:01)
[2019-01-26] MEDS: METOPROLOL SUCCINATE 25 MG TAB.SR.24H PO SCH (15:34)
--- NOTE | 2019-01-26 16:53 | Progress Note Acknowledgement ---
Progress Note Acknowledgement Progess Note Acknowledgement: I, the undersigned member of the medical staff with appropriate privileges and with supervisory authority over Carmen Guerra, a [facility] practice allied health professional, acknowledge that I have reviewed the progress notes entered on this patient, and in my professional judgment believe that the assessment made and/or any care evidenced was appropriate
--- NOTE | 2019-01-26 16:56 | PDOC PROGRESS REPORT ---
Subjective Progress Note for:: 01/26/19 Subjective:: JIM QUIROZ is a 78 year old male with a past medical history significant for chronic atrial fibrillation (on Plavix only), CVA, Parkinson's, and hypertension who was admitted 01/14/19 for rhabdomyolysis, left posterior chest wall/flank pain, and generalized weakness following a fall. Patient was subsequently found to have an Acute CVA. Patient was seen on morning rounds. He was found resting in the recliner, comfortably, on room air. He reports he is feeling well today. Patient is alert and oriented x4, conversational and socially appropriate, without facial droop or slurred speech. Ambulating approximately 150 feet with front wheel walker and minimal assist by physical therapy. Patient denies fever, chills, headache,dizziness, blurred vision, chest pain, palpitations, dyspnea, abdominal pain, nausea and vomiting. He has no specific questions or concerns today. No concerns per nursing. Reason For Visit: RHABDOMYOLYSIS,FALL,RIB FRACTURE,PLEURAL EFFUSION, Physical Exam Vital Signs: Temp Pulse Resp BP Pulse Ox 98.5 F 54 L 21 H 115/55 L 96 01/25/19 19:12 01/26/19 14:00 01/25/19 19:12 01/25/19 19:12 01/25/19 19:12 Intake & Output 01/25/19 01/26/19 01/27/19 06:59 06:59 06:59 Intake Total 340 627 240 Output Total 800 1200 Balance -460 -573 240 Weight 79.6 kg 77.5 kg General appearance: PRESENT: no acute distress, cooperative - Pleasant, well- developed, well-nourished Head exam: PRESENT: atraumatic, normocephalic Eye exam: PRESENT: conjunctiva pink, EOMI, PERRLA. ABSENT: scleral icterus Ear exam: PRESENT: normal external ear exam Mouth exam: PRESENT: moist, tongue midline Neck exam: ABSENT: carotid bruit, JVD, lymphadenopathy, thyromegaly Respiratory exam: PRESENT: clear to auscultation emil, symmetrical, unlabored. ABSENT: rales, rhonchi, wheezes Cardiovascular exam: PRESENT: RRR, +S1, +S2. ABSENT: diastolic murmur, rubs, systolic murmur Pulses: PRESENT: normal dorsalis pedis pul Vascular exam: PRESENT: normal capillary refill GI/Abdominal exam: PRESENT: normal bowel sounds, soft. ABSENT: distended, guarding, mass, organolmegaly, rebound, tenderness Rectal exam: PRESENT: deferred Extremities exam: PRESENT: full ROM. ABSENT: calf tenderness, clubbing, pedal edema Musculoskeletal exam: PRESENT: ambulatory - Min assist with front wheel walker Neurological exam: PRESENT: alert, awake, oriented to person, oriented to place, oriented to time, oriented to situation, CN II-XII grossly intact. ABSENT: motor sensory deficit Psychiatric exam: PRESENT: appropriate affect, normal mood. ABSENT: homicidal ideation, suicidal ideation Skin exam: PRESENT: dry, intact, warm. ABSENT: cyanosis, rash Results Laboratory Results: 01/26/19 04:06 01/26/19 04:06 01/26/19 01/26/19 04:06 04:06 WBC 7.9 RBC 3.75 L Hgb 11.7 L Hct 34.5 L MCV 92 MCH 31.3 MCHC 33.9 RDW 14.3 H Plt Count 323 Sodium 140.4 Potassium 5.2 H Chloride 103 Carbon Dioxide 30 Anion Gap 7 BUN 44 H Creatinine 2.11 H Est GFR ( Amer) 37 L Est GFR (Non-Af Amer) 31 L Glucose 87 Calcium 9.3 01/14/19 01/14/19 01/15/19 09:20 09:20 06:40 Creatine Kinase 736 H 587 H CK-MB (CK-2) 8.47 H Troponin I < 0.012 01/15/19 01/16/19 01/16/19 18:04 00:23 06:13 Creatine Kinase CK-MB (CK-2) Troponin I 0.012 0.013 0.012 01/16/19 01/18/19 01/19/19 07:40 04:34 11:33 Creatine Kinase 506 H 357 H 221 H CK-MB (CK-2) Troponin I 01/23/19 09:52 Creatine Kinase 105 CK-MB (CK-2) Troponin I Impressions: Abdomen/Pelvis CT 01/14/19 09:32 IMPRESSION: 1. Cannot entirely exclude an injury to the spleen. There is no evidence of hemorrhage outside of the splenic capsule. 2. Diverticulosis coli. Cervical Spine CT 01/14/19 09:32 IMPRESSION: No acute posttraumatic changes related to fall. Degenerative changes as described above. Chest CT 01/14/19 09:32 IMPRESSION: Comminuted fracture of posterior 9th rib on the left. There is a left pleural effusion. This may represent a hemothorax, given the presence of the rib fracture. Head CT 01/15/19 00:00 IMPRESSION: CHRONIC CHANGES OF ATROPHY AND MICROVASCULAR ISCHEMIA. NO ACUTE PROCESS. EVIDENCE OF ACUTE STROKE: NO. Head MRI 01/15/19 00:00 IMPRESSION: Chronic microvascular ischemia. There are areas of abnormal diffusion in the anterior superior aspect of the cerebellum, a limited area in the medial right temporal lobe, and in the right dilated. These findings concerning for acute infarctions. EVIDENCE OF ACUTE STROKE: YES. RIGHT MCA,RIGHT ELASTIC CUTTER. Knee X-Ray 01/16/19 00:00 IMPRESSION: NO FRACTURE. Shoulder X-Ray 01/16/19 00:00 IMPRESSION: No acute fracture or dislocation. Similar chronic left AC joint separation. Carotid Doppler Study 01/17/19 00:00 IMPRESSION: NO HEMODYNAMICALLY SIGNIFICANT STENOSIS. Modified Barium Swallow 01/18/19 00:00 IMPRESSION: LARYNGEAL PENETRATION AND ASPIRATION OF THIN LIQUIDS DESCRIBED ABOVE. PLEASE SEE SPEECH PATHOLOGIST REPORT FOR OTHER FINDINGS AND RECOMMENDATIONS. Chest X-Ray 01/19/19 00:00 IMPRESSION: Persistent left retrocardiac opacity possibly atelectasis or contusion. No pneumothorax. Minimal nonspecific ill-defined right mid lung opacities, stable. Assessment and Plan - Diagnosis (1) CVA (cerebral vascular accident) Qualifiers: CVA mechanism: unspecified Qualified Code(s): I63.9 - Cerebral infarction, unspecified Is this a current diagnosis for this admission?: Yes Plan: Increased left sided weakness and slurred speech on progress day #1; complicated by Parkinson's and opiate pain medications. Repeat Head CT is negative for acute CVA. An MRI demonstrated right cerebellum and thalamus acute CVA. Echocardiogram Demonstrates LVEF of 60%, mild pulmonary hypertension. There was no obvious cardiac source of embolus however was a transthoracic and not a good study to assess for thrombus or cardiogenic source of emboli. Follow-up [facility] recommended if high suspicion remains. EKG and telemetry demonstrates atrial fibrillation. Carotid Doppler is negative for hemodynamically significant stenosis Troponins negative x4. Lipid panel, A1c, and TSH are acceptable. Modified barium swallow study demonstrated laryngeal penetration and aspiration of thin liquids Patient is admitted to [facility] on continuous cardiac telemetry. Continue daily aspirin, Plavix, and statin therapy. PT/OT/ST consultations requested. Discharge planning is consulted; awaiting [employer] authorization for SNF placement (2) Rhabdomyolysis Qualifiers: Rhabdomyolysis type: traumatic Is this a current diagnosis for this admission?: Yes Plan: Resolved. Mild rhabdomyolysis following fall down ~15 steps. CK 736-> 587-> 506-> 1.05 Cr 1.60-> 1.98-> 2.49-> 2.30-> 2.19 Encourage p.o. fluids (3) Closed rib fracture Qualifiers: Encounter type: initial encounter Rib fracture type: single rib Laterality: left Qualified Code(s): S22.32XA - Fracture of one rib, left side, initial encounter for closed fracture Is this a current diagnosis for this admission?: Yes Plan: Improved; patient reports minimal pain (only with deep breath or cough), ma intaining oxygen saturation on room air, ambulatory without dyspnea Secondary to fall. Repeat CXR demonstrates atelectasis vs contusion left lung base; stable Analgesics as needed Pulmonary toilet Surgery consulted; have reviewed and signed off (4) Hematoma of left flank Qualifiers: Encounter type: initial encounter Qualified Code(s): S30.1XXA - Contusion of abdominal wall, initial encounter Is this a current diagnosis for this admission?: Yes Plan: Left flank pain following fall. CT ABD/Pelvis unable to definitively rule out splenic injury. Hgb stable. Surgery consulted; have signed off. (5) Fall (on) (from) unspecified stairs and steps, initial encounter Is this a current diagnosis for this admission?: No Plan: PT/OT consultations. Fall precautions. Discharge planning consulted disposition; SNF for short-term rehab versus home with home health services. Patient is ambulatory 150 feet utilizing front wheel walker with contact-guard for safety. (6) Chronic atrial fibrillation Is this a current diagnosis for this admission?: Yes Plan: Rate controlled on home medication regiment. Holding parameters for metoprolol secondary to bradycardia. Resume home dose Plavix [id number]: 7.2% Has-BLED: 8.9% Transthoracic echocardiogram was poor quality study and could not definitively rule out cardiogenic source of emboli. Previously discussed risks and benefits of chronic anticoagulation with patient and son; they have elected to continue on Plavix and aspirin only. They are not interested in chronic anticoagulation secondary to bleeding and fall risk. Therefore, will not pursue [facility] at this time. (7) Left-sided weakness Is this a current diagnosis for this admission?: Yes Plan: Significantly improved; now ambulatory 150 feet with frontwheel walker and minimal assistance. Secondary to acute right-sided CVA (8) KYLAH (acute kidney injury) Is this a current diagnosis for this admission?: Yes Plan: Likely at baseline; Cr 1.60-> 1.98-> 2.49-> 2.30-> 2.19-> 2.11 No improvement despite IV fluids. Good urinary output. Encourage p.o. fluids Avoid nephrotoxic medications as able. We will follow with periodic chemistries - Time Time Spent with patient: 15-24 minutes Medications reviewed and adjusted accordingly: Yes Anticipated discharge: Home with Homehealth Within: within 48 hours
[2019-01-26] MEDS ORDERED: PATIROMER 8.4 GM SUSP PACKET PO SCH ×2 (17:00→22:00)
[2019-01-27] MEDS: CARBIDOPA/LEVODOPA 25-100 MG TABLET PO SCH ×3 (05:57→13:39)
[2019-01-27] MEDS: LEVOTHYROXINE SODIUM 0.075 MG TABLET PO SCH (05:57)
[2019-01-27] MEDS: ESCITALOPRAM OXALATE 10 MG TABLET PO SCH (09:40)
[2019-01-27] MEDS: LISINOPRIL 10 MG TABLET PO SCH (09:40)
[2019-01-27] MEDS: MULTIVITAMIN TABLET PO SCH (09:41)
[2019-01-27] MEDS: LIDOCAINE 5% (700 MG) TRANSDERMAL ADH..PATCH TP SCH (09:41)
[2019-01-27] MEDS: CLOPIDOGREL BISULFATE 75 MG TABLET PO SCH (09:41)
[2019-01-27] MEDS: METOPROLOL SUCCINATE 25 MG TAB.SR.24H PO SCH (09:41)
[2019-01-27] MEDS: ATORVASTATIN CALCIUM 40 MG TABLET PO SCH (09:41)
[2019-01-27] MEDS: DOCUSATE SODIUM 100 MG CAPSULE PO SCH (09:41)
[2019-01-27] MEDS: ASPIRIN 81 MG TABLET, CHEWABLE PO SCH (09:41)
--- NOTE | 2019-01-27 12:29 | PDOC TRANSFER SUMMARY ---
General - Admit/Disc Date/PCP Admission Date/Primary Care Provider: 01/14/19 11:09 CARI FRASER MD Discharge Date: 01/27/19 - Discharge Diagnosis (1) CVA (cerebral vascular accident) Is this a current diagnosis for this admission?: Yes Summary: Head CT on admission was negative for acute CVA. Repeat Head CT is negative for acute CVA. An MRI demonstrated right cerebellum and thalamus acute CVA. Echocardiogram Demonstrates LVEF of 60%, mild pulmonary hypertension. There was no obvious cardiac source of embolus however was a transthoracic and not a good study to assess for thrombus or cardiogenic source of emboli. EKG and telemetry demonstrates atrial fibrillation. Carotid Doppler is negative for hemodynamically significant stenosis Troponins negative x4. Lipid panel, A1c, and TSH are acceptable. Modified barium swallow study demonstrated laryngeal penetration and aspiration of thin liquids Patient was admitted to [facility] on continuous cardiac telemetry. He has been placed on daily aspirin, Plavix, and statin therapy. PT/OT/ST consultations requested. Recommend continued rehabilitative services following discharge. [facility] has offered a bed for short term rehab. Patient is discharged to their facility in stable condition. (2) Rhabdomyolysis Is this a current diagnosis for this admission?: Yes Summary: Resolved. Mild rhabdomyolysis following fall down ~15 steps. CK 736-> 587-> 506-> 105 (3) Closed rib fracture Is this a current diagnosis for this admission?: Yes Summary: Secondary to fall down stairs. Improved; patient reports minimal pain (only with deep breath or cough), maintaining oxygen saturation on room air, ambulatory without dyspnea Secondary to fall. Repeat CXR demonstrates atelectasis vs contusion left lung base; stable recommend continued analgesics as needed and frequent pulmonary toilet (4) Hematoma of left flank Is this a current diagnosis for this admission?: Yes Summary: Left flank pain following fall. CT ABD/Pelvis unable to definitively rule out splenic injury. Hgb stable. Surgery consulted; have signed off. (5) Fall (on) (from) unspecified stairs and steps, initial encounter Is this a current diagnosis for this admission?: Yes Summary: PT/OT consultations. Fall precautions. (6) Chronic atrial fibrillation Is this a current diagnosis for this admission?: Yes Summary: Rate controlled on home medication regiment. Holding parameters for metoprolol secondary to bradycardia. Resume home dose Plavix [id number]: 7.2% Has-BLED: 8.9% Transthoracic echocardiogram was poor quality study and could not definitively rule out cardiogenic source of emboli. Previously discussed risks and benefits of chronic anticoagulation with patient and son; they have elected to continue on Plavix and aspirin only. They are not interested in chronic anticoagulation secondary to bleeding and fall risk. Therefore, will not pursue [facility] at this time. (7) Left-sided weakness Is this a current diagnosis for this admission?: Yes Summary: Significantly improved; now ambulatory 150 feet with frontwheel walker and minimal assistance. Secondary to acute right-sided CVA (8) KYLAH (acute kidney injury) Is this a current diagnosis for this admission?: Yes Summary: Likely at baseline; Cr 1.60-> 1.98-> 2.49-> 2.30-> 2.19-> 2.11 No improvement despite IV fluids. Good urinary output. Recommend follow up chemistry in 5-7 days. - Additional Information Resuscitation Status: Full Code Discharge Diet: Regular Discharge Activity: Activity As Tolerated, Balance Activity w/Rest, Supervised Activity Prescriptions: Aspirin [Aspirin 81 mg Chewable Tablet] 81 mg PO DAILY #90 tab.chew Lidocaine [Lidoderm 5% (700 mg) Transdermal Patch] 1 patch TP DAILY #14 adh..patch Metoprolol Succinate [Toprol Xl 25 mg Tab.sr] 12.5 mg PO DAILY #30 tab.sr.24h Home Medications: Atorvastatin Calcium [Lipitor 40 mg Tablet] 40 mg PO DAILY 01/14/19 Carbidopa/Levodopa [Sinemet 25-100 mg Tablet] 1 each PO 5XD 01/14/19 Clopidogrel Bisulfate [Plavix 75 mg Tablet] 75 mg PO DAILY 01/14/19 Escitalopram Oxalate [Lexapro 10 mg Tablet] 10 mg PO DAILY 01/14/19 Levothyroxine Sodium [Synthroid 0.075 mg Tablet] 0.075 mg PO DAILY 01/14/19 Lisinopril [Prinivil 10 mg Tablet] 10 mg PO DAILY 01/14/19 Multivitamin [Tab-A-Nhi (Multiple Vitamin) Tablet] 1 tab PO DAILY 01/14/19 Acetaminophen [Tylenol 325 mg Tablet] 650 mg PO Q4HP PRN tablet 01/25/19 Aspirin [Aspirin 81 mg Chewable Tablet] 81 mg PO DAILY #90 tab.chew 01/25/19 Docusate Sodium [Colace 100 mg Capsule] 100 mg PO DAILY capsule 01/25/19 Lidocaine [Lidoderm 5% (700 mg) Transdermal Patch] 1 patch TP DAILY #14 adh..patch 01/25/19 Metoprolol Succinate [Toprol Xl 25 mg Tab.sr] 12.5 mg PO DAILY #30 tab.sr.24h 01/25/19 History of Present Illness Admission Date/PCP: 01/14/19 11:09 CARI FRASER MD History of Present Illness: JIM QUIROZ is a 78 year old male with a past medical history significant for chronic atrial fibrillation (on Plavix only), CVA, Parkinson's, and hypertension who presented to the emergency department today following a fall down a flight of stairs resulting in left-sided chest wall pain and left flank pain. Evaluation in emergency department revealed stable vital signs, hemoglobin of 13 (baseline 12), creatinine 1.60 (baseline 1.4), elevated CK (736), denies head and cervical spine CT, chest CT demonstrating comminuted fracture of the posterior ninth rib on the left with associated pleural effusion that may represent hemothorax, and CT ABD/Pelivs cannot entirely rule out injury to the spleen. He is referred to the hospitalist service for admission and management of the above-stated complaints and findings. Physical Exam Vital Signs: Temp Pulse Resp BP Pulse Ox 97.9 F 65 16 136/91 H 98 01/27/19 08:07 01/27/19 08:07 01/27/19 08:07 01/27/19 08:07 01/27/19 08:07 Intake & Output 01/26/19 01/27/19 01/28/19 06:59 06:59 06:59 Intake Total 627 790 Output Total 1200 402 Balance -573 388 Weight 77.5 kg 77.8 kg General appearance: PRESENT: no acute distress, cooperative, well-developed, well-nourished Head exam: PRESENT: atraumatic, normocephalic Eye exam: PRESENT: conjunctiva pink, EOMI, PERRLA. ABSENT: scleral icterus Ear exam: PRESENT: normal external ear exam Mouth exam: PRESENT: moist, tongue midline Neck exam: ABSENT: carotid bruit, JVD, lymphadenopathy, thyromegaly Respiratory exam: PRESENT: clear to auscultation emil, symmetrical, unlabored. ABSENT: rales, rhonchi, wheezes Cardiovascular exam: PRESENT: RRR. ABSENT: diastolic murmur, rubs, systolic murmur Pulses: PRESENT: normal dorsalis pedis pul Vascular exam: PRESENT: normal capillary refill GI/Abdominal exam: PRESENT: normal bowel sounds, soft. ABSENT: distended, guarding, mass, organolmegaly, rebound, tenderness Rectal exam: PRESENT: deferred Extremities exam: PRESENT: full ROM. ABSENT: calf tenderness, clubbing, pedal edema Musculoskeletal exam: PRESENT: ambulatory - min assist w/ front wheeled walker Neurological exam: PRESENT: alert, awake, oriented to person, oriented to place, oriented to time, oriented to situation, CN II-XII grossly intact. ABSENT: motor sensory deficit Psychiatric exam: PRESENT: appropriate affect, normal mood. ABSENT: homicidal ideation, suicidal ideation Skin exam: PRESENT: dry, intact, warm. ABSENT: cyanosis, rash Results Laboratory Results: 01/26/19 04:06 01/26/19 04:06 01/14/19 01/14/19 01/15/19 09:20 09:20 06:40 Creatine Kinase 736 H 587 H CK-MB (CK-2) 8.47 H Troponin I < 0.012 01/15/19 01/16/19 01/16/19 18:04 00:23 06:13 Creatine Kinase CK-MB (CK-2) Troponin I 0.012 0.013 0.012 01/16/19 01/18/19 01/19/19 07:40 04:34 11:33 Creatine Kinase 506 H 357 H 221 H CK-MB (CK-2) Troponin I 01/23/19 09:52 Creatine Kinase 105 CK-MB (CK-2) Troponin I Impressions: Abdomen/Pelvis CT 01/14/19 09:32 IMPRESSION: 1. Cannot entirely exclude an injury to the spleen. There is no evidence of hemorrhage outside of the splenic capsule. 2. Diverticulosis coli. Cervical Spine CT 01/14/19 09:32 IMPRESSION: No acute posttraumatic changes related to fall. Degenerative c hanges as described above. Chest CT 01/14/19 09:32 IMPRESSION: Comminuted fracture of posterior 9th rib on the left. There is a left pleural effusion. This may represent a hemothorax, given the presence of the rib fracture. Head CT 01/15/19 00:00 IMPRESSION: CHRONIC CHANGES OF ATROPHY AND MICROVASCULAR ISCHEMIA. NO ACUTE PROCESS. EVIDENCE OF ACUTE STROKE: NO. Head MRI 01/15/19 00:00 IMPRESSION: Chronic microvascular ischemia. There are areas of abnormal diffusion in the anterior superior aspect of the cerebellum, a limited area in the medial right temporal lobe, and in the right dilated. These findings concerning for acute infarctions. EVIDENCE OF ACUTE STROKE: YES. 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 Knee X-Ray 01/16/19 00:00 IMPRESSION: NO FRACTURE. Shoulder X-Ray 01/16/19 00:00 IMPRESSION: No acute fracture or dislocation. Similar chronic left AC joint separation. Carotid Doppler Study 01/17/19 00:00 IMPRESSION: NO HEMODYNAMICALLY SIGNIFICANT STENOSIS. Modified Barium Swallow 01/18/19 00:00 IMPRESSION: LARYNGEAL PENETRATION AND ASPIRATION OF THIN LIQUIDS DESCRIBED ABOVE. PLEASE SEE SPEECH PATHOLOGIST REPORT FOR OTHER FINDINGS AND RECOMMENDATIONS. Chest X-Ray 01/19/19 00:00 IMPRESSION: Persistent left retrocardiac opacity possibly atelectasis or contusion. No pneumothorax. Minimal nonspecific ill-defined right mid lung opacities, stable. Transfer Plan - Disposition Transfer Plan: Discharge to SNF for short term rehab. - Time Spent with Patient Time spent with patient: Greater than 30 Minutes Qualifiers - * PATIENT BEING DISCHARGED WITH ANY OF THE FOLLOWING DIAGNOSIS: Stroke Stroke Pt being discharged on Anti-thrombolytic therapy?: Yes Stroke Pt being discharged on Anti-coagulation therapy?: No Reason(s) for not prescribing Anti-coagulation therapy:: Drug declined by tiara leger Stroke Pt being discharged on Statins?: Yes Acute Heart Failure - Is this a Heart Failure Patient?: No Plan Discharge Plan: Discharge to SNF for short term rehab. Time Spent: Greater than 30 Minutes
[2019-01-27] MEDS: ACETAMINOPHEN 325 MG TABLET PO PRN (13:45)
[2019-01-27 13:50] VITALS: BP 135/70
[2019-01-27] MEDS ORDERED: ACETAMINOPHEN 325 MG TABLET PO PRN (14:05)
[2019-01-27] MEDS ORDERED: ONDANSETRON HCL INJ/PF 4 MG/2 ML SDV IV PRN (14:30)
[2019-01-27] MEDS ORDERED: PHARMACY COMMUNICATION ORDER MC SCH (22:00)
== END 2019-01-27 14:06 | DRG 65 ==
LOC: ER 09:15 → EH 11:09 → 5 14:17 → 3N 01-15 16:44
PROVIDERS: ADMIT Internal Medicine; ATTEND Internal Medicine
DX: I63.9 Cerebral infarction, unspecified (principal); S22.32XA Fracture of one rib, left side, initial encounter for closed fracture; J90 Pleural effusion, not elsewhere classified; N17.9 Acute kidney failure, unspecified; T79.6XXA Traumatic ischemia of muscle, initial encounter; S30.1XXA Contusion of abdominal wall, initial encounter; I48.2 Chronic atrial fibrillation; G20 Parkinson's disease; I10 Essential (primary) hypertension; R53.1 Weakness; Y92.008 Other place in unspecified non-institutional (private) residence as the place of occurrence of the external cause; E03.9 Hypothyroidism, unspecified; I27.20 Pulmonary hypertension, unspecified; W10.8XXA Fall (on) (from) other stairs and steps, initial encounter; S00.511A Abrasion of lip, initial encounter; S00.81XA Abrasion of other part of head, initial encounter; R29.810 Facial weakness; I12.9 Hypertensive chronic kidney disease with stage 1 through stage 4 chronic kidney disease, or unspecified chronic kidney disease; N18.9 Chronic kidney disease, unspecified; Z79.02 Long term (current) use of antithrombotics/antiplatelets; Z86.73 Personal history of transient ischemic attack (TIA), and cerebral infarction without residual deficits; Z79.899 Other long term (current) drug therapy; Z90.49 Acquired absence of other specified parts of digestive tract; Z79.82 Long term (current) use of aspirin
CPT/HCPCS: 36415; 70450; 70551; 71045; 71046; 71260; 72125; 74177; 74230; 80048; 80053; 80061; 81001; 82550; 82553; 83036; 84443; 84484; 85025; 85027; 85610; 85730; 93005; 93010; 93306; 93880; 94667; 94668; 94799; 96374; 99285; J3010; J3490; J7030; L0120; L0172

== ENCOUNTER 2019-08-19 12:41 | Inpatient (IN) | payer MEDICARE ==
--- NOTE | 2019-08-19 13:08 | RADIOLOGY REPORT (SQ) ---
EXAM DESCRIPTION: CHEST SINGLE VIEW COMPLETED DATE/TIME: 08/19/2019 12:56 pm REASON FOR STUDY: facial droop COMPARISON: 01/19/ EXAM PARAMETERS: NUMBER OF VIEWS: One view. TECHNIQUE: Single frontal radiographic view of the chest acquired. RADIATION DOSE: NA LIMITATIONS: None. FINDINGS: LUNGS AND PLEURA: No opacities, masses or pneumothorax. No pleural effusion. Resolution o f previously seen left retrocardiac opacity. Unchanged right mid lung granuloma. MEDIASTINUM AND HILAR STRUCTURES: No masses. Contour normal. HEART AND VASCULAR STRUCTURES: Heart normal in size. Normal vasculature. BONES: No acute findings. HARDWARE: None in the chest. OTHER: No other significant finding. IMPRESSION: NO ACUTE RADIOGRAPHIC FINDING IN THE CHEST. TECHNICAL DOCUMENTATION: JOB ID: [id number] 2010 [employer]- All Rights Reserved Reading location - IP/workstation name: [email or web address]
--- NOTE | 2019-08-19 13:13 | RADIOLOGY REPORT (SQ) ---
EXAM DESCRIPTION: CT HEAD WITHOUT COMPLETED DATE/TIME: 08/19/2019 12:56 pm REASON FOR STUDY: facial droop COMPARISON: 01/15/2019 MRI, CT TECHNIQUE: Axial images acquired through the brain without intravenous contrast. Images reviewed wi th bone, brain and subdural windows. Additional sagittal and coronal reconstructions were generated. Images stored on PACS. All CT scanners at this facility use dose modulation, iterative reconstruction, and/or weight based d osing when appropriate to reduce radiation dose to as low as reasonably achievable (ALARA). [facility]: Dose Right [facility]: CareDose [facility]: Dose Right [facility]: Teradose 4D [facility]: ideasoft RADIATION DOSE: CT Rad equipment meets quality standard of care and radiation dose reduction techniq ues were employed. CTDIvol: 53.2 mGy. DLP: 1044 mGy-cm.mGy. LIMITATIONS: None. FINDINGS: VENTRICLES: Prominent. CEREBRUM: No masses. No hemorrhage. No midline shift. Areas of low density in the white matter mos t likely due to chronic micro-vascular ischemic change. More focal areas of hypoattenuation within t he bilateral frontal lobes, similar and compatible with prior lacunar infarcts. No evidence for acut e large vascular territory infarction. CEREBELLUM: No masses. No hemorrhage. No alteration of density. No evidence for acute infarction. EXTRAAXIAL SPACES: Age-related involutional change. No fluid collections. No masses. ORBITS AND GLOBE: No intra- or extraconal masses. Normal contour of globe without masses. CALVARIUM: No fracture. PARANASAL SINUSES: No fluid or mucosal thickening. SOFT TISSUES: No mass or hematoma. OTHER: No other significant finding. IMPRESSION: 1. No evidence of acute large vascular territory infarct or intracranial hemorrhage. 2. Stable chronic changes of atrophy and microvascular ischemia. EVIDENCE OF ACUTE STROKE: NO. COMMENT: Pertinent positive or negative findings of the imaging study reported as a CRITICAL EXAM raul adelfo CARSON ELIZABETH DO at13:06 on 08/19/2019. Category of Critical Exam: Negative code stroke TECHNICAL DOCUMENTATION: JOB ID: [id number] Quality ID # [id number]: Final reports with documentation of one or more dose reduction techniques (e.g., Au tomated exposure control, adjustment of the mA and/or kV according to patient size, use of iterative reconstruction technique) 2010 [employer]- All Rights Reserved Reading location - IP/workstation name: [email or web address]
[2019-08-19 13:17] LABS: ABSOLUTE BASOPHILS # (AUTO) 0.1 10^3/uL (0.0-0.2); ABSOLUTE EOSINOPHILS # (AUTO) 0.3 10^3/uL (0.0-0.6); ABSOLUTE LYMPHOCYTES (AUTO) 1.6 10^3/uL (0.5-4.7); ABSOLUTE MONOCYTES (AUTO) 0.7 10^3/uL (0.1-1.4); ABSOLUTE NEUT (AUTO) 6.9 10^3/uL (1.7-8.2); BASOPHILS % (AUTO) 0.7 % (0-2); EOSINOPHILS % (AUTO) 2.8 % (0-6); HEMATOCRIT 43.2 % (37.9-51.0); HEMOGLOBIN 15.4 g/dL (13.5-17.0); MEAN CORPUSCULAR HEMOGLOBIN 32.7 pg (27.0-33.4); MEAN CORPUSCULAR HGB CONC 35.5 g/dL (32.0-36.0); MEAN CORPUSCULAR VOLUME 92 fl (80-97); MONOCYTES % (AUTO) 7.2 % (3-13); PLATELET COUNT 278 10^3/uL (150-450); RED BLOOD COUNT 4.69 10^6/uL (4.35-5.55); SEGMENTED NEUTROPHILS % (AUTO) 72.3 % (42-78); TOTAL CELLS COUNTED % (AUTO) 100 %; WHITE BLOOD COUNT 9.6 10^3/uL (4.0-10.5)
[2019-08-19 13:24] LABS: PARTIAL THROMBOPLASTIN TIME 29.1 SEC (23.5-35.8)
[2019-08-19 13:27] LABS: PROTHROMBIN TIME 14.2 SEC (11.4-15.4)
[2019-08-19 13:39] LABS: ALBUMIN 4.4 g/dL (3.5-5.0); ALKALINE PHOSPHATASE 98 U/L (38-126); ANION GAP 10 (5-19); ASPARTATE AMINO TRANSFERASE 46 U/L (17-59); BILIRUBIN,DIRECT 0.1 mg/dL (0.0-0.4); BILIRUBIN,TOTAL 2.3 mg/dL (0.2-1.3); BLOOD UREA NITROGEN 36 mg/dL (7-20); CARBON DIOXIDE 33 mmol/L (22-30); CHLORIDE 99 mmol/L (98-107); CREATINE KINASE 161 U/L (55-170); GLUCOSE 99 mg/dL (75-110); POTASSIUM 4.8 mmol/L (3.6-5.0); TOTAL PROTEIN 8.4 g/dL (6.3-8.2)
[2019-08-19 13:59] LABS: TROPONIN I < 0.012 ng/mL
[2019-08-19] MEDS ORDERED: NORMAL SALINE 1000 ML 1,000 ML IV ONE (15:41)
--- NOTE | 2019-08-19 15:45 | ER Document Report ---
ED Neuro Symptoms/Deficit - General Chief Complaint: S/S of Possible Stroke Stated Complaint: POSSIBLE STROKE Time Seen by Provider: 08/19/19 12:45 Information source: Patient, Emergency Med Personnel Cannot obtain history due to: Altered mental status TRAVEL OUTSIDE OF THE [place] IN LAST 30 DAYS: No - HPI Patient complains to provider of: Facial Droop, Weakness Onset: This morning Awoke with symptoms: No Duration: Better, Continues in ED Quality of pain: No pain Severity: None Pain Level: Denies Loss of consciousness: No loss of consciousness Was STROKE ALERT Called: Yes Baseline Cognitive: Alert but disoriented Pre-existing weakness: Upper extremity Alert To: Name/Voice Patient Orientation: Person New weakness: LUE Altered sensation: L facial Similar symptoms previously: Yes Recently seen / treated by doctor: No Notes: Patient is a 79-year-old male was brought in by EMS due to left-sided weakness of his upper extremity and a left facial droop. Patient was also somewhat confused. Per EMS, symptoms are resolving. They began at 1030 this morning while talking to family. Patient has a history possibly of TIA versus stroke per EMS. Patient has no complaints at this time. He has a history of Parkinson 's disease. Denies any recent changes to his medications. - Related Data Allergies/Adverse Reactions: No Known Allergies Allergy (Verified 06/10/18 16:39) Past Medical History - Social History Smoking Status: Former Smoker Family History: Hypertension Patient has suicidal ideation: No Patient has homicidal ideation: No - Past Medical History Cardiac Medical History: Reports: Hx Atrial Fibrillation, Hx Hypertension Pulmonary Medical History: Denies: Hx Asthma, Hx COPD Neurological Medical History: Reports: Hx Cerebrovascular Accident. Denies: Hx Seizures Endocrine Medical History: Reports: Hx Hypothyroidism. Denies: Hx Diabetes Mellitus Type 1, Hx Diabetes Mellitus Type 2, Hx Hyperthyroidism Renal/ Medical History: Denies: Hx Peritoneal Dialysis GI Medical History: Denies: Hx Cirrhosis, Hx Hepatitis Musculoskeletal Medical History: Denies Hx Arthritis, Denies Hx Gout Skin Medical History: Denies Hx Eczema, Denies Hx Psoriasis Psychiatric Medical History: Reports: Hx Depression Infectious Medical History: Denies: Hx Hepatitis Past Surgical History: Reports: Hx Appendectomy - Immunizations Hx Pneumococcal Vaccination: 03/15/18 Review of Systems - Review of Systems -: Yes All other systems reviewed and negative Physical Exam - Vital signs Vitals: Pulse Resp BP Pulse Ox 52 L 18 124/71 100 08/19/19 12:44 08/19/19 12:44 08/19/19 12:44 08/19/19 12:44 Interpretation: Bradycardic - General General appearance: Alert In distress: Mild - Respiratory Respiratory status: No respiratory distress Chest status: Nontender Breath sounds: Normal Chest palpation: Normal - Cardiovascular Rhythm: Regular, Bradycardia - Abdominal Inspection: Normal - Genitourinary Inspection: Normal - Back Back: Normal - Extremities General upper extremity: Nontender. No: Normal strength General lower extremity: Normal inspection, Nontender, Normal ROM, Normal strength - Neurological Neuro grossly intact: No Javier Coma Scale Eye Opening: Spontaneous Javier Coma Scale Verbal: Confused Fowler Coma Scale Motor: Obeys Commands Javier Coma Scale Total: 14 Speech: Dysarthria Cranial nerves: Facial palsy Motor strength normal: RUE, LLE, RLE. No: LUE Additional motor exam normals: No: Equal irrigator valve pipe Sensory: Altered light touch - left face - Psychological Associated symptoms: Normal affect, Normal mood - Skin Skin Temperature: Warm Skin Moisture: Dry Course - Re-evaluation Re-evalutation: 08/19/19 Patient is a 79-year-old male who comes in with left upper extremity weakness per EMS and a left facial droop that has been resolving on the way to the hospital. Patient has been reevaluated multiple times. Please see nursing notes. Symptoms are resolving. Patient has no further weakness of his left upper extremity. He is awake alert and more talkative with improved mentation. No acute findings on CT. Given some fluids. No evidence for infection. Discussed with hospitalist will be accepted to telemetry with diagnosis of TIA. Patient and family are agreeable to this plan. Stable at the time of admission to telemetry. - Vital Signs Vital signs: Temp Pulse Resp BP Pulse Ox 55 L 17 122/67 95 08/19/19 13:15 08/19/19 14:31 08/19/19 14:31 08/19/19 14:31 - Laboratory Result Diagrams: 08/19/19 13:07 08/19/19 13:07 Laboratory results interpreted by me: 08/19/19 08/19/19 13:07 13:07 Carbon Dioxide 33 H BUN 36 H Creatinine 1.66 H Est GFR ( Amer) 49 L Est GFR (MDRD) Non-Af 40 L Total Bilirubin 2.3 H CK-MB (CK-2) 8.50 H Total Protein 8.4 H - Diagnostic Test Radiology reviewed: Reports reviewed - EKG Interpretation by Me EKG shows normal: Sinus rhythm Rate: Bradycardia ED Alteplase Inc/Exc Criteria - Inclusion Criteria: 1: Patient presented to ED within 3 hours of acute ischemic stroke symptom onset? -: Yes 2: Did baseline CT exclude intracranial hemorrhage and/or other risk factors? -: Yes 3: Is the age of the patient 18 years of age or greater? -: Yes : If any of the above questions are answered "NO" then stop, patient is not a candidate for Alteplase, : If all of the above questions are answered "YES" then continue with Exclusion Criteria. - Exclusion Criteria: 1: Is there evidence of intracranial hemorrhage on baseline CT? -: No 2: Is there suspicion of subarachnoid hemorrhage (even if CT negative)? -: No 3: Is there a history of serious head trauma, recent previous stroke or KS within 3 months? 4: Does the patient have a clinical presentation consistent with KS or post-KS pericarditis? -: No 5: Is there history of intracranial hemorrhage? -: No 6: On repeated measurement is Systolic BP greater than 185mmHg or Diastolic BP greater that 110 mmHg and is aggressive treatment needed to reduce blood pressure to these limits (e.g. constant infusion of an anti-hypertensive)? 7: Did the patient awake with stroke symptoms? 8: Has the patient had a lumbar puncture or an arterial puncture at a non- compressile site within 7 days? 9: With in the last 14 days did the patient have surgery or major trauma? 10: Is the patient or less than 2 weeks? 11: Was there any active bleeding or acute trauma? 12: Does the patient have intracranial neoplasm, arteriovenous malformation or aneurysm? 13: Does the patient have abnormal glucose (less than 50 or greater than 400mg/dl)? Record glucose in Comment. 14: Patient has rapidly improving symptoms at the time Alteplase is to be Ad ministered. -: Yes 15: Does the patient have any risks for bleeding, including but not limited to: a.: Current use of Coumadin with PT greater than 15 seconds or INR greater than 1.7. b.: Current use of Pradaxa (Dabigatran). c.: Heparin administereed within the past 48 hours and PTT elevated. d.: Platelet count less than 100,000/mm. e.: Major surgery or serious trauma within 14 days. f.: Gastrointestinal or gynecological urinary bleeding within 14 days. g.: Myocardial Infarction (KS) within 3 months. : If the answer to any of the above questions is "YES" then stop, the patient is not a candidate for Alteplase. : If the answer to all of the above questions is "NO" then the patient may be eligible for the Administration of Alteplase. : If the patient is noted to have seizure activity at onset of Stroke symptoms; Consult Neurologist for further evaluation. - The patient is: -: Included and is eligible to receive Alteplase. *Initiate bed placement at higher level of care* --: No Reviewed risks & benefits of thrombolytic therapy: I have reviewed the risks and benefits of thrombolytic therapy with the patient and/or his/her family. Yes -: Excluded and not eligible to receive Alteplase for the above exclusions. --: Yes -: Excluded and not eligible to receive Alteplase for other reasons (specify in comments): - Diagnosis of TIA: -: Patient presented with transient symptoms that are now resolved and no other neurologic findings are currently present. List symptoms in comments. -: Yes -: Patient is NOT a candidate for tPA. -: Yes -: ____(put name in comment) has been consulted for admission and continued evaluation of risk factor assessment. Comment: [facility] ED NIH Stroke Scale - NIH Stroke Scale When completed:: Before Alteplase *: 1. NIH scale should be completed with appropriate accompanying assessment tools. *: 2. The NIH should reflect what the patient is capable of doing and should not be coached by the clinician. 1a. Level of Consciousness: 0=Alert;keenly responsive -: 1=Drowsy -: 2=Obtunded -: 3=Coma/unresponsive or reflex to noxious stimuli. 1a. Responses: 0 1b. Orientation Questions: a. What month is it? -: b. How old are you? -: 0=Answers both questions correctly. -: 1=Answers one question correctly or patient is intubated or has orotracheal trauma. -: 2=Answers neither question correctly. 1b. Responses: 0 1c. Response to commands: a. Open and close eyes? -: b. [employer] Worker and release hand? -: Credit is given despite weakness. Demonstration of task is permitted. Substitute command if hands cannot be used. -: 0=Performs both tasks correctly -: 1=Performs one task correctly -: 2=Performs neither task correctly 1c. Responses: 0 2. Gaze: Establish eye contact and instruct patient to "Follow my finger" -: 0=Normal -: 1=Partial gaze palsy. Gaze is abnormal in one or both eyes, but where forced deviation or total gaze paresis is not present. -: 2=Forced deviation or total gaze paresis. 2. Responses: 0 3. Visual Velázquez: Sees fingers in all four quadrants. -: 0=No visual loss. -: 1=Partial hemianopsia. -: 2=Complete hemianopsia. -: 3=Bilateral hemianopsia (including Cortical blindness) 3. Responses: 0 4. Facial Movement: Instruct patient to: -: a. Show me your teeth -: b. Raise your eyebrows -: c. Close your eyes -: d. Smile -: 0=Normal symmetrical movement -: 1=Minor paralysis (flattened nasolabial fold, asymmetry on smiling). -: 2=Partial paralysis (total or near total paralysis of lower face). -: 3=Complete paralysis of upper and lower face 4. Responses: 1 5. Motor functions (left arm): Alternate sides and extend each arm with palms down (90 degrees if sitting or 45 degrees for supine). -: 0=No drift;limb holds for full 10 seconds. -: 1=Drift; limb holds but drifts down before full 10 seconds, but does not hit bed. -: 2=Some effort against gravity; limb cannot get to or maintain position. -: 3=No effort against gravity; limb falls. -: 4=No movement. -: UN=Amputation, joint fusion, explain in comments. 5. Responses (left arm): 1 5. Motor Functions (right arm): Alternate sides and extend each arm with palms down (90 degrees if sitting or 45 degrees for supine). -: 0=No drift;limb holds for full 10 seconds. -: 1=Drift; limb holds but drifts down before full 10 seconds, but does not hit bed. -: 2=Some effort against gravity; limb cannot get to or maintain position. -: 3=No effort against gravity; limb falls. -: 4=No movement. -: UN=Amputation, joint fusion, explain in comments. 5. Responses (right arm): 0 6. Motor Functions (left leg): With patient lying supine, alternate sides and extend each leg (30 degrees always while supine). -: 0=No drift, leg holds position for full 5 seconds -: 1=Drift; leg falls before full 5 seconds but does not hit bed. -: 2=Some effort against gravity, leg falls to bed but some effort against gravity. -: 3=No effort against gravity, leg falls to bed immediately. -: 4=No movement. -: UN=Amputation, joint fusion; explain in comments. 6. Responses (left leg): 0 6. Motor Functions (right leg): With patient lying supine, alternate sides and extend each leg (30 degrees always while supine). -: 0=No drift, leg holds position for full 5 seconds -: 1=Drift; leg falls before full 5 seconds but does not hit bed. -: 2=Some effort against gravity, leg falls to bed but some effort against gravity. -: 3=No effort against gravity, leg falls to bed immediately. -: 4=No movement. -: UN=Amputation, joint fusion; explain in comments. 6. Responses (right leg): 0 7. Limb Ataxia: With eyes open instruct patient to: -: a. "Touch your finger to your nose". -: b. "Touch your heel to your chase" -: 0=Absent -: 1=Present in one limb. -: 2=Present in two limbs. -: UN=Amputation or joint fusion; explain in comments. 7. Responses: 1 7. If ataxia present choose as appropriate: Left arm 8. Sensory: Test sensation using pinprick or noxious stimuli. Test as many body parts as possible. -: 0=Normal;no sensory loss -: 1=Mile to moderate sensory loss (patient feels pin prick but is less sharp on affected side). -: 2=Severe or total sensory loss. 8. Responses: 0 9. Best Language: Instruct patient to: -: a. "Describe what you see in this picture." -: b. "Name the items in this picture." -: c. "Read these sentences." -: 0=No aphasia, normal -: 1=Mild to moderate aphasia. -: 2=Severe aphasia -: 3=Mute, global aphasia, no usable speech or auditory comprehension. 9. Responses: 0 10. Articulation, Dysarthia: Instruct patient to: -: "Read these words" or "Repeat these words" -: 0=Normal -: 1=Mild to moderate; patient may slur some words but can be understood without difficulty. -: 2=Severe; patients speech so slurred as to be unintelligible in the absence of dysphasia. -: UN=Intubated or other physical barrier, explain in comments. 10. Responses: 0 11. Extinction or inattention: 0=No abnormality -: 1= Visual, tactile, auditory, spatial, or personal inattention or extinction to bilateral simulation in one or the sensory modalities. -: 2=Profound maday-inattention or maday-inattention to more than one modality; does not recognize own hand. 11. Responses: 0 Total Score: 3 Discharge - Discharge Clinical Impression: TIA (transient ischemic attack) Condition: Stable Disposition: ADMITTED INPATIENT Admitting Provider: Val (Hospitalist) Unit Admitted: Telemetry
[2019-08-19] MEDS ORDERED: ACETAMINOPHEN 325 MG TABLET PO PRN (17:25)
[2019-08-19] MEDS ORDERED: ONDANSETRON HCL INJ/PF 4 MG/2 ML SDV IV PRN (17:25)
[2019-08-19] MEDS ORDERED: PROMETHAZINE HCL INJ 25 MG/1 ML VIAL IV PRN (17:25)
[2019-08-19] MEDS ORDERED: IPRATROPIUM/ALBUTEROL 0.5-2.5 MG/3 ML AMPUL NEB PRN (17:25)
[2019-08-19] MEDS ORDERED: TEMAZEPAM 7.5 MG CAPSULE PO PRN (17:25)
[2019-08-19] MEDS ORDERED: OXYCODONE-ACETAMINOPHEN 5-325 MG TABLET PO PRN (17:25)
--- NOTE | 2019-08-19 18:18 | EKG REPORT ---
SEVERITY:- ABNORMAL ECG - A FIB WITH SLOW VR NONSPECIFIC ST-T CHANGES- INFERIOR LEADS : Confirmed by: Demarco Colon MD 19-Aug-2019 18:17:52
[2019-08-19] MEDS ORDERED: NORMAL SALINE 1000 ML 1,000 ML IV PRN (18:20)
--- NOTE | 2019-08-19 18:31 | PDOC H&P ---
History of Present Illness Admission Date/PCP: 08/19/19 15:54 CARI FRASER MD History of Present Illness: JIM QUIROZ is a 79 year old male past medical history of atrial fibrillation, hypertension, recurrent CVA, CKD, hypertension, Parkinson's disease, currently living at home with his son and [id number] after sustaining two strokes, with residual deficits, brought to ED by EMS after [employer] noticed in the morning having left facial droop, mild dysarthria, and left upper extremity weakness, and tended to fall to the left side when trying to ambulate, at the time of my encounter patient is accompanied by his juucdirc-yj-syk and as per [id number] patient is back to his baseline however she mentions that recently over the last several months she seems to be more disoriented, hallucinating at night, and getting progressively weaker. Patient is alert and oriented x3, in no apparent distress, confirms that he did have a facial droop and left upper and lower extremity weakness this morning. At baseline patient is able to walk with a walker, feeds himself, needs help with his other ADLs, and does not drive. Patient denies any headache, fever, chills, nausea, vomiting, diarrhea, constipation, or any urinary symptoms. In the ED CT head was negative for any acute stroke, hospitalist was consulted for further management. Past Medical History Cardiac Medical History: Reports: Atrial Fibrillation, Hypertension Pulmonary Medical History: Denies: Asthma, Chronic Obstructive Pulmonary Disease (COPD) Neurological Medical History: Denies: Seizures Endocrine Medical History: Reports: Hypothyroidism Denies: Diabetes Mellitus Type 1, Diabetes Mellitus Type 2, Hyperthyroidism GI Medical History: Denies: Cirrhosis, Hepatitis Musculoskeltal Medical History: Denies: Arthritis, Gout Skin Medical History: Denies: Eczema, Psoriasis Psychiatric Medical History: Reports: Depression Hematology: Denies: Anemia, Bleeding Tendencies Past Surgical History Past Surgical History: Reports: Appendectomy Social History Smoking Status: Former Smoker Frequency of Alcohol Use: None Hx Recreational Drug Use: No Drugs: None Hx Prescription Drug Abuse: No Family History Family History: Hypertension Parental Family History Reviewed: Yes Children Family History Reviewed: Yes Sibling(s) Family History Reviewed.: Yes Medication/Allergy Home Medications: Atorvastatin Calcium [Lipitor 40 mg Tablet] 40 mg PO QAM 01/14/19 Carbidopa/Levodopa [Sinemet 25-100 mg Tablet] 2 each PO QID 01/14/19 Escitalopram Oxalate [Lexapro 10 mg Tablet] 10 mg PO QAM 01/14/19 Levothyroxine Sodium [Synthroid 0.075 mg Tablet] 0.075 mg PO Q6AM 01/14/19 Lisinopril [Prinivil 10 mg Tablet] 10 mg PO QAM 01/14/19 Multivitamin [Tab-A-Nhi (Multiple Vitamin) Tablet] 1 tab PO DAILY 01/14/19 Aspirin [Aspirin 81 mg Chewable Tablet] 81 mg PO DAILY #90 tab.chew 01/25/19 Metoprolol Succinate [Toprol Xl 25 mg Tab.sr] 25 mg PO QAM 08/19/19 Allergies/Adverse Reactions: No Known Allergies Allergy (Verified 06/10/18 16:39) Review of Systems Review of Systems: as per hpi Physical Exam Vital Signs: Temp Pulse Resp BP Pulse Ox 52 L 20 104/79 99 08/19/19 15:00 08/19/19 15:00 08/19/19 15:00 08/19/19 15:00 Intake & Output 08/18/19 08/19/19 08/20/19 06:59 06:59 06:59 Weight 79.4 kg General appearance: PRESENT: no acute distress, well-developed, well-nourished Head exam: PRESENT: atraumatic, normocephalic Respiratory exam: PRESENT: clear to auscultation emil. ABSENT: rales, rhonchi, wheezes Cardiovascular exam: PRESENT: RRR. ABSENT: diastolic murmur, rubs, systolic murmur GI/Abdominal exam: PRESENT: normal bowel sounds, soft. ABSENT: distended, guarding, mass, organolmegaly, rebound, tenderness Extremities exam: PRESENT: full ROM. ABSENT: calf tenderness, clubbing, pedal edema Neurological exam: PRESENT: alert, awake, oriented to person, oriented to place, oriented to time, oriented to situation, CN II-XII grossly intact, other - Masked facies, resting tremor. ABSENT: motor sensory deficit Results Laboratory Results: 08/19/19 13:07 08/19/19 13:07 08/19/19 08/19/19 13:07 13:07 WBC 9.6 RBC 4.69 Hgb 15.4 Hct 43.2 MCV 92 MCH 32.7 MCHC 35.5 RDW 14.0 Plt Count 278 Seg Neutrophils % 72.3 Sodium 141.5 Potassium 4.8 Chloride 99 Carbon Dioxide 33 H Anion Gap 10 BUN 36 H Creatinine 1.66 H Est GFR ( Amer) 49 L Glucose 99 Calcium 10.0 Total Bilirubin 2.3 H AST 46 Alkaline Phosphatase 98 Total Protein 8.4 H Albumin 4.4 08/19/19 08/19/19 13:07 13:07 Creatine Kinase 161 CK-MB (CK-2) 8.50 H Troponin I < 0.012 Impressions: Chest X-Ray 08/19/19 12:44 IMPRESSION: NO ACUTE RADIOGRAPHIC FINDING IN THE CHEST. Head CT 08/19/19 12:44 IMPRESSION: 1. No evidence of acute large vascular territory infarct or intracranial hemorrhage. 2. Stable chronic changes of atrophy and microvascular ischemia. EVIDENCE OF ACUTE STROKE: NO. Assessment and Plan - Diagnosis (1) TIA (transient ischemic attack) Is this a current diagnosis for this admission?: Yes Plan: Patient seems to be back to his baseline with his residual ambulatory dysfunction and left upper lower extremity mild weakness from previous CVAs. Admit to IMCU, neurochecks, aspiration, fall and seizure precautions, MRI/MRI head, 2D echo, carotid Doppler, telemetry, DAPT, high intensity statins, PT/OT/OT. (2) CKD (chronic kidney disease) stage 3, GFR 30-59 ml/min Is this a current diagnosis for this admission?: Yes Plan: Creatinine at baseline. Serum creatinine 1.5-2.5. Euvolemic. Electrolytes WNL. Monitor electrolytes and volume status, reduce place electrolytes as needed. BMP tomorrow. Outpatient PCP and nephrology follow-up. (3) Debility and deconditioning Is this a current diagnosis for this admission?: Yes Plan: PT ST OT. Consult discharge planning for short-term rehab placement. (4) HTN (hypertension) Qualifiers: Is this a current diagnosis for this admission?: Yes Plan: Euvolemic. Normotensive. Restart home meds. Adjust meds as needed. Outpatient PCP follow-up. (5) Hypothyroidism Qualifiers: Is this a current diagnosis for this admission?: Yes Plan: Resume home meds. Will check TSH. (6) Parkinsons disease Is this a current diagnosis for this admission?: Yes Plan: Restart home meds. Fall, seizure precaution. Outpatient PCP and neurology follow-up. (7) Atrial fibrillation Qualifiers: Atrial fibrillation type: longstanding persistent Qualified Code(s): I48.11 - Longstanding persistent atrial fibrillation Is this a current diagnosis for this admission?: Yes Plan: History of chronic persistent atrial fibrillation. Beta-blockers. Rate controlled. Rate controlled. Not anticoagulated. Likely not a candidate due to risk of fall. Patient and family does not know why he is not anticoagulated. Brim Raiser Dr. Marroquin. Will consult for further recommendation.
[2019-08-19 19:19] LABS: APPEARANCE,URINE CLEAR; BILIRUBIN,URINE NEGATIVE (NEGATIVE); COLOR,URINE YELLOW; GLUCOSE, URINE NEGATIVE (NEGATIVE); KETONES,URINE TRACE mg/dL (NEGATIVE); LEUKOCYTE ESTERASE,URINE NEGATIVE (NEGATIVE); NITRITE,URINE NEGATIVE (NEGATIVE); PROTEIN,URINE NEGATIVE (NEGATIVE); URINE SPECIFIC GRAVITY 1.019; UROBILINOGEN,URINE NEGATIVE mg/dL (<2.0)
--- NOTE | 2019-08-19 22:38 | RADIOLOGY REPORT (SQ) ---
EXAM DESCRIPTION: MR BRAIN WITHOUT IV CONTRAST COMPLETED DATE/TME: 08/19/2019 00:00 CLINICAL HISTORY: 79 years, Male, Left upper lower extremity weakness, facial droop. COMPARISON: CT from today's date TECHNIQUE: 297 Images stored on PACS. LIMITATIONS: None. FINDINGS: Sagittal midline anatomic structures demonstrate an unremarkable appearance to the pituitary and suprasellar regions. The globes are intact. The paranasal sinuses and mastoid air cells are well aerated. Normal flow void in visualized intracranial vessels. The visualized cranial nerve complex these are unremarkable. There is no intra or extra-axial hemorrhage. Wedge-shaped area of diffusion restriction in the right temporal occipital region showing low signal on ADC map consistent with acute infarct. No mass. No midline shift. Age-appropriate atrophy. Areas of increased FLAIR/T2 white matter signal consistent with sequelae of small vessel ischemic change. Motion artifact degrades image quality. IMPRESSION: Acute right temporal occipital infarct. Atrophy. Small vessel ischemic change. copyright 2010 [email or web address] All Rights Reserved
[2019-08-19] MEDS: HEPARIN SOD (PORCINE) 5,000 UNIT/ML 1 ML VIAL SUBCUT SCH (23:19)
[2019-08-19] MEDS: ATORVASTATIN CALCIUM 80 MG TABLET PO SCH (23:19)
[2019-08-19] MEDS: FAMOTIDINE 20 MG TABLET PO SCH (23:19)
[2019-08-19] MEDS: CARBIDOPA/LEVODOPA 25-100 MG TABLET PO SCH (23:19)
[2019-08-19] MEDS: DOCUSATE SODIUM 100 MG/10 ML UDC PO SCH (23:19)
[2019-08-20 04:43] LABS: ABSOLUTE BASOPHILS # (AUTO) 0.1 10^3/uL (0.0-0.2); ABSOLUTE EOSINOPHILS # (AUTO) 0.3 10^3/uL (0.0-0.6); ABSOLUTE LYMPHOCYTES (AUTO) 1.6 10^3/uL (0.5-4.7); ABSOLUTE MONOCYTES (AUTO) 0.8 10^3/uL (0.1-1.4); ABSOLUTE NEUT (AUTO) 8.1 10^3/uL (1.7-8.2); BASOPHILS % (AUTO) 0.6 % (0-2); EOSINOPHILS % (AUTO) 3.2 % (0-6); HEMATOCRIT 39.8 % (37.9-51.0); HEMOGLOBIN 13.6 g/dL (13.5-17.0); MEAN CORPUSCULAR HEMOGLOBIN 31.9 pg (27.0-33.4); MEAN CORPUSCULAR HGB CONC 34.2 g/dL (32.0-36.0); MEAN CORPUSCULAR VOLUME 93 fl (80-97); MONOCYTES % (AUTO) 7.2 % (3-13); PLATELET COUNT 251 10^3/uL (150-450); RED BLOOD COUNT 4.27 10^6/uL (4.35-5.55); RED CELL DISTRIBUTION WIDTH 14.2 % (11.5-14.0); TOTAL CELLS COUNTED % (AUTO) 100 %; WHITE BLOOD COUNT 10.9 10^3/uL (4.0-10.5)
[2019-08-20 05:02] LABS: ANION GAP 8 (5-19); BLOOD UREA NITROGEN 28 mg/dL (7-20); CALCIUM 9.2 mg/dL (8.4-10.2); CARBON DIOXIDE 29 mmol/L (22-30); CHLORIDE 102 mmol/L (98-107); GLUCOSE 94 mg/dL (75-110); POTASSIUM 4.1 mmol/L (3.6-5.0)
[2019-08-20 05:18] LABS: FREE T3 3.28 pg/mL (2.77-5.27); FREE T4 (FREE THYROXINE) 1.36 ng/dL (0.78-2.19)
[2019-08-20 05:31] LABS: THYROID STIMULATING HORMONE 2.46 uIU/mL (0.47-4.68)
[2019-08-20] MEDS: LEVOTHYROXINE SODIUM 0.075 MG TABLET PO SCH (05:58)
[2019-08-20] MEDS: HEPARIN SOD (PORCINE) 5,000 UNIT/ML 1 ML VIAL SUBCUT SCH ×3 (05:59→21:28)
[2019-08-20] MEDS ORDERED: METOPROLOL SUCCINATE 25 MG TAB.SR.24H PO SCH (08:00)
[2019-08-20] MEDS ORDERED: DEXTROSE 40% GEL 15 GM TUBE PO PRN ×2 (09:07)
[2019-08-20] MEDS ORDERED: GLUCAGON,HUMAN RECOMB 1 MG INJ SUBCUT PRN (09:07)
[2019-08-20] MEDS ORDERED: DEXTROSE 50%-WATER 25 GM/50 ML DISP.SYRIN IV PRN ×2 (09:07)
[2019-08-20] MEDS ORDERED: ENOXAPARIN SODIUM INJ 40 MG/0.4 ML DISP.SYRIN SUBCUT SCH (10:00)
[2019-08-20] MEDS: DOCUSATE SODIUM 100 MG/10 ML UDC PO SCH ×2 (11:01→18:21)
[2019-08-20] MEDS: ASPIRIN 81 MG TABLET, CHEWABLE PO SCH (11:01)
[2019-08-20] MEDS: LISINOPRIL 10 MG TABLET PO SCH (11:01)
[2019-08-20] MEDS: ESCITALOPRAM OXALATE 10 MG TABLET PO SCH (11:01)
[2019-08-20] MEDS: CARBIDOPA/LEVODOPA 25-100 MG TABLET PO SCH ×4 (11:03→21:27)
[2019-08-20] MEDS: FAMOTIDINE 20 MG TABLET PO SCH ×2 (11:03→21:27)
[2019-08-20 13:11] LABS: CHOLESTEROL 103.08 mg/dL (0-200); TRIGLYCERIDES 122 mg/dL (<150)
[2019-08-20 13:22] LABS: DIRECT LDL 54 mg/dL (<100)
--- NOTE | 2019-08-20 13:33 | PDOC CONSULTATION ---
Consultation Consult Date: 08/20/19 Attending physician:: CLARENCE RANGEL Provider Consulted: BRENDA PADRON Consult reason:: Bradycardia, recurrent CVA History of Present Illness Admission Date/PCP: 08/19/19 15:54 CARI FRASER MD Patient complains of: No complaints reported History of Present Illness: JIM QUIROZ is a 79 year old male With the following active problems 1. Longstanding likely permanent atrial fibrillation 2. Parkinson's disease 3. Recurrent CVA 4. Systemic hypertension 5. Chronic kidney disease Patient was admitted with symptoms suggestive of left-sided CVA. These have resolved. Patient is usually followed by Dr. Marroquin/cardiology. No family is present at the time of my evaluation. But apparently patient is considered a fall risk and has not been on systemic anticoagulation. Appears to have multiple episodes similar to this with possible TIAs. Although patient is a poor historian in my conversation with him he does not admit to any blackout spells or trauma from falling. Will be ideal to corroborate this with family. Limited history is only obtained. Most of the history is per chart and per conversation with the nurse. Telemetry was significant for bradycardia with the longest pause of approximat rafael 3 seconds. His resting heart rates seems to be in the 40s. Unable to obtain family history. Unable to obtain history of smoking or substance abuse. Patient is somewhat withdrawn Past Medical History Cardiac Medical History: Reports: Atrial Fibrillation, Hypertension Pulmonary Medical History: Denies: Asthma, Chronic Obstructive Pulmonary Disease (COPD) Neurological Medical History: Denies: Seizures Endocrine Medical History: Reports: Hypothyroidism Denies: Diabetes Mellitus Type 1, Diabetes Mellitus Type 2, Hyperthyroidism GI Medical History: Denies: Cirrhosis, Hepatitis Musculoskeltal Medical History: Denies: Arthritis, Gout Skin Medical History: Denies: Eczema, Psoriasis Psychiatric Medical History: Reports: Depression Hematology: Denies: Anemia, Bleeding Tendencies Past Surgical History Past Surgical History: Reports: Appendectomy Social History Smoking Status: Former Smoker Last Time Smoked: 55 years ago Frequency of Alcohol Use: Rare Hx Recreational Drug Use: No Drugs: None Hx Prescription Drug Abuse: No Family History Family History: Hypertension Parental Family History Reviewed: No - Unable to obtain. Patient is mildly confused and withdrawn. Children Family History Reviewed: NA Sibling(s) Family History Reviewed.: NA Medication/Allergy Home Medications: Atorvastatin Calcium [Lipitor 40 mg Tablet] 40 mg PO QAM 01/14/19 Carbidopa/Levodopa [Sinemet 25-100 mg Tablet] 2 each PO QID 01/14/19 Escitalopram Oxalate [Lexapro 10 mg Tablet] 10 mg PO QAM 01/14/19 Levothyroxine Sodium [Synthroid 0.075 mg Tablet] 0.075 mg PO Q6AM 01/14/19 Lisinopril [Prinivil 10 mg Tablet] 10 mg PO QAM 01/14/19 Multivitamin [Tab-A-Nhi (Multiple Vitamin) Tablet] 1 tab PO DAILY 01/14/19 Aspirin [Aspirin 81 mg Chewable Tablet] 81 mg PO DAILY #90 tab.chew 01/25/19 Metoprolol Succinate [Toprol Xl 25 mg Tab.sr] 25 mg PO QAM 08/19/19 Allergies/Adverse Reactions: No Known Allergies Allergy (Verified 06/10/18 16:39) Review of Systems ROS unobtainable: Other - Full review of systems unable to obtain. Patient is mildly confused and withdrawn. Constitutional: PRESENT: as per HPI Ears: PRESENT: as per HPI Cardiovascular: PRESENT: as per HPI Physical Exam Vital Signs: Temp Pulse Resp BP Pulse Ox 97.7 F 47 L 16 134/70 H 98 08/20/19 08:16 08/20/19 08:16 08/20/19 08:16 08/20/19 08:16 08/20/19 08:16 Intake & Output 08/19/19 08/20/19 08/21/19 06:59 06:59 07:59 Intake Total 200 Output Total 100 Balance 100 Weight 80.7 kg General appearance: PRESENT: no acute distress, cooperative, well-developed Head exam: PRESENT: atraumatic, normocephalic Eye exam: PRESENT: conjunctiva pink, EOMI Ear exam: PRESENT: normal external ear exam Mouth exam: PRESENT: moist Respiratory exam: PRESENT: clear to auscultation emil, symmetrical, unlabored Cardiovascular exam: PRESENT: bradycardia, irregular rhythm, +S1, +S2, other - Bradycardia Pulses: PRESENT: normal radial pulses GI/Abdominal exam: PRESENT: soft Rectal exam: PRESENT: deferred Neurological exam: PRESENT: alert, awake, oriented to person, oriented to place Psychiatric exam: PRESENT: flat affect Skin exam: PRESENT: dry, intact, normal color Results Laboratory Results: 08/20/19 04:14 08/20/19 04:14 08/19/19 08/19/19 08/20/19 13:07 18:24 04:14 WBC 10.9 H RBC 4.27 L Hgb 13.6 Hct 39.8 MCV 93 MCH 31.9 MCHC 34.2 RDW 14.2 H Plt Count 251 Seg Neutrophils % 74.0 Sodium 141.5 Potassium 4.8 Chloride 99 Carbon Dioxide 33 H Anion Gap 10 BUN 36 H Creatinine 1.66 H Est GFR ( Amer) 49 L Glucose 99 Calcium 10.0 Total Bilirubin 2.3 H AST 46 Alkaline Phosphatase 98 Total Protein 8.4 H Albumin 4.4 Triglycerides Cholesterol LDL Cholesterol Direct VLDL Cholesterol HDL Cholesterol TSH Free T4 Free T3 pg/mL Urine Color YELLOW Urine Appearance CLEAR Urine pH 5.0 Ur Specific [place] 1.019 Urine Protein NEGATIVE Urine Glucose (UA) NEGATIVE Urine Ketones TRACE H Urine Blood NEGATIVE Urine Nitrite NEGATIVE Ur Leukocyte Esterase NEGATIVE Urine WBC (Auto) 0 Urine RBC (Auto) 0 08/20/19 08/20/19 08/20/19 04:14 04:14 04:14 WBC RBC Hgb Hct MCV MCH MCHC RDW Plt Count Seg Neutrophils % Sodium 138.6 Potassium 4.1 Chloride 102 Carbon Dioxide 29 Anion Gap 8 BUN 28 H Creatinine 1.46 H Est GFR ( Amer) 57 L Glucose 94 Calcium 9.2 Total Bilirubin AST Alkaline Phosphatase Total Protein Albumin Triglycerides 122 Cholesterol 103.08 LDL Cholesterol Direct 54 VLDL Cholesterol 24.0 HDL Cholesterol 35 L TSH 2.46 Free T4 1.36 Free T3 pg/mL 3.28 Urine Color Urine Appearance Urine pH Ur Specific [place] Urine Protein Urine Glucose (UA) Urine Ketones Urine Blood Urine Nitrite Ur Leukocyte Esterase Urine WBC (Auto) Urine RBC (Auto) 08/19/19 08/19/19 13:07 13:07 Creatine Kinase 161 CK-MB (CK-2) 8.50 H Troponin I < 0.012 EKG Comments: Twelve-lead EKG 08/19/2019 Independently viewed by me. Atrial fibrillation with slow ventricular response heart rate 48 bpm. Telemetry strips show bradycardia with heart rate predominantly in the 40s. 3- second pause. Transthoracic echocardiogram 01/17/2019 Left ventricular ejection fraction 60%. No significant valve lesion mentioned. Impressions: Head MRI 08/19/19 00:00 IMPRESSION: Acute right temporal occipital infarct. Atrophy. Small vessel ischemic change. copyright 2011 [employer]- All Rights Reserved Chest X-Ray 08/19/19 12:44 IMPRESSION: NO ACUTE RADIOGRAPHIC FINDING IN THE CHEST. Head CT 08/19/19 12:44 IMPRESSION: 1. No evidence of acute large vascular territory infarct or intracranial hemorrhage. 2. Stable chronic changes of atrophy and microvascular ischemia. EVIDENCE OF ACUTE STROKE: NO. Assessment & Plan - Diagnosis (1) Chronic atrial fibrillation Is this a current diagnosis for this admission?: Yes Plan: Chronic permanent longstanding atrial fibrillation Slow ventricular response indicative of progression of conduction disease and sick sinus syndrome. It is difficult to evaluate this patient for symptoms. At the present time there is no urgent indication for pacing. However would recommend discontinuing negative chronotropic drugs. Discontinue metoprolol Avoid calcium channel blockers and AV melissa blocking agents. If medications for hypertension have to be considered would prefer use of hydralazine and amlodipine. Increased risk of stroke. (2) TIA (transient ischemic attack) Is this a current diagnosis for this admission?: Yes Plan: No family is present at this time. However would recommend systemic anticoagulation especially given recurrent TIAs. It may be reasonable to confirm with patient's primary wildlife control operator and primary care physicians as to whether there is a prohibitive indication to pursue systemic anticoagulation such as life-threatening GI bleed or recurrent falls with significant bleeding burden. The absence of the above he may be reasonable to pursue systemic anticoagulation. This is indeed a difficult decision.
--- NOTE | 2019-08-20 14:59 | PDOC PROGRESS REPORT ---
Subjective Progress Note for:: 08/20/19 Subjective:: JIM QUIROZ is a 79 year old male past medical history of atrial fibrillation, hypertension, recurrent CVA, CKD, hypertension, Parkinson's disease, currently living at home with his son and [id number] after sustaining two strokes, with residual deficits, brought to ED by EMS after CLIENT SERVICE PROFESSIONAL noticed in the morning having left facial droop, mild dysarthria, and left upper extremity weakness, and tended to fall to the left side when trying to ambulate, at the time of my encounter patient is accompanied by his [id number] and as per [id number] patient is back to his baseline however she mentions that recently over the last several months she seems to be more disoriented, hallucinating at night, and getting progressively weaker. Patient is alert and oriented x3, in no apparent distress, confirms that he did have a facial droop and left upper and lower extremity weakness this morning. At baseline patient is able to walk with a walker, feeds himself, needs help with his other ADLs, and does not drive. Patient denies any headache, fever, chills, nausea, vomiting, diarrhea, constipation, or any urinary symptoms. In the ED CT head was negative for any acute stroke, hospitalist was consulted for further management. 08/20/2019. Patient was noted to be bradycardic and have some pauses, I was notified of this by primary nurse his regular tutor coordinator Dr. Marroquin was consulted but unfortunately they are not available over the weekend, Dr. Mehrdad Hernandez was consulted who graciously saw the patient as per recommendations patient beta-blockers and negative inotropes should be held and patient need to follow-up with primary tutor coordinator for further work-up and management. Saw patient this afternoon alert and oriented x3, and back to baseline, seems to remember my name from my encounter from yesterday. Early this morning as per primary nurse patient was noted to be very somnolent, but as per conversation with [id number] who takes care of him patient tends to be somnolent in the mornings and takes him a while to wake up. Unfortunately patient found to have another stroke in the right temporal and right occipital region, and for unknown reason patient is not anticoagulated for his underlying A. fib RVR, as per my conversation with [id number] and with the son over the phone they could not tell me why patient is not anticoagulated, I notified patient about his new stroke and the risk and benefit of chronic anticoagulation, patient stating that he does not want to be on Coumadin and he thinks other anticoagulants are too expensive for him, he also wants to talk to his PCP and tutor coordinator Dr. Marroquin before making any decision about chronic anticoagulation. I have been waiting for the family to make it at the hospital so we could have a family conversation involving the patient to talk about his chronic antic oagulation and CODE STATUS. We have reached out to his son to come over the hospital but unfortunately he has not admitted to the hospital yet. Reason For Visit: CVA/TIA,AFIB,HTN,PARKINSON Physical Exam Vital Signs: Temp Pulse Resp BP Pulse Ox 97.7 F 47 L 16 134/70 H 98 08/20/19 08:16 08/20/19 08:16 08/20/19 08:16 08/20/19 08:16 08/20/19 08:16 Intake & Output 08/19/19 08/20/19 08/21/19 06:59 06:59 07:59 Intake Total 200 Output Total 100 Balance 100 Weight 80.7 kg General appearance: PRESENT: no acute distress, well-developed, well-nourished Head exam: PRESENT: atraumatic, normocephalic Respiratory exam: PRESENT: clear to auscultation emil. ABSENT: rales, rhonchi, wheezes Cardiovascular exam: PRESENT: irregular rhythm. ABSENT: diastolic murmur, rubs, systolic murmur GI/Abdominal exam: PRESENT: normal bowel sounds, soft. ABSENT: distended, guarding, mass, organolmegaly, rebound, tenderness Neurological exam: PRESENT: alert, awake, oriented to person, oriented to place, oriented to time, oriented to situation, CN II-XII grossly intact - Left temporal hemianopsia., motor sensory deficit - Patient has chronic left upper extremity weakness from previous stroke and also from some rotator cuff tear., other - Masked faces pain Results Laboratory Results: 08/20/19 04:14 08/20/19 04:14 08/19/19 08/20/19 08/20/19 18:24 04:14 04:14 WBC 10.9 H RBC 4.27 L Hgb 13.6 Hct 39.8 MCV 93 MCH 31.9 MCHC 34.2 RDW 14.2 H Plt Count 251 Seg Neutrophils % 74.0 Sodium 138.6 Potassium 4.1 Chloride 102 Carbon Dioxide 29 Anion Gap 8 BUN 28 H Creatinine 1.46 H Est GFR ( Amer) 57 L Glucose 94 Calcium 9.2 Triglycerides Cholesterol LDL Cholesterol Direct VLDL Cholesterol HDL Cholesterol TSH Free T4 Free T3 pg/mL Urine Color YELLOW Urine Appearance CLEAR Urine pH 5.0 Ur Specific [place] 1.019 Urine Protein NEGATIVE Urine Glucose (UA) NEGATIVE Urine Ketones TRACE H Urine Blood NEGATIVE Urine Nitrite NEGATIVE Ur Leukocyte Esterase NEGATIVE Urine WBC (Auto) 0 Urine RBC (Auto) 0 08/20/19 08/20/19 04:14 04:14 WBC RBC Hgb Hct MCV MCH MCHC RDW Plt Count Seg Neutrophils % Sodium Potassium Chloride Carbon Dioxide Anion Gap BUN Creatinine Est GFR ( Amer) Glucose Calcium Triglycerides 122 Cholesterol 103.08 LDL Cholesterol Direct 54 VLDL Cholesterol 24.0 HDL Cholesterol 35 L TSH 2.46 Free T4 1.36 Free T3 pg/mL 3.28 Urine Color Urine Appearance Urine pH Ur Specific [place] Urine Protein Urine Glucose (UA) Urine Ketones Urine Blood Urine Nitrite Ur Leukocyte Esterase Urine WBC (Auto) Urine RBC (Auto) 08/19/19 08/19/19 13:07 13:07 Creatine Kinase 161 CK-MB (CK-2) 8.50 H Troponin I < 0.012 Impressions: Head MRI 08/19/19 00:00 IMPRESSION: Acute right temporal occipital infarct. Atrophy. Small vessel ischemic change. copyright 2010 [employer]- All Rights Reserved Chest X-Ray 08/19/19 12:44 IMPRESSION: NO ACUTE RADIOGRAPHIC FINDING IN THE CHEST. Head CT 08/19/19 12:44 IMPRESSION: 1. No evidence of acute large vascular territory infarct or intracranial hemorrhage. 2. Stable chronic changes of atrophy and microvascular ischemia. EVIDENCE OF ACUTE STROKE: NO. Assessment and Plan - Diagnosis (1) CVA (cerebral vascular accident) Qualifiers: CVA mechanism: unspecified Qualified Code(s): I63.9 - Cerebral infarction, unspecified Is this a current diagnosis for this admission?: Yes Plan: Acute nonhemorrhagic stroke in the right temporal and right occipital region. Possibly due to underlying A. fib. CT head negative. MRI brain positive for right temporal and occipital nonhemorrhagic stroke. Pending 2D carotid. Pending 2D echo. Patient seems to be back to his baseline with his residual ambulatory dysfunction and left upper lower extremity mild weakness from previous CVAs. Continue telemetry, neurochecks, aspiration, fall and seizure precautions, DAPT, high intensity statins, PT/OT/OT. (2) Atrial fibrillation Qualifiers: Atrial fibrillation type: longstanding persistent Qualified Code(s): I48.11 - Longstanding persistent atrial fibrillation Is this a current diagnosis for this admission?: Yes Plan: History of chronic persistent atrial fibrillation. Rate controlled. Not anticoagulated. Likely not a candidate due to risk of fall. Patient and family does not know why he is not anticoagulated. Dr. Marroquin his tutor coordinator has been consulted. Recommendations. Note. Patient noted to have sinus pause and bradycardia. As per cardiology recommendation DC beta-blockers and avoid negative chronotropics. 08/20/2019. Patient was noted to be bradycardic and have some pauses, I was notified of this by primary nurse his regular tutor coordinator Dr. Marroquin was consulted but unfortunately they are not available over the weekend, Dr. Mehrdad Hernandez was consulted who graciously saw the patient as per recommendations patient beta-blockers and negative inotropes should be held and patient need to follow-up with primary tutor coordinator for further work-up and management. Saw patient this afternoon alert and oriented x3, and back to baseline, seems to remember my name from my encounter from yesterday. Early this morning as per primary nurse patient was noted to be very somnolent, but as per conversation with [id number] who takes care of him patient tends to be somnolent in the mornings and takes him a while to wake up. Unfortunately patient found to have another stroke in the right temporal and right occipital region, and for unknown reason patient is not anticoagulated for his underlying A. fib RVR, as per my conversation with [id number] and with the son over the phone they could not tell me why patient is not anticoagulated, I notified patient about his new stroke and the risk and benefit of chronic anticoagulation, patient stating that he does not want to be on Coumadin and he thinks other anticoagulants are too expensive for him, he also wants to talk to his PCP and tutor coordinator Dr. Marroquin before making any decision about chronic anticoagulation. I have been waiting for the family to make it at the hospital so we could have a family conversation involving the patient to talk about his chronic anticoagulation and CODE STATUS. We have reached out to his son to come over the hospital but unfortunately he has not admitted to the hospital yet. (3) CKD (chronic kidney disease) stage 3, GFR 30-59 ml/min Is this a current diagnosis for this admission?: Yes Plan: Creatinine improving. Serum creatinine 1.5-2.5. Euvolemic. Electrolytes WNL. Monitor electrolytes and volume status, reduce place electrolytes as needed. BMP tomorrow. Outpatient PCP and nephrology follow-up. (4) Debility and deconditioning Is this a current diagnosis for this admission?: Yes Plan: PT ST OT. Consult discharge planning for short-term rehab placement. (5) HTN (hypertension) Qualifiers: Is this a current diagnosis for this admission?: Yes Plan: Euvolemic. Normotensive. Restart lisinopril. DC beta-blockers. Avoid negative chronotropic agents due to underlying bradycardia and sinus pauses. Adjust meds as needed. Outpatient PCP follow-up. (6) Hypothyroidism Qualifiers: Is this a current diagnosis for this admission?: Yes Plan: Resume home meds. Will check TSH. (7) Parkinsons disease Is this a current diagnosis for this admission?: Yes Plan: Restart home meds. Fall, seizure precaution. Outpatient PCP and neurology follow-up.
[2019-08-20] MEDS: ATORVASTATIN CALCIUM 80 MG TABLET PO SCH (21:28)
[2019-08-21] MEDS: LEVOTHYROXINE SODIUM 0.075 MG TABLET PO SCH (05:29)
[2019-08-21] MEDS: HEPARIN SOD (PORCINE) 5,000 UNIT/ML 1 ML VIAL SUBCUT SCH (05:29)
[2019-08-21 06:37] LABS: ANION GAP 9 (5-19); BLOOD UREA NITROGEN 23 mg/dL (7-20); CALCIUM 9.4 mg/dL (8.4-10.2); CARBON DIOXIDE 27 mmol/L (22-30); CHLORIDE 101 mmol/L (98-107); GLUCOSE 89 mg/dL (75-110); POTASSIUM 4.7 mmol/L (3.6-5.0)
[2019-08-21] MEDS: LISINOPRIL 10 MG TABLET PO SCH (10:07)
[2019-08-21] MEDS: ESCITALOPRAM OXALATE 10 MG TABLET PO SCH (10:07)
[2019-08-21] MEDS: CARBIDOPA/LEVODOPA 25-100 MG TABLET PO SCH ×4 (10:07→21:35)
[2019-08-21] MEDS: DOCUSATE SODIUM 100 MG/10 ML UDC PO SCH ×2 (10:07→17:44)
[2019-08-21] MEDS: ASPIRIN 81 MG TABLET, CHEWABLE PO SCH (10:07)
[2019-08-21] MEDS: APIXABAN 5 MG TABLET PO SCH ×2 (10:07→17:44)
[2019-08-21] MEDS: FAMOTIDINE 20 MG TABLET PO SCH (10:08)
--- NOTE | 2019-08-21 13:05 | PDOC PROGRESS REPORT ---
Subjective Progress Note for:: 08/21/19 Subjective:: Patient seen and examined. He is in [employer] restraints. Does not appear to be confused. Is dysarthric. Telemetry showing heart rate in the mid 50s. Reason For Visit: CVA/TIA,AFIB,HTN,PARKINSON Physical Exam Vital Signs: Temp Pulse Resp BP Pulse Ox 97.5 F 62 16 126/69 H 98 08/21/19 07:46 08/21/19 08:00 08/21/19 08:00 08/21/19 07:46 08/21/19 08:00 Intake & Output 08/20/19 08/21/19 08/22/19 05:59 06:59 06:59 Intake Total Output Total Balance Weight General appearance: PRESENT: no acute distress, cooperative, well-developed Head exam: PRESENT: atraumatic, normocephalic Eye exam: PRESENT: other Ear exam: PRESENT: normal external ear exam Mouth exam: PRESENT: moist, other - Facial droop left Respiratory exam: PRESENT: clear to auscultation emil, symmetrical, unlabored Cardiovascular exam: PRESENT: bradycardia, irregular rhythm, +S1, +S2 Pulses: PRESENT: normal radial pulses GI/Abdominal exam: PRESENT: soft Rectal exam: PRESENT: deferred Musculoskeletal exam: PRESENT: normal inspection Neurological exam: PRESENT: alert, awake, oriented to person, oriented to place, other Psychiatric exam: PRESENT: appropriate affect Skin exam: PRESENT: dry, intact Results Laboratory Results: 08/20/19 04:14 08/21/19 05:29 08/20/19 08/21/19 04:14 05:29 Sodium 136.9 L Potassium 4.7 Chloride 101 Carbon Dioxide 27 Anion Gap 9 BUN 23 H Creatinine 1.34 H Est GFR ( Amer) > 60 Glucose 89 Calcium 9.4 Triglycerides 122 Cholesterol 103.08 LDL Cholesterol Direct 54 VLDL Cholesterol 24.0 HDL Cholesterol 35 L 08/19/19 08/19/19 13:07 13:07 Creatine Kinase 161 CK-MB (CK-2) 8.50 H Troponin I < 0.012 EKG Comments: Telemetry shows atrial fibrillation with slow ventricular response in the mid 50s. Impressions: Head MRI 08/19/19 00:00 IMPRESSION: Acute right temporal occipital infarct. Atrophy. Small vessel ischemic change. copyright 2011 [employer] ([employer])- All Rights Reserved Chest X-Ray 08/19/19 12:44 IMPRESSION: NO ACUTE RADIOGRAPHIC FINDING IN THE CHEST. Head CT 08/19/19 12:44 IMPRESSION: 1. No evidence of acute large vascular territory infarct or intracranial hemorrhage. 2. Stable chronic changes of atrophy and microvascular ischemia. EVIDENCE OF ACUTE STROKE: NO. Assessment & Plan - Diagnosis (1) Chronic atrial fibrillation Is this a current diagnosis for this admission?: Yes Plan: Longstanding atrial fibrillation. Presently with slow ventricular response. Doubtful to say if patient has had symptoms We will continue to avoid negative chronotropic agents and AV melissa blockers No urgent indication for cardiac pacing at the moment. Given presentation with CVA would recommend systemic anticoagulation. (2) CVA (cerebral vascular accident) Qualifiers: CVA mechanism: unspecified Qualified Code(s): I63.9 - Cerebral infarction, unspecified Is this a current diagnosis for this admission?: Yes Plan: Acute CVA on brain MRI right temporal and occipital. Given atrial fibrillation and with neurological insult systemic anticoagulation is warranted. My discussion with the patient he himself reports that he has been unsteady and fall. It is difficult to decide on a strategy here without significant input from the family and other caregivers. Patient also intimates to me that he is followed by Dr. Marroquin and indicates his preference to speak with him regarding these decisions.
--- NOTE | 2019-08-21 16:19 | PDOC PROGRESS REPORT ---
Subjective Progress Note for:: 08/21/19 Subjective:: JIM QUIROZ is a 79 year old male past medical history of atrial fibrillation, hypertension, recurrent CVA, CKD, hypertension, Parkinson's disease, currently living at home with his son and [id number] after sustaining two strokes, with residual deficits, brought to ED by EMS after HOME ATTENDANT noticed in the morning having left facial droop, mild dysarthria, and left upper extremity weakness, and tended to fall to the left side when trying to ambulate, at the time of my encounter patient is accompanied by his [id number]-xlk and as per [id number] patient is back to his baseline however she mentions that recently over the last several months she seems to be more disoriented, hallucinating at night, and getting progressively weaker. Patient is alert and oriented x3, in no apparent distress, confirms that he did have a facial droop and left upper and lower extremity weakness this morning. At baseline patient is able to walk with a walker, feeds himself, needs help with his other ADLs, and does not drive. Patient denies any headache, fever, chills, nausea, vomiting, diarrhea, constipation, or any urinary symptoms. In the ED CT head was negative for any acute stroke, hospitalist was consulted for further management. 08/20/2019. Patient was noted to be bradycardic and have some pauses, I was notified of this by primary nurse his regular liaison inspection laboratory assistant Dr. Marroquin was consulted but unfortunately they are not available over the weekend, Dr. Mehrdad Hernandez was consulted who graciously saw the patient as per recommendations patient beta-blockers and negative inotropes should be held and patient need to follow-up with primary liaison inspection laboratory assistant for further work-up and management. Saw patient this afternoon alert and oriented x3, and back to baseline, seems to remember my name from my encounter from yesterday. Early this morning as per primary nurse patient was noted to be very somnolent, but as per conversation with [id number] who takes care of him patient tends to be somnolent in the mornings and takes him a while to wake up. Unfortunately patient found to have another stroke in the right temporal and right occipital region, and for unknown reason patient is not anticoagulated for his underlying A. fib RVR, as per my conversation with [id number] and with the son over the phone they could not tell me why patient is not anticoagulated, I notified patient about his new stroke and the risk and benefit of chronic anticoagulation, patient stating that he does not want to be on Coumadin and he thinks other anticoagulants are too expensive for him, he also wants to talk to his PCP and liaison inspection laboratory assistant Dr. Marroquin before making any decision about chronic anticoagulation. I have been waiting for the family to make it at the hospital so we could have a family conversation involving the patient to talk about his chronic antic oagulation and CODE STATUS. We have reached out to his son to come over the hospital but unfortunately he has not admitted to the hospital yet. 08/21/2019. No acute events overnight. Patient reporting mild improvement of his upper and lower left extremity weakness, denies any fever, chills, nausea, vomiting, diarrhea, constipation or any urinary symptoms. Had a family meeting with patient and his son on 08/20/2019. Updated patient and family about recent stroke at the risk and benefit of chronic anticoagulation given history of recurrent stroke. As per patient's son the reason he is not on chronic anticoagulation is because he could not afford Eliquis and other NOACs and the did not want to be on Coumadin, now that he has had a third stroke given a be started on Eliquis. Given age and multiple cooperative CODE STATUS is also discussed with the family, family and son have decided to be full code right now but while they are thinking about possible transition CODE STATUS to DNR. Reason For Visit: CVA/TIA,AFIB,HTN,PARKINSON Physical Exam Vital Signs: Temp Pulse Resp BP Pulse Ox 97.5 F 62 16 126/69 H 98 08/21/19 07:46 08/21/19 08:00 08/21/19 08:00 08/21/19 07:46 08/21/19 08:00 Intake & Output 08/20/19 08/21/19 08/22/19 05:59 06:59 06:59 Intake Total 580 Output Total 200 Balance 380 Weight General appearance: PRESENT: no acute distress, well-developed, well-nourished Head exam: PRESENT: atraumatic, normocephalic Respiratory exam: PRESENT: clear to auscultation emil. ABSENT: rales, rhonchi, wheezes Cardiovascular exam: PRESENT: RRR. ABSENT: diastolic murmur, rubs, systolic murmur GI/Abdominal exam: PRESENT: normal bowel sounds, soft. ABSENT: distended, guarding, mass, organolmegaly, rebound, tenderness Extremities exam: PRESENT: full ROM. ABSENT: calf tenderness, clubbing, pedal edema Musculoskeletal exam: PRESENT: full ROM - For the limited range of motion due to pain., tenderness - Left shoulder symptoms. Neurological exam: PRESENT: alert, awake, oriented to person, oriented to place, oriented to time, oriented to situation, CN II-XII grossly intact - Left temporal hemianopsia., other - Shoulder strength 4/5.. ABSENT: motor sensory deficit Results Laboratory Results: 08/20/19 04:14 08/21/19 05:29 08/21/19 05:29 Sodium 136.9 L Potassium 4.7 Chloride 101 Carbon Dioxide 27 Anion Gap 9 BUN 23 H Creatinine 1.34 H Est GFR ( Amer) > 60 Glucose 89 Calcium 9.4 08/19/19 08/19/19 13:07 13:07 Creatine Kinase 161 CK-MB (CK-2) 8.50 H Troponin I < 0.012 Impressions: Head MRI 08/19/19 00:00 IMPRESSION: Acute right temporal occipital infarct. Atrophy. Small vessel ischemic change. copyright 2011 [employer]- All Rights Reserved Chest X-Ray 08/19/19 12:44 IMPRESSION: NO ACUTE RADIOGRAPHIC FINDING IN THE CHEST. Head CT 08/19/19 12:44 IMPRESSION: 1. No evidence of acute large vascular territory infarct or intracranial hemorrhage. 2. Stable chronic changes of atrophy and microvascular ischemia. EVIDENCE OF ACUTE STROKE: NO. Assessment and Plan - Diagnosis (1) CVA (cerebral vascular accident) Qualifiers: CVA mechanism: unspecified Qualified Code(s): I63.9 - Cerebral infarction, unspecified Is this a current diagnosis for this admission?: Yes Plan: Acute nonhemorrhagic stroke in the right temporal and right occipital region. Possibly due to underlying A. fib. CT head negative. MRI brain positive for right temporal and occipital nonhemorrhagic stroke. Pending 2D carotid. Pending 2D echo. Patient seems to be back to his baseline with his residual ambulatory dysfunction and left upper lower extremity mild weakness from previous CVAs. Continue telemetry, neurochecks, aspiration, fall and seizure precautions, DAPT, high intensity statins, PT/OT/OT. Patient and family would like to transfer patient to [facility] if possible. (2) Atrial fibrillation Qualifiers: Atrial fibrillation type: longstanding persistent Qualified Code(s): I48.11 - Longstanding persistent atrial fibrillation Is this a current diagnosis for this admission?: Yes Plan: History of chronic persistent atrial fibrillation. Rate controlled. On Eliquis [address] twice daily. Dr[address] Marroquin his liaison inspection laboratory assistant has been consulted. Recommendations pending. Note. Patient noted to have sinus pause and bradycardia on 08/20/2019. As per cardiology recommendation DC beta-blockers and avoid negative chronotropics. Start on Eliquis 5 mg p.o. twice daily 08/21/2019. Patient weight >is 65 kg age <80 and creatinine is <1.5, therefore he can be started on Eliquis 5 mg p.o. twice daily. Note. Given the fact that patient has history of CKD his creatinine function needs to be monitored closely for readjustment of his Eliquis. If kidney function worsens in future he has to be switched to 2.5 mg p.o. twice daily. 08/20/2019. Patient was noted to be bradycardic and have some pauses, I was notified of this by primary nurse his regular liaison inspection laboratory assistant Dr. Marroquin was consulted but unfortunately they are not available over the weekend, Dr. Mehrdad Hernandez was consulted who graciously saw the patient as per recommendations patient beta-blockers and negative inotropes should be held and patient need to follow-up with primary liaison inspection laboratory assistant for further work-up and management. 08/21/2019. Had a family meeting with patient and his son on 08/20/2019. Updated patient and family about recent stroke at the risk and benefit of chronic anticoagulation given history of recurrent stroke. As per patient's son the reason he is not on chronic anticoagulation is because he could not afford Eliquis and other NOACs and the did not want to be on Coumadin, now that he has had a third stroke given a be started on Eliquis. (3) CKD (chronic kidney disease) stage 3, GFR 30-59 ml/min Is this a current diagnosis for this admission?: Yes Plan: Creatinine improving. Serum creatinine 1.32. Baseline serum creatinine 1.5-2 .5. Euvolemic. Electrolytes WNL. Monitor electrolytes and volume status, reduce place electrolytes as needed. BMP tomorrow. Outpatient PCP and nephrology follow-up. (4) Debility and deconditioning Is this a current diagnosis for this admission?: Yes Plan: Due to recurrent CVA complicated by history of Parkinson's disease and history of left shoulder rotator cuff tear. Continue PT ST OT. Consult discharge planning for short-term rehab placement. Patient and family would like to be transferred to [facility] once ready to be discharged. (5) HTN (hypertension) Qualifiers: Is this a current diagnosis for this admission?: Yes Plan: Euvolemic. Normotensive. Restart lisinopril. DC beta-blockers. Avoid negative chronotropic agents due to underlying bradycardia and sinus pauses. Adjust meds as needed. Outpatient PCP follow-up. (6) Hypothyroidism Qualifiers: Is this a current diagnosis for this admission?: Yes Plan: Resume home meds. TSH wnl. (7) Parkinsons disease Is this a current diagnosis for this admission?: Yes Plan: Restart home meds. Fall, seizure precaution. Outpatient PCP and neurology follow-up.
[2019-08-21] MEDS: ATORVASTATIN CALCIUM 80 MG TABLET PO SCH (21:35)
[2019-08-22] MEDS: FAMOTIDINE 20 MG TABLET PO SCH ×3 (05:17→21:38)
[2019-08-22] MEDS: LEVOTHYROXINE SODIUM 0.075 MG TABLET PO SCH (05:58)
--- NOTE | 2019-08-22 09:44 | PDOC PROGRESS REPORT ---
Subjective Progress Note for:: 08/22/19 Subjective:: The patient is a 79-year-old male with history of hypothyroidism, Parkinson's disease, central retinal vein occlusion, chronic atrial fibrillation for several years, cerebellar stroke in November 2017, hypertension, bradycardia and chronic kidney disease who was consulted to the cardiology service and evaluated by Dr. Mehrdad Hernandez for CVA. The patient was admitted on 08/19/2019 when he was noted to have facial neurologic deficits. He was also found to be bradycardic therefore Dr. Hernandez recommended discontinuation of metoprolol which I agree with. 08/22/2019: The patient this morning is found asleep in his bed but easily arousable. He did not open his eyes but was able to answer questions and remembered my name as I was seeing him as an outpatient in the office. He has no specific cardiac complaints and specifically denied chest pain, shortness of breath, COLÓN, PND, lower extremity edema. His telemetry this morning demonstrated slow atrial fibrillation. Reason For Visit: CVA/TIA,AFIB,HTN,PARKINSON Physical Exam Vital Signs: Temp Pulse Resp BP Pulse Ox 97.4 F 62 18 157/81 H 98 08/22/19 04:16 08/22/19 07:00 08/22/19 04:16 08/22/19 04:16 08/22/19 04:16 Intake & Output 08/21/19 08/22/19 08/23/19 06:59 06:59 06:59 Intake Total 945 Output Total 200 Balance 745 Weight 80 kg General appearance: PRESENT: no acute distress, disheveled, thin Head exam: PRESENT: atraumatic, normocephalic Neck exam: ABSENT: carotid bruit, JVD, lymphadenopathy, thyromegaly Respiratory exam: PRESENT: clear to auscultation emil. ABSENT: rales, rhonchi, wheezes Cardiovascular exam: PRESENT: bradycardia, irregular rhythm. ABSENT: gallop, rubs, systolic murmur Pulses: PRESENT: normal dorsalis pedis pul Results Laboratory Results: 08/20/19 04:14 08/21/19 05:29 08/19/19 08/19/19 13:07 13:07 Creatine Kinase 161 CK-MB (CK-2) 8.50 H Troponin I < 0.012 Impressions: Head MRI 08/19/19 00:00 IMPRESSION: Acute right temporal occipital infarct. Atrophy. Small vessel ischemic change. copyright 2010 [employer]- All Rights Reserved Chest X-Ray 08/19/19 12:44 IMPRESSION: NO ACUTE RADIOGRAPHIC FINDING IN THE CHEST. Head CT 08/19/19 12:44 IMPRESSION: 1. No evidence of acute large vascular territory infarct or in tracranial hemorrhage. 2. Stable chronic changes of atrophy and microvascular ischemia. EVIDENCE OF ACUTE STROKE: NO. Assessment & Plan - Diagnosis (1) Chronic atrial fibrillation Is this a current diagnosis for this admission?: Yes Plan: The patient is currently anticoagulated with Eliquis 5 mg daily. He actually has slow atrial fibrillation with no significant events on telemetry. Recommendations: -Agree with discontinuation of beta-bill. -Continue with anticoagulation. -We will continue to follow-up with you. (2) CVA (cerebral vascular accident) Qualifiers: CVA mechanism: unspecified Qualified Code(s): I63.9 - Cerebral infarction, unspecified Is this a current diagnosis for this admission?: Yes Plan: Unfortunately the patient suffered a right temporal occipital stroke noted on brain MRI. He is pending further work-up with echocardiogram and carotid Dopplers. Recommendations: -Continue with current medical management. -We will defer further management to his primary team.
--- NOTE | 2019-08-22 10:09 | RADIOLOGY REPORT (SQ) ---
EXAM DESCRIPTION: COOKIE SWALLOW COMPLETED DATE/TIME: 08/22/2019 9:44 am REASON FOR STUDY: high risk for aspiration I48.91 UNSPECIFIED ATRIAL FIBRILLATIONCVA, PARKINSON'S DISEASE, DYSPHAGIA COMPARISON: Modified barium swallow 01/18/2019 TECHNIQUE: Videofluoroscopic swallowing examination was performed in conjunction with speech patholo gy. Videofluoroscopic imaging was obtained and reviewed and these are the findings: RADIATION DOSE: 1 minutes 37 seconds of fluoroscopy was used. 1 images saved to PACS. LIMITATIONS: None FINDINGS: The patient was brought into the fluoro room and placed upright on a modified barium swall ow chair. The patient was then given multiple consistencies mixed with barium to swallow under live fluoroscopic video guidance. According to the Speech Pathologist there was trace laryngeal penetrati on without aspiration. IMPRESSION: TRACE LARYNGEAL PENETRATION WITHOUT ASPIRATION. PLEASE SEE SPEECH PATHOLOGIST REPORT FOR OTHER FINDINGS AND RECOMMENDATIONS. COMMENT: Quality ID 145: Final reports for procedures using fluoroscopy that document radiation exp osure indices, or exposure time and number of fluorographic images (if radiation exposure indices are not available) TECHNICAL DOCUMENTATION: JOB ID: [id number] 2010 [employer]- All Rights Reserved Reading location - IP/workstation name: [email or web address]
[2019-08-22] MEDS: CARBIDOPA/LEVODOPA 25-100 MG TABLET PO SCH ×4 (10:25→21:38)
[2019-08-22] MEDS: DOCUSATE SODIUM 100 MG/10 ML UDC PO SCH ×2 (10:26→18:39)
[2019-08-22] MEDS: LISINOPRIL 10 MG TABLET PO SCH (10:26)
[2019-08-22] MEDS: ASPIRIN 81 MG TABLET, CHEWABLE PO SCH (10:26)
[2019-08-22] MEDS: APIXABAN 5 MG TABLET PO SCH ×2 (10:26→18:30)
[2019-08-22] MEDS: ESCITALOPRAM OXALATE 10 MG TABLET PO SCH (10:26)
--- NOTE | 2019-08-22 10:51 | ST Inp Modified Barium Swallow ---
Medical Diagnosis - Medical Diagnoses Medical Diagnosis Description & ICD-10 Code(s): CVA, Parkinson's disease ST Inpatient [facility] - General Date: 08/22/19 Date of Onset: 08/19/19 - History History Obtained From: Patient, Other - EMR Medications: Medications Reviewed Allergies: Refer to medical record - Subjective Current Nutritional Means: PO Current PO Diet: Regular Current Symptoms: Coughing, Wet/gurgly voice, other - History of dysphagia, high risk due to hx of PD Pain: no signs/symptoms of pain - Objective Assessment: Left Lateral - Food Trials Food Trials Used: [place] thick liquids, Regular The Patient: Was Able to Self Feed, via cup, via spoon - purees - Assessment Labial Function: Within Functional Limits - Slight anterior labial loss. Lingual Function: Within Functional Limits Mandibular Function: Within Functional Limits Dentition: Partial Velo-Pharyngeal Function: Unremarkable Laryngeal Function: Volitional Cough, Volitional Swallow, hoarse - Pharyngeal Stage Initiation of Pharyngeal Stage: Delayed - At the level of the epiglottis Reduced Velo-Pharyngeal Closure: yes - One instance of airway penetration, indicating reduced closure Reduced Pressure Generation: No Reduced Tongue Base Retraction: Yes - Mild residuals Pre-Swallowing Pooling in Valleculae: Mild Pre-Swallowing Pooling in Pyriforms: None Reduced Thyro-Hyiod Approximation: Yes Reduced Epiglottic Excursion: No Reduced Pharyngeal Peristalsis: No Multiple Swallows With: Cleared w/ Liquid Assist Post Swallow Residuals in Valleculae: Mild Post Swallow Residuals in Pyriforms: Mild Post Swallow Residuals: Posterior pharyngeal wall, tongue-base Pahryngeal Stage Comments: Pt. presented with mild orophryngeal dysphagia due to trace penetration above vocal folds with sequential sips. However, material ejected from airway. Reduced tongue base retration noted, leading to some residuals. However, residuals mainly cleared with repeat swallow or liquid wash. - Esophageal Stage Cricophageal Function: Normal Upper Esophageal Transit: Normal - Impression/Summary Laryngeal Penetration: Flash, during swallow Tracheal Aspiration: no Effective Compensatory Strategies: hard swallow Patient Presents With: Oral-Pharyngeal dysph. - According to ANNA MARIE, patient presents with moderate dyspagia due to reduced laryngeal elevation and closure, leading to flash airway penetration. Patient also with post-swallow residuals due to reduced base of tongue retraction. However, able to clear with hard swallow otrr liquid wash. Risk of Aspiration: Minimal Risk of Nutritional Compromise: WNL Risk Due To: Progressive nature of Parkinson's disease. - Recommendations NPO: no Solid Diet Recommendations: Regular Liquid Diet Recommendations: Thin Regular Diet: Yes Strict Aspitarion Precautions: Yes - Seated upright, oral hygeine Dysphagia Therapy with TUB WASHER: Follow Up PRN Recommended Techniques: Fully Upright During Meal, Dry Swallow After Bite, Alternate Bites/Sips Supervision: Independent Other Recommendations: No straws. Patient with laryngeal penetration with consecutive sips thin liquids. One sip thin liquid at a time. - Time Total Time: 30 Total Timed Minutes: 30
--- NOTE | 2019-08-22 15:07 | PDOC PROGRESS REPORT ---
Subjective Progress Note for:: 08/22/19 Subjective:: Patient denies any pain or trouble breathing at this time. Aware that he likely did have a stroke. Reason For Visit: CVA/TIA,AFIB,HTN,PARKINSON Physical Exam Vital Signs: Temp Pulse Resp BP Pulse Ox 97.4 F 60 18 100/63 98 08/22/19 12:36 08/22/19 12:36 08/22/19 12:36 08/22/19 12:36 08/22/19 12:36 Intake & Output 08/21/19 08/22/19 08/23/19 06:59 06:59 06:59 Intake Total 945 Output Total 200 Balance 745 Weight 80 kg General appearance: PRESENT: no acute distress, cooperative Neck exam: ABSENT: JVD Respiratory exam: PRESENT: clear to auscultation emil, unlabored. ABSENT: tachypnea, wheezes Cardiovascular exam: PRESENT: +S1, +S2. ABSENT: diastolic murmur, systolic murmur, tachycardia GI/Abdominal exam: PRESENT: normal bowel sounds, soft. ABSENT: rebound, rigid, tenderness Neurological exam: PRESENT: alert, awake, oriented to person, oriented to place, oriented to time, motor sensory deficit - Left upper extremity weakness, other - Dysarthria. ABSENT: aphasic Results Laboratory Results: 08/20/19 04:14 08/21/19 05:29 08/19/19 08/19/19 13:07 13:07 Creatine Kinase 161 CK-MB (CK-2) 8.50 H Troponin I < 0.012 Impressions: Head MRI 08/19/19 00:00 IMPRESSION: Acute right temporal occipital infarct. Atrophy. Small vessel ischemic change. copyright 2011 [employer]- All Rights Reserved Chest X-Ray 08/19/19 12:44 IMPRESSION: NO ACUTE RADIOGRAPHIC FINDING IN THE CHEST. Head CT 08/19/19 12:44 IMPRESSION: 1. No evidence of acute large vascular territory infarct or intracranial hemorrhage. 2. Stable chronic changes of atrophy and microvascular ischemia. EVIDENCE OF ACUTE STROKE: NO. Modified Barium Swallow 08/22/19 07:00 IMPRESSION: TRACE LARYNGEAL PENETRATION WITHOUT ASPIRATION. PLEASE SEE SPEECH PATHOLOGIST REPORT FOR OTHER FINDINGS AND RECOMMENDATIONS. Assessment and Plan - Diagnosis (1) CVA (cerebral vascular accident) Qualifiers: CVA mechanism: unspecified Qualified Code(s): I63.9 - Cerebral infarction, unspecified Is this a current diagnosis for this admission?: Yes Plan: Acute nonhemorrhagic stroke in the right temporal and right occipital region. Possibly due to underlying A. fib. CT head negative. MRI brain positive for right temporal and occipital nonhemorrhagic stroke. Pending 2D carotid. Pending 2D echo. Patient seems to be back to his baseline with his residual ambulatory dysfunction and left upper lower extremity mild weakness from previous CVAs. Also has some dysarthria which is mild and not new according to him. Patient and family would like to transfer patient to [facility] if possible. (2) Atrial fibrillation Qualifiers: Atrial fibrillation type: longstanding persistent Qualified Code(s): I48.11 - Longstanding persistent atrial fibrillation Is this a current diagnosis for this admission?: Yes Plan: Continue Eliquis. (3) CKD (chronic kidney disease) stage 3, GFR 30-59 ml/min Is this a current diagnosis for this admission?: Yes Plan: Creatinine stable at this time. Within baseline. (4) Debility and deconditioning Is this a current diagnosis for this admission?: Yes Plan: Due to recurrent CVA complicated by history of Parkinson's disease and history of left shoulder rotator cuff tear. Continue PT OT. (5) HTN (hypertension) Qualifiers: Is this a current diagnosis for this admission?: Yes Plan: Euvolemic. Normotensive. Restart lisinopril. DC beta-blockers. Avoid negative chronotropic agents due to underlying bradycardia and sinus pauses. (6) Hypothyroidism Qualifiers: Is this a current diagnosis for this admission?: Yes - Time Time Spent with patient: 15-24 minutes
--- NOTE | 2019-08-22 16:49 | RADIOLOGY REPORT (SQ) ---
EXAM DESCRIPTION: CAROTID DOPPLER COMPLETED DATE/TIME: 08/22/2019 4:06 pm REASON FOR STUDY: Current CVA I48.91 UNSPECIFIED ATRIAL FIBRILLATION E78.2 MIXED HYPERLIPIDEMIA COMPARISON: 01/17/2019 TECHNIQUE: Grayscale ultrasound, Doppler velocity and spectra, and color Doppler images acquired of the extra-cranial carotid and vertebral arteries. Images stored on PACS. LIMITATIONS: None. FINDINGS: RIGHT CAROTID CCA Velocities: Tortuous. Peak systolic velocity of 121 centimeters/second. ICA Velocities Peak systolic 104 cm/s. End diastolic 20 cm/s. Proximal ICA/CCA peak systolic ratio 0.8. Spectra normal. Mild scattered plaque at the proximal ICA with approximately 50% luminal stenosis. LEFT CAROTID CCA Velocities: Tortuous. Peak systolic velocity of 181 centimeters/second. ICA Velocities Peak systolic 108 cm/s. End diastolic 21 cm/s. Proximal ICA/CCA peak systolic ratio 1.0. Spectra normal. Calcified plaque at the proximal ICA with approximately 50% stenosis. VERTEBRAL ARTERIES: Antegrade flow. Normal waveforms. SUBCLAVIAN ARTERIES: No finding. OTHER: No other significant finding. IMPRESSION: 1. Scattered atherosclerosis with less than 50% stenosis of the bilateral ICAs. 2. Antegrade vertebral arteries. COMMENT: Quality ID #195: Velocity criteria are extrapolated from the diameter data as defined by t he Society of Radiologists in Ultrasound Consensus Conference. Radiology 2003: 229; 340-346. TECHNICAL DOCUMENTATION: JOB ID: [id number] 2010 [employer]- All Rights Reserved Reading location - IP/workstation name: [email or web address]
[2019-08-22] MEDS: ATORVASTATIN CALCIUM 80 MG TABLET PO SCH (21:38)
[2019-08-23] MEDS: LEVOTHYROXINE SODIUM 0.075 MG TABLET PO SCH (05:46)
--- NOTE | 2019-08-23 08:11 | PDOC PROGRESS REPORT ---
Subjective Progress Note for:: 08/23/19 Subjective:: The patient is a 79-year-old male with history of hypothyroidism, Parkinson's disease, central retinal vein occlusion, chronic atrial fibrillation for several years, cerebellar stroke in November 2017, hypertension, bradycardia and chronic kidney disease who was consulted to the cardiology service and evaluated by Dr. Mehrdad Hernandez for CVA. The patient was admitted on 08/19/2019 when he was noted to have facial neurologic deficits. He was also found to be bradycardic therefore Dr. Hernandez recommended discontinuation of metoprolol which I agree with. 08/23/2019: The patient had an uneventful night and denies cardiac complaints. He continues to specifically deny chest pain, shortness of breath, COLÓN, PND, lower extremity edema. He wants to go home. His telemetry this morning demonstrated slow atrial fibrillation without malignant dysrhythmias. Reason For Visit: CVA/TIA,AFIB,HTN,PARKINSON Physical Exam Vital Signs: Temp Pulse Resp BP Pulse Ox 97.3 F 70 21 H 98/64 L 97 08/23/19 03:14 08/23/19 03:14 08/23/19 03:14 08/23/19 03:14 08/23/19 03:14 Intake & Output 08/22/19 08/23/19 08/24/19 06:59 06:59 06:59 Intake Total 945 1000 Output Total 200 375 Balance 745 625 Weight 80 kg 76.8 kg General appearance: PRESENT: no acute distress, disheveled, well-developed, well-nourished Head exam: PRESENT: atraumatic, normocephalic Neck exam: ABSENT: carotid bruit, JVD, lymphadenopathy, thyromegaly Respiratory exam: PRESENT: clear to auscultation emil. ABSENT: rales, rhonchi, wheezes Cardiovascular exam: PRESENT: bradycardia, irregular rhythm. ABSENT: diastolic murmur, RRR, rubs, systolic murmur Pulses: PRESENT: normal dorsalis pedis pul Results Laboratory Results: 08/20/19 04:14 08/21/19 05:29 08/19/19 08/19/19 13:07 13:07 Creatine Kinase 161 CK-MB (CK-2) 8.50 H Troponin I < 0.012 Impressions: Head MRI 08/19/19 00:00 IMPRESSION: Acute right temporal occipital infarct. Atrophy. Small vessel ischemic change. copyright 2010 [employer]- All Rights Reserved Chest X-Ray 08/19/19 12:44 IMPRESSION: NO ACUTE RADIOGRAPHIC FINDING IN THE CHEST. Head CT 08/19/19 12:44 IMPRESSION: 1. No evidence of acute large vascular territory infarct or intracranial hemorrhage. 2. Stable chronic changes of atrophy and microvascular ischemia. EVIDENCE OF ACUTE STROKE: NO. Carotid Doppler Study 08/22/19 00:00 IMPRESSION: 1. Scattered atherosclerosis with less than 50% stenosis of the bilateral ICAs. 2. Antegrade vertebral arteries. Modified Barium Swallow 08/22/19 07:00 IMPRESSION: TRACE LARYNGEAL PENETRATION WITHOUT ASPIRATION. PLEASE SEE SPEECH PATHOLOGIST REPORT FOR OTHER FINDINGS AND RECOMMENDATIONS. Assessment & Plan - Diagnosis (1) Chronic atrial fibrillation Is this a current diagnosis for this admission?: Yes Plan: The patient is currently anticoagulated with Eliquis 5 mg daily. He actually has slow atrial fibrillation with no significant events on telemetry. At this point the patient is optimized from the CV standpoint therefore we will sign off the case. Recommendations: -Agree with avoidance of all AV melissa agents. -Continue with anticoagulation. -We will sign off the case for now, please call with any concerns or questions. (2) CVA (cerebral vascular accident) Qualifiers: CVA mechanism: unspecified Qualified Code(s): I63.9 - Cerebral infarction, unspecified Is this a current diagnosis for this admission?: Yes Plan: Unfortunately the patient suffered a right temporal occipital stroke noted on brain MRI. He is pending further work-up with echocardiogram and carotid Dopplers. Recommendations: -Continue with current medical management. -We will defer further management to his primary team.
[2019-08-23] MEDS: ASPIRIN 81 MG TABLET, CHEWABLE PO SCH (11:02)
[2019-08-23] MEDS: CARBIDOPA/LEVODOPA 25-100 MG TABLET PO SCH ×4 (11:02→21:54)
[2019-08-23] MEDS: LISINOPRIL 10 MG TABLET PO SCH (11:02)
[2019-08-23] MEDS: ESCITALOPRAM OXALATE 10 MG TABLET PO SCH (11:02)
[2019-08-23] MEDS: DOCUSATE SODIUM 100 MG/10 ML UDC PO SCH ×2 (11:02→18:38)
[2019-08-23] MEDS: APIXABAN 5 MG TABLET PO SCH ×2 (11:02→18:40)
[2019-08-23] MEDS: FAMOTIDINE 20 MG TABLET PO SCH ×2 (11:21→21:50)
--- NOTE | 2019-08-23 14:00 | PDOC PROGRESS REPORT ---
Subjective Progress Note for:: 08/23/19 Subjective:: Patient doing well today has no complaints. Would [facility] to go [facility] for [facility]. Reason For Visit: CVA/TIA,AFIB,HTN,PARKINSON Physical Exam Vital Signs: Temp Pulse Resp BP Pulse Ox 97.9 F 76 18 97/70 L 95 08/23/19 12:32 08/23/19 12:32 08/23/19 12:32 08/23/19 12:32 08/23/19 12:32 Intake & Output 08/22/19 08/23/19 08/24/19 06:59 06:59 06:59 Intake Total 945 1000 480 Output Total 200 375 300 Balance 745 625 180 Weight 80 kg 76.8 kg General appearance: PRESENT: no acute distress, cooperative Neck exam: ABSENT: JVD Cardiovascular exam: PRESENT: +S1, +S2 Neurological exam: PRESENT: alert, awake, motor sensory deficit - Weakness in left arm, other - Dysarthria Results Laboratory Results: 08/20/19 04:14 08/21/19 05:29 08/19/19 08/19/19 13:07 13:07 Creatine Kinase 161 CK-MB (CK-2) 8.50 H Troponin I < 0.012 Impressions: Head MRI 08/19/19 00:00 IMPRESSION: Acute right temporal occipital infarct. Atrophy. Small vessel ischemic change. copyright 2011 [employer]- All Rights Reserved Chest X-Ray 08/19/19 12:44 IMPRESSION: NO ACUTE RADIOGRAPHIC FINDING IN THE CHEST. Head CT 08/19/19 12:44 IMPRESSION: 1. No evidence of acute large vascular territory infarct or intracranial hemorrhage. 2. Stable chronic changes of atrophy and microvascular ischemia. EVIDENCE OF ACUTE STROKE: NO. Carotid Doppler Study 08/22/19 00:00 IMPRESSION: 1. Scattered atherosclerosis with less than 50% stenosis of the bilateral ICAs. 2. Antegrade vertebral arteries. Modified Barium Swallow 08/22/19 07:00 IMPRESSION: TRACE LARYNGEAL PENETRATION WITHOUT ASPIRATION. PLEASE SEE SPEECH PATHOLOGIST REPORT FOR OTHER FINDINGS AND RECOMMENDATIONS. Assessment and Plan - Diagnosis (1) CVA (cerebral vascular accident) Qualifiers: CVA mechanism: unspecified Qualified Code(s): I63.9 - Cerebral infarction, unspecified Is this a current diagnosis for this admission?: Yes Plan: Acute nonhemorrhagic stroke in the right temporal and right occipital region. Possibly due to underlying A. fib. CT head negative. MRI brain positive for right temporal and occipital nonhemorrhagic stroke. Carotid ultrasound showing less than 50% stenosis in carotids. Echo done but results pending Passed swallow evaluation Patient seems to be back to his baseline with his residual ambulatory dysfunction and left upper lower extremity mild weakness from previous CVAs. Also has some dysarthria which is mild and not new according to him. Patient and family would like to transfer patient to [facility] if possible. Currently awaiting placement at SNF (2) Atrial fibrillation Qualifiers: Atrial fibrillation type: longstanding persistent Qualified Code(s): I48.11 - Longstanding persistent atrial fibrillation Is this a current diagnosis for this admission?: Yes (3) CKD (chronic kidney disease) stage 3, GFR 30-59 ml/min Is this a current diagnosis for this admission?: Yes (4) Debility and deconditioning Is this a current diagnosis for this admission?: Yes (5) HTN (hypertension) Qualifiers: Is this a current diagnosis for this admission?: Yes Plan: Euvolemic. Normotensive. Lisinopril discontinued DC beta-blockers. Avoid negative chronotropic agents due to underlying bradycardia and sinus pauses. (6) Hypothyroidism Qualifiers: Is this a current diagnosis for this admission?: Yes - Time Time Spent with patient: Less than 15 minutes
[2019-08-23] MEDS: ATORVASTATIN CALCIUM 80 MG TABLET PO SCH (21:50)
[2019-08-24] MEDS: LEVOTHYROXINE SODIUM 0.075 MG TABLET PO SCH (06:32)
[2019-08-24] MEDS: DOCUSATE SODIUM 100 MG/10 ML UDC PO SCH ×2 (09:53→17:53)
[2019-08-24] MEDS: ASPIRIN 81 MG TABLET, CHEWABLE PO SCH (10:01)
[2019-08-24] MEDS: ESCITALOPRAM OXALATE 10 MG TABLET PO SCH (10:01)
[2019-08-24] MEDS: FAMOTIDINE 20 MG TABLET PO SCH ×2 (10:01→21:35)
[2019-08-24] MEDS: APIXABAN 5 MG TABLET PO SCH ×2 (10:01→17:59)
[2019-08-24] MEDS: CARBIDOPA/LEVODOPA 25-100 MG TABLET PO SCH ×4 (10:01→21:35)
--- NOTE | 2019-08-24 15:23 | XCELERA REPORT ---
[address] [address] Transthoracic Echocardiogram Report Name: JIM QUIROZ Age: 79 yrs Gender: Male : 1940 Patient Status: Inpatient Patient Location: [address] [place] [address] Study Date: 08/23/2019 08:29 AM History: Atrial fibrillation CVA Bradycardia Height: 50 in Weight: 175 lb BSA: 1.5 m2 Procedure: A complete two-dimensional transthoracic echocardiogram was performed (2D, M-mode, spectral and color flow Doppler). The study was technically difficult with many images being suboptimal in quality. Reason For Study: Recurrent CVA, history of A. fib. Previous Evaluation: No previous studies were available. History: HTN. Atrial fibrillation CVA. Ordering Physician: CLARENCE RANGEL Performed By: Yola Lara Interpretation Summary Left ventricular systolic function is normal. The Ejection Fraction estimate is 55-60% The right ventricle is normal in size and function. There is no aortic valve stenosis There is a trace amount of mitral regurgitation LV diastolic function could not be adequately assessed due to atrial fibrilation. MMode/2D Measurements & Calculations RVDd: 2.1 cm LVIDd: 4.5 cm FS: 34.0 % Ao root diam: 2.8 cm IVSd: 1.0 cm LVIDs: 3.0 cm EDV(Teich): Ao root area: LVPWd: 0.72 cm 93.5 ml 6.3 cm2 ESV(Teich): 34.5 ml EF(Teich): 63.0 % EDV(MOD-sp4): SV(MOD-sp4): 72.4 ml 36.4 ml ESV(MOD-sp4): 35.9 ml EF(MOD-sp4): 50.3 % Doppler Measurements & Calculations MV E max emani: MV dec slope: Ao V2 max: LV V1 max P.8 cm/sec 99.3 cm/sec 1.9 mmHg MV A max emani: 636.1 cm/sec2 Ao max PG: LV V1 max: 30.0 cm/sec MV dec time: 0.15 sec 3.9 mmHg 68.6 cm/sec MV E/A: 3.2 PA V2 max: TR max emani: 81.3 cm/sec 205.0 cm/sec PA max P.6 mmHg TR max P.8 mmHg Left Ventricle The left ventricle is normal in size. There is mild concentric left ventricular hypertrophy. Left ventricular systolic function is normal. The Ejection Fraction estimate is 55-60%. LV diastolic function could not be adequately assessed due to atrial fibrilation. Regional wall motion abnormalities cannot be excluded due to limited visualization. There is no thrombus. Right Ventricle The right ventricle is normal in size and function. Atria The left atrium is mildly dilated. Mitral Valve There is a trace amount of mitral regurgitation. Aortic Valve The aortic valve opens well. The aortic valve is trileaflet. The aortic valve is sclerotic, but shows no functional abnormality. The aortic valve is calcified. There is no aortic valve stenosis. No aortic regurgitation is present. Tricuspid Valve The tricuspid valve is normal in structure and function. There is a mild amount of tricuspid regurgitation. Doppler findings do not suggest pulmonary hypertension. Pulmonic Valve The pulmonic valve is not well visualized. There is no pulmonic valvular regurgitation. Great Vessels The aortic root is normal size. Effusions There is no pericardial effusion. : CLARENCE RANGEL Anil
--- NOTE | 2019-08-24 15:51 | PDOC PROGRESS REPORT ---
Subjective Progress Note for:: 08/24/19 Subjective:: Patient has no complaints at this time. Reason For Visit: CVA/TIA,AFIB,HTN,PARKINSON Physical Exam Vital Signs: Temp Pulse Resp BP Pulse Ox 97.3 F 62 18 108/68 95 08/24/19 07:57 08/24/19 07:57 08/24/19 07:57 08/24/19 07:57 08/24/19 07:57 Intake & Output 08/23/19 08/24/19 08/25/19 06:59 06:59 06:59 Intake Total 1000 1245 Output Total 375 600 Balance 625 645 Weight 76.8 kg 77.4 kg General appearance: PRESENT: no acute distress, cooperative Respiratory exam: PRESENT: clear to auscultation emil Cardiovascular exam: PRESENT: +S1, +S2 Neurological exam: PRESENT: alert, awake Results Laboratory Results: 08/20/19 04:14 08/21/19 05:29 08/19/19 08/19/19 13:07 13:07 Creatine Kinase 161 CK-MB (CK-2) 8.50 H Troponin I < 0.012 Impressions: Head MRI 08/19/19 00:00 IMPRESSION: Acute right temporal occipital infarct. Atrophy. Small vessel ischemic change. copyright 2011 [employer]- All Rights Reserved Chest X-Ray 08/19/19 12:44 IMPRESSION: NO ACUTE RADIOGRAPHIC FINDING IN THE CHEST. Head CT 08/19/19 12:44 IMPRESSION: 1. No evidence of acute large vascular territory infarct or intracranial hemorrhage. 2. Stable chronic changes of atrophy and microvascular ischemia. EVIDENCE OF ACUTE STROKE: NO. Carotid Doppler Study 08/22/19 00:00 IMPRESSION: 1. Scattered atherosclerosis with less than 50% stenosis of the bilateral ICAs. 2. Antegrade vertebral arteries. Modified Barium Swallow 08/22/19 07:00 IMPRESSION: TRACE LARYNGEAL PENETRATION WITHOUT ASPIRATION. PLEASE SEE SPEECH PATHOLOGIST REPORT FOR OTHER FINDINGS AND RECOMMENDATIONS. Assessment and Plan - Diagnosis (1) CVA (cerebral vascular accident) Qualifiers: CVA mechanism: unspecified Qualified Code(s): I63.9 - Cerebral infarction, unspecified Is this a current diagnosis for this admission?: Yes Plan: Acute nonhemorrhagic stroke in the right temporal and right occipital region. Possibly due to underlying A. fib. CT head negative. MRI brain positive for right temporal and occipital nonhemorrhagic stroke. Carotid ultrasound showing less than 50% stenosis in carotids. Echo done but results pending Passed swallow evaluation Patient seems to be back to his baseline with his residual ambulatory dysfunction and left upper lower extremity mild weakness from previous CVAs. Also has some dysarthria which is mild and not new according to him. Patient and family would like to transfer patient to [facility] if possible. Receiving physical therapy while in the hospital. Currently awaiting placement at SNF (2) Atrial fibrillation Qualifiers: Atrial fibrillation type: longstanding persistent Qualified Code(s): I48.11 - Longstanding persistent atrial fibrillation Is this a current diagnosis for this admission?: Yes Plan: Continue Eliquis. (3) CKD (chronic kidney disease) stage 3, GFR 30-59 ml/min Is this a current diagnosis for this admission?: Yes (4) Debility and deconditioning Is this a current diagnosis for this admission?: Yes (5) HTN (hypertension) Qualifiers: Is this a current diagnosis for this admission?: Yes (6) Hypothyroidism Qualifiers: Is this a current diagnosis for this admission?: Yes - Time Time Spent with patient: Less than 15 minutes
[2019-08-24] MEDS: ATORVASTATIN CALCIUM 80 MG TABLET PO SCH (21:35)
[2019-08-25 05:07] VITALS: BP 132/81
[2019-08-25] MEDS: LEVOTHYROXINE SODIUM 0.075 MG TABLET PO SCH (06:28)
[2019-08-25] MEDS: DOCUSATE SODIUM 100 MG/10 ML UDC PO SCH (09:25)
[2019-08-25] MEDS: FAMOTIDINE 20 MG TABLET PO SCH (09:26)
[2019-08-25] MEDS: ASPIRIN 81 MG TABLET, CHEWABLE PO SCH (09:26)
[2019-08-25] MEDS: CARBIDOPA/LEVODOPA 25-100 MG TABLET PO SCH ×2 (09:26→15:39)
[2019-08-25] MEDS: APIXABAN 5 MG TABLET PO SCH (09:26)
[2019-08-25] MEDS: ESCITALOPRAM OXALATE 10 MG TABLET PO SCH (09:27)
--- NOTE | 2019-08-25 13:37 | PDOC TRANSFER SUMMARY ---
Impression - Admit/DC Date/PCP Admission Date/Primary Care Provider: 08/19/19 15:57 CARI FRASER MD Discharge Date: 08/25/19 - Discharge Diagnosis (1) CVA (cerebral vascular accident) Is this a current diagnosis for this admission?: Yes (2) Atrial fibrillation Is this a current diagnosis for this admission?: Yes (3) CKD (chronic kidney disease) stage 3, GFR 30-59 ml/min Is this a current diagnosis for this admission?: Yes (4) Debility and deconditioning Is this a current diagnosis for this admission?: Yes (5) HTN (hypertension) Is this a current diagnosis for this admission?: Yes (6) Hypothyroidism Is this a current diagnosis for this admission?: Yes (7) Parkinsons disease Is this a current diagnosis for this admission?: Yes - Additional Information Referrals: CARI FRASER MD [Primary Care Provider] - Follow up as needed Home Medications: Atorvastatin Calcium [Lipitor 40 mg Tablet] 40 mg PO QAM 01/14/19 Carbidopa/Levodopa [Sinemet 25-100 mg Tablet] 2 each PO QID 01/14/19 Escitalopram Oxalate [Lexapro 10 mg Tablet] 10 mg PO QAM 01/14/19 Levothyroxine Sodium [Synthroid 0.075 mg Tablet] 0.075 mg PO Q6AM 01/14/19 Multivitamin [Tab-A-Nhi (Multiple Vitamin) Tablet] 1 tab PO DAILY 01/14/19 Aspirin [Aspirin 81 mg Chewable Tablet] 81 mg PO DAILY #90 tab.chew 01/25/19 Acetaminophen [Tylenol 325 mg Tablet] 325 mg PO Q4HP PRN tablet 08/25/19 Apixaban [Eliquis 5 mg Tablet] 5 mg PO BID tablet 08/25/19 Famotidine [Pepcid 20 mg Tablet] 20 mg PO Q12 tablet 08/25/19 History of Present Illiness History of Present Illness: JIM QUIROZ is a 79 year old male past medical history of atrial fibrillation, hypertension, recurrent CVA, CKD, hypertension, Parkinson's disease, currently living at home with his son and [id number] after sustaining two strokes, with residual deficits, brought to ED by EMS after 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 Patient is alert and oriented x3, in no apparent distress, confirms that he did have a facial droop and left upper and lower extremity weakness this morning. At baseline patient is able to walk with a walker, feeds himself, needs help with his other ADLs, and does not drive. Patient denies any headache, fever, chills, nausea, vomiting, diarrhea, constip ation, or any urinary symptoms. In the ED CT head was negative for any acute stroke, hospitalist was consulted for further management. Hospital Course Hospital Course: Patient was admitted for evaluation of stroke. He was outside the TPA window and did not receive TPA. MRI of the brain revealed acute right temporal and occipital ischemic stroke. Carotid ultrasound showed less than 50% stenosis in carotids. Transthoracic echocardiogram showed normal ejection fraction of 55 to 60%, no evidence of pulmonary hypertension, mild left atrial dilation but no evidence of cardioembolic thrombus. Patient was noted to be in atrial fibrillation with slow ventricular response and was evaluated by cardiology who recommended starting patient on Eliquis given stroke. Patient has been receiving physical therapy and will benefit from continued physical and occupational therapy at the rehab center. Lipid panel showed normal lipids with LDL of 54 and total cholesterol of 103. Patient's kidney creatinine baseline is around 2-2.4 but during his hospitalization his creatinine has maintained a relatively better position around 1.3-1.6. Last measured was 1.34. Patient's blood pressure has remained adequate and as such she is lisinopril was discontinued. His metoprolol was also discontinued due to some episodes of sinus pauses told by the soaker soda worker to be due to possible underlying sick sinus node. He has not had any tachycardia despite this. At this time patient is safe and stable for discharge. Please follow-up with his primary care provider for further care. Physical Exam Vital Signs: Temp Pulse Resp BP Pulse Ox 97.8 F 78 18 132/81 H 97 08/25/19 04:19 08/25/19 07:00 08/25/19 04:19 08/25/19 04:19 08/25/19 04:19 Intake & Output 08/24/19 08/25/19 08/26/19 06:59 06:59 06:59 Intake Total 1245 780 Output Total 600 425 Balance 645 355 Weight 77.4 kg 77.5 kg General appearance: PRESENT: no acute distress, cooperative Eye exam: ABSENT: nystagmus, scleral icterus Mouth exam: PRESENT: neck supple Respiratory exam: PRESENT: clear to auscultation emil Cardiovascular exam: PRESENT: irregular rhythm, +S1, +S2. ABSENT: tachycardia GI/Abdominal exam: PRESENT: soft. ABSENT: rigid, tenderness Neurological exam: PRESENT: alert, awake - Awake though spends most of his time sleeping, oriented to person, oriented to place, oriented to time, oriented to situation, motor sensory deficit - Left upper extremity weakness and mild lower extremity weakness.. ABSENT: CN II-XII grossly intact - Mild facial droop and significant dysarthria Psychiatric exam: ABSENT: agitated, anxious Results Laboratory Results: WBC 10.9 10^3/uL (4.0-10.5) H 08/20/19 04:14 RBC 4.27 10^6/uL (4.35-5.55) L 08/20/19 04:14 Hgb 13.6 g/dL (13.5-17.0) 08/20/19 04:14 Hct 39.8 % (37.9-51.0) 08/20/19 04:14 MCV 93 fl (80-97) 08/20/19 04:14 MCH 31.9 pg (27.0-33.4) 08/20/19 04:14 MCHC 34.2 g/dL (32.0-36.0) 08/20/19 04:14 RDW 14.2 % (11.5-14.0) H 08/20/19 04:14 Plt Count 251 10^3/uL (150-450) 08/20/19 04:14 Lymph % (Auto) 15.0 % (13-45) 08/20/19 04:14 [place] % (Auto) 7.2 % (3-13) 08/20/19 04:14 Eos % (Auto) 3.2 % (0-6) 08/20/19 04:14 Baso % (Auto) 0.6 % (0-2) 08/20/19 04:14 Absolute Neuts (auto) 8.1 10^3/uL (1.7-8.2) 08/20/19 04:14 Absolute Lymphs (auto) 1.6 10^3/uL (0.5-4.7) 08/20/19 04:14 Absolute Monos (auto) 0.8 10^3/uL (0.1-1.4) 08/20/19 04:14 Absolute Eos (auto) 0.3 10^3/uL (0.0-0.6) 08/20/19 04:14 Absolute Basos (auto) 0.1 10^3/uL (0.0-0.2) 08/20/19 04:14 Seg Neutrophils % 74.0 % (42-78) 08/20/19 04:14 PT 14.2 SEC (11.4-15.4) 08/19/19 13:07 INR 1.10 08/19/19 13:07 APTT 29.1 SEC (23.5-35.8) 08/19/19 13:07 Sodium 136.9 mmol/L (137-145) L 08/21/19 05:29 Potassium 4.7 mmol/L (3.6-5.0) 08/21/19 05:29 Chloride 101 mmol/L (98-107) 08/21/19 05:29 Carbon Dioxide 27 mmol/L (22-30) 08/21/19 05:29 Anion Gap 9 (5-19) 08/21/19 05:29 BUN 23 mg/dL (7-20) H 08/21/19 05:29 Creatinine 1.34 mg/dL (0.52-1.25) H 08/21/19 05:29 Est GFR ( Amer) > 60 (>60) 08/21/19 05:29 Est GFR (MDRD) Non-Af 52 (>60) L 08/21/19 05:29 Glucose 89 mg/dL (75-110) 08/21/19 05:29 POC Glucose 80 mg/dL (70-110) 08/20/19 11:17 Calcium 9.4 mg/dL (8.4-10.2) 08/21/19 05:29 Total Bilirubin 2.3 mg/dL (0.2-1.3) H 08/19/19 13:07 Direct Bilirubin 0.1 mg/dL (0.0-0.4) 08/19/19 13:07 Neonat Total Bilirubin Not Reportable 08/19/19 13:07 Neonat Direct Bilirubin Not Reportable 08/19/19 13:07 Neonat Indirect Bili Not Reportable 08/19/19 13:07 AST 46 U/L (17-59) 08/19/19 13:07 ALT 12 U/L (<50) 08/19/19 13:07 Alkaline Phosphatase 98 U/L (38-126) 08/19/19 13:07 Creatine Kinase 161 U/L (55-170) 08/19/19 13:07 CK-MB (CK-2) 8.50 ng/mL (<4.55) H 08/19/19 13:07 Troponin I < 0.012 ng/mL 08/19/19 13:07 Total Protein 8.4 g/dL (6.3-8.2) H 08/19/19 13:07 Albumin 4.4 g/dL (3.5-5.0) 08/19/19 13:07 Triglycerides 122 mg/dL (<150) 08/20/19 04:14 Cholesterol 103.08 mg/dL (0-200) 08/20/19 04:14 LDL Cholesterol Direct 54 mg/dL (<100) 08/20/19 04:14 VLDL Cholesterol 24.0 mg/dL (10-31) 08/20/19 04:14 HDL Cholesterol 35 mg/dL (>40) L 08/20/19 04:14 TSH 2.46 uIU/mL (0.47-4.68) 08/20/19 04:14 Free T4 1.36 ng/dL (0.78-2.19) 08/20/19 04:14 Free T3 pg/mL 3.28 pg/mL (2.77-5.27) 08/20/19 04:14 Urine Color YELLOW 08/19/19 18:24 Urine Appearance CLEAR 08/19/19 18:24 Urine pH 5.0 (5.0-9.0) 08/19/19 18:24 Ur Specific [place] 1.019 08/19/19 18:24 Urine Protein NEGATIVE mg/dL (NEGATIVE) 08/19/19 18:24 Urine Glucose (UA) NEGATIVE mg/dL (NEGATIVE) 08/19/19 18:24 Urine Ketones TRACE mg/dL (NEGATIVE) H 08/19/19 18:24 Urine Blood NEGATIVE (NEGATIVE) 08/19/19 18:24 Urine Nitrite NEGATIVE (NEGATIVE) 08/19/19 18:24 Urine Bilirubin NEGATIVE (NEGATIVE) 08/19/19 18:24 Urine Urobilinogen NEGATIVE mg/dL (<2.0) 08/19/19 18:24 Ur Leukocyte Esterase NEGATIVE (NEGATIVE) 08/19/19 18:24 Urine WBC (Auto) 0 /HPF 08/19/19 18:24 Urine RBC (Auto) 0 /HPF 08/19/19 18:24 Squamous Epi Cells Auto <1 /HPF 08/19/19 18:24 Urine Mucus (Auto) RARE /LPF 08/19/19 18:24 Urine Ascorbic Acid 40 (NEGATIVE) H 08/19/19 18:24 08/19/19 13:07 CK-MB (CK-2) 8.50 H Troponin I < 0.012 Impressions: Head MRI 08/19/19 00:00 IMPRESSION: Acute right temporal occipital infarct. Atrophy. Small vessel ischemic change. copyright 2010 [employer]- All Rights Reserved Chest X-Ray 08/19/19 12:44 IMPRESSION: NO ACUTE RADIOGRAPHIC FINDING IN THE CHEST. Head CT 08/19/19 12:44 IMPRESSION: 1. No evidence of acute large vascular territory infarct or intracranial hemorrhage. 2. Stable chronic changes of atrophy and microvascular ischemia. EVIDENCE OF ACUTE STROKE: NO. Carotid Doppler Study 08/22/19 00:00 IMPRESSION: 1. Scattered atherosclerosis with less than 50% stenosis of the bilateral ICAs. 2. Antegrade vertebral arteries. Modified Barium Swallow 08/22/19 07:00 IMPRESSION: TRACE LARYNGEAL PENETRATION WITHOUT ASPIRATION. PLEASE SEE SPEECH PATHOLOGIST REPORT FOR OTHER FINDINGS AND RECOMMENDATIONS. Plan Time Spent: Less than 30 Minutes Stroke Is this a Stroke Patient?: Yes Reason(s) for not prescribing Anti-thrombolytic therapy:: Tx not tolerated Stroke Pt being discharged on Anti-coagulation therapy?: Yes Stroke Pt being discharged on Statins?: Yes Acute Heart Failure - Is this a Heart Failure Patient?: No
== END 2019-08-25 17:21 | DRG 65 ==
LOC: ER 12:41 → INTOOBSV 15:54 → EH 15:54 → OBSVTOIN 15:57 → 3S 18:43 → 3W 08-20 07:39
PROVIDERS: ADMIT Internal Medicine; ATTEND Internal Medicine
DX: I63.89 Other cerebral infarction (principal); I48.11 Longstanding persistent atrial fibrillation; H34.8111 Central retinal vein occlusion, right eye, with retinal neovascularization; E78.2 Mixed hyperlipidemia; I69.334 Monoplegia of upper limb following cerebral infarction affecting left non-dominant side; I12.9 Hypertensive chronic kidney disease with stage 1 through stage 4 chronic kidney disease, or unspecified chronic kidney disease; N18.3 Chronic kidney disease, stage 3 (moderate); R29.810 Facial weakness; E03.9 Hypothyroidism, unspecified; R00.1 Bradycardia, unspecified; F32.9 Major depressive disorder, single episode, unspecified; G20 Parkinson's disease; Z87.891 Personal history of nicotine dependence; Z90.49 Acquired absence of other specified parts of digestive tract; Z79.82 Long term (current) use of aspirin; Z79.899 Other long term (current) drug therapy; Z59.9 Problem related to housing and economic circumstances, unspecified; Z79.01 Long term (current) use of anticoagulants
CPT/HCPCS: 36415; 70450; 70551; 71045; 74230; 80048; 80053; 80061; 81001; 82550; 82553; 82962; 84439; 84443; 84481; 84484; 85025; 85610; 85730; 93005; 93010; 93306; 93880; 99285; J1644; J3490; J7030

== ENCOUNTER 2019-09-28 20:39 | Inpatient (IN) | payer MEDICARE ==
[2019-09-28 21:14] LABS: HEMOGLOBIN 12.7 g/dL (13.5-17.0); MEAN CORPUSCULAR HEMOGLOBIN 31.7 pg (27.0-33.4); MEAN CORPUSCULAR HGB CONC 34.3 g/dL (32.0-36.0); MEAN CORPUSCULAR VOLUME 93 fl (80-97); PLATELET COUNT 285 10^3/uL (150-450); RED CELL DISTRIBUTION WIDTH 14.1 % (11.5-14.0); WHITE BLOOD COUNT 18.2 10^3/uL (4.0-10.5)
[2019-09-28 21:20] LABS: VENOUS BLOOD BASE EXCESS 2.9 mmol/L; VENOUS BLOOD HCO3 28.3 mmol/L (20-32); VENOUS BLOOD PCO2 46.2 mmHg (35-63); VENOUS BLOOD PH 7.41 (7.30-7.42)
[2019-09-28 21:32] LABS: ALBUMIN 3.8 g/dL (3.5-5.0); ALKALINE PHOSPHATASE 96 U/L (38-126); ANION GAP 6 (5-19); ASPARTATE AMINO TRANSFERASE 70 U/L (17-59); BILIRUBIN,DIRECT 0.1 mg/dL (0.0-0.4); BILIRUBIN,TOTAL 2.6 mg/dL (0.2-1.3); BLOOD UREA NITROGEN 34 mg/dL (7-20); CALCIUM 9.5 mg/dL (8.4-10.2); CARBON DIOXIDE 31 mmol/L (22-30); CHLORIDE 98 mmol/L (98-107); GLUCOSE 150 mg/dL (75-110); INTERNATIONAL RATION (INR) 2.02; POTASSIUM 3.9 mmol/L (3.6-5.0); PROTHROMBIN TIME 23.2 SEC (11.4-15.4); TOTAL PROTEIN 6.9 g/dL (6.3-8.2)
[2019-09-28 21:35] LABS: ABSOLUTE LYMPHOCYTES# (MANUAL) 0.7 10^3/uL (0.5-4.7); ABSOLUTE MONOCYTES # (MANUAL) 0.7 10^3/uL (0.1-1.4); BASOPHILS % (MANUAL) 0 % (0-2); EOSINOPHILS % (MANUAL) 0 % (0-6); LYMPHOCYTES % (MANUAL) 4 % (13-45); MONOCYTES % (MANUAL) 4 % (3-13); SEGMENTED NEUTROPHILS % (MAN) 92 % (42-78); TOTAL CELLS COUNTED 100
[2019-09-28 21:37] LABS: ANISOCYTOSIS SLIGHT; PLATELET CLUMPS PRESENT; PLATELET COMMENT ADEQUATE; PLATELET LARGE PRESENT
[2019-09-28] MEDS ORDERED: RINGERS SOLUTION,LACTATED 1,000 ML IV ONE (22:26)
[2019-09-28] MEDS ORDERED: CEFTRIAXONE 1 GM/D5W RTU 1 GM/50 ML RTUPB IV ONE (22:26)
[2019-09-28] MEDS ORDERED: AZITHROMYCIN 250 MG TABLET PO ONE (22:26)
--- NOTE | 2019-09-28 22:35 | ER Document Report ---
ED General - General Chief Complaint: Nausea/Vomiting Stated Complaint: NAUSEA/VOMITING/FEVER Time Seen by Provider: 09/28/19 22:05 TRAVEL OUTSIDE OF THE [place] IN LAST 30 DAYS: No - HPI Notes: 79-year-old male history of hypertension, stroke, afib on Coumadin, hypothyroidism, CKD, Parkinson's presents with approximately 2 days of several episodes of nonbloody nonbilious emesis, fever. On hx endorses cough of unknown duration scantly productive of nonbloody sputum. Patient hospitalized approximately 1 month ago for TIA. Patient denies shortness of breath, chest pain, abdominal pain, diarrhea, melena/bloody stools, sick contacts, immune compromise, prior eval/treatment for current symptoms - Related Data Allergies/Adverse Reactions: No Known Allergies Allergy (Verified 06/10/18 16:39) Past Medical History - General Information source: Patient, [facility] Records - Social History Smoking Status: Former Smoker Frequency of alcohol use: None Drug Abuse: None Family History: Hypertension Patient has suicidal ideation: No Patient has homicidal ideation: No - Past Medical History Cardiac Medical History: Reports: Hx Atrial Fibrillation, Hx Hypertension Pulmonary Medical History: Denies: Hx Asthma, Hx COPD Neurological Medical History: Reports: Hx Cerebrovascular Accident. Denies: Hx Seizures Endocrine Medical History: Reports: Hx Hypothyroidism. Denies: Hx Diabetes Mellitus Type 1, Hx Diabetes Mellitus Type 2, Hx Hyperthyroidism Renal/ Medical History: Denies: Hx Peritoneal Dialysis GI Medical History: Denies: Hx Cirrhosis, Hx Hepatitis Musculoskeletal Medical History: Denies Hx Arthritis, Denies Hx Gout Skin Medical History: Denies Hx Eczema, Denies Hx Psoriasis Psychiatric Medical History: Reports: Hx Depression Infectious Medical History: Denies: Hx Hepatitis Past Surgical History: Reports: Hx Appendectomy - Immunizations Hx Pneumococcal Vaccination: 03/15/18 Review of Systems - Review of Systems Notes: REVIEW OF SYSTEMS: CONSTITUTIONAL : +fever, +chills EENT: Denies recent cold/sinus symptoms, denies throat pain CARDIOVASCULAR: Denies chest pain, JOSE RESPIRATORY: +cough, denies shortness of breath. GASTROINTESTINAL: Denies abdominal pain, +nausea/vomiting. GENITOURINARY: Denies difficulty urinating, painful urination. MUSCULOSKELETAL: Denies neck pain, back pain. SKIN: Denies rash or skin lesions. HEMATOLOGIC : Denies easy bruising or bleeding. LYMPHATIC: Denies swollen, enlarged glands. NEUROLOGICAL: Denies headache, denies change in gait. PSYCHIATRIC: Denies anxiety or stress or depression. Physical Exam - Vital signs Vitals: Temp Pulse Ox 99.4 F 97 09/28/19 20:40 09/28/19 20:40 - Notes Notes: PHYSICAL EXAMINATION: GENERAL: Elderly, chronically ill-appearing man laying in stretcher appearing fatigued and dyspneic HEAD: Atraumatic, normocephalic. EYES: Pupils equal round and appropriate constriction, sclera anicteric, conjunctiva are normal. ENT: nares patent, mildly dry mucous membranes, tonsillar edema or exudates NECK: Normal range of motion, supple without lymphadenopathy LUNGS: Tachypneic, scattered rhonchi bilaterally, able to say few word sentences without pausing to breathe, no supplemental oxygen and saturating 95% HEART: iregular rhythm, normal rate, no murmurs ABDOMEN: Soft, nontender, no guarding, no masses, no CVAT EXTREMITIES: Normal range of motion, no pitting or edema. No cyanosis. NEUROLOGICAL: Awake, drowsy, conversing appropriately, moves all extremities spontaneously. PSYCH: Normal mood, normal affect. SKIN: Warm, Dry, poor turgor, no rashes or lesions noted. Course - Re-evaluation Re-evalutation: 09/28/19 22:39 Presentation consistent with sepsis concerning for influenza versus novel coronavirus. Maintaining normal O2 sat on room air, but labored breathing and dyspneic, concerning for possibility of impending respiratory failure complicated by poor muscular conditioning secondary to Parkinson disease. Rule out pneumonia, myocarditis, electrolyte abnormalities, severe sepsis. Plan: Closely monitor respiratory status, low threshold for invasive ventilation, EKG, troponin, groundwater monitoring technician, chest x-ray, influenza test, COVID test, electrolytes, coags, admit. 09/28/19 22:56 Now on repeat evaluation of patient still mildly tachypneic at 24 respiratory rate, good chest excursion, maintaining normal saturation on room air, will continue to monitor. 09/29/19 02:06 Patient remained stable on monitor. Respiratory rate and effort now normal, right respiratory rate 18. UA consistent with UTI and given pt's presentation concerning for urosepsis without severe sepsis as lactic acid was normal. INR therapeutic. obtained CT abdomen pelvis without contrast to rule out obstructive nephroureterolithiasis which was negative. No signs of pyelonephritis on CT, bladder wall thickening consistent with UTI. Bibasilar groundglass opacities on CT lung field concerning for possible simultaneous coronavirus infection. Called hospitalist for admission, Dr. Genao says he will call me back. 09/29/19 02:22 Patient's vitals have remained normal during ED monitoring, initial tachypnea has remains resolved patient appropriate for floor admission at this time. Discussed patient with Dr. Genao who has accepted patient. - Vital Signs Vital signs: Temp Pulse Resp BP Pulse Ox 98.4 F 66 19 115/65 97 09/29/19 07:20 09/29/19 07:20 09/29/19 07:20 09/29/19 07:20 09/29/19 08:00 - Laboratory Result Diagrams: 09/28/19 20:52 09/28/19 20:52 Laboratory results interpreted by me: 09/28/19 09/28/19 09/28/19 20:52 20:52 20:52 WBC 18.2 H RBC 4.00 L Hgb 12.7 L Hct 37.0 L RDW 14.1 H Seg Neuts % (Manual) 92 H Lymphocytes % (Manual) 4 L Abs Neuts (Manual) 16.7 H PT 23.2 H APTT Sodium 135.4 L Carbon Dioxide 31 H BUN 34 H Creatinine 1.54 H Est GFR ( Amer) 53 L Est GFR (MDRD) Non-Af 44 L Glucose 150 H Total Bilirubin 2.6 H AST 70 H Creatine Kinase Urine Protein Urine Ketones Urine Blood Urine Nitrite Urine Urobilinogen Ur Leukocyte Esterase Urine Ascorbic Acid 09/28/19 09/28/19 09/28/19 20:52 20:52 23:50 WBC RBC Hgb Hct RDW Seg Neuts % (Manual) Lymphocytes % (Manual) Abs Neuts (Manual) PT APTT 36.3 H Sodium Carbon Dioxide BUN Creatinine Est GFR ( Amer) Est GFR (MDRD) Non-Af Glucose Total Bilirubin AST Creatine Kinase 364 H Urine Protein 100 H Urine Ketones TRACE H Urine Blood MODERATE H Urine Nitrite POSITIVE H Urine Urobilinogen 2.0 H Ur Leukocyte Esterase SMALL H Urine Ascorbic Acid 40 H - EKG Interpretation by Me Additional EKG results interpreted by me: 09/28/19 21:00 Atrial fibrillation, normal ventricular response, no significant ST segment elevations or depressions, QTC 391 Discharge - Discharge Clinical Impression: Sepsis Urinary tract infection Qualifiers: Urinary tract infection type: site unspecified Hematuria presence: without hematuria Qualified Code(s): N39.0 - Urinary tract infection, site not specified Condition: Fair Disposition: ADMITTED INPATIENT Admitting Provider: Chadwick (Hospitalist) Unit Admitted: Medical Floor
[2019-09-28 23:01] LABS: PHOSPHORUS 2.9 mg/dL (2.5-4.5)
--- NOTE | 2019-09-28 23:51 | RADIOLOGY REPORT (SQ) ---
EXAM DESCRIPTION: XR CHEST 1 VIEW COMPLETED DATE/TME: 09/28/2019 22:25 CLINICAL HISTORY: 79 years Male cough fever COMPARISON: 10/19/2019 FINDINGS: The cardiomediastinal silhouette appears unremarkable. No consolidating infiltrates or pleural effusions. No pneumothorax. IMPRESSION: No acute abnormality is identified.
[2019-09-28 23:52] LABS: A TYPE INFLUENZA AG NEGATIVE (NEGATIVE); B INFLUENZA AG NEGATIVE (NEGATIVE)
[2019-09-29 00:34] LABS: APPEARANCE,URINE SLIGHTLY-CLOUDY; BILIRUBIN,URINE NEGATIVE (NEGATIVE); COLOR,URINE AMBER; GLUCOSE, URINE NEGATIVE (NEGATIVE); KETONES,URINE TRACE mg/dL (NEGATIVE); LEUKOCYTE ESTERASE,URINE SMALL (NEGATIVE); NITRITE,URINE POSITIVE (NEGATIVE); PROTEIN,URINE 100 mg/dL (NEGATIVE); URINE SPECIFIC GRAVITY 1.029
--- NOTE | 2019-09-29 01:28 | RADIOLOGY REPORT (SQ) ---
EXAM DESCRIPTION: CT ABDOMEN PELVIS WITHOUT IV CONTRAST COMPLETED DATE/TME: 09/29/2019 00:41 CLINICAL HISTORY: 79 years, Male, urosepsis r/o stone COMPARISON: 01/14/2019 CT TECHNIQUE: 356 Images stored on PACS. All CT scanners at this facility use dose modulation, iterative reconstruction, and/or weight based dosing when appropriate to reduce radiation dose to as low as reasonably achievable (ALARA). [facility]: Dose Right [facility]: CareDose [facility]: Dose Right [facility]: Teradose 4D [facility]: Smart Interrad [facility] LIMITATIONS: None. FINDINGS: Limited evaluation of the lung bases shows groundglass opacities in each lung base consistent with pneumonitis. Osseous structures are grossly intact. Moderate atheromatous changes. Limited evaluation of the liver, spleen, adrenal glands, pancreas are unremarkable. Nonobstructing 3 mm right renal calculus. No obstructing calculus or hydronephrosis. Bilateral renal cortical scar formation. The gallbladder is not seen. Correlate with surgical history. No gross evidence for bowel obstruction. Abundant stool in the colon. No free air or free fluid. Occasional sigmoid diverticuli without CT evidence for diverticulitis. Urinary bladder is incompletely distended. Subjective urinary bladder wall thickening. The prostate is enlarged. The appendix is not well seen. No pericecal inflammation IMPRESSION: Nonobstructing 3 mm right renal calculus. No obstructing calculus or hydronephrosis. Subjective urinary bladder wall thickening. Correlate with urinalysis. Enlargement of the prostate. Groundglass opacities in the lung bases bilaterally consistent with bibasilar pneumonitis. TECHNICAL DOCUMENTATION: Quality ID # 436: Final reports with documentation of one or more dose reduction techniques (e.g., Automated exposure control, adjustment of the mA and/or kV according to patient size, use of iterative reconstruction technique) copyright 2010 [employer]- All Rights Reserved
[2019-09-29] MEDS ORDERED: GUAIFENESIN SYRP 200 MG/10 ML UDC PO PRN (02:48)
[2019-09-29] MEDS ORDERED: LORAZEPAM INJ 2 MG/1 ML VIAL IV PRN (02:58)
[2019-09-29] MEDS ORDERED: ACETAMINOPHEN 650 MG SUPP.RECT PR PRN (02:58)
[2019-09-29] MEDS ORDERED: PROMETHAZINE HCL INJ 25 MG/1 ML VIAL IV PRN (03:10)
--- NOTE | 2019-09-29 05:11 | PDOC H&P ---
History of Present Illness Admission Date/PCP: 09/29/2019 02:23 CARI FRASER MD Patient complains of: Nausea and vomiting History of Present Illness: JIM MORA is a 79 year old male who presents from home to the emergency room via EMS, with a 2-day history of nausea with vomiting. Patient is lethargic and poorly responsive and is not reliable to provide accurate information to his hi story. EMS & ED staff report that family indicated he began having nausea with vomiting 2 days ago and developed an accompanying fever over the last 24 hours. He also developed an associated cough productive of scanty amounts of thin clear to whitish mucus, anorexia and decreased oral fluid intake. Family reports that he has experienced similar problems in the past with infections. They have not identified any aggravating or ameliorating factors for his nausea and vomiting. In the emergency room he was found to have pyuria with an 18,000 white blood count, a normal lactic acid level and a chest CT showing bilateral basilar groundglass interstitial infiltrates. Coronavirus testing was performed in the ER. Patient was subsequently admitted to the hospital for further evaluation treatment. Past Medical History Past Medical History: Patient is a poor historian and currently encephalopathic thus being unable to provide accurate and reliable historical data for his past medical history, past surgical history, social history and family medical history. All information presented herein is obtained from the best available and reliable resource. Cardiac Medical History: Reports: Atrial Fibrillation, Hypertension Denies: Congestive Heart Failure, Coronary Artery Disease, DVT, Myocardial Infarction, Hyperlipidema, Pulmonary Embolism Pulmonary Medical History: Denies: Asthma, Chronic Obstructive Pulmonary Disease (COPD) EENT Medical History: Denies: Cataracts, Ears Neurological Medical History: Reports: Ischemic CVA, Other - TIAs Denies: Hemorrhagic CVA - Hearing aids, Seizures Endocrine Medical History: Reports: Hypothyroidism Denies: Diabetes Mellitus Type 1, Diabetes Mellitus Type 2, Hyperthyroidism, Obesity Renal/ Medical History: Reports: Chronic Kidney Disease Denies: Nephrolithiasis Malignancy Medical History: Reports: None GI Medical History: Denies: Cirrhosis, Crohn's Disease, Hepatitis, Ulcerative Colitis Musculoskeltal Medical History: Denies: Arthritis, Gout Skin Medical History: Denies: Eczema, Psoriasis Psychiatric Medical History: Reports: Depression Denies: Alcohol Dependency, Substance Abuse, Tobacco Dependency Traumatic Medical History: Reports: None Hematology: Denies: Anemia, Bleeding Tendencies Infectious Medical History: Reports: None Past Surgical History Past Surgical History: Reports: Appendectomy Social History Information Source: [facility] Records Lives with: Family Smoking Status: Former Smoker Electronic Cigarette use?: No Frequency of Alcohol Use: Rare Hx Recreational Drug Use: No Drugs: None Hx Prescription Drug Abuse: No - Advance Directive Resuscitation Status: Full Code Surrogate healthcare decision maker:: Arnoldo Mora Family History Family History: Hypertension Parental Family History Reviewed: Yes Children Family History Reviewed: No Sibling(s) Family History Reviewed.: Yes Medication/Allergy Home Medications: Atorvastatin Calcium [Lipitor 40 mg Tablet] 40 mg PO QAM 01/14/19 Carbidopa/Levodopa [Sinemet 25-100 mg Tablet] 2 each PO QID 01/14/19 Escitalopram Oxalate [Lexapro 10 mg Tablet] 10 mg PO QAM 01/14/19 Levothyroxine Sodium [Synthroid 0.075 mg Tablet] 0.075 mg PO Q6AM 01/14/19 Multivitamin [Tab-A-Nhi (Multiple Vitamin) Tablet] 1 tab PO DAILY 01/14/19 Aspirin [Aspirin 81 mg Chewable Tablet] 81 mg PO DAILY #90 tab.chew 01/25/19 Acetaminophen [Tylenol 325 mg Tablet] 325 mg PO Q4HP PRN tablet 08/25/19 Apixaban [Eliquis 5 mg Tablet] 5 mg PO BID tablet 08/25/19 Famotidine [Pepcid 20 mg Tablet] 20 mg PO Q12 tablet 08/25/19 Allergies/Adverse Reactions: No Known Allergies Allergy (Verified 06/10/18 16:39) Review of Systems ROS unobtainable: Due to mental status - Acutely encephalopathic Physical Exam Vital Signs: Temp Pulse Resp BP Pulse Ox 99.0 F 20 99/58 L 97 09/28/19 22:00 09/29/19 01:01 09/29/19 01:00 09/29/19 01:01 Intake & Output 09/27/19 09/28/19 09/29/19 23:59 23:59 23:59 Intake Total 50 1000 Balance 50 1000 Weight 76.6 kg General appearance: PRESENT: no acute distress, other - Does not follow commands, poorly/and appropriately responsive. Head exam: PRESENT: atraumatic, normocephalic Eye exam: PRESENT: conjunctiva pink. ABSENT: conjunctival injection, scleral icterus Ear exam: PRESENT: normal external ear exam. ABSENT: bleeding, drainage Mouth exam: PRESENT: dry mucosa, neck supple Neck exam: ABSENT: thyromegaly, tracheal deviation Respiratory exam: PRESENT: clear to auscultation emil, symmetrical, unlabored Cardiovascular exam: PRESENT: irregular rhythm - Irregularly irregular rate and rhythm. ABSENT: clicks, gallop, rubs Pulses: PRESENT: normal radial pulses, normal dorsalis pedis pul Vascular exam: PRESENT: normal capillary refill. ABSENT: pallor GI/Abdominal exam: PRESENT: hypoactive bowel sounds, soft Rectal exam: PRESENT: deferred Extremities exam: ABSENT: joint swelling, pedal edema Musculoskeletal exam: ABSENT: deformity, dislocation Neurological exam: PRESENT: awake, other - Detached and confused Psychiatric exam: PRESENT: depressed, flat affect Skin exam: PRESENT: dry, intact, warm. ABSENT: jaundice, rash, urticaria Results Laboratory Results: 09/28/19 20:52 09/28/19 20:52 09/28/19 09/28/19 09/28/19 20:52 20:52 20:52 WBC 18.2 H RBC 4.00 L Hgb 12.7 L Hct 37.0 L MCV 93 MCH 31.7 MCHC 34.3 RDW 14.1 H Plt Count 285 Seg Neutrophils % Not Reportable VBG pH 7.41 VBG pCO2 46.2 VBG HCO3 28.3 VBG Base Excess 2.9 Sodium 135.4 L Potassium 3.9 Chloride 98 Carbon Dioxide 31 H Anion Gap 6 BUN 34 H Creatinine 1.54 H Est GFR ( Amer) 53 L Glucose 150 H Lactic Acid Calcium 9.5 Phosphorus Magnesium Total Bilirubin 2.6 H AST 70 H Alkaline Phosphatase 96 Total Protein 6.9 Albumin 3.8 Urine Color Urine Appearance Urine pH Ur Specific [place] Urine Protein Urine Glucose (UA) Urine Ketones Urine Blood Urine Nitrite Ur Leukocyte Esterase Urine WBC (Auto) Urine RBC (Auto) 09/28/19 09/28/19 09/28/19 20:52 21:58 23:50 WBC RBC Hgb Hct MCV MCH MCHC RDW Plt Count Seg Neutrophils % VBG pH VBG pCO2 VBG HCO3 VBG Base Excess Sodium Potassium Chloride Carbon Dioxide Anion Gap BUN Creatinine Est GFR ( Amer) Glucose Lactic Acid 1.0 Calcium Phosphorus 2.9 Magnesium 1.8 Total Bilirubin AST Alkaline Phosphatase Total Protein Albumin Urine Color ONEIL Urine Appearance SLIGHTLY-CLOUDY Urine pH 5.0 Ur Specific [place] 1.029 Urine Protein 100 H Urine Glucose (UA) NEGATIVE Urine Ketones TRACE H Urine Blood MODERATE H Urine Nitrite POSITIVE H Ur Leukocyte Esterase SMALL H Urine WBC (Auto) 40 Urine RBC (Auto) 5 09/28/19 09/28/19 20:52 20:52 Creatine Kinase 364 H Troponin I 0.021 Impressions: Chest X-Ray 09/28/19 22:25 IMPRESSION: No acute abnormality is identified. Abdomen/Pelvis CT 09/29/19 00:41 IMPRESSION: Nonobstructing 3 mm right renal calculus. No obstructing calculus or hydronephrosis. Subjective urinary bladder wall thickening. Correlate with urinalysis. Enlargement of the prostate. Groundglass opacities in the lung bases bilaterally consistent with bibasilar pneumonitis. TECHNICAL DOCUMENTATION: Quality ID # 436: Final reports with documentation of one or more dose reduction techniques (e.g., Automated exposure control, adjustment of the mA and/or kV according to patient size, use of iterative reconstruction technique) copyright 2011 [employer]- All Rights Reserved Assessment and Plan - Diagnosis (1) Urinary tract infection Qualifiers: Urinary tract infection type: site unspecified Hematuria presence: without hematuria Qualified Code(s): N39.0 - Urinary tract infection, site not specified Is this a current diagnosis for this admission?: Yes (2) Acute encephalopathy Is this a current diagnosis for this admission?: Yes (3) Nausea & vomiting Qualifiers: Vomiting type: unspecified Vomiting Intractability: non-intractable Qualified Code(s): R11.2 - Nausea with vomiting, unspecified Is this a current diagnosis for this admission?: Yes (4) CKD (chronic kidney disease) stage 3, GFR 30-59 ml/min Is this a current diagnosis for this admission?: Yes (5) HTN (hypertension) Qualifiers: Hypertension type: essential hypertension Qualified Code(s): I10 - Essential (primary) hypertension Is this a current diagnosis for this admission?: Yes (6) Hypothyroidism Qualifiers: Hypothyroidism type: unspecified Qualified Code(s): E03.9 - Hypothyroidism, unspecified Is this a current diagnosis for this admission?: Yes (7) Parkinsons disease Is this a current diagnosis for this admission?: Yes (8) Chronic atrial fibrillation Is this a current diagnosis for this admission?: Yes (9) Chronic anticoagulation Is this a current diagnosis for this admission?: Yes - Plan Summary Summary: Patient is admitted to the medical floor he will receive routine supportive and symptomatic cares. He will receive IV fluids to support adequate blood pressure and maintain normal urine outputs. He will be closely monitored with serial lactic acid levels, serial CBCs, metabolic profiles and magnesium levels. He will be continued on his usual anticoagulation with Eliquis however his dose will be decreased to 2.5 mg p.o. twice daily, adjusting for age and renal func tion. Coronavirus testing is pending. Antibiotic therapy to cover his urinary tract and bibasilar interstitial pneumonia will be initiated with treatment appropriate for healthcare associated pneumonia as the patient was recently hospitalized. He will therefore receive cefepime and azithromycin IV. He will receive Ativan 1 mg IV every 4 hours as needed for anxiety, restlessness or agitation. He will be encouraged to take oral fluids and will be treated with a cardiac diet once he is able to tolerate it oral intake. Patient will be returned to his usual medications as soon as his medication list can be verified and reconciled and each medication reevaluated for appropriateness of use in the present situation. - Time Time Spent with patient: Patient will be admitted to the medical floor where he will receive routine supportive and symptomatic cares. Time Spent with patient: Less than 15 minutes Medications reviewed and adjusted accordingly: Yes Anticipated discharge: SNF - Inpatient Certification Based on my medical assessment, after consideration of the patient's comorbidities, presenting symptoms, or acuity I expect that the services needed warrant INPATIENT care.: Yes I certify that my determination is in accordance with my understanding of Medicare's requirements for reasonable and necessary INPATIENT services [42 CFR 412.3e].: Yes Medical Necessity: Significant Comorbidiites Make Outpatient Treatment Too Risky, Need Close Monitoring Due to Risk of Patient Decompensation, Need For IV Fluids, Need for IV Antibiotics, Risk of Complication if Not Cared For in Hospi marcie
[2019-09-29] MEDS: CARBIDOPA/LEVODOPA 25-100 MG TABLET PO SCH ×4 (06:18→23:18)
[2019-09-29] MEDS: RINGERS SOLUTION,LACTATED 1,000 ML IV PRN ×3 (07:00→18:09)
--- NOTE | 2019-09-29 07:18 | EKG REPORT ---
SEVERITY:- ABNORMAL ECG - ATRIAL FIBRILLATION, V-RATE 55-85 BORDERLINE RIGHT AXIS DEVIATION BORDERLINE T ABNORMALITIES, DIFFUSE LEADS : Confirmed by: Demarco Colon MD 29-Sep-2019 07:17:59
[2019-09-29] MEDS ORDERED: ACETYLCYSTEINE 20% SOLN 800 MG/4 ML VIAL.NEB NEB SCH (08:00)
[2019-09-29] MEDS: PANTOPRAZOLE SODIUM 40 MG VIAL IV SCH ×2 (09:16→21:45)
[2019-09-29] MEDS ORDERED: APIXABAN 2.5 MG TABLET PO SCH (10:00)
[2019-09-29] MEDS ORDERED: LEVOTHYROXINE SODIUM INJ/PF 0.1 MG SDV IV SCH (10:00)
[2019-09-29] MEDS ORDERED: CEFEPIME 2 GM/D5W RTU 2 GM/50 ML RTUPB IV SCH (10:00)
[2019-09-29] MEDS: CEFEPIME HCL 2 GM in DEXTROSE 5%-WATER 50 ML IV SCH ×2 (10:19→21:45)
--- NOTE | 2019-09-29 13:47 | PDOC PROGRESS REPORT ---
Subjective Progress Note for:: 09/29/19 Subjective:: Patient is resting comfortably. His only complaint is his diet. He reports coughing earlier but states that his breathing is much better and his cough is less. 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 Physical Exam Vital Signs: Temp Pulse Resp BP Pulse Ox 98.9 F 100 19 119/62 97 09/29/19 11:42 09/29/19 11:42 09/29/19 11:42 09/29/19 11:42 09/29/19 11:42 Pulse Oximeter Continuous Start: 09/29/19 02:48 Freq: RTQ4 Status: Complete Protocol: Document 09/29/19 08:00 [facility] (Rec: 09/29/19 08:07 [facility] [id number]) Pulse Oximetry Assessment Oxygen Saturation (92-100) 97 Oxygen Delivery Method Room Air Fraction of Inspired Oxygen (FIO2) 21 Equipment Usage Equipment Discontinued Continuous SpO2 Machine # - Additional RT Notes Other Patient's 02 saturation is monitored at desk. No equipment bedside. Intake & Output 09/28/19 09/29/19 09/30/19 06:59 06:59 06:59 Intake Total 1050 1110 Balance 1050 1110 Weight 72.2 kg 72.2 kg General appearance: PRESENT: no acute distress, cooperative, well-developed Head exam: PRESENT: atraumatic, normocephalic Eye exam: PRESENT: conjunctiva pink, scleral icterus Ear exam: PRESENT: normal external ear exam. ABSENT: bleeding, drainage Mouth exam: PRESENT: moist, tongue midline Respiratory exam: PRESENT: rales, symmetrical, unlabored. ABSENT: accessory muscle use, rhonchi, tachypnea, wheezes Cardiovascular exam: PRESENT: irregular rhythm. ABSENT: bradycardia, tachycardia GI/Abdominal exam: PRESENT: normal bowel sounds, soft. ABSENT: distended, guarding, tenderness Rectal exam: PRESENT: deferred Extremities exam: ABSENT: pedal edema Musculoskeletal exam: PRESENT: normal inspection. ABSENT: tenderness Neurological exam: PRESENT: alert, awake, oriented to person, oriented to place, oriented to time, oriented to situation, CN II-XII grossly intact. ABSENT: altered Psychiatric exam: ABSENT: agitated, anxious, unusual affect Focused psych exam: ABSENT: delusional, paranoid, restlessness Skin exam: PRESENT: dry, normal color, warm. ABSENT: rash Results Laboratory Results: 09/28/19 20:52 09/28/19 20:52 09/28/19 09/28/19 09/28/19 20:52 20:52 20:52 WBC 18.2 H RBC 4.00 L Hgb 12.7 L Hct 37.0 L MCV 93 MCH 31.7 MCHC 34.3 RDW 14.1 H Plt Count 285 Seg Neutrophils % Not Reportable VBG pH 7.41 VBG pCO2 46.2 VBG HCO3 28.3 VBG Base Excess 2.9 Sodium 135.4 L Potassium 3.9 Chloride 98 Carbon Dioxide 31 H Anion Gap 6 BUN 34 H Creatinine 1.54 H Est GFR ( Amer) 53 L Glucose 150 H Lactic Acid Calcium 9.5 Phosphorus Magnesium Total Bilirubin 2.6 H AST 70 H Alkaline Phosphatase 96 Total Protein 6.9 Albumin 3.8 Urine Color Urine Appearance Urine pH Ur Specific Sob[place]ki Urine Protein Urine Glucose (UA) Urine Ketones Urine Blood Urine Nitrite Ur Leukocyte Esterase Urine WBC (Auto) Urine RBC (Auto) 09/28/19 09/28/19 09/28/19 20:52 21:58 23:50 WBC RBC Hgb Hct MCV MCH MCHC RDW Plt Count Seg Neutrophils % VBG pH VBG pCO2 VBG HCO3 VBG Base Excess Sodium Potassium Chloride Carbon Dioxide Anion Gap BUN Creatinine Est GFR ( Amer) Glucose Lactic Acid 1.0 Calcium Phosphorus 2.9 Magnesium 1.8 Total Bilirubin AST Alkaline Phosphatase Total Protein Albumin Urine Color ONEIL Urine Appearance SLIGHTLY-CLOUDY Urine pH 5.0 Ur Specific [place] 1.029 Urine Protein 100 H Urine Glucose (UA) NEGATIVE Urine Ketones TRACE H Urine Blood MODERATE H Urine Nitrite POSITIVE H Ur Leukocyte Esterase SMALL H Urine WBC (Auto) 40 Urine RBC (Auto) 5 09/29/19 09/29/19 06:47 09:57 WBC RBC Hgb Hct MCV MCH MCHC RDW Plt Count Seg Neutrophils % VBG pH VBG pCO2 VBG HCO3 VBG Base Excess Sodium Potassium Chloride Carbon Dioxide Anion Gap BUN Creatinine Est GFR ( Amer) Glucose Lactic Acid 1.2 1.6 Calcium Phosphorus Magnesium Total Bilirubin AST Alkaline Phosphatase Total Protein Albumin Urine Color Urine Appearance Urine pH Ur Specific [place] Urine Protein Urine Glucose (UA) Urine Ketones Urine Blood Urine Nitrite Ur Leukocyte Esterase Urine WBC (Auto) Urine RBC (Auto) 09/28/19 09/28/19 20:52 20:52 Creatine Kinase 364 H Troponin I 0.021 Impressions: Chest X-Ray 09/28/19 22:25 IMPRESSION: No acute abnormality is identified. Abdomen/Pelvis CT 09/29/19 00:41 IMPRESSION: Nonobstructing 3 mm right renal calculus. No obstructing calculus or hydronephrosis. Subjective urinary bladder wall thickening. Correlate with urinalysis. Enlargement of the prostate. Groundglass opacities in the lung bases bilaterally consistent with bibasilar pneumonitis. TECHNICAL DOCUMENTATION: Quality ID # 436: Final reports with documentation of one or more dose reduction techniques (e.g., Automated exposure control, adjustment of the mA and/or kV according to patient size, use of iterative reconstruction technique) copyright 2011 [employer]- All Rights Reserved Assessment and Plan - Diagnosis (1) Urinary tract infection Qualifiers: Urinary tract infection type: site unspecified Hematuria presence: without hematuria Qualified Code(s): N39.0 - Urinary tract infection, site not specified Is this a current diagnosis for this admission?: Yes Plan: 09/29/2019 Preliminary urine culture results show gram-negative bacillus. Currently on a cephalosporin which is adequate coverage. Await final sensitivities and identification. (2) Acute encephalopathy Is this a current diagnosis for this admission?: Yes Plan: 09/29/2019 Most likely secondary to the infection. Mental status is improved and the patient appears to be oriented and clear today. (3) Nausea & vomiting Qualifiers: Vomiting type: unspecified Vomiting Intractability: non-intractable Qualified Code(s): R11.2 - Nausea with vomiting, unspecified Is this a current diagnosis for this admission?: Yes Plan: 09/29/2019 This is most likely due to the infection. No more nausea or vomiting this morning. (4) CKD (chronic kidney disease) stage 3, GFR 30-59 ml/min Is this a current diagnosis for this admission?: Yes Plan: 09/29/2019 Review of laboratory studies obtained at [facility] reveal that the patient is at his baseline. We will continue to monitor renal function. (5) HTN (hypertension) Qualifiers: Hypertension type: essential hypertension Qualified Code(s): I10 - Essential (primary) hypertension Is this a current diagnosis for this admission?: Yes Plan: 09/29/2019 Continue current medication regimen. Monitor blood pressure with serial vital signs. (6) Hypothyroidism Qualifiers: Hypothyroidism type: unspecified Qualified Code(s): E03.9 - Hypothyroidism, unspecified Is this a current diagnosis for this admission?: Yes Plan: 09/29/2019 Continue current dose of levothyroxine (7) Chronic anticoagulation Is this a current diagnosis for this admission?: Yes Plan: 09/29/2019 Longstanding history of atrial fibrillation. Home dose of Eliquis is 5 mg twice daily. I will continue this dose. (8) Parkinsons disease Is this a current diagnosis for this admission?: Yes Plan: 09/29/2019 Parkinson's disease is chronic. Continue home medication regimen of Sinemet (9) Longstanding persistent atrial fibrillation Is this a current diagnosis for this admission?: Yes Plan: 09/29/2019 Excellent rate control. No changes in current regimen. Continue anticoagulation. Monitor on telemetry. (10) Hyperbilirubinemia Is this a current diagnosis for this admission?: Yes Plan: Serum bilirubin was elevated. I did review all of his laboratory studies at [facility] and this is a chronic issue. Unsure of the etiology. Will monitor. (11) Encounter for observation for suspected exposure to other biological agents ruled out Is this a current diagnosis for this admission?: Yes Plan: 09/29/2019 The patient is being tested for Covid-19. He had no significant infection, chest x-ray is clear and he is on room air. Await serology results. Hopefully they will be back within 48 hours. - Plan Summary Summary: Patient is admitted to the medical floor he will receive routine supportive and symptomatic cares. He will receive IV fluids to support adequate blood pressure and maintain normal urine outputs. He will be closely monitored with serial lactic acid levels, serial CBCs, metabolic profiles and magnesium levels. He will be continued on his usual anticoagulation with Eliquis however his dose will be decreased to 2.5 mg p.o. twice daily, adjusting for age and renal function. Coronavirus testing is pending. Antibiotic therapy to cover his urinary tract and bibasilar interstitial pneumonia will be initiated with treatment appropriate for healthcare associated pneumonia as the patient was recently hospitalized. He will therefore receive cefepime and azithromycin IV. He will receive Ativan 1 mg IV every 4 hours as needed for anxiety, restlessness or agitation. He will be encouraged to take oral fluids and will be treated with a cardiac diet once he is able to tolerate it oral intake. Patient will be returned to his usual medications as soon as his medication list can be verified and reconciled and each medication reevaluated for appropriateness of use in the present situation. - Time Time Spent with patient: 15-24 minutes Medications reviewed and adjusted accordingly: Yes
[2019-09-29] MEDS: GUAIFENESIN SYRP 200 MG/10 ML UDC PO SCH ×3 (14:20→21:45)
[2019-09-29] MEDS: APIXABAN 5 MG TABLET PO SCH (17:08)
[2019-09-29] MEDS: ACETAMINOPHEN 325 MG TABLET PO PRN (17:20)
[2019-09-29] MEDS: AZITHROMYCIN 500 MG in DEXTROSE 5%-WATER 250 ML IV SCH (22:45)
[2019-09-30] MEDS: RINGERS SOLUTION,LACTATED 1,000 ML IV PRN (02:45)
[2019-09-30] MEDS: LEVOTHYROXINE SODIUM 0.075 MG TABLET PO SCH (06:18)
[2019-09-30] MEDS: CARBIDOPA/LEVODOPA 25-100 MG TABLET PO SCH ×4 (06:18→23:39)
[2019-09-30 06:52] LABS: HEMATOCRIT 35.5 % (37.9-51.0); HEMOGLOBIN 12.2 g/dL (13.5-17.0); MEAN CORPUSCULAR HEMOGLOBIN 31.8 pg (27.0-33.4); MEAN CORPUSCULAR HGB CONC 34.2 g/dL (32.0-36.0); MEAN CORPUSCULAR VOLUME 93 fl (80-97); PLATELET COUNT 235 10^3/uL (150-450); RED BLOOD COUNT 3.82 10^6/uL (4.35-5.55); RED CELL DISTRIBUTION WIDTH 14.7 % (11.5-14.0); WHITE BLOOD COUNT 13.7 10^3/uL (4.0-10.5)
[2019-09-30 07:22] LABS: BLOOD UREA NITROGEN 30 mg/dL (7-20); CALCIUM 9.1 mg/dL (8.4-10.2); GLUCOSE 102 mg/dL (75-110); POTASSIUM 4.5 mmol/L (3.6-5.0)
[2019-09-30 07:26] LABS: ANION GAP 5 (5-19); CARBON DIOXIDE 32 mmol/L (22-30); CHLORIDE 99 mmol/L (98-107)
[2019-09-30 07:35] LABS: C-REACTIVE PROTEIN 184.6 mg/L (<10.0)
[2019-09-30] MEDS: ESCITALOPRAM OXALATE 10 MG TABLET PO SCH (09:52)
[2019-09-30] MEDS: ATORVASTATIN CALCIUM 40 MG TABLET PO SCH (09:52)
[2019-09-30] MEDS: GUAIFENESIN SYRP 200 MG/10 ML UDC PO SCH ×4 (09:53→22:17)
[2019-09-30] MEDS: APIXABAN 5 MG TABLET PO SCH ×2 (09:53→17:41)
[2019-09-30] MEDS: LISINOPRIL 10 MG TABLET PO SCH (09:53)
[2019-09-30] MEDS ORDERED: DEXTROSE 40% GEL 15 GM TUBE PO PRN ×2 (09:54)
[2019-09-30] MEDS ORDERED: DEXTROSE 50%-WATER 25 GM/50 ML DISP.SYRIN IV PRN ×2 (09:54)
[2019-09-30] MEDS ORDERED: GLUCAGON,HUMAN RECOMB 1 MG INJ SUBCUT PRN (09:54)
[2019-09-30] MEDS: PANTOPRAZOLE SODIUM 40 MG VIAL IV SCH (10:02)
[2019-09-30] MEDS: CEFEPIME HCL 2 GM in DEXTROSE 5%-WATER 50 ML IV SCH ×2 (10:02→22:17)
--- NOTE | 2019-09-30 13:16 | CDI QUERY ---
CDI Query CDI Review: Dear Provider: To better reflect your patients severity of illness, morbidity, and resource utilization Please specify and document in the Progress Notes and Discharge Summary if you are monitoring / treating / evaluating any of the following conditions: Query Clinical indicators Please clarify and document if the pneumonia can be further specified: Aspiration pneumonia Gram negative dara pneumonia Gram positive cocci pneumonia Unable to determine Other Please clarify and document if the encephalopathy can be further specified Metabolic encephalopathy Toxic encephalopathy Delirium Unable to determine Other Per H&P: with a 2-day history of nausea with vomiting. Patient is lethargic and poorly responsive chest CT showing bilateral basilar groundglass interstitial infiltrates. Patient is a poor historian and currently encephalopathic Per Progress Notes: Antibiotic therapy to cover his urinary tract and bibasilar interstitial pneumonia will be initiated with treatment appropriate for healthcare associated pneumonia as the patient was recently hospitalized. He will therefore receive cefepime and azithromycin IV "UTI" Acute encephalopathy Is this a current diagnosis for this admission?: Yes Most likely secondary to the infection. WBC: 18.2 The terms probable, suspected, likely, possible or still to be ruled out may be used if you are unable to determine the exact nature of a condition. Thank you for your consideration, Clinical Documentation Physician Advisors MAC Holden RN, BSN RN [email or web address] Office [phone] Office [phone]
[2019-09-30] MEDS: PANTOPRAZOLE SODIUM 40 MG TABLET.DR PO SCH (15:08)
--- NOTE | 2019-09-30 17:15 | PDOC PROGRESS REPORT ---
Subjective Progress Note for:: 09/30/19 Subjective:: No adverse events overnight. He tested negative for coronavirus. He is breathing is more comfortable. We had a swallow test today and they cleared him for nectar thick liquids. 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 Physical Exam Vital Signs: Temp Pulse Resp BP Pulse Ox 99.1 F 83 20 142/70 H 96 09/30/19 15:21 09/30/19 15:21 09/30/19 15:21 09/30/19 15:21 09/30/19 15:21 Pulse Oximeter Continuous Start: 09/29/19 02:48 Freq: RTQ4 Status: Complete Protocol: Document 09/29/19 08:00 [facility] (Rec: 09/29/19 08:07 [facility] [id number]) Pulse Oximetry Assessment Oxygen Saturation (92-100) 97 Oxygen Delivery Method Room Air Fraction of Inspired Oxygen (FIO2) 21 Equipment Usage Equipment Discontinued Continuous SpO2 Machine # - Additional RT Notes Other Patient's 02 saturation is monitored at desk. No equipment bedside. Intake & Output 09/29/19 09/30/19 10/01/19 06:59 06:59 06:59 Intake Total 1050 3540 1050 Output Total 400 Balance 1050 3140 1050 Weight 72.2 kg 78.2 kg General appearance: PRESENT: no acute distress, cooperative, well-developed Respiratory exam: PRESENT: rales right lower lobe, unlabored. ABSENT: accessory muscle use, rhonchi, tachypnea, wheezes Cardiovascular exam: PRESENT: irregular rhythm. ABSENT: bradycardia, tachycardia GI/Abdominal exam: PRESENT: normal bowel sounds, soft. ABSENT: distended, guarding, tenderness Rectal exam: PRESENT: deferred Extremities exam: ABSENT: pedal edema Musculoskeletal exam: PRESENT: normal inspection. ABSENT: tenderness Neurological exam: PRESENT: alert, awake, oriented to person, oriented to place, oriented to time, oriented to situation Psychiatric exam: ABSENT: agitated, anxious Skin exam: PRESENT: dry, normal color, warm. Results Laboratory Results: 09/30/19 06:15 09/30/19 06:15 09/30/19 09/30/19 06:15 06:15 WBC 13.7 H RBC 3.82 L Hgb 12.2 L Hct 35.5 L MCV 93 MCH 31.8 MCHC 34.2 RDW 14.7 H Plt Count 235 Sodium 135.5 L Potassium 4.5 Chloride 99 Carbon Dioxide 32 H Anion Gap 5 BUN 30 H Creatinine 1.52 H Est GFR ( Amer) 54 L Glucose 102 Calcium 9.1 Magnesium 1.9 Ferritin 364.00 C-Reactive Protein 184.6 H 09/28/19 23:50 Catheterized Urine Urine Culture - Final Klebsiella Pneumoniae 09/28/19 09/28/19 20:52 20:52 Creatine Kinase 364 H Troponin I 0.021 Impressions: Chest X-Ray 09/28/19 22:25 IMPRESSION: No acute abnormality is identified. Abdomen/Pelvis CT 09/29/19 00:41 IMPRESSION: Nonobstructing 3 mm right renal calculus. No obstructing calculus or hydronephrosis. Subjective urinary bladder wall thickening. Correlate with urinalysis. Enlargement of the prostate. Groundglass opacities in the lung bases bilaterally consistent with bibasilar pneumonitis. TECHNICAL DOCUMENTATION: Quality ID # 436: Final reports with documentation of one or more dose reduction techniques (e.g., Automated exposure control, adjustment of the mA and/or kV according to patient size, use of iterative reconstruction technique) copyright 2011 [employer]- All Rights Reserved Assessment and Plan - Diagnosis (1) Aspiration pneumonia Qualifiers: Aspiration pneumonia type: due to vomit Laterality: bilateral Lung location: lower lobe of lung Qualified Code(s): J69.0 - Pneumonitis due to inhalation of food and vomit Is this a current diagnosis for this admission?: Yes Plan: Clinically improved. Tested negative for coronavirus. Currently on cefepime (2) Metabolic encephalopathy Is this a current diagnosis for this admission?: Yes Plan: Resolved (3) Chronic anticoagulation Is this a current diagnosis for this admission?: Yes Plan: 09/29/2019 Longstanding history of atrial fibrillation. Home dose of Eliquis is 5 mg twice daily. I will continue this dose. (4) Longstanding persistent atrial fibrillation Is this a current diagnosis for this admission?: Yes Plan: 09/29/2019 Excellent rate control. No changes in current regimen. Continue anticoagulation. Monitor on telemetry. (5) Nausea & vomiting Qualifiers: Vomiting type: unspecified Vomiting Intractability: non-intractable Qualified Code(s): R11.2 - Nausea with vomiting, unspecified Is this a current diagnosis for this admission?: Yes Plan: Resolved (6) Parkinsons disease Is this a current diagnosis for this admission?: Yes Plan: Continue Sinemet. We had a swallow evaluation done in the recommending nectar thickened liquids (7) Urinary tract infection Qualifiers: Urinary tract infection type: site unspecified Hematuria presence: without hematuria Qualified Code(s): N39.0 - Urinary tract infection, site not sp ecified Is this a current diagnosis for this admission?: Yes Plan: He grew a Klebsiella out of his urine. He is on cefepime. - Plan Summary Summary: Patient is admitted to the medical floor he will receive routine supportive and symptomatic cares. He will receive IV fluids to support adequate blood pressure and maintain normal urine outputs. He will be closely monitored with serial lactic acid levels, serial CBCs, metabolic profiles and magnesium levels. He will be continued on his usual anticoagulation with Eliquis however his dose will be decreased to 2.5 mg p.o. twice daily, adjusting for age and renal function. Coronavirus testing is pending. Antibiotic therapy to cover his urinary tract and bibasilar interstitial pneumonia will be initiated with treatment appropriate for healthcare associated pneumonia as the patient was recently hospitalized. He will therefore receive cefepime and azithromycin IV. He will receive Ativan 1 mg IV every 4 hours as needed for anxiety, restlessness or agitation. He will be encouraged to take oral fluids and will be treated with a cardiac diet once he is able to tolerate it oral intake. Patient will be returned to his usual medications as soon as his medication list can be verified and reconciled and each medication reevaluated for appropriateness of use in the present situation. - Time Time Spent with patient: 15-24 minutes
[2019-09-30] MEDS: AZITHROMYCIN 500 MG in DEXTROSE 5%-WATER 250 ML IV SCH (22:17)
[2019-09-30] MEDS: ACETAMINOPHEN 325 MG TABLET PO PRN (23:58)
[2019-10-01 05:05] LABS: HEMATOCRIT 32.4 % (37.9-51.0); HEMOGLOBIN 11.3 g/dL (13.5-17.0); MEAN CORPUSCULAR HEMOGLOBIN 32.4 pg (27.0-33.4); MEAN CORPUSCULAR HGB CONC 34.9 g/dL (32.0-36.0); MEAN CORPUSCULAR VOLUME 93 fl (80-97); PLATELET COUNT 225 10^3/uL (150-450); RED BLOOD COUNT 3.49 10^6/uL (4.35-5.55); RED CELL DISTRIBUTION WIDTH 14.5 % (11.5-14.0); WHITE BLOOD COUNT 12.5 10^3/uL (4.0-10.5)
[2019-10-01 05:26] LABS: ANION GAP 7 (5-19); BLOOD UREA NITROGEN 28 mg/dL (7-20); CALCIUM 8.6 mg/dL (8.4-10.2); CARBON DIOXIDE 30 mmol/L (22-30); CHLORIDE 98 mmol/L (98-107); GLUCOSE 135 mg/dL (75-110); POTASSIUM 4.1 mmol/L (3.6-5.0)
[2019-10-01] MEDS: LEVOTHYROXINE SODIUM 0.075 MG TABLET PO SCH (05:47)
[2019-10-01] MEDS: CARBIDOPA/LEVODOPA 25-100 MG TABLET PO SCH ×3 (05:47→17:21)
[2019-10-01] MEDS: ESCITALOPRAM OXALATE 10 MG TABLET PO SCH (08:26)
[2019-10-01] MEDS: PANTOPRAZOLE SODIUM 40 MG TABLET.DR PO SCH ×2 (08:26→17:22)
[2019-10-01] MEDS: ATORVASTATIN CALCIUM 40 MG TABLET PO SCH (08:26)
[2019-10-01] MEDS: APIXABAN 5 MG TABLET PO SCH ×2 (11:12→17:22)
[2019-10-01] MEDS: LISINOPRIL 10 MG TABLET PO SCH (11:12)
[2019-10-01] MEDS: CEFEPIME HCL 2 GM in DEXTROSE 5%-WATER 50 ML IV SCH ×2 (11:14→21:10)
[2019-10-01] MEDS: GUAIFENESIN SYRP 200 MG/10 ML UDC PO SCH ×4 (11:15→21:04)
--- NOTE | 2019-10-01 15:10 | PDOC PROGRESS REPORT ---
Subjective Progress Note for:: 10/01/19 Subjective:: No adverse events overnight. He said that he has intermittently had a little bit trouble swallowing, even with the nectar thickened liquids, but I advised him to make sure that he is sitting upright whenever he eats or drinks. Overall he says he just feels really tired, but he does not feel too bad otherwise. No fevers. He still got a little bit of a cough but it is nonproductive. 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 Physical Exam Vital Signs: Temp Pulse Resp BP Pulse Ox 98.9 F 73 18 128/66 H 98 10/01/19 12:00 10/01/19 12:00 10/01/19 12:00 10/01/19 12:00 10/01/19 12:00 Pulse Oximeter Continuous Start: 09/29/19 02:48 Freq: RTQ4 Status: Complete Protocol: Document 09/29/19 08:00 [facility] (Rec: 09/29/19 08:07 [facility] [email or web address]) Pulse Oximetry Assessment Oxygen Saturation (92-100) 97 Oxygen Delivery Method Room Air Fraction of Inspired Oxygen (FIO2) 21 Equipment Usage Equipment Discontinued Continuous SpO2 Machine # - Additional RT Notes Other Patient's 02 saturation is monitored at desk. No equipment bedside. Intake & Output 09/30/19 10/01/19 10/02/19 06:59 06:59 06:59 Intake Total 3540 1350 50 Output Total 400 175 100 Balance 3140 1175 -50 Weight 78.2 kg 77.4 kg General appearance: PRESENT: no acute distress, cooperative, well-developed Respiratory exam: PRESENT: rales right lower lobe, unlabored. ABSENT: accessory muscle use, rhonchi, tachypnea, wheezes Cardiovascular exam: PRESENT: irregular rhythm. ABSENT: bradycardia, tachycardia GI/Abdominal exam: PRESENT: normal bowel sounds, soft. ABSENT: distended, guarding, tenderness Rectal exam: PRESENT: deferred Extremities exam: ABSENT: pedal edema Musculoskeletal exam: PRESENT: normal inspection. ABSENT: tenderness Neurological exam: PRESENT: alert, awake, oriented to person, oriented to place, oriented to time, oriented to situation Psychiatric exam: ABSENT: agitated, anxious Skin exam: PRESENT: dry, normal color, warm. Results Laboratory Results: 10/01/19 04:39 10/01/19 04:39 10/01/19 10/01/19 04:39 04:39 WBC 12.5 H RBC 3.49 L Hgb 11.3 L Hct 32.4 L MCV 93 MCH 32.4 MCHC 34.9 RDW 14.5 H Plt Count 225 Sodium 134.8 L Potassium 4.1 Chloride 98 Carbon Dioxide 30 Anion Gap 7 BUN 28 H Creatinine 1.44 H Est GFR ( Amer) 58 L Glucose 135 H Calcium 8.6 Magnesium 1.8 09/28/19 09/28/19 20:52 20:52 Creatine Kinase 364 H Troponin I 0.021 Impressions: Chest X-Ray 09/28/19 22:25 IMPRESSION: No acute abnormality is identified. Abdomen/Pelvis CT 09/29/19 00:41 IMPRESSION: Nonobstructing 3 mm right renal calculus. No obstructing calculus or hydronephrosis. Subjective urinary bladder wall thickening. Correlate with urinalysis. Enlargement of the prostate. Groundglass opacities in the lung bases bilaterally consistent with bibasilar pneumonitis. TECHNICAL DOCUMENTATION: Quality ID # 436: Final reports with documentation of one or more dose reduction techniques (e.g., Automated exposure control, adjustment of the mA and/or kV according to patient size, use of iterative reconstruction technique) copyright 2011 [employer]- All Rights Reserved Assessment and Plan - Diagnosis (1) Aspiration pneumonia Qualifiers: Aspiration pneumonia type: due to vomit Laterality: bilateral Lung location: lower lobe of lung Qualified Code(s): J69.0 - Pneumonitis due to inhalation of food and vomit Is this a current diagnosis for this admission?: Yes Plan: Clinically improved. Tested negative for coronavirus. Currently on cefepime. If he can swallow a little bit better, we might switch him to Augmentin. (2) Metabolic encephalopathy Is this a current diagnosis for this admission?: Yes Plan: Resolved (3) Chronic anticoagulation Is this a current diagnosis for this admission?: Yes Plan: 09/29/2019 Longstanding history of atrial fibrillation. Home dose of Eliquis is 5 mg twice daily. I will continue this dose. (4) Longstanding persistent atrial fibrillation Is this a current diagnosis for this admission?: Yes Plan: 09/29/2019 Excellent rate control. No changes in current regimen. Continue anticoagulation. Monitor on telemetry. (5) Nausea & vomiting Qualifiers: Vomiting type: unspecified Vomiting Intractability: non-intractable Qualified Code(s): R11.2 - Nausea with vomiting, unspecified Is this a current diagnosis for this admission?: Yes Plan: Resolved (6) Parkinsons disease Is this a current diagnosis for this admission?: Yes Plan: Continue Sinemet. We had a swallow evaluation done in the recommending nectar thickened liquids (7) Urinary tract infection Qualifiers: Urinary tract infection type: site unspecified Hematuria presence: without hematuria Qualified Code(s): N39.0 - Urinary tract infection, site not specified Is this a current diagnosis for this admission?: Yes Plan: He grew a Klebsiella out of his urine. He is on cefepime. - Plan Summary Summary: Patient is admitted to the medical floor he will receive routine supportive and symptomatic cares. He will receive IV fluids to support adequate blood pressure and maintain normal urine outputs. He will be closely monitored with serial lactic acid levels, serial CBCs, metabolic profiles and magnesium levels. He will be continued on his usual anticoagulation with Eliquis however his dose will be decreased to 2.5 mg p.o. twice daily, adjusting for age and renal function. Coronavirus testing is pending. Antibiotic therapy to cover his urinary tract and bibasilar interstitial pneumonia will be initiated with treatment appropriate for healthcare associated pneumonia as the patient was recently hospitalized. He will therefore receive cefepime and azithromycin IV. He will receive Ativan 1 mg IV every 4 hours as needed for anxiety, restlessness or agitation. He will be encouraged to take oral fluids and will be treated with a cardiac diet once he is able to tolerate it oral intake. Patient will be returned to his usual medications as soon as his medication list can be verified and reconciled and each medication reevaluated for appropriateness of use in the present situation. - Time Time Spent with patient: 15-24 minutes
[2019-10-01] MEDS: AZITHROMYCIN 500 MG in DEXTROSE 5%-WATER 250 ML IV SCH (21:10)
[2019-10-01] MEDS: ACETAMINOPHEN 325 MG TABLET PO PRN (21:30)
[2019-10-02] MEDS: CARBIDOPA/LEVODOPA 25-100 MG TABLET PO SCH ×5 (00:09→23:04)
[2019-10-02] MEDS: LEVOTHYROXINE SODIUM 0.075 MG TABLET PO SCH (06:03)
[2019-10-02 06:11] LABS: HEMOGLOBIN 11.4 g/dL (13.5-17.0); MEAN CORPUSCULAR HEMOGLOBIN 31.9 pg (27.0-33.4); MEAN CORPUSCULAR HGB CONC 34.5 g/dL (32.0-36.0); MEAN CORPUSCULAR VOLUME 93 fl (80-97); PLATELET COUNT 254 10^3/uL (150-450); RED BLOOD COUNT 3.56 10^6/uL (4.35-5.55); RED CELL DISTRIBUTION WIDTH 14.7 % (11.5-14.0); WHITE BLOOD COUNT 9.3 10^3/uL (4.0-10.5)
[2019-10-02 06:31] LABS: ANION GAP 6 (5-19); BLOOD UREA NITROGEN 29 mg/dL (7-20); CALCIUM 8.7 mg/dL (8.4-10.2); CARBON DIOXIDE 30 mmol/L (22-30); CHLORIDE 100 mmol/L (98-107); GLUCOSE 93 mg/dL (75-110); POTASSIUM 4.2 mmol/L (3.6-5.0)
[2019-10-02] MEDS: PANTOPRAZOLE SODIUM 40 MG TABLET.DR PO SCH ×2 (07:53→18:23)
[2019-10-02] MEDS: ATORVASTATIN CALCIUM 40 MG TABLET PO SCH (07:53)
[2019-10-02] MEDS: ESCITALOPRAM OXALATE 10 MG TABLET PO SCH (07:53)
[2019-10-02] MEDS: CEFEPIME HCL 2 GM in DEXTROSE 5%-WATER 50 ML IV SCH ×2 (09:34→22:44)
[2019-10-02] MEDS: LISINOPRIL 10 MG TABLET PO SCH (09:38)
[2019-10-02] MEDS: APIXABAN 5 MG TABLET PO SCH ×2 (09:40→18:23)
[2019-10-02] MEDS: GUAIFENESIN SYRP 200 MG/10 ML UDC PO SCH ×4 (09:41→22:47)
--- NOTE | 2019-10-02 13:54 | PDOC PROGRESS REPORT ---
Subjective Progress Note for:: 10/02/19 Subjective:: No adverse events overnight. His chief complaint is that he just feels really exhausted from all of this. He apparently tolerated what he ate of his breakfast this morning, and has been tolerating nectar thick liquids. He has a very weak cough and is not producing any sputum. 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 Physical Exam Vital Signs: Temp Pulse Resp BP Pulse Ox 97.7 F 60 14 110/60 94 10/02/19 12:00 10/02/19 12:00 10/02/19 12:00 10/02/19 12:00 10/02/19 12:08 Pulse Oximeter Continuous Start: 09/29/19 02:48 Freq: RTQ4 Status: Complete Protocol: Document 09/29/19 08:00 [facility] (Rec: 09/29/19 08:07 [facility] [id number]) Pulse Oximetry Assessment Oxygen Saturation (92-100) 97 Oxygen Delivery Method Room Air Fraction of Inspired Oxygen (FIO2) 21 Equipment Usage Equipment Discontinued Continuous SpO2 Machine # - Additional RT Notes Other Patient's 02 saturation is monitored at desk. No equipment bedside. Intake & Output 10/01/19 10/02/19 10/03/19 06:59 06:59 06:59 Intake Total 1350 400 Output Total 175 300 200 Balance 1175 100 -200 Weight 77.4 kg 77.8 kg General appearance: PRESENT: no acute distress, cooperative, well-developed Respiratory exam: PRESENT: rales right lower lobe, unlabored. ABSENT: accessory muscle use, rhonchi, tachypnea, wheezes Cardiovascular exam: PRESENT: irregular rhythm. ABSENT: bradycardia, tachycardia GI/Abdominal exam: PRESENT: normal bowel sounds, soft. ABSENT: distended, guarding, tenderness Rectal exam: PRESENT: deferred Extremities exam: ABSENT: pedal edema Musculoskeletal exam: PRESENT: normal inspection. ABSENT: tenderness Neurological exam: PRESENT: alert, awake, oriented to person, oriented to place, oriented to time, oriented to situation Psychiatric exam: ABSENT: agitated, anxious Skin exam: PRESENT: dry, normal color, warm. Results Laboratory Results: 10/02/19 05:43 10/02/19 05:43 10/02/19 10/02/19 10/02/19 05:43 05:43 05:43 WBC 9.3 RBC 3.56 L Hgb 11.4 L Hct 33.0 L MCV 93 MCH 31.9 MCHC 34.5 RDW 14.7 H Plt Count 254 Sodium 135.9 L Potassium 4.2 Chloride 100 Carbon Dioxide 30 Anion Gap 6 BUN 29 H Creatinine 1.41 H Est GFR ( Amer) 59 L Glucose 93 Calcium 8.7 Magnesium 2.0 C-Reactive Protein 212.9 H 09/28/19 09/28/19 20:52 20:52 Creatine Kinase 364 H Troponin I 0.021 Impressions: Chest X-Ray 09/28/19 22:25 IMPRESSION: No acute abnormality is identified. Abdomen/Pelvis CT 09/29/19 00:41 IMPRESSION: Nonobstructing 3 mm right renal calculus. No obstructing calculus or hydronephrosis. Subjective urinary bladder wall thickening. Correlate with urinalysis. Enlargement of the prostate. Groundglass opacities in the lung bases bilaterally consistent with bibasilar pneumonitis. TECHNICAL DOCUMENTATION: Quality ID # 436: Final reports with documentation of one or more dose reduction techniques (e.g., Automated exposure control, adjustment of the mA and/or kV according to patient size, use of iterative reconstruction technique) copyright 2011 [employer]- All Rights Reserved Assessment and Plan - Diagnosis (1) Aspiration pneumonia Qualifiers: Aspiration pneumonia type: due to vomit Laterality: bilateral Lung l ocation: lower lobe of lung Qualified Code(s): J69.0 - Pneumonitis due to inhalation of food and vomit Is this a current diagnosis for this admission?: Yes Plan: Clinically improved. Tested negative for coronavirus. Currently on cefepime. If he can swallow a little bit better, we might switch him to Augmentin. I have ordered incentive spirometry and a flutter valve to help him deep breathe and cough up sputum. (2) Metabolic encephalopathy Is this a current diagnosis for this admission?: Yes Plan: Resolved (3) Chronic anticoagulation Is this a current diagnosis for this admission?: Yes Plan: 09/29/2019 Longstanding history of atrial fibrillation. Home dose of Eliquis is 5 mg twice daily. I will continue this dose. (4) Longstanding persistent atrial fibrillation Is this a current diagnosis for this admission?: Yes Plan: 09/29/2019 Excellent rate control. No changes in current regimen. Continue anticoagulation. Monitor on telemetry. (5) Nausea & vomiting Qualifiers: Vomiting type: unspecified Vomiting Intractability: non-intractable Qualified Code(s): R11.2 - Nausea with vomiting, unspecified Is this a current diagnosis for this admission?: Yes Plan: Resolved (6) Parkinsons disease Is this a current diagnosis for this admission?: Yes Plan: Continue Sinemet. We had a swallow evaluation done in the recommending nectar thickened liquids (7) Urinary tract infection Qualifiers: Urinary tract infection type: site unspecified Hematuria presence: without hematuria Qualified Code(s): N39.0 - Urinary tract infection, site not specified Is this a current diagnosis for this admission?: Yes Plan: He grew a Klebsiella out of his urine. He is on cefepime. - Plan Summary Summary: Patient is admitted to the medical floor he will receive routine supportive and symptomatic cares. He will receive IV fluids to support adequate blood pressure and maintain normal urine outputs. He will be closely monitored with serial lactic acid levels, serial CBCs, metabolic profiles and magnesium levels. He will be continued on his usual anticoagulation with Eliquis however his dose will be decreased to 2.5 mg p.o. twice daily, adjusting for age and renal function. Coronavirus testing is pending. Antibiotic therapy to cover his urinary tract and bibasilar interstitial pneumonia will be initiated with treatment appropriate for healthcare associated pneumonia as the patient was recently hospitalized. He will therefore receive cefepime and azithromycin IV. He will receive Ativan 1 mg IV every 4 hours as needed for anxiety, restlessness or agitation. He will be encouraged to take oral fluids and will be treated with a cardiac diet once he is able to tolerate it oral intake. Patient will be returned to his usual medications as soon as his medication list can be verified and reconciled and each medication reevaluated for appropriateness of use in the present situation. - Time Time Spent with patient: 15-24 minutes
[2019-10-02] MEDS: ACETAMINOPHEN 325 MG TABLET PO PRN (22:43)
[2019-10-02] MEDS: AZITHROMYCIN 500 MG in DEXTROSE 5%-WATER 250 ML IV SCH (22:44)
[2019-10-03] MEDS: CARBIDOPA/LEVODOPA 25-100 MG TABLET PO SCH ×4 (06:12→23:20)
[2019-10-03] MEDS: LEVOTHYROXINE SODIUM 0.075 MG TABLET PO SCH (06:12)
[2019-10-03] MEDS: LISINOPRIL 10 MG TABLET PO SCH (10:05)
[2019-10-03] MEDS: ATORVASTATIN CALCIUM 40 MG TABLET PO SCH (10:05)
[2019-10-03] MEDS: CEFEPIME HCL 2 GM in DEXTROSE 5%-WATER 50 ML IV SCH ×2 (10:06→22:26)
[2019-10-03] MEDS: ESCITALOPRAM OXALATE 10 MG TABLET PO SCH (10:06)
[2019-10-03] MEDS: APIXABAN 5 MG TABLET PO SCH ×2 (10:06→17:27)
[2019-10-03] MEDS: GUAIFENESIN SYRP 200 MG/10 ML UDC PO SCH ×4 (10:06→22:16)
[2019-10-03] MEDS: PANTOPRAZOLE SODIUM 40 MG TABLET.DR PO SCH ×2 (10:06→17:27)
--- NOTE | 2019-10-03 16:45 | PDOC PROGRESS REPORT ---
Subjective Progress Note for:: 10/03/19 Subjective:: No adverse events overnight. He said that he had a little bit of a choking episode last night when he was eating, but speech therapy saw him again today and said he did fine with thin liquids and they recommended a mechanical soft diet. He said he got some sleep last night he is feeling a little bit better today. We took him off oxygen and he did fine on room air. He actually did a lot better than I expected for physical therapy. He said his chest hurts from coughing 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 Physical Exam Vital Signs: Temp Pulse Resp BP Pulse Ox 98.1 F 59 L 16 126/71 H 96 10/03/19 11:19 10/03/19 11:19 10/03/19 11:19 10/03/19 11:19 10/03/19 11:19 Pulse Oximeter Continuous Start: 09/29/19 02:48 Freq: RTQ4 Status: Complete Protocol: Document 09/29/19 08:00 [facility] (Rec: 09/29/19 08:07 [facility] [id number]) Pulse Oximetry Assessment Oxygen Saturation (92-100) 97 Oxygen Delivery Method Room Air Fraction of Inspired Oxygen (FIO2) 21 Equipment Usage Equipment Discontinued Continuous SpO2 Machine # - Additional RT Notes Other Patient's 02 saturation is monitored at desk. No equipment bedside. Intake & Output 10/02/19 10/03/19 10/04/19 06:59 06:59 06:59 Intake Total 400 50 590 Output Total 300 400 475 Balance 100 -350 115 Weight 77.8 kg 80 kg General appearance: PRESENT: no acute distress, cooperative, well-developed Respiratory exam: PRESENT: rales left lower lobe, unlabored. ABSENT: accessory muscle use, rhonchi, tachypnea, wheezes Cardiovascular exam: PRESENT: irregular rhythm. ABSENT: bradycardia, tachycardia GI/Abdominal exam: PRESENT: normal bowel sounds, soft. ABSENT: distended, guarding, tenderness Rectal exam: PRESENT: deferred Extremities exam: ABSENT: pedal edema Musculoskeletal exam: PRESENT: normal inspection. ABSENT: tenderness Neurological exam: PRESENT: alert, awake, oriented to person, oriented to place, oriented to time, oriented to situation Psychiatric exam: ABSENT: agitated, anxious Skin exam: PRESENT: dry, normal color, warm. Results Laboratory Results: 10/02/19 05:43 10/02/19 05:43 09/28/19 09/28/19 20:52 20:52 Creatine Kinase 364 H Troponin I 0.021 Impressions: Chest X-Ray 09/28/19 22:25 IMPRESSION: No acute abnormality is identified. Abdomen/Pelvis CT 09/29/19 00:41 IMPRESSION: Nonobstructing 3 mm right renal calculus. No obstructing calculus or hydronephrosis. Subjective urinary bladder wall thickening. Correlate with urinalysis. Enlargement of the prostate. Groundglass opacities in the lung bases bilaterally consistent with bibasilar pneumonitis. TECHNICAL DOCUMENTATION: Quality ID # 436: Final reports with documentation of one or more dose reduction techniques (e.g., Automated exposure control, adjustment of the mA and/or kV according to patient size, use of iterative reconstruction technique) copyright 2011 [employer]- All Rights Reserved Assessment and Plan - Diagnosis (1) Aspiration pneumonia Qualifiers: Aspiration pneumonia type: due to vomit Laterality: bilateral Lung location: lower lobe of lung Qualified Code(s): J69.0 - Pneumonitis due to inhalation of food and vomit Is this a current diagnosis for this admission?: Yes Plan: Clinically improved. Tested negative for coronavirus. Currently on cefepime. If he can swallow a little bit better, we might switch him to Augmentin. I have ordered incentive spirometry and a flutter valve to help him deep breathe and cough up sputum. He had crackles in the right side of his chest yesterday, but today he is got him on the left side. I would like for his cough to get a little bit better and see him clear up some of his secretions before we discharge him home. (2) Metabolic encephalopathy Is this a current diagnosis for this admission?: Yes Plan: Resolved (3) Chronic anticoagulation Is this a current diagnosis for this admission?: Yes Plan: 09/29/2019 Longstanding history of atrial fibrillation. Home dose of Eliquis is 5 mg twice daily. I will continue this dose. (4) Longstanding persistent atrial fibrillation Is this a current diagnosis for this admission?: Yes Plan: 09/29/2019 Excellent rate control. No changes in current regimen. Continue anticoagulation. Monitor on telemetry. (5) Nausea & vomiting Qualifiers: Vomiting type: unspecified Vomiting Intractability: non-intractable Qu alified Code(s): R11.2 - Nausea with vomiting, unspecified Is this a current diagnosis for this admission?: Yes Plan: Resolved (6) Parkinsons disease Is this a current diagnosis for this admission?: Yes Plan: Continue Sinemet. We had a swallow evaluation done in the recommending nectar thickened liquids. He actually walked 60 feet with physical therapy and is safe to get out of bed with staff per PT. (7) Urinary tract infection Qualifiers: Urinary tract infection type: site unspecified Hematuria presence: without hematuria Qualified Code(s): N39.0 - Urinary tract infection, site not specified Is this a current diagnosis for this admission?: Yes Plan: He grew a Klebsiella out of his urine. He is on cefepime. - Plan Summary Summary: Patient is admitted to the medical floor he will receive routine supportive and symptomatic cares. He will receive IV fluids to support adequate blood pressure and maintain normal urine outputs. He will be closely monitored with serial lactic acid levels, serial CBCs, metabolic profiles and magnesium levels. He will be continued on his usual anticoagulation with Eliquis however his dose will be decreased to 2.5 mg p.o. twice daily, adjusting for age and renal function. Coronavirus testing is pending. Antibiotic therapy to cover his urinary tract and bibasilar interstitial pneumonia will be initiated with treat ment appropriate for healthcare associated pneumonia as the patient was recently hospitalized. He will therefore receive cefepime and azithromycin IV. He will receive Ativan 1 mg IV every 4 hours as needed for anxiety, restlessness or agitation. He will be encouraged to take oral fluids and will be treated with a cardiac diet once he is able to tolerate it oral intake. Patient will be returned to his usual medications as soon as his medication list can be verified and reconciled and each medication reevaluated for appropriateness of use in the present situation. - Time Time Spent with patient: 15-24 minutes
[2019-10-03] MEDS: ACETAMINOPHEN 325 MG TABLET PO PRN (22:28)
[2019-10-03] MEDS: AZITHROMYCIN 500 MG in DEXTROSE 5%-WATER 250 ML IV SCH (23:17)
[2019-10-04] MEDS: CARBIDOPA/LEVODOPA 25-100 MG TABLET PO SCH ×2 (05:54→12:42)
[2019-10-04] MEDS: LEVOTHYROXINE SODIUM 0.075 MG TABLET PO SCH (05:55)
[2019-10-04] MEDS: PANTOPRAZOLE SODIUM 40 MG TABLET.DR PO SCH (08:35)
[2019-10-04] MEDS: ESCITALOPRAM OXALATE 10 MG TABLET PO SCH (08:35)
[2019-10-04] MEDS: ATORVASTATIN CALCIUM 40 MG TABLET PO SCH (08:35)
[2019-10-04] MEDS ORDERED: DEXTROSE 40% GEL 15 GM TUBE PO PRN ×2 (10:29)
[2019-10-04] MEDS ORDERED: GLUCAGON,HUMAN RECOMB 1 MG INJ IM PRN (10:29)
[2019-10-04] MEDS ORDERED: DEXTROSE 50%-WATER 25 GM/50 ML DISP.SYRIN IV PRN ×2 (10:29)
[2019-10-04] MEDS ORDERED: INSULIN LISPRO 100 UNIT/ML 3 ML VIAL SUBCUT SCH (11:00)
[2019-10-04] MEDS: LISINOPRIL 10 MG TABLET PO SCH (12:40)
[2019-10-04] MEDS: APIXABAN 5 MG TABLET PO SCH (12:41)
[2019-10-04] MEDS: GUAIFENESIN SYRP 200 MG/10 ML UDC PO SCH ×2 (12:46→15:02)
[2019-10-04] MEDS ORDERED: AMOXICILLIN TR/POT CLAVULANATE 500-125 MG TAB PO SCH (14:00)
--- NOTE | 2019-10-04 14:39 | PDOC DISCHARGE SUMMARY ---
Impression - Admit/DC Date/PCP Admission Date/Primary Care Provider: 09/29/19 03:39 CARI FRASER MD Discharge Date: 10/04/19 - Discharge Diagnosis (1) Aspiration pneumonia Is this a current diagnosis for this admission?: Yes (2) Chronic anticoagulation Is this a current diagnosis for this admission?: Yes (3) Longstanding persistent atrial fibrillation Is this a current diagnosis for this admission?: Yes (4) Metabolic encephalopathy Is this a current diagnosis for this admission?: Yes (5) Nausea & vomiting Is this a current diagnosis for this admission?: Yes (6) Parkinsons disease Is this a current diagnosis for this admission?: Yes (7) Urinary tract infection Is this a current diagnosis for this admission?: Yes - Additional Information Resuscitation Status: Full Code Discharge Diet: Cardiac, Other (Comments) Discharge Activity: Activity As Tolerated, Balance Activity w/Rest, Supervised Activity Referrals: CARI FRASER MD [Primary Care Provider] - 10/06/19 4:30 pm (OFFICE WILL BE CALLING YOU FOR A TELEMED APPT ON THE DATE AND TIME BELOW ) Prescriptions: Amox Tr/Potassium Clavulanate [Augmentin "500" Tablet] 1 tab PO Q8 #20 tablet Home Medications: Atorvastatin Calcium [Lipitor 40 mg Tablet] 40 mg PO QAM 01/14/19 Carbidopa/Levodopa [Sinemet 25-100 mg Tablet] 1 each PO 5XD 01/14/19 Escitalopram Oxalate [Lexapro 10 mg Tablet] 10 mg PO QAM 01/14/19 Levothyroxine Sodium [Synthroid 0.075 mg Tablet] 0.075 mg PO Q6AM 01/14/19 Apixaban [Eliquis 5 mg Tablet] 5 mg PO BID tablet 08/25/19 Lisinopril [Prinivil 10 mg Tablet] 10 mg PO DAILY 09/29/19 Acetaminophen [Tylenol 325 mg Tablet] 650 mg PO Q4HP PRN tablet 10/04/19 Amox Tr/Potassium Clavulanate [Augmentin "500" Tablet] 1 tab PO Q8 #20 tablet 10/04/19 History of Present Illiness History of Present Illness: Per H&P by Dr. Genao: JIM QUIROZ is a 79 year old male who presents from home to the emergency room via EMS, with a 2-day history of nausea with vomiti ng. Patient is lethargic and poorly responsive and is not reliable to provide accurate information to his history. EMS & ED staff report that family indicated he began having nausea with vomiting 2 days ago and developed an accompanying fever over the last 24 hours. He also developed an associated cough productive of scanty amounts of thin clear to whitish mucus, anorexia and decreased oral fluid intake. Family reports that he has experienced similar problems in the past with infections. They have not identified any aggravating or ameliorating factors for his nausea and vomiting. In the emergency room he was found to have pyuria with an 18,000 white blood count, a normal lactic acid level and a chest CT showing bilateral basilar groundglass interstitial infiltrates. Coronavirus testing was performed in the ER. Patient was subsequently admitted to the hospital for further evaluation treatment. Hospital Course Hospital Course: (1) Aspiration pneumonia Blood cultures NTD Sputum cultures not obtained. COVID test negative. Patient was admitted to the medical floor on continuous cardiac telemetry. Patient is provided supplemental oxygen as needed maintain saturations greater than 89%. He was empirically placed on IV cefepime. He is provided supplemental oxygen, Mucinex, and aggressive pulmonary toilet. Patient is now afebrile, maintaining oxygen saturations on room air, with normal WBCs. He has clear lung sounds and denies cough and shortness of breath. He is now medically stable for discharge to home with home health services. Speech therapy has met with the patient and advised for nectar thickened liquids. In addition to this, will ask discharge planning to arrange for home speech therapy services. (2) Metabolic encephalopathy Resolved (3) Chronic anticoagulation Longstanding history of atrial fibrillation. Continue home dose of Eliquis is 5 mg twice daily. (4) Longstanding persistent atrial fibrillation Excellent rate control. No changes in current regimen. Continue anticoagulation. (5) Nausea & vomiting Resolved (6) Parkinsons disease Continue Sinemet. We had a swallow evaluation done with recommendation for nectar thickened liquids. Will ask discharge planing to arrange for home health nursing, PT/OT, ST, aide, and SW. (7) Urinary tract infection He grew a Klebsiella out of his urine. Blood cultures negative. Received IV cefepime. Transitioned to p.o. Augmentin at discharge to complete course of therapy. Physical Exam Vital Signs: Temp Pulse Resp BP Pulse Ox 97.8 F 67 16 140/78 H 97 10/04/19 13:32 10/04/19 13:32 10/04/19 13:32 10/04/19 13:32 10/04/19 13:32 Pulse Oximeter Continuous Start: 09/29/19 02:4 8 Freq: RTQ4 Status: Complete Protocol: Document 09/29/19 08:00 [facility] (Rec: 09/29/19 08:07 [facility] [id number]) Pulse Oximetry Assessment Oxygen Saturation (92-100) 97 Oxygen Delivery Method Room Air Fraction of Inspired Oxygen (FIO2) 21 Equipment Usage Equipment Discontinued Continuous SpO2 Machine # - Additional RT Notes Other Patient's 02 saturation is monitored at desk. No equipment bedside. Intake & Output 10/03/19 10/04/19 10/05/19 06:59 06:59 06:59 Intake Total 50 1130 Output Total 400 950 Balance -350 180 Weight 80 kg 75.3 kg 75.3 kg General appearance: PRESENT: no acute distress, hard of hearing, well-developed, well-nourished Head exam: PRESENT: atraumatic, normocephalic Eye exam: PRESENT: conjunctiva pink, EOMI, PERRLA. ABSENT: scleral icterus Mouth exam: PRESENT: moist, tongue midline Neck exam: ABSENT: carotid bruit, full ROM, JVD, lymphadenopathy, meningismus, tenderness, thyromegaly, tracheal deviation, tracheostomy, other Respiratory exam: PRESENT: clear to auscultation emil, decreased breath sounds, symmetrical, unlabored. ABSENT: rales, rhonchi, wheezes Cardiovascular exam: PRESENT: irregular rhythm. ABSENT: diastolic murmur, rubs, systolic murmur Pulses: PRESENT: normal dorsalis pedis pul Vascular exam: PRESENT: normal capillary refill GI/Abdominal exam: PRESENT: normal bowel sounds, soft. ABSENT: distended, guarding, mass, organolmegaly, rebound, tenderness Rectal exam: PRESENT: deferred Extremities exam: PRESENT: full ROM. ABSENT: calf tenderness, clubbing, pedal edema Neurological exam: PRESENT: alert, awake, oriented to person, oriented to place, oriented to time, oriented to situation, CN II-XII grossly intact. ABSENT: motor sensory deficit Psychiatric exam: PRESENT: anxious, appropriate affect, depressed. ABSENT: homicidal ideation, suicidal ideation Skin exam: PRESENT: dry, intact, warm. ABSENT: cyanosis, rash Results Laboratory Results: WBC 9.3 10^3/uL (4.0-10.5) 10/02/19 05:43 RBC 3.56 10^6/uL (4.35-5.55) L 10/02/19 05:43 Hgb 11.4 g/dL (13.5-17.0) L 10/02/19 05:43 Hct 33.0 % (37.9-51.0) L 10/02/19 05:43 MCV 93 fl (80-97) 10/02/19 05:43 MCH 31.9 pg (27.0-33.4) 10/02/19 05:43 MCHC 34.5 g/dL (32.0-36.0) 10/02/19 05:43 RDW 14.7 % (11.5-14.0) H 10/02/19 05:43 Plt Count 254 10^3/uL (150-450) 10/02/19 05:43 Lymph % (Auto) Not Reportable 09/28/19 20:52 Mayes % (Auto) Not Reportable 09/28/19 20:52 Eos % (Auto) Not Reportable 09/28/19 20:52 Baso % (Auto) Not Reportable 09/28/19 20:52 Absolute Neuts (auto) Not Reportable 09/28/19 20:52 Absolute Lymphs (auto) Not Reportable 09/28/19 20:52 Absolute Monos (auto) Not Reportable 09/28/19 20:52 Absolute Eos (auto) Not Reportable 09/28/19 20:52 Absolute Basos (auto) Not Reportable 09/28/19 20:52 Total Counted 100 09/28/19 20:52 Seg Neutrophils % Not Reportable 09/28/19 20:52 Seg Neuts % (Manual) 92 % (42-78) H 09/28/19 20:52 Lymphocytes % (Manual) 4 % (13-45) L 09/28/19 20:52 Monocytes % (Manual) 4 % (3-13) 09/28/19 20:52 Eosinophils % (Manual) 0 % (0-6) 09/28/19 20:52 Basophils % (Manual) 0 % (0-2) 09/28/19 20:52 Abs Neuts (Manual) 16.7 10^3/uL (1.7-8.2) H 09/28/19 20:52 Abs Lymphs (Manual) 0.7 10^3/uL (0.5-4.7) 09/28/19 20:52 Abs Monocytes (Manual) 0.7 10^3/uL (0.1-1.4) 09/28/19 20:52 Absolute Eos (Manual) 0.0 10^3/uL (0.0-0.6) 09/28/19 20:52 Abs Basophils (Manual) 0.0 10^3/uL (0.0-0.2) 09/28/19 20:52 Clumped Platelets PRESENT 09/28/19 20:52 Large Platelets PRESENT 09/28/19 20:52 Platelet Comment ADEQUATE 09/28/19 20:52 Anisocytosis SLIGHT 09/28/19 20:52 PT 23.2 SEC (11.4-15.4) H 09/28/19 20:52 INR 2.02 09/28/19 20:52 APTT 36.3 SEC (23.5-35.8) H 09/28/19 20:52 D-Dimer 0.68 ug/mL (0.00-0.50) H 09/30/19 06:15 VBG pH 7.41 (7.30-7.42) 09/28/19 20:52 VBG pCO2 46.2 mmHg (35-63) 09/28/19 20:52 VBG HCO3 28.3 mmol/L (20-32) 09/28/19 20:52 VBG Base Excess 2.9 mmol/L 09/28/19 20:52 Sodium 135.9 mmol/L (137-145) L 10/02/19 05:43 Potassium 4.2 mmol/L (3.6-5.0) 10/02/19 05:43 Chloride 100 mmol/L (98-107) 10/02/19 05:43 Carbon Dioxide 30 mmol/L (22-30) 10/02/19 05:43 Anion Gap 6 (5-19) 10/02/19 05:43 BUN 29 mg/dL (7-20) H 10/02/19 05:43 Creatinine 1.41 mg/dL (0.52-1.25) H 10/02/19 05:43 Est GFR ( Amer) 59 (>60) L 10/02/19 05:43 Est GFR (MDRD) Non-Af 49 (>60) L 10/02/19 05:43 Glucose 93 mg/dL (75-110) 10/02/19 05:43 Lactic Acid 1.6 mmol/L (0.7-2.1) 09/29/19 09:57 Calcium 8.7 mg/dL (8.4-10.2) 10/02/19 05:43 Phosphorus 2.9 mg/dL (2.5-4.5) 09/28/19 20:52 Magnesium 2.0 mg/dL (1.6-2.3) 10/02/19 05:43 Ferritin 364.00 ng/mL (17.9-464.0) 09/30/19 06:15 Total Bilirubin 2.6 mg/dL (0.2-1.3) H 09/28/19 20:52 Direct Bilirubin 0.1 mg/dL (0.0-0.4) 09/28/19 20:52 Neonat Total Bilirubin Not Reportable 09/28/19 20:52 Neonat Direct Bilirubin Not Reportable 09/28/19 20:52 Neonat Indirect Bili Not Reportable 09/28/19 20:52 AST 70 U/L (17-59) H 09/28/19 20:52 ALT 12 U/L (<50) 09/28/19 20:52 Alkaline Phosphatase 96 U/L (38-126) 09/28/19 20:52 Creatine Kinase 364 U/L (55-170) H 09/28/19 20:52 Troponin I 0.021 ng/mL 09/28/19 20:52 C-Reactive Protein 212.9 mg/L (<10.0) H 10/02/19 05:43 Total Protein 6.9 g/dL (6.3-8.2) 09/28/19 20:52 Albumin 3.8 g/dL (3.5-5.0) 09/28/19 20:52 Urine Color ONEIL 09/28/19 23:50 Urine Appearance SLIGHTLY-CLOUDY 09/28/19 23:50 Urine pH 5.0 (5.0-9.0) 09/28/19 23:50 Ur Specific Conway 1.029 09/28/19 23:50 Urine Protein 100 mg/dL (NEGATIVE) H 09/28/19 23:50 Urine Glucose (UA) NEGATIVE mg/dL (NEGATIVE) 09/28/19 23:50 Urine Ketones TRACE mg/dL (NEGATIVE) H 09/28/19 23:50 Urine Blood MODERATE (NEGATIVE) H 09/28/19 23:50 Urine Nitrite POSITIVE (NEGATIVE) H 09/28/19 23:50 Urine Bilirubin NEGATIVE (NEGATIVE) 09/28/19 23:50 Urine Urobilinogen 2.0 mg/dL (<2.0) H 09/28/19 23:50 Ur Leukocyte Esterase SMALL (NEGATIVE) H 09/28/19 23:50 Urine WBC (Auto) 40 /HPF 09/28/19 23:50 Urine RBC (Auto) 5 /HPF 09/28/19 23:50 Urine Bacteria (Auto) 3+ /HPF 09/28/19 23:50 Squamous Epi Cells Auto 2 /HPF 09/28/19 23:50 Urine Mucus (Auto) MANY /LPF 09/28/19 23:50 Urine Ascorbic Acid 40 (NEGATIVE) H 09/28/19 23:50 COVID-19 Source NASOPHARYNGEAL 09/28/19 23:50 COVID-19 (KELVIN) NOT DETECTED 09/28/19 23:50 Influenza A (Rapid) NEGATIVE (NEGATIVE) 09/28/19 23:27 Influenza B (Rapid) NEGATIVE (NEGATIVE) 09/28/19 23:27 09/28/19 20:52 Troponin I 0.021 Impressions: Chest X-Ray 09/28/19 22:25 IMPRESSION: No acute abnormality is identified. Abdomen/Pelvis CT 09/29/19 00:41 IMPRESSION: Nonobstructing 3 mm right renal calculus. No obstructing calculus or hydronephrosis. Subjective urinary bladder wall thickening. Correlate with urinalysis. Enlargement of the prostate. Groundglass opacities in the lung bases bilaterally consistent with bibasilar pneumonitis. TECHNICAL DOCUMENTATION: Quality ID # [id number]: Final reports with documentation of one or more dose reduction techniques (e.g., Automated exposure control, adjustment of the mA and/or kV according to patient size, use of iterative reconstruction technique) copyright 2011 [employer]- All Rights Reserved Plan Plan of Treatment: Patient is discharged, in stable condition, into the care of family members with home health services. He is instructed to follow-up with primary care provider within 1 week. Complete your full course of antibiotic therapy. Take your other medication as prescribed. Eat a heart healthy diet, nectar thickened liquids. Do NOT smoke. Return to emergency department as needed for concerning symptoms. COVID-19 testing was negative. Continue to practice social distancing to protect yourself and loved ones. Time Spent: Greater than 30 Minutes Stroke Is this a Stroke Patient?: No Acute Heart Failure - Is this a Heart Failure Patient?: No
[2019-10-04 14:50] VITALS: BP 151/75
== END 2019-10-04 16:50 | disposition home health service (06) | DRG 689 ==
LOC: ER 20:39 → EH 09-29 03:39 → 5 09-29 05:00 → 4N 09-30 11:52
PROVIDERS: ADMIT Emergency Medicine; ATTEND Registered Nurse
DX: N39.0 Urinary tract infection, site not specified (principal); G93.41 Metabolic encephalopathy; J69.0 Pneumonitis due to inhalation of food and vomit; I48.11 Longstanding persistent atrial fibrillation; B96.1 Klebsiella pneumoniae [K. pneumoniae] as the cause of diseases classified elsewhere; Y95 Nosocomial condition; G20 Parkinson's disease; R11.2 Nausea with vomiting, unspecified; N20.0 Calculus of kidney; I12.9 Hypertensive chronic kidney disease with stage 1 through stage 4 chronic kidney disease, or unspecified chronic kidney disease; N18.3 Chronic kidney disease, stage 3 (moderate); E80.6 Other disorders of bilirubin metabolism; R13.10 Dysphagia, unspecified; E03.9 Hypothyroidism, unspecified; F32.9 Major depressive disorder, single episode, unspecified; Z03.818 Encounter for observation for suspected exposure to other biological agents ruled out; Z79.01 Long term (current) use of anticoagulants; Z79.899 Other long term (current) drug therapy; Z86.73 Personal history of transient ischemic attack (TIA), and cerebral infarction without residual deficits; Z90.49 Acquired absence of other specified parts of digestive tract; Z87.891 Personal history of nicotine dependence; Z79.890 Hormone replacement therapy
CPT/HCPCS: 36415; 71045; 74176; 80048; 80053; 81001; 82550; 82728; 82803; 83605; 83735; 84100; 84484; 85025; 85027; 85379; 85610; 85730; 86140; 87040; 87086; 87088; 87186; 87635; 87804; 93005; 93010; 94667; 94799; 96361; 96365; 99285; C9113; J0456; J0692; J0696; J3490; J7060; J7120

== ENCOUNTER 2019-12-11 02:30 | Emergency (ER) | payer MEDICARE ==
--- NOTE | 2019-12-11 05:35 | ER Document Report ---
ED Dizziness/Weakness - General Chief Complaint: General Weakness Stated Complaint: COUGH,WEAKNESS,VOMITING Time Seen by Provider: 12/11/19 05:15 Primary Care Provider: CARI FRASER MD [Primary Care Provider] - Follow up tomorrow Mode of Arrival: Medic Information source: Patient Notes: 79-year-old male presented to ED for complaint of coughing at home after he ate. He does have a history of Parkinson's disease and states he often coughs and then vomits after he eats. He states today he was not able to get his breath and then his O2 dropped so his son called 911 and sent him to the emergency room. He was on 3 L oxygen of oxygen when I went in and examined the patient. His oxygen has maintained at 96 since I removed his oxygen. We will monitor for 20 minutes and if it maintains we will discharge him home. TRAVEL OUTSIDE OF THE [place] IN LAST 30 DAYS: No - HPI Patient complains to provider of: Other - Coughing after he ate tonight and then vomited. He states he became very weak and his son called 911 and sent him to the emergency room. Onset: This evening Onset/Duration: Better Quality of pain: Achy Severity: Moderate Pain Level: 2 Context: Chronic dizziness Associated symptoms: Vomiting - After coughing when eating, Weak all over - States he is always weak all over but today after coughing he was a little more weak than normal he states he is back to his normal Baseline gait: Does not stand or walk - Related Data Allergies/Adverse Reactions: No Known Allergies Allergy (Verified 06/10/18 16:39) Past Medical History - General Information source: Patient - Social History Smoking Status: Former Smoker Frequency of alcohol use: Social Drug Abuse: None Lives with: Family Family History: Hypertension Patient has homicidal ideation: No - Past Medical History Cardiac Medical History: Reports: Hx Atrial Fibrillation, Hx Hypercholesterolemia, Hx Hypertension Pulmonary Medical History: Reports: None EENT Medical History: Reports: None Neurological Medical History: Reports: Hx Cerebrovascular Accident, Hx Parkinson's Disease Endocrine Medical History: Reports: Hx Hypothyroidism. Denies: Hx Diabetes Mellitus Type 1, Hx Diabetes Mellitus Type 2, Hx Hyperthyroidism Renal/ Medical History: Reports: None Malignancy Medical History: Reports None GI Medical History: Reports: None Musculoskeletal Medical History: Reports Hx Arthritis, Reports Hx Musculoskeleta l Deformity Skin Medical History: Reports None Psychiatric Medical History: Reports: Hx Depression Traumatic Medical History: Reports: None Infectious Medical History: Reports: None Past Surgical History: Reports: Hx Appendectomy - Immunizations Hx Pneumococcal Vaccination: 03/15/18 Review of Systems - Review of Systems Respiratory: Cough - After eating, Short of breath Gastrointestinal: No symptoms reported Genitourinary: No symptoms reported Male Genitourinary: No symptoms reported Musculoskeletal: Back pain - Chronic, Muscle pain - Chronic, Muscle stiffness - Chronic, Neck pain - Chronic Neurological/Psychological: Weakness - Chronic -: Yes All other systems reviewed and negative Physical Exam - Vital signs Vitals: Temp 99.3 F 12/11/19 02:31 Interpretation: Normal - General General appearance: Appears well, Alert - HEENT Head: Normocephalic, Atraumatic Eyes: Normal Pupils: PERRL - Respiratory Respiratory status: No respiratory distress Chest status: Nontender Breath sounds: Normal Chest palpation: Normal - Cardiovascular Rhythm: Other - Chronic A. fib Heart sounds: Normal auscultation Murmur: No - Abdominal Inspection: Normal Distension: No distension Bowel sounds: Normal Tenderness: Nontender Organomegaly: No organomegaly - Back Back: Tender - Chronic, Other - Kyphosis chronic - Extremities General upper extremity: Normal inspection, Nontender, Normal color, Normal ROM, Normal temperature General lower extremity: Normal inspection, Nontender, Normal color, Normal ROM, Normal temperature, Normal weight bearing. No: Herlinda's sign - Neurological Neuro grossly intact: Yes Cognition: Normal Orientation: AAOx4 [place] Coma Scale Eye Opening: Spontaneous Javier Coma Scale Verbal: Oriented [place] Coma Scale Motor: Obeys Commands Javier Coma Scale Total: 15 Speech: Normal Sensory: Normal Notes: Patient states he is at his normal neurological status at this time. He does have Parkinson and is always weak - Psychological Associated symptoms: Normal affect, Normal mood - Skin Skin Temperature: Warm Skin Moisture: Dry Skin Color: Normal Course - Re-evaluation Re-evalutation: 12/11/19 09:01 O2 has maintained at 96 to 99% since I first examined the patient. I did go and discuss this with the patient and he was discharged. Nurse states they have tried to call the son to come and pick the patient up but he is still in the room. - Vital Signs Vital signs: Temp Pulse Resp BP Pulse Ox 98.9 F 21 H 103/60 97 12/11/19 09:27 12/11/19 08:01 12/11/19 08:00 12/11/19 08:01 - Laboratory Result Diagrams: 12/11/19 03:00 12/11/19 03:00 Laboratory results interpreted by me: 12/11/19 12/11/19 03:00 03:00 WBC 14.7 H RDW 14.6 H Seg Neuts % (Manual) 87 H Band Neutrophils % 7 H Lymphocytes % (Manual) 1 L Abs Neuts (Manual) 13.8 H Abs Lymphs (Manual) 0.1 L Carbon Dioxide 32 H BUN 32 H Creatinine 1.37 H Est GFR (MDRD) Non-Af 50 L Glucose 129 H Alkaline Phosphatase 130 H Discharge - Discharge Clinical Impression: Chronic atrial fibrillation, Parkinsons disease Nausea & vomiting Qualifiers: Vomiting type: unspecified Vomiting Intractability: non-intractable Qualified Code(s): R11.2 - Nausea with vomiting, unspecified Disposition: HOME, SELF-CARE Additional Instructions: VOMITING: Vomiting (or nausea without vomiting) can be caused by many other different problems. It can mean that something's wrong with the stomach, such as ulcers or inflammation or the intestinal tract, such as appendicitis. But it can also be a symptom of a problem that has nothing to do with the stomach or intestines. Vomiting is common with severe headaches, earaches, tonsillitis, and kidney infections, etc. We see it with pneumonia or heart attacks. Drugs can cause nausea and vomiting. Many abdominal problems cause vomiting; for example, gallstones, kidney stones, pancreatitis, and intestinal obstruction (blocked bowels). In most cases, curing the vomiting depends on fixing the problem that caused it. For temporary relief, we may use an anti-nausea medicine. For home use, we can prescribe suppositories, chewable pills, pills that dissolve in the mouth, or liquid anti-nausea drugs. If the vomiting seems to be caused by a problem in the stomach, acid-suppressing drugs may be prescribed as well. It's important to avoid dehydration. Sip small amounts of clear liquids (soft drinks, tea, broth, etc) . Try to take fluids frequently even if you are vomiting to prevent dehydration. Take increasing amounts of fluid and when liquids are being consumed successfully, advance to small amounts of bland food (toast, soups, mashed potatoes, etc.) until you are able to resume a regular diet. Avoid aspirin, tobacco, and alcohol. If the vomiting worsens, if the problem that's making you vomit worsens, or if there's evidence of bleeding in the stomach (such as black, tarry stool, or bloody or black vomit), you should return immediately. Also, return if abdominal pain worsens or becomes localized to one area or you develop high fever. Call your doctor if you aren't improved in 24 hours. You state your weakness is the same as you always have with your Parkinson's.. You state you were short of breath at home but your O2 is maintaining at 97% with no oxygen. You have not had any chills or nausea or vomiting since you have been in the emergency room. INTRAVENOUS (I V) FLUIDS: As part of your care today, you received intravenous (IV) fluids. IV fluids are administered to patients who are dehydrated or to those who have certain chemical (electrolyte) abnormalities that need correcting. ANTINAUSEA MEDICATION: You have been given a medication to suppress nausea and vomiting. This type of medication can be given as a shot, pill, or suppository. It will usually last for many hours. Pills and shots usually last six to eight hours. For the typical illness, only one or two doses of the medication may be necessary. Mild lightheadedness may occur. This type of medicine can cause drowsines s. Do not drive or operate dangerous machinery while under its influence. Do not mix with alcohol. See your doctor at once if you have muscle spasms or tightness, or uncontrollable motions (particularly of the neck, mouth, or jaw). Persistent vomiting or severe lightheadedness should also be evaluated by the physician. FOLLOW-UP CARE: If you have been referred to a physician for follow-up care, call the physicians office for an appointment as you were instructed or within the next two days. If you experience worsening or a significant change in your symptoms, notify the physician immediately or return to the Emergency Department at any time for re-evaluation. Prescriptions: Ondansetron [Zofran Odt 4 mg Tablet] 1 tab PO Q6H #7 tab.rapdis Referrals: CARI FRASER MD [Primary Care Provider] - Follow up tomorrow
[2019-12-11 05:53] LABS: HEMATOCRIT 42.2 % (37.9-51.0); HEMOGLOBIN 14.3 g/dL (13.5-17.0); MEAN CORPUSCULAR HEMOGLOBIN 31.5 pg (27.0-33.4); MEAN CORPUSCULAR HGB CONC 33.9 g/dL (32.0-36.0); MEAN CORPUSCULAR VOLUME 93 fl (80-97); PLATELET COUNT 227 10^3/uL (150-450); RED BLOOD COUNT 4.54 10^6/uL (4.35-5.55); RED CELL DISTRIBUTION WIDTH 14.6 % (11.5-14.0); WHITE BLOOD COUNT 14.7 10^3/uL (4.0-10.5)
[2019-12-11 06:12] LABS: ABSOLUTE LYMPHOCYTES# (MANUAL) 0.1 10^3/uL (0.5-4.7); ABSOLUTE MONOCYTES # (MANUAL) 0.7 10^3/uL (0.1-1.4); ANISOCYTOSIS 1+; BAND NEUTROPHILS % (MANUAL) 7 % (3-5); BASOPHILS % (MANUAL) 0 % (0-2); EOSINOPHILS % (MANUAL) 0 % (0-6); LYMPHOCYTES % (MANUAL) 1 % (13-45); MONOCYTES % (MANUAL) 5 % (3-13); POLYCHROMASIA 1+; SEGMENTED NEUTROPHILS % (MAN) 87 % (42-78); TOTAL CELLS COUNTED 100
[2019-12-11 06:13] LABS: PLATELET COMMENT ADEQUATE
[2019-12-11 06:55] LABS: ALKALINE PHOSPHATASE 130 U/L (38-126); ANION GAP 6 (5-19); ASPARTATE AMINO TRANSFERASE 39 U/L (17-59); BILIRUBIN,DIRECT 0.1 mg/dL (0.0-0.4); BILIRUBIN,TOTAL 1.2 mg/dL (0.2-1.3); BLOOD UREA NITROGEN 32 mg/dL (7-20); CALCIUM 9.7 mg/dL (8.4-10.2); CARBON DIOXIDE 32 mmol/L (22-30); CHLORIDE 101 mmol/L (98-107); GLUCOSE 129 mg/dL (75-110); POTASSIUM 4.4 mmol/L (3.6-5.0); TOTAL PROTEIN 7.4 g/dL (6.3-8.2)
[2019-12-11 08:37] VITALS: BP 103/60
== END 2019-12-11 09:28 | disposition home or self-care (01) ==
LOC: ER 02:30
DX: I48.20 Chronic atrial fibrillation, unspecified (principal); G20 Parkinson's disease; R11.2 Nausea with vomiting, unspecified; R53.1 Weakness; R05 Cough; Z99.81 Dependence on supplemental oxygen; R42 Dizziness and giddiness; M79.10 Myalgia, unspecified site; Z87.891 Personal history of nicotine dependence; I10 Essential (primary) hypertension
CPT/HCPCS: 36415; 80053; 85025; 99283

== ENCOUNTER 2019-12-20 16:43 | Inpatient (IN) | payer MEDICARE ==
[2019-12-20 17:19] LABS: ABSOLUTE BASOPHILS # (AUTO) 0.1 10^3/uL (0.0-0.2); ABSOLUTE EOSINOPHILS # (AUTO) 0.2 10^3/uL (0.0-0.6); ABSOLUTE LYMPHOCYTES (AUTO) 1.1 10^3/uL (0.5-4.7); ABSOLUTE MONOCYTES (AUTO) 0.8 10^3/uL (0.1-1.4); ABSOLUTE NEUT (AUTO) 16.7 10^3/uL (1.7-8.2); BASOPHILS % (AUTO) 0.3 % (0-2); EOSINOPHILS % (AUTO) 1.1 % (0-6); HEMATOCRIT 42.2 % (37.9-51.0); HEMOGLOBIN 14.2 g/dL (13.5-17.0); LYMPHOCYTES % (AUTO) 5.7 % (13-45); MEAN CORPUSCULAR HEMOGLOBIN 31.5 pg (27.0-33.4); MEAN CORPUSCULAR HGB CONC 33.7 g/dL (32.0-36.0); MEAN CORPUSCULAR VOLUME 93 fl (80-97); MONOCYTES % (AUTO) 4.3 % (3-13); PLATELET COUNT 293 10^3/uL (150-450); RED BLOOD COUNT 4.53 10^6/uL (4.35-5.55); SEGMENTED NEUTROPHILS % (AUTO) 88.6 % (42-78); TOTAL CELLS COUNTED % (AUTO) 100 %; WHITE BLOOD COUNT 18.9 10^3/uL (4.0-10.5)
[2019-12-20] MEDS ORDERED: AZITHROMYCIN INJ 500 MG VIAL IV ONE (17:32)
[2019-12-20] MEDS ORDERED: CEFTRIAXONE INJ 1000 MG VIAL IV ONE (17:32)
--- NOTE | 2019-12-20 17:40 | ER Document Report ---
ED General - General Chief Complaint: Fever Stated Complaint: FEVER Time Seen by Provider: 12/20/19 17:07 Primary Care Provider: ALEX FRASER MD [Primary Care Provider] - Follow up as needed TRAVEL OUTSIDE OF THE [place] IN LAST 30 DAYS: No - HPI Notes: Chief complaint: Cough, myalgias, dyspnea and generalized weakness HPI: 79-year-old male patient of Dr. Alex Fraser presenting with sudden onset of multiple symptoms this afternoon including cough productive of yellow sputum, diffuse myalgias, dyspnea and generalized weakness. Patient is a non-smoker and denies any prior history of respiratory problems. EMS noted that he had an O2 saturation on room air of 86%. He was placed on nasal O2 2 L for transport here and is maintaining good saturation with this. He feels more comfortable on oxygen. He denies chest pain. He denies nausea vomiting. He denies any change in his sense of taste or smell. He states that he feels extremely fatigued. Patient denies any known exposure to COVID-19 virus but says that he travel to [facility] with family members last weekend. Patient has a history of Parkinsonism, hypertension and chronic atrial fibrillation. - Related Data Allergies/Adverse Reactions: No Known Allergies Allergy (Verified 06/10/18 16:39) Past Medical History - General Information source: Patient, Emergency Med Personnel, [facility] Records - Social History Smoking Status: Never Smoker Frequency of alcohol use: None Drug Abuse: None Lives with: Family Family History: Hypertension - Past Medical History Cardiac Medical History: Reports: Hx Atrial Fibrillation, Hx Hypercholesterolemia, Hx Hypertension Neurological Medical History: Reports: Hx Cerebrovascular Accident, Hx Park inson's Disease Endocrine Medical History: Reports: Hx Hypothyroidism. Denies: Hx Diabetes Mellitus Type 1, Hx Diabetes Mellitus Type 2, Hx Hyperthyroidism Musculoskeletal Medical History: Reports Hx Arthritis, Reports Hx Musculoskeletal Deformity Psychiatric Medical History: Reports: Hx Depression Past Surgical History: Reports: Hx Appendectomy - Immunizations Hx Pneumococcal Vaccination: 03/15/18 Review of Systems - Review of Systems Notes: Constitutional: Positive for fever. HENT: Negative for sore throat. Eyes: Negative for visual changes. Cardiovascular: Negative for chest pain. Respiratory: As per HPI. Gastrointestinal: Negative for abdominal pain, vomiting or diarrhea. Genitourinary: Negative for dysuria. Musculoskeletal: Diffuse myalgias. Skin: Negative for rash. Neurological: Negative for headaches. Chronic tremor related to parkinsonism. 10 point ROS negative except as marked above and in HPI. Physical Exam - Vital signs Vitals: Temp Resp BP Pulse Ox 98.5 F 25 H 132/86 H 95 12/20/19 16:44 12/20/19 16:44 12/20/19 16:44 12/20/19 16:44 - Notes Notes: GENERAL: Somewhat frail elderly male who appears chronically and acutely ill. SKIN: Mildly diaphoretic. Good turgor no rashes. HEAD: Normocephalic atraumatic. EYES: PERRLA. EOMI. Conjunctivae and sclerae clear. EARS: CANALS AND TMS CLEAR. NOSE: CLEAR. MOUTH: Moist mucosa. Good dentition. No stridor or edema. No drooling. NECK: Supple. No masses or thyromegaly. No adenopathy. Carotids 2+ without bruits. No JVD. BACK: Symmetrical without tenderness. CHEST: Respirations unlabored. Scattered rhonchi bilaterally. Slight rattling cough. HEART: Irregularly irregular rhythm. No murmur gallop or rub. ABDOMEN: Soft nontender without masses, organomegaly or rebound. Bowel sounds normally active. No bruits. GENITALIA: Deferred. EXTREMITIES: No edema. No calf tenderness. Cap refill less than 1.5 seconds. Dorsalis pedis and posterior tibial pulses 3+ and symmetrical. NEUROLOGICAL: Mild pill-rolling tremor of primarily right upper extremity. GCS 15. Alert and oriented x3. Fluent speech. Cranial nerves II through XII intact. Sensorimotor and cerebellar normal. Normal tone. PSYCHIATRIC: Flat affect. Course - Vital Signs Vital signs: Temp Pulse Resp BP Pulse Ox 98.5 F 19 125/83 99 12/20/19 17:19 12/20/19 17:01 12/20/19 17:01 12/20/19 17:21 - Laboratory Result Diagrams: 12/20/19 17:02 12/20/19 17:02 Laboratory results interpreted by me: 12/20/19 17:02 WBC 18.9 H RDW 15.0 H Lymph % (Auto) 5.7 L Absolute Neuts (auto) 16.7 H Seg Neutrophils % 88.6 H - Diagnostic Test Radiology results interpreted by me: 12/20/19 17:41 Bilateral patchy lower lobe infiltrates left more prominent than right. - EKG Interpretation by Me Additional EKG results interpreted by me: 12/20/19 17:41 Twelve-lead EKG from 1652 hrs. is reviewed contemporaneously by me demonstrating atrial fibrillation with a ventricular response of 69 bpm. QRS axis is +86 degrees. Intervals are normal. There are no acute ST/T wave changes and a tracing is substantially unchanged from prior study of September 28, 2019. Indication for current study: Atrial fibrillation. Discharge - Discharge Clinical Impression: Community-acquired pneumonia, Patient under investigation for COVID, Chronic atrial fibrillation, Parkinsonism Condition: Fair Disposition: ADMITTED INPATIENT Admitting Provider: Reji (Hospitalist) Unit Admitted: Telemetry Referrals: ALEX FRASER MD [Primary Care Provider] - Follow up as needed
--- NOTE | 2019-12-20 17:42 | RADIOLOGY REPORT (SQ) ---
EXAM DESCRIPTION: CHEST SINGLE VIEW IMAGES COMPLETED DATE/TIME: 12/20/2019 4:16 pm REASON FOR STUDY: shortness of breath COMPARISON: 09/28/2019 EXAM PARAMETERS: NUMBER OF VIEWS: One view. TECHNIQUE: Single frontal radiographic view of the chest acquired. RADIATION DOSE: NA LIMITATIONS: None. FINDINGS: LUNGS AND PLEURA: There is new consolidation in the left mid lung. No pleural effusion or pneumothorax. MEDIASTINUM AND HILAR STRUCTURES: No masses. Contour normal. HEART AND VASCULAR STRUCTURES: Heart normal in size. Normal vasculature. BONES: No acute findings. HARDWARE: None in the chest. OTHER: No other significant finding. IMPRESSION: Left lower lobe pneumonia. TECHNICAL DOCUMENTATION: JOB ID: [id number] 2010 [employer]- All Rights Reserved Reading location - IP/workstation name: [email or web address]
--- NOTE | 2019-12-20 18:12 | EKG REPORT ---
SEVERITY:- ABNORMAL ECG - ATRIAL FIBRILLATION, V-RATE 50-94 BORDERLINE RIGHT AXIS DEVIATION BORDERLINE T ABNORMALITIES, ANTERIOR LEADS : Confirmed by: Demarco Colon MD 20-Dec-2019 18:11:17
[2019-12-20] MEDS ORDERED: IPRATROPIUM/ALBUTEROL 0.5-2.5 MG/3 ML AMPUL NEB PRN (18:19)
[2019-12-20] MEDS ORDERED: ACETAMINOPHEN 325 MG TABLET PO PRN (18:19)
--- NOTE | 2019-12-20 18:34 | PDOC H&P ---
History of Present Illness Admission Date/PCP: CARI FRASER MD History of Present Illness: JIM QUIROZ is a 79 year old male with a history of atrial fibrillation, ischemic stroke, chronic kidney disease stage III, Parkinson's disease, and dysphagia who presents with shortness of breath. There was a report report earlier where he said he did not feel that great when he woke up this morning, but he told me that he felt fine until he ate lunch. He said as he was finishing up lunch he started having a really hard coughing spell. He said that he ate Ramen noodles for lunch. He could not stop coughing and they checked his oxygen level and it was low. At that point they called EMS. He lives at home with his son and his son's family. He was recently discharged from this hosp ital back in September for an aspiration pneumonia. He was at one point on a modified diet. He was to be on strict aspiration precautions at home. There was a report of a temperature of 100.5 Fahrenheit at home. He is afebrile here. He does have a leukocytosis. He has a left lower lobe infiltrate. I could not find in the chart anywhere, but apparently he was in [place] last week. There was no report of him being around anyone who has been sick. Past Medical History Cardiac Medical History: Reports: Atrial Fibrillation, Hyperlipidema, Hypertension Endocrine Medical History: Reports: Hypothyroidism Denies: Diabetes Mellitus Type 1, Diabetes Mellitus Type 2, Hyperthyroidism Musculoskeltal Medical History: Reports: Arthritis Psychiatric Medical History: Reports: Depression Hematology: Denies: Anemia, Bleeding Tendencies Past Surgical History Past Surgical History: Reports: Appendectomy Social History Lives with: Family Smoking Status: Never Smoker Frequency of Alcohol Use: Rare Hx Recreational Drug Use: No Drugs: None Hx Prescription Drug Abuse: No Family History Family History: Hypertension Parental Family History Reviewed: Yes Children Family History Reviewed: Yes Sibling(s) Family History Reviewed.: Yes Medication/Allergy Home Medications: Atorvastatin Calcium [Lipitor 40 mg Tablet] 40 mg PO QAM 01/14/19 Carbidopa/Levodopa [Sinemet 25-100 mg Tablet] 1 tab PO 5XD 01/14/19 Levothyroxine Sodium [Synthroid 0.075 mg Tablet] 0.075 mg PO Q6AM 01/14/19 Apixaban [Eliquis 5 mg Tablet] 5 mg PO BID tablet 08/25/19 Sertraline HCl 100 mg PO DAILY 12/20/19 Allergies/Adverse Reactions: No Known Allergies Allergy (Verified 06/10/18 16:39) Review of Systems All systems: reviewed and no additional remarkable complaints except as stated - All systems were reviewed and were negative except as noted in the HPI Physical Exam Vital Signs: Temp Pulse Resp BP Pulse Ox 98.5 F 19 125/83 99 12/20/19 17:19 12/20/19 17:01 12/20/19 17:01 12/20/19 17:21 Intake & Output 12/19/19 12/20/19 12/21/19 06:59 06:59 06:59 Weight 72.575 kg General appearance: PRESENT: no acute distress, cooperative, disheveled, thin Head exam: PRESENT: atraumatic, normocephalic Eye exam: PRESENT: EOMI, PERRLA. ABSENT: conjunctival injection, nystagmus, scleral icterus Ear exam: PRESENT: normal external ear exam Mouth exam: PRESENT: moist, neck supple Throat exam: ABSENT: post pharyngeal erythema Neck exam: PRESENT: full ROM. ABSENT: carotid bruit, JVD, lymphadenopathy, meningismus, tenderness, thyromegaly Respiratory exam: PRESENT: crackles - Left lower lobe, symmetrical, unlabored. ABSENT: accessory muscle use, chest wall tenderness, prolonged expiratory phas, rhonchi, tachypnea, wheezes Cardiovascular exam: PRESENT: irregular rhythm, +S1, +S2, other - Normal rate Pulses: PRESENT: normal carotid pulses Vascular exam: PRESENT: normal capillary refill GI/Abdominal exam: PRESENT: normal bowel sounds, soft. ABSENT: distended, guarding, rebound, tenderness Extremities exam: ABSENT: clubbing, pedal edema Musculoskeletal exam: PRESENT: normal inspection. ABSENT: deformity Neurological exam: PRESENT: alert, awake, oriented to person, oriented to place, oriented to situation, CN II-XII grossly intact, other - He lays down with his head all the way up from the bed with masklike facies. ABSENT: motor sensory deficit Psychiatric exam: PRESENT: flat affect Skin exam: PRESENT: dry, warm Results Laboratory Results: 12/20/19 17:02 12/20/19 17:02 12/20/19 12/20/19 17:02 17:02 WBC 18.9 H RBC 4.53 Hgb 14.2 Hct 42.2 MCV 93 MCH 31.5 MCHC 33.7 RDW 15.0 H Plt Count 293 Seg Neutrophils % 88.6 H Sodium Cancelled Potassium Cancelled Chloride Cancelled Carbon Dioxide Cancelled Anion Gap Cancelled BUN Cancelled Creatinine Cancelled Est GFR ( Amer) Cancelled Est GFR (Non-Af Amer) Cancelled Glucose Cancelled Calcium Cancelled Total Bilirubin Cancelled AST Cancelled Alkaline Phosphatase Cancelled Total Protein Cancelled Albumin Cancelled Impressions: Chest X-Ray 12/20/19 16:46 IMPRESSION: Left lower lobe pneumonia. Assessment and Plan - Diagnosis (1) Aspiration pneumonia Qualifiers: Aspiration pneumonia type: due to regurgitated food Laterality: left Lung location: lower lobe of lung Qualified Code(s): J69.0 - Pneumonitis due to inhalation of food and vomit Is this a current diagnosis for this admission?: Yes Plan: This patient is being tested for COVID but his presentation is much more highly suggestive of an aspiration pneumonia. He has a unilateral opacity with onset of symptoms while eating lunch. He received Rocephin and azithromycin in the ER. I am going to treat him with Unasyn. We will put him on aspiration precautions and keep the head of the bed propped up to 30 degrees at least. We are going to keep him on soft foods and nectar thickened liquids. (2) CKD (chronic kidney disease) stage 3, GFR 30-59 ml/min Is this a current diagnosis for this admission?: Yes Plan: Metabolic panel was canceled. We will follow this up in the morning. (3) Chronic anticoagulation Is this a current diagnosis for this admission?: Yes Plan: Continue Eliquis (4) Chronic atrial fibrillation Is this a current diagnosis for this admission?: Yes Plan: He is not on any home medications for rate control. Nothing needed at this t baldev. Will monitor on telemetry. (5) Hypothyroidism Qualifiers: Hypothyroidism type: other Qualified Code(s): E03.8 - Other specified hypothyroidism Is this a current diagnosis for this admission?: Yes Plan: Continue Synthroid (6) Parkinsons disease Is this a current diagnosis for this admission?: Yes Plan: Continue Sinemet (7) History of CVA (cerebrovascular accident) Is this a current diagnosis for this admission?: Yes Plan: We will continue statin in addition to his other medications (8) Acute hypoxemic respiratory failure Is this a current diagnosis for this admission?: Yes Plan: The nasal cannula was out of his nose and his SPO2 was 96%, so I think this is resolved. - Time Time Spent with patient: 35 or more minutes - Inpatient Certification Based on my medical assessment, after consideration of the patient's comorbidities, presenting symptoms, or acuity I expect that the services needed warrant INPATIENT care.: Yes I certify that my determination is in accordance with my understanding of Medicare's requirements for reasonable and necessary INPATIENT services [42 CFR 412.3e].: Yes Medical Necessity: Significant Comorbidiites Make Outpatient Treatment Too Risky, Need Close Monitoring Due to Risk of Patient Decompensation, Need For Continuous Telemetry Monitoring, Need for IV Antibiotics, Risk of Complication if Not Cared For in Hospital
[2019-12-20 19:39] LABS: ALBUMIN 3.9 g/dL (3.5-5.0); ALKALINE PHOSPHATASE 82 U/L (38-126); ANION GAP 8 (5-19); ASPARTATE AMINO TRANSFERASE 28 U/L (17-59); BILIRUBIN,TOTAL 1.6 mg/dL (0.2-1.3); BLOOD UREA NITROGEN 30 mg/dL (7-20); CALCIUM 8.9 mg/dL (8.4-10.2); CARBON DIOXIDE 27 mmol/L (22-30); CHLORIDE 101 mmol/L (98-107); GLUCOSE 141 mg/dL (75-110); POTASSIUM 3.7 mmol/L (3.6-5.0); TOTAL PROTEIN 7.1 g/dL (6.3-8.2)
[2019-12-20] MEDS: CARBIDOPA/LEVODOPA 25-100 MG TABLET PO SCH (19:48)
[2019-12-20] MEDS ORDERED: RINGERS SOLUTION,LACTATED 1,000 ML IV ONE (20:20)
[2019-12-20] MEDS ORDERED: RINGERS SOLUTION,LACTATED 1,000 ML IV PRN ×2 (20:22→20:23)
[2019-12-20 21:42] LABS: ARTERIAL BLOOD BASE EXCESS 2.3 mmol/L; ARTERIAL BLOOD FIO2 ROOM AIR; ARTERIAL BLOOD H2CO3 1.44 mmol/L (1.05-1.35); ARTERIAL BLOOD PCO2 47.8 mmHg (35-45); ARTERIAL BLOOD PH 7.39 (7.35-7.45); ARTERIAL BLOOD TOTAL CO2 29.4 mmol/L (23-27)
[2019-12-20 21:43] LABS: ARTERIAL BLOOD PO2 16.7 mmHg (80-100)
[2019-12-20] MEDS: ATORVASTATIN CALCIUM 40 MG TABLET PO SCH (22:53)
[2019-12-20] MEDS: AMPICILLIN SODIUM/SULBACTAM NA 3 GM in NORMAL SALINE 100 ML IV SCH (23:07)
[2019-12-20 23:36] LABS: APPEARANCE,URINE CLEAR; BILIRUBIN,URINE NEGATIVE (NEGATIVE); COLOR,URINE YELLOW; GLUCOSE, URINE NEGATIVE (NEGATIVE); KETONES,URINE TRACE mg/dL (NEGATIVE); LEUKOCYTE ESTERASE,URINE NEGATIVE (NEGATIVE); NITRITE,URINE NEGATIVE (NEGATIVE); PROTEIN,URINE NEGATIVE (NEGATIVE); URINE SPECIFIC GRAVITY 1.017; UROBILINOGEN,URINE NEGATIVE mg/dL (<2.0)
[2019-12-21] MEDS: AMPICILLIN SODIUM/SULBACTAM NA 3 GM in NORMAL SALINE 100 ML IV SCH ×3 (05:12→18:09)
[2019-12-21] MEDS: CARBIDOPA/LEVODOPA 25-100 MG TABLET PO SCH ×5 (06:05→18:09)
[2019-12-21] MEDS: LEVOTHYROXINE SODIUM 0.075 MG TABLET PO SCH (06:05)
[2019-12-21 07:04] LABS: HEMATOCRIT 36.1 % (37.9-51.0); HEMOGLOBIN 12.6 g/dL (13.5-17.0); MEAN CORPUSCULAR HEMOGLOBIN 31.8 pg (27.0-33.4); MEAN CORPUSCULAR HGB CONC 34.8 g/dL (32.0-36.0); MEAN CORPUSCULAR VOLUME 91 fl (80-97); PLATELET COUNT 244 10^3/uL (150-450); RED BLOOD COUNT 3.96 10^6/uL (4.35-5.55); RED CELL DISTRIBUTION WIDTH 14.7 % (11.5-14.0); WHITE BLOOD COUNT 12.8 10^3/uL (4.0-10.5)
[2019-12-21 07:27] LABS: ANION GAP 7 (5-19); BLOOD UREA NITROGEN 26 mg/dL (7-20); CALCIUM 9.2 mg/dL (8.4-10.2); CARBON DIOXIDE 29 mmol/L (22-30); CHLORIDE 102 mmol/L (98-107); GLUCOSE 97 mg/dL (75-110); POTASSIUM 4.2 mmol/L (3.6-5.0)
[2019-12-21] MEDS: APIXABAN 5 MG TABLET PO SCH ×2 (09:07→18:09)
[2019-12-21] MEDS: SERTRALINE HCL 50 MG TABLET PO SCH (09:07)
--- NOTE | 2019-12-21 15:42 | PDOC PROGRESS REPORT ---
Subjective Progress Note for:: 12/21/19 Subjective:: No adverse events overnight. No new complaints. Vital signs been stable. He is on room air now. No fevers. Said he feels pretty good. Reason For Visit: SEPSIS, ASPIRATION PNEUMONIA Physical Exam Vital Signs: Temp Pulse Resp BP Pulse Ox 97.7 F 53 L 20 116/58 L 95 12/21/19 11:00 12/21/19 11:00 12/21/19 11:00 12/21/19 11:00 12/21/19 11:00 Intake & Output 12/20/19 12/21/19 12/22/19 06:59 06:59 06:59 Intake Total 1640 Balance 1640 Weight 74 kg General appearance: PRESENT: no acute distress, cooperative, disheveled Respiratory exam: PRESENT: clear to auscultation emil, symmetrical, unlabored. ABSENT: accessory muscle use, chest wall tenderness, crackles, prolonged expira tory phas, rhonchi, tachypnea, wheezes Cardiovascular exam: PRESENT: RRR, +S1, +S2 Pulses: PRESENT: normal carotid pulses Vascular exam: PRESENT: normal capillary refill GI/Abdominal exam: PRESENT: normal bowel sounds, soft. ABSENT: distended, guarding, rebound, tenderness Extremities exam: ABSENT: clubbing, pedal edema Musculoskeletal exam: PRESENT: normal inspection. ABSENT: deformity Neurological exam: PRESENT: alert, awake, oriented to person, oriented to place, oriented to situation Psychiatric exam: PRESENT: appropriate affect, normal mood Skin exam: PRESENT: dry, warm Results Laboratory Results: 12/21/19 05:46 12/21/19 05:46 12/20/19 12/20/19 12/20/19 17:02 17:02 17:02 WBC 18.9 H RBC 4.53 Hgb 14.2 Hct 42.2 MCV 93 MCH 31.5 MCHC 33.7 RDW 15.0 H Plt Count 293 Seg Neutrophils % 88.6 H Carbonic Acid HCO3/H2CO3 Ratio ABG pH ABG pCO2 ABG pO2 ABG HCO3 ABG O2 Saturation ABG Base Excess FiO2 Sodium Cancelled Potassium Cancelled Chloride Cancelled Carbon Dioxide Cancelled Anion Gap Cancelled BUN Cancelled Creatinine Cancelled Est GFR ( Amer) Cancelled Est GFR (Non-Af Amer) Cancelled Glucose Cancelled Lactic Acid 2.8 H Calcium Cancelled Total Bilirubin Cancelled AST Cancelled Alkaline Phosphatase Cancelled Total Protein Cancelled Albumin Cancelled Urine Color Urine Appearance Urine pH Ur Specific [place] Urine Protein Urine Glucose (UA) Urine Ketones Urine Blood Urine Nitrite Ur Leukocyte Esterase Urine WBC (Auto) 12/20/19 12/20/19 12/20/19 19:01 19:01 20:17 WBC RBC Hgb Hct MCV MCH MCHC RDW Plt Count Seg Neutrophils % Carbonic Acid Cancelled HCO3/H2CO3 Ratio Cancelled ABG pH Cancelled ABG pCO2 Cancelled ABG pO2 Cancelled ABG HCO3 Cancelled ABG O2 Saturation Cancelled ABG Base Excess Cancelled FiO2 Cancelled Sodium 136.0 L Potassium 3.7 Chloride 101 Carbon Dioxide 27 Anion Gap 8 BUN 30 H Creatinine 1.35 H Est GFR ( Amer) > 60 Est GFR (Non-Af Amer) Glucose 141 H Lactic Acid 1.3 Calcium 8.9 Total Bilirubin 1.6 H AST 28 Alkaline Phosphatase 82 Total Protein 7.1 Albumin 3.9 Urine Color Urine Appearance Urine pH Ur Specific [place] Urine Protein Urine Glucose (UA) Urine Ketones Urine Blood Urine Nitrite Ur Leukocyte Esterase Urine WBC (Auto) 12/20/19 12/20/19 12/20/19 20:35 23:04 23:19 WBC RBC Hgb Hct MCV MCH MCHC RDW Plt Count Seg Neutrophils % Carbonic Acid 1.44 H HCO3/H2CO3 Ratio 19:1 ABG pH 7.39 ABG pCO2 47.8 H ABG pO2 16.7 L* ABG HCO3 28.0 H ABG O2 Saturation 23.0 L ABG Base Excess 2.3 FiO2 ROOM AIR Sodium Potassium Chloride Carbon Dioxide Anion Gap BUN Creatinine Est GFR ( Amer) Est GFR (Non-Af Amer) Glucose Lactic Acid 1.5 Calcium Total Bilirubin AST Alkaline Phosphatase Total Protein Albumin Urine Color YELLOW Urine Appearance CLEAR Urine pH 5.0 Ur Specific [place] 1.017 Urine Protein NEGATIVE Urine Glucose (UA) NEGATIVE Urine Ketones TRACE H Urine Blood NEGATIVE Urine Nitrite NEGATIVE Ur Leukocyte Esterase NEGATIVE Urine WBC (Auto) 0 12/21/19 12/21/19 05:46 05:46 WBC 12.8 H RBC 3.96 L Hgb 12.6 L Hct 36.1 L MCV 91 MCH 31.8 MCHC 34.8 RDW 14.7 H Plt Count 244 Seg Neutrophils % Carbonic Acid HCO3/H2CO3 Ratio ABG pH ABG pCO2 ABG pO2 ABG HCO3 ABG O2 Saturation ABG Base Excess FiO2 Sodium 137.6 Potassium 4.2 Chloride 102 Carbon Dioxide 29 Anion Gap 7 BUN 26 H Creatinine 1.31 H Est GFR ( Amer) > 60 Est GFR (Non-Af Amer) Glucose 97 Lactic Acid Calcium 9.2 Total Bilirubin AST Alkaline Phosphatase Total Protein Albumin Urine Color Urine Appearance Urine pH Ur Specific [place] Urine Protein Urine Glucose (UA) Urine Ketones Urine Blood Urine Nitrite Ur Leukocyte Esterase Urine WBC (Auto) Impressions: Chest X-Ray 12/20/19 16:46 IMPRESSION: Left lower lobe pneumonia. Assessment and Plan - Diagnosis (1) Aspiration pneumonia Qualifiers: Aspiration pneumonia type: due to regurgitated food Laterality: left Lung location: lower lobe of lung Qualified Code(s): J69.0 - Pneumonitis due to inhalation of food and vomit Is this a current diagnosis for this admission?: Yes Plan: Doing well on Zosyn. Can probably transition to Augmentin and discharge home tomorrow. (2) CKD (chronic kidney disease) stage 3, GFR 30-59 ml/min Is this a current diagnosis for this admission?: Yes Plan: Stable and at baseline (3) Chronic anticoagulation Is this a current diagnosis for this admission?: Yes Plan: Continue Eliquis (4) Chronic atrial fibrillation Is this a current diagnosis for this admission?: Yes Plan: He is not on any home medications for rate control. Nothing needed at this time. Will monitor on telemetry. (5) Hypothyroidism Qualifiers: Hypothyroidism type: other Qualified Code(s): E03.8 - Other specified hypothyroidism Is this a current diagnosis for this admission?: Yes Plan: Continue Synthroid (6) Parkinsons disease Is this a current diagnosis for this admission?: Yes Plan: Continue Sinemet (7) History of CVA (cerebrovascular accident) Is this a current diagnosis for this admission?: Yes Plan: We will continue statin in addition to his other medications (8) Acute hypoxemic respiratory failure Is this a current diagnosis for this admission?: Yes Plan: Resolved - Time Time Spent with patient: 15-24 minutes
[2019-12-21] MEDS: ATORVASTATIN CALCIUM 40 MG TABLET PO SCH (22:36)
[2019-12-22] MEDS: AMPICILLIN SODIUM/SULBACTAM NA 3 GM in NORMAL SALINE 100 ML IV SCH ×2 (00:02→06:23)
[2019-12-22 05:12] LABS: HEMATOCRIT 35.7 % (37.9-51.0); HEMOGLOBIN 12.5 g/dL (13.5-17.0); MEAN CORPUSCULAR HEMOGLOBIN 31.9 pg (27.0-33.4); MEAN CORPUSCULAR HGB CONC 34.9 g/dL (32.0-36.0); MEAN CORPUSCULAR VOLUME 92 fl (80-97); PLATELET COUNT 247 10^3/uL (150-450); RED BLOOD COUNT 3.91 10^6/uL (4.35-5.55); RED CELL DISTRIBUTION WIDTH 14.8 % (11.5-14.0); WHITE BLOOD COUNT 8.7 10^3/uL (4.0-10.5)
[2019-12-22 05:39] LABS: ANION GAP 6 (5-19); BLOOD UREA NITROGEN 29 mg/dL (7-20); CALCIUM 9.1 mg/dL (8.4-10.2); CARBON DIOXIDE 28 mmol/L (22-30); CHLORIDE 104 mmol/L (98-107); GLUCOSE 91 mg/dL (75-110); POTASSIUM 4.7 mmol/L (3.6-5.0)
[2019-12-22] MEDS: CARBIDOPA/LEVODOPA 25-100 MG TABLET PO SCH ×5 (06:25→18:07)
[2019-12-22] MEDS: LEVOTHYROXINE SODIUM 0.075 MG TABLET PO SCH (06:25)
[2019-12-22] MEDS ORDERED: AMOXICILLIN TR/POT CLAVULANATE 875-125 MG TAB PO SCH (10:00)
[2019-12-22] MEDS: SERTRALINE HCL 50 MG TABLET PO SCH (10:05)
[2019-12-22] MEDS: APIXABAN 5 MG TABLET PO SCH ×2 (10:06→18:07)
[2019-12-22 17:40] VITALS: BP 143/80
--- NOTE | 2019-12-24 12:22 | PDOC DISCHARGE SUMMARY ---
Impression - Admit/DC Date/PCP Admission Date/Primary Care Provider: 12/20/19 18:39 CARI FRASER MD Discharge Date: 12/22/19 - Discharge Diagnosis (1) Acute hypoxemic respiratory failure Is this a current diagnosis for this admission?: Yes (2) Aspiration pneumonia Is this a current diagnosis for this admission?: Yes (3) CKD (chronic kidney disease) stage 3, GFR 30-59 ml/min Is this a current diagnosis for this admission?: Yes (4) Chronic anticoagulation Is this a current diagnosis for this admission?: Yes (5) Chronic atrial fibrillation Is this a current diagnosis for this admission?: Yes (6) History of CVA (cerebrovascular accident) Is this a current diagnosis for this admission?: Yes (7) Hypothyroidism Is this a current diagnosis for this admission?: Yes (8) Parkinsons disease Is this a current diagnosis for this admission?: Yes - Additional Information Discharge Diet: Cardiac Discharge Activity: Activity As Tolerated, Balance Activity w/Rest, Supervised Activity Referrals: CARI FRASER MD [Primary Care Provider] - 01/03/20 10:30 am (Follow up within 1 week.) Prescriptions: Amoxicillin/Potassium Clav [Augmentin 875-125 Tablet] 1 tab PO Q12 #20 tablet Home Medications: Atorvastatin Calcium [Lipitor 40 mg Tablet] 40 mg PO QAM 01/14/19 Carbidopa/Levodopa [Sinemet 25-100 mg Tablet] 1 tab PO 5XD 01/14/19 Levothyroxine Sodium [Synthroid 0.075 mg Tablet] 0.075 mg PO Q6AM 01/14/19 Apixaban [Eliquis 5 mg Tablet] 5 mg PO BID tablet 08/25/19 Sertraline HCl 100 mg PO DAILY 12/20/19 Acetaminophen [Tylenol 325 mg Tablet] 650 mg PO Q4HP PRN tablet 12/22/19 Amoxicillin/Potassium Clav [Augmentin 875-125 Tablet] 1 tab PO Q12 #20 tablet 12/22/19 History of Present Illiness History of Present Illness: Per H&P by Dr. Mendoza: JIM QUIROZ is a 79 year old male with a history of atrial fibrillation, ischemic stroke, chronic kidney disease stage III, Parkinson's disease, and dysphagia who presents with shortness of breath. There was a report report earlier where he said he did not feel that great when he woke up this morning, but he told me that he felt fine until he ate lunch. He said as he was finishing up lunch he started having a really hard coughing spell. He said that he ate Ramen noodles for lunch. He could not stop coughing and they checked his oxygen level and it was low. At that point they called EMS. He lives at home with his son and his son's family. He was recently discharged from this hospital back in September for an aspiration pneumonia. He was at one point on a modified diet. He was to be on strict aspiration precautions at home. There was a report of a temperature of 100.5 Fahrenheit at home. He is afebrile here. He does have a leukocytosis. He has a left lower lobe infiltrate. I could not find in the chart anywhere, but apparently he was in [place] last week. There was no report of him being around anyone who has been sick. Hospital Course Hospital Course: The patient was admitted to the medical floor on continuous cardiac telemetry. Due to aspiration pneumonia, he was empirically placed on IV Zosyn; transitioned to Augmentin at discharge to complete 10-day course of therapy. The patient's acute respiratory failure with hypoxia rapidly resolved and he is now maintaining oxygen saturations while ambulatory on room air. His other chronic medical conditions remained stable during his admission. Notably, patient's COVID-19 testing is negative. Blood culture (1/4 bottles) grew Staphylococcus species; identification and sensitivity still pending. Repeat blood cultures remain negative at 48 hours. Discharge planning discussed with the patient and family members; family is interested in SNF placement. Patient does not qualify for short-term rehab. Advised that they speak with the patient's PCP about beginning the process for long-term care at an [facility]. They are agreeable to home health services. Patient is discharged home with home health nursing, PT/OT/aide and social worker assistant. He is advised to follow-up with his PCP within 1 week. Complete his full course of antibiotic therapy. Resume his soft diet with thickened liquids. Utilize aspiration precautions at home; eat sitting straight up with supervision, slow small bites, do not lie down for 30 to 45 minutes following meals. Take medications as prescribed. Return to the emergency department as needed for concerning symptoms. Physical Exam Vital Signs: Temp Pulse Resp BP Pulse Ox 97.7 F 57 L 16 143/80 H 96 12/22/19 16:55 12/22/19 16:55 12/22/19 16:55 12/22/19 16:55 12/22/19 16:55 Intake & Output 12/23/19 12/24/19 12/25/19 06:59 06:59 06:59 Intake Total 336 Output Total 150 Balance 186 General appearance: PRESENT: no acute distress, cooperative, well-developed, well-nourished Head exam: PRESENT: atraumatic, normocephalic Eye exam: PRESENT: conjunctiva pink, EOMI, PERRLA. ABSENT: scleral icterus Mouth exam: PRESENT: moist, tongue midline Respiratory exam: PRESENT: clear to auscultation emil. ABSENT: rales, rhonchi, wheezes Cardiovascular exam: PRESENT: RRR. ABSENT: diastolic murmur, rubs, systolic murmur Pulses: PRESENT: normal dorsalis pedis pul Vascular exam: PRESENT: normal capillary refill GI/Abdominal exam: PRESENT: normal bowel sounds, soft. ABSENT: distended, guarding, mass, organolmegaly, rebound, tenderness Rectal exam: PRESENT: deferred Extremities exam: PRESENT: full ROM. ABSENT: calf tenderness, clubbing, pedal edema Neurological exam: PRESENT: alert, awake, oriented to person, oriented to place, oriented to time, oriented to situation, CN II-XII grossly intact. ABSENT: motor sensory deficit Psychiatric exam: PRESENT: appropriate affect, normal mood. ABSENT: homicidal ideation, suicidal ideation Skin exam: PRESENT: dry, intact, warm. ABSENT: cyanosis, rash Results Laboratory Results: WBC 8.7 10^3/uL (4.0-10.5) 12/22/19 04:21 RBC 3.91 10^6/uL (4.35-5.55) L 12/22/19 04:21 Hgb 12.5 g/dL (13.5-17.0) L 12/22/19 04:21 Hct 35.7 % (37.9-51.0) L 12/22/19 04:21 MCV 92 fl (80-97) 12/22/19 04:21 MCH 31.9 pg (27.0-33.4) 12/22/19 04:21 MCHC 34.9 g/dL (32.0-36.0) 12/22/19 04:21 RDW 14.8 % (11.5-14.0) H 12/22/19 04:21 Plt Count 247 10^3/uL (150-450) 12/22/19 04:21 Lymph % (Auto) 5.7 % (13-45) L 12/20/19 17:02 Gregory % (Auto) 4.3 % (3-13) 12/20/19 17:02 Eos % (Auto) 1.1 % (0-6) 12/20/19 17:02 Baso % (Auto) 0.3 % (0-2) 12/20/19 17:02 Absolute Neuts (auto) 16.7 10^3/uL (1.7-8.2) H 12/20/19 17:02 Absolute Lymphs (auto) 1.1 10^3/uL (0.5-4.7) 12/20/19 17:02 Absolute Monos (auto) 0.8 10^3/uL (0.1-1.4) 12/20/19 17:02 Absolute Eos (auto) 0.2 10^3/uL (0.0-0.6) 12/20/19 17:02 Absolute Basos (auto) 0.1 10^3/uL (0.0-0.2) 12/20/19 17:02 Seg Neutrophils % 88.6 % (42-78) H 12/20/19 17:02 Carbonic Acid 1.44 mmol/L (1.05-1.35) H 12/20/19 20:35 HCO3/H2CO3 Ratio 19:1 12/20/19 20:35 ABG pH 7.39 (7.35-7.45) 12/20/19 20:35 ABG pCO2 47.8 mmHg (35-45) H 12/20/19 20:35 ABG pO2 16.7 mmHg (80-100) L* 12/20/19 20:35 ABG HCO3 28.0 mmol/L (20-24) H 12/20/19 20:35 ABG Total CO2 29.4 mmol/L (23-27) H 12/20/19 20:35 ABG O2 Saturation 23.0 % (94-98) L 12/20/19 20:35 ABG Base Excess 2.3 mmol/L 12/20/19 20:35 FiO2 ROOM AIR 12/20/19 20:35 Sodium 137.8 mmol/L (137-145) 12/22/19 04:21 Potassium 4.7 mmol/L (3.6-5.0) 12/22/19 04:21 Chloride 104 mmol/L (98-107) 12/22/19 04:21 Carbon Dioxide 28 mmol/L (22-30) 12/22/19 04:21 Anion Gap 6 (5-19) 12/22/19 04:21 BUN 29 mg/dL (7-20) H 12/22/19 04:21 Creatinine 1.62 mg/dL (0.52-1.25) H 12/22/19 04:21 Est GFR ( Amer) 50 (>60) L 12/22/19 04:21 Est GFR (Non-Af Amer) Cancelled 12/20/19 17:02 Est GFR (MDRD) Non-Af 42 (>60) L 12/22/19 04:21 Glucose 91 mg/dL (75-110) 12/22/19 04:21 POC Glucose 89 mg/dL (70-110) 12/21/19 07:42 Lactic Acid 1.5 mmol/L (0.7-2.1) 12/20/19 23:04 Calcium 9.1 mg/dL (8.4-10.2) 12/22/19 04:21 Total Bilirubin 1.6 mg/dL (0.2-1.3) H 12/20/19 19:01 Direct Bilirubin 0.0 mg/dL (0.0-0.4) 12/20/19 19:01 Neonat Total Bilirubin Not Reportable 12/20/19 19:01 Neonat Direct Bilirubin Not Reportable 12/20/19 19:01 Neonat Indirect Bili Not Reportable 12/20/19 19:01 AST 28 U/L (17-59) 12/20/19 19:01 ALT 6 U/L (<50) 12/20/19 19:01 Alkaline Phosphatase 82 U/L (38-126) 12/20/19 19:01 Total Protein 7.1 g/dL (6.3-8.2) 12/20/19 19:01 Albumin 3.9 g/dL (3.5-5.0) 12/20/19 19:01 EGFR Cancelled 12/20/19 17:02 Urine Color YELLOW 12/20/19 23:19 Urine Appearance CLEAR 12/20/19 23:19 Urine pH 5.0 (5.0-9.0) 12/20/19 23:19 Ur Specific Burke 1.017 12/20/19 23:19 Urine Protein NEGATIVE mg/dL (NEGATIVE) 12/20/19 23:19 Urine Glucose (UA) NEGATIVE mg/dL (NEGATIVE) 12/20/19 23:19 Urine Ketones TRACE mg/dL (NEGATIVE) H 12/20/19 23:19 Urine Blood NEGATIVE (NEGATIVE) 12/20/19 23:19 Urine Nitrite NEGATIVE (NEGATIVE) 12/20/19 23:19 Urine Bilirubin NEGATIVE (NEGATIVE) 12/20/19 23:19 Urine Urobilinogen NEGATIVE mg/dL (<2.0) 12/20/19 23:19 Ur Leukocyte Esterase NEGATIVE (NEGATIVE) 12/20/19 23:19 Urine WBC (Auto) 0 /HPF 12/20/19 23:19 U Hyaline Cast (Auto) 1 /LPF 12/20/19 23:19 Urine Ascorbic Acid 20 (NEGATIVE) H 12/20/19 23:19 COVID-19 Source NASOPHARYNGEAL 12/20/19 17:33 COVID-19 (KELVIN) NOT DETECTED 12/20/19 17:33 Impressions: Chest X-Ray 12/20/19 16:46 IMPRESSION: Left lower lobe pneumonia. Stroke Is this a Stroke Patient?: No Acute Heart Failure - Is this a Heart Failure Patient?: No
== END 2019-12-22 18:45 | disposition home health service (06) | DRG 177 ==
LOC: ER 16:43 → EH 18:39 → 3N 22:42
PROVIDERS: ADMIT Family Medicine; ATTEND Registered Nurse
DX: J69.0 Pneumonitis due to inhalation of food and vomit (principal); J96.01 Acute respiratory failure with hypoxia; I48.20 Chronic atrial fibrillation, unspecified; N18.3 Chronic kidney disease, stage 3 (moderate); G20 Parkinson's disease; R13.10 Dysphagia, unspecified; Z20.828 Contact with and (suspected) exposure to other viral communicable diseases; M19.90 Unspecified osteoarthritis, unspecified site; E03.9 Hypothyroidism, unspecified; E78.5 Hyperlipidemia, unspecified; F32.9 Major depressive disorder, single episode, unspecified; Z86.73 Personal history of transient ischemic attack (TIA), and cerebral infarction without residual deficits; Z90.49 Acquired absence of other specified parts of digestive tract; Z79.01 Long term (current) use of anticoagulants; Z79.899 Other long term (current) drug therapy; Z82.49 Family history of ischemic heart disease and other diseases of the circulatory system
CPT/HCPCS: 36415; 71045; 80048; 80053; 81001; 82803; 82962; 83605; 85025; 85027; 87040; 87077; 87150; 87186; 87635; 93005; 93010; 96365; 99285; C9803; J0295; J0456; J0696; J3490; J7050; J7120

== ENCOUNTER 2020-03-25 00:18 | Emergency (ER) | payer MEDICARE ==
[2020-03-25] MEDS ORDERED: ONDANSETRON HCL INJ/PF 4 MG/2 ML SDV IV ONE (00:55)
[2020-03-25 01:01] LABS: ABSOLUTE BASOPHILS # (AUTO) 0.1 10^3/uL (0.0-0.2); ABSOLUTE EOSINOPHILS # (AUTO) 0.4 10^3/uL (0.0-0.6); ABSOLUTE MONOCYTES (AUTO) 0.8 10^3/uL (0.1-1.4); ABSOLUTE NEUT (AUTO) 13.4 10^3/uL (1.7-8.2); BASOPHILS % (AUTO) 0.3 % (0-2); EOSINOPHILS % (AUTO) 2.4 % (0-6); HEMOGLOBIN 14.3 g/dL (13.5-17.0); LYMPHOCYTES % (AUTO) 6.4 % (13-45); MEAN CORPUSCULAR VOLUME 91 fl (80-97); MONOCYTES % (AUTO) 5.2 % (3-13); PLATELET COUNT 204 10^3/uL (150-450); RED BLOOD COUNT 4.61 10^6/uL (4.35-5.55); SEGMENTED NEUTROPHILS % (AUTO) 85.7 % (42-78); TOTAL CELLS COUNTED % (AUTO) 100 %; WHITE BLOOD COUNT 15.6 10^3/uL (4.0-10.5)
--- NOTE | 2020-03-25 01:02 | ER Document Report ---
ED General - General Chief Complaint: Shortness Of Breath Stated Complaint: SHORTNESS OF BREATH,NAUSEATED Time Seen by Provider: 03/25/20 00:48 Primary Care Provider: CARI FRASER MD [Primary Care Provider] - 03/26/20 Notes: Patient is a 79 year old male that comes to the emergency department for chief complaint of some intermittent nausea and shortness of breath. Patient states this is not new for him, he states that he felt worse before he came in now hence he feels much better. He denies cough, chest pain, dizziness, abdominal pain, flank pain. Patient states that 2 days ago he was tested for COVID-19 bec ause he is trying to get into an assisted living facility and his test is already back and negative. Patient states that he just feels very thirsty and somewhat hungry at this time. Past medical history includes Parkinson's, atrial fibrillation, CVA, type 2 diabetes, anxiety/depression. TRAVEL OUTSIDE OF THE [place] IN LAST 30 DAYS: No - Related Data Allergies/Adverse Reactions: No Known Allergies Allergy (Verified 03/25/20 00:34) Past Medical History - General Information source: Patient - Social History Smoking Status: Former Smoker Frequency of alcohol use: Occasional Drug Abuse: None Lives with: Family - Son Family History: Hypertension Patient has homicidal ideation: No - Past Medical History Cardiac Medical History: Reports: Hx Atrial Fibrillation, Hx Hypercholesterolemia, Hx Hypertension Neurological Medical History: Reports: Hx Cerebrovascular Accident, Hx Parkinson's Disease Endocrine Medical History: Reports: Hx Hypothyroidism. Denies: Hx Diabetes Mellitus Type 1, Hx Diabetes Mellitus Type 2, Hx Hyperthyroidism Musculoskeletal Medical History: Reports Hx Arthritis, Reports Hx Musculoskeletal Deformity Psychiatric Medical History: Reports: Hx Depression Past Surgical History: Reports: Hx Appendectomy - Immunizations Hx Pneumococcal Vaccination: 03/15/18 Review of Systems - Review of Systems Constitutional: No symptoms reported EENT: No symptoms reported Cardiovascular: No symptoms reported Respiratory: See HPI Gastrointestinal: See HPI Genitourinary: No symptoms reported Male Genitourinary: No symptoms reported Musculoskeletal: No symptoms reported Skin: No symptoms reported Hematologic/Lymphatic: No symptoms reported Neurological/Psychological: No symptoms reported Physical Exam - Vital signs Vitals: Temp Pulse Resp BP Pulse Ox 98 F 83 22 H 104/85 94 03/25/20 00:21 03/25/20 00:21 03/25/20 00:21 03/25/20 00:21 03/25/20 00:21 - Notes Notes: GENERAL: Slightly disheveled, however he is talkative and well-appearing otherwise HEAD: Normocephalic, atraumatic. EYES: Pupils equal, round, and reactive to light. Extraocular movements intact. ENT: Oral mucosa moist, tongue midline. Oropharynx unremarkable. Airway patent. NECK: Full range of motion. Supple. Trachea midline. No lymphadenopathy. LUNGS: Clear to auscultation bilaterally, no wheezes, rales, or rhonchi. No respiratory distress. Non-tender chest wall. HEART: Irregularly irregular, no tachycardia, no murmur ABDOMEN: Soft, non-tender. Non-distended. EXTREMITIES: Moves all 4 extremities spontaneously. No edema, normal radial and dorsalis pedis pulses bilaterally. No cyanosis. BACK: no cervical, thoracic, lumbar midline tenderness. No saddle anesthesia, normal distal neurovascular exam. Moves all extremities in full range of motion. NEUROLOGICAL: Alert and oriented x3. Normal speech. Baseline tremors in the upper extremities. Cranial nerves II through XII grossly intact. Strength 5/5 in all extremities. PSYCH: Normal affect, normal mood. SKIN: Warm, dry, normal turgor. No rashes or lesions noted. Course - Re-evaluation Re-evalutation: Patient is denying any current symptoms on my evaluation. He has recorded hypoxia at 90% on room air but on my evaluation he is not hypoxic, he is not hypotensive on my evaluation either. He is not tachycardic. His lungs are clear. He is slightly chronically ill-appearing but he is nontoxic otherwise. He is talkative and interactive. CBC shows leukocytosis of 15,000 with elevation of neutrophils but no bandemia. Chemistry nonspecific, troponin negative, lactic acid is not elevated. Blood cultures are pending. Chest x-ray shows right-sided pneumonia. Patient just had COVID testing and with this was negative. Based on this I suspect patient has bacterial pneumonia. I discussed with patient and discussed potential admission. Patient states he would prefer to go home. We ambulated the patient, he did surprisingly well, he is able to ambulate without any exertion, he did not have hypoxia or tachycardia with this. As result patient will be placed on antibiotics, discharged home, discussed return precautions in detail, discussed close follow-up. Patient states appreciation and agreement, he is going home to stay with his son. - Vital Signs Vital signs: Temp Pulse Resp BP Pulse Ox 98.9 F 69 21 H 125/72 94 03/25/20 04:03 03/25/20 04:03 03/25/20 04:03 03/25/20 04:03 03/25/20 04:03 - Laboratory Result Diagrams: 03/25/20 00:28 03/25/20 00:28 Laboratory results interpreted by me: 03/25/20 03/25/20 00:28 00:28 WBC 15.6 H Lymph % (Auto) 6.4 L Absolute Neuts (auto) 13.4 H Seg Neutrophils % 85.7 H Carbon Dioxide 31 H BUN 41 H Creatinine 1.44 H Est GFR ( Amer) 58 L Est GFR (MDRD) Non-Af 48 L Glucose 118 H Total Bilirubin 1.7 H Direct Bilirubin 0.5 H Alkaline Phosphatase 155 H - EKG Interpretation by Me Additional EKG results interpreted by me: EKG shows atrial fibrillation at a rate of 71, QTc 453, normal axis, no T wave inversions or ST segment changes in consecutive leads. Discharge - Discharge Clinical Impression: Shortness of breath Pneumonia Qualifiers: Pneumonia type: due to unspecified organism Laterality: right Lung location: unspecified part of lung Qualified Code(s): J18.9 - Pneumonia, unspecified organism Condition: Stable Disposition: HOME, SELF-CARE Additional Instructions: Your work-up indicates pneumonia. Your remaining work-up is reassuring. Based on your evaluation at this time we are attempting to treat this pneumonia at home, please take the antibiotics as prescribed, we have blood cultures pending, you will be contacted for concerning results on this. Please follow-up with your primary care provider within 2 days for recheck. Come back if you are worse including difficulty breathing, spiking fevers, chest pain, or any other concerning or worsening symptoms. Prescriptions: Doxycycline Hyclate [Vibramycin 100 mg Tablet] 100 mg PO BID 7 Days #14 tablet Referrals: CARI FRASER MD [Primary Care Provider] - 03/26/20
[2020-03-25 01:20] LABS: ALBUMIN 4.1 g/dL (3.5-5.0); ALKALINE PHOSPHATASE 155 U/L (38-126); ANION GAP 8 (5-19); ASPARTATE AMINO TRANSFERASE 36 U/L (17-59); BILIRUBIN,DIRECT 0.5 mg/dL (0.0-0.4); BILIRUBIN,TOTAL 1.7 mg/dL (0.2-1.3); BLOOD UREA NITROGEN 41 mg/dL (7-20); CALCIUM 9.4 mg/dL (8.4-10.2); CARBON DIOXIDE 31 mmol/L (22-30); CHLORIDE 102 mmol/L (98-107); GLUCOSE 118 mg/dL (75-110); POTASSIUM 4.5 mmol/L (3.6-5.0); TOTAL PROTEIN 7.3 g/dL (6.3-8.2)
--- NOTE | 2020-03-25 01:26 | RADIOLOGY REPORT (SQ) ---
CLINICAL INDICATION: shortness of breath. TECHNIQUE: A single portable AP view was obtained of the chest at 0100 hours. COMPARISON: December 20, 2019. FINDINGS: The cardiomediastinal silhouette is stable. The lungs there is a patchy interstitial and airspace disease right lung base, adverse change from prior.. No evidence of effusion or pneumothorax. The visualized bones are unremarkable. IMPRESSION: Progressive right basilar interstitial and alveolar space disease, presumed infectious inflammatory.
[2020-03-25] MEDS ORDERED: NORMAL SALINE 1000 ML 1,000 ML IV ONE (01:41)
[2020-03-25 02:08] LABS: VENOUS BLOOD BASE EXCESS 2.7 mmol/L; VENOUS BLOOD HCO3 28.1 mmol/L (20-32); VENOUS BLOOD PCO2 45.9 mmHg (35-63); VENOUS BLOOD PH 7.4 (7.30-7.42)
[2020-03-25] MEDS ORDERED: DOXYCYCLINE HYCLATE 100 MG TABLET PO ONE (02:41)
[2020-03-25] MEDS ORDERED: CEFTRIAXONE 1 GM/D5W RTU 1 GM/50 ML RTUPB IV ONE (02:41)
--- NOTE | 2020-03-25 09:12 | EKG REPORT ---
SEVERITY:- ABNORMAL ECG - ATRIAL FIBRILLATION, V-RATE 57-78 LOW VOLTAGE IN FRONTAL LEADS : Confirmed by: Brenda Nichols MD 25-Mar-2020 09:10:27
[2020-03-25 10:13] VITALS: BP 111/63
== END 2020-03-25 10:15 | disposition home or self-care (01) ==
LOC: ER 00:18
DX: J18.9 Pneumonia, unspecified organism (principal); R06.02 Shortness of breath; I48.91 Unspecified atrial fibrillation; R11.0 Nausea; R63.1 Polydipsia; G20 Parkinson's disease; E11.9 Type 2 diabetes mellitus without complications; I10 Essential (primary) hypertension; Z87.891 Personal history of nicotine dependence
CPT/HCPCS: 93005; 99285; 96361; 96375; 96365; 36415; 87040; 83605; 85025; 80053; 84484; 82803; 71045; 93010; A9270; J2405; J7030; J0696